=== PATIENT | female | born 1935 | race American Indian/Alaskan Native ===

== ENCOUNTER 2017-03-25 16:12 | Emergency (ER) | payer MEDICARE, MEDICAID ==
[2017-03-25 16:54] VITALS: PULSE 68; RESP 18
--- NOTE | 2017-03-25 18:31 | C.PDOC ---
History Of Present Illness Pt was sent in from [facility] due to vaginal bleeding. She has had same symptoms recently and was evaluated for it. Pt likely has endometrial CA, but pt does not want any aggressive treatment or surgery. Time Seen by Provider: 03/25/17 16:40 Chief Complaint (Nursing): Female Genitourinary History Per: Patient, Family Onset/Duration Of Symptoms: Hrs (today) Current Symptoms Are (Timing): Still Present Severity: Mild Quality Of Discomfort: denies: "Pain" Alleviating Factors: None Additional History Per: Snf, Prior Records Abnormal Vaginal Bleeding: Yes Past Medical History Reviewed: Historical Data, Nursing Documentation, Vital Signs Vital Signs: Last Vital Signs Temp 98.2 F 03/25/17 16:54 Pulse 68 03/25/17 16:54 Resp 18 03/25/17 16:54 BP 152/77 H 03/25/17 16:54 Pulse Ox 94 L 03/25/17 16:54 - Medical History PMH: Anemia, Arthritis, Atrial Fibrillation, CAD, CHF, HTN, Hyperlipidemia, Malignancy (Metastatic breast), Rheumatoid Arthritis Surgical History: Denies: Coronary Stent (cath ) - [employer] Procedures VACCINATION NEC (08/28/14) Family History: States: Unknown Family Hx - Social History Hx Tobacco Use: No Hx Alcohol Use: No Hx Substance Use: No - Immunization History Hx Tetanus Toxoid Vaccination: No Hx Influenza Vaccination: No (2012) Hx Pneumococcal Vaccination: No (09/19/2011) Review Of Systems Constitutional: Negative for: Fever Cardiovascular: Negative for: Chest Pain, Light Headedness Respiratory: Negative for: Shortness of Breath Gastrointestinal: Negative for: Abdominal Pain Genitourinary: Positive for: Vaginal Bleeding. Negative for: Dysuria, Pelvic Pain Musculoskeletal: Negative for: Back Pain Neurological: Negative for: Dizziness Physical Exam - Physical Exam Appears: No Acute Distress, Chronically Ill Skin: Normal Color, Warm, Dry Head: Atraumatic, Normacephalic Neck: Normal ROM, Supple Cardiovascular: Rhythm Regular Respiratory: Normal Breath Sounds, No Accessory Muscle Use Gastrointestinal/Abdominal: Soft, No Tenderness Pelvic: Vaginal Bleeding (mild) Extremity: Normal ROM Neurological/Psych: Normal Cognition, Normal Motor ED Course And Treatment O2 Sat by Pulse Oximetry: 94 - Physician Consult Information Physician Contacted: Narcisa Avendano (Executive Communications Manager) Outcome Of Conversation: Pt can be started on Provera in an attemt to lessen the bleeding. Disposition Discussed With DrCarlos: Brian Avendano Comment: Pt can be sent back to the senior living. Counseled Patient/Family Regarding: Diagnosis, Need For Followup, Rx Given - Disposition Disposition: TRANSF TO SNF Disposition Time: 18:00 Condition: FAIR Additional Instructions: Follow up with your Oracle Database Developer for further evaluation and treatment. Return to the ER if you develop dizziness, heavy bleeding, worsening of symptoms or if you have any other concerns. Prescriptions: MedroxyPROGESTERone [Provera] 1 tab PO DAILY #10 tab Forms: [employer] (Panamanian), General Discharge Instructions - Clinical Impression Clinical Impression: Postmenopausal bleeding
[2017-03-25 19:15] VITALS: BP 110/72; TEMP 98.6; O2SAT 98
== END 2017-03-25 19:17 ==
LOC: C.ER 16:12
DX: N95.0 Postmenopausal bleeding (principal)

== ENCOUNTER 2017-06-16 12:51 | Inpatient (IN) | payer MEDICARE, MEDICAID ==
--- NOTE | 2017-06-16 13:41 | C.PDOC ---
History Of Present Illness 81 yr old female with PMHx of anemia, arthritis and breast cancer, sent [facility] the ER from [facility] for AMS. As per daughter and grandson, patient has been displaying altered mental status for the past 2 days, with increasing confusion and lethargy. Grandson also reports, yesterday he noticed the patient was unable to hold the spoon or fork to feed herself. As per grandson, patient also has decrease PO and fluid intake. As per halfway staff, this morning they noticed the patient had a low O2 sat but is 100% on NRBM. Denies fever, cough, chest pain, nausea, vomiting, abdominal pain, headache or dizziness. 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 ) History/Exam Limitations: None Onset/Duration Of Symptoms: Days (2) Current Symptoms Are (Timing): Still Present Past Medical History Reviewed: Historical Data, Nursing Documentation, Vital Signs Vital Signs: Last Vital Signs Temp 97.8 F 06/16/17 13:12 Pulse 88 06/16/17 14:50 Resp 22 06/16/17 14:50 BP 123/91 H 06/16/17 14:50 Pulse Ox 100 06/16/17 14:45 - Medical History PMH: Anemia, Arthritis, Atrial Fibrillation, CAD, CHF, HTN, Hyperlipidemia, Malignancy (Metastatic breast), Rheumatoid Arthritis - [facility] Procedures VACCINATION NEC (08/28/14) Family History: States: No Known Family Hx - Social History Hx Tobacco Use: No Hx Alcohol Use: No Hx Substance Use: No - Immunization History Hx Tetanus Toxoid Vaccination: No Hx Influenza Vaccination: No Hx Pneumococcal Vaccination: No Review Of Systems Except As Marked, All Systems Reviewed And Found Negative. Constitutional: Negative for: Fever Cardiovascular: Negative for: Chest Pain Gastrointestinal: Negative for: Nausea, Vomiting, Abdominal Pain Neurological: Positive for: Altered Mental Status, Other ((+) Increase confusion. Lethargy. ). Negative for: Headache, Dizziness Physical Exam - Physical Exam Appears: Non-toxic, Agitated Skin: Warm, Dry, No Rash Head: Atraumatic, Normacephalic Oral Mucosa: Moist Chest: Other (Left mastectomy. Ulceration and scar on left.) Cardiovascular: Rhythm Regular, No Murmur Respiratory: Rales (Coarse rales on the left.), No Wheezing Gastrointestinal/Abdominal: Normal Exam, Soft, No Tenderness, No Guarding, No Rebound, Other ((+) Obese.) Extremity: Pedal Edema (Bilateral pedal edema with stasis pigmentation.), No Swelling Neurological/Psych: Oriented x3, Normal Speech, Normal Motor, Normal Sensation ED Course And Treatment - Laboratory Results Result Diagrams: 06/16/17 13:38 06/16/17 13:38 Lab Interpretation: Abnormal (K+ 7, BUN 77, Cr 1.7, BNP 47321, HCO3 19) ECG: Interpreted By Me, Viewed By Me ECG Rhythm: Atrial Fibrillation Interpretation Of ECG: PVC coming in couplets. Left axis. Old Inferior and anterior infarcts. Rate From EC (BPM) O2 Sat by Pulse Oximetry: 100 (RA) Pulse Ox Interpretation: Normal - Radiology CXR: Viewed By Me, Read By Radiologist CXR Interpretation: Yes: Cardiomegaly, Other (vascular congestion with left pleural effusion) - Other Rad CXR X-Ray: Viewed By Me, Read By Radiologist Interpretation: HISTORY: SOB. COMPARISON: Chest x-ray performed 08/11/16. TECHNIQUE: Chest, one view. FINDINGS: Examination limited by habitus as well as the patient's chin and facemask. LUNGS: Moderate left pleural effusion associated consolidation. Probable small right pleural effusion. Mild pulmonary venous congestion. No definite pneumothorax. CARDIOVASCULAR: Severe cardiomegaly. OSSEOUS STRUCTURES: Degenerative changes. VISUALIZED UPPER ABDOMEN: Unremarkable. OTHER FINDINGS: None. IMPRESSION: Moderate left pleural effusion associated consolidation. Probable small right pleural effusion. Mild pulmonary venous congestion. Severe cardiomegaly. Reevaluation Time: 15:00 Reassessment Condition: Unchanged - Physician Consult Information Time Consulting Physician Contacted: 15:00 Physician Contacted: Brian Avendano Outcome Of Conversation: Patient well known to him. Will be admitted to telemetry for correction of hyperkalemia. Consultation with Dr Ventura and Dr Booker. Medical Decision Making Medical Decision Making: PLAN: * CXR * EKG * Troponin * CBC * CMP * BNP * Urinalysis Disposition - Disposition Disposition: HOSPITALIZED Disposition Time: 15:02 Condition: SERIOUS - POA Present On Arrival: None - Clinical Impression Clinical Impression: CHF (congestive heart failure), A-fib, Hyperkalemia - Scribe Statement The provider has reviewed the documentation as recorded by the Scribe Ludmila Osborn Provider Attestation: All medical record entries made by the Scribe were at my direction and personally dictated by me. I have reviewed the chart and agree that the record accurately reflects my personal performance of the history, physical exam, medical decision making, and the department course for this patient. I have also personally directed, reviewed, and agree with the discharge instructions and disposition.
[2017-06-16 13:50] LABS: BASO # 0.2 K/uL (0.0-0.2); BASO % 2.1 % (0.0-2.0); EOS % 0.3 % (0.0-4.0); LYMPH # 0.5 K/uL (1.0-4.3); LYMPH % 4.6 % (20.0-40.0); MEAN CORPUSCULAR HEMOGLOBIN 26.5 pg (27.0-31.0); MEAN CORPUSCULAR HGB CONC 29.9 g/dL (33.0-37.0); MEAN PLATELET VOLUME 10.2 fL (7.2-11.7); MONO # 1.2 K/uL (0.0-0.8); MONO % 10.9 % (0.0-10.0); NRBC % 1.8 % (0.0-2.0); PLATELET COUNT 186 K/uL (130-400)
[2017-06-16 13:53] LABS: WHITE BLOOD COUNT 10.9 K/uL (4.8-10.8)
[2017-06-16 13:54] LABS: ALB/GLOB RATIO 1.1 (1.0-2.1); BILIRUBIN,TOTAL 1.1 mg/dL (0.2-1.3); MEAN CELL VOLUME 88.8 fL (81.0-99.0); TOTAL PROTEIN 8.1 g/dL (6.3-8.3)
[2017-06-16 13:55] LABS: CALCIUM 9.1 mg/dl (8.6-10.4)
[2017-06-16 14:02] LABS: VENOUS BLOOD GAS BASE EXCESS -12.7 mmol/L (0.0-2.0); VENOUS BLOOD GAS PCO2 75 mmHg (40-60); VENOUS BLOOD PH 7.02 (7.32-7.43)
[2017-06-16 14:06] LABS: TROPONIN I 0.098 ng/mL (0.00-0.120)
[2017-06-16 14:09] LABS: POTASSIUM 6.9 mmol/L (3.6-5.2)
--- NOTE | 2017-06-16 14:10 | RAD ---
HISTORY: SOB COMPARISON: Chest x-ray performed 08/11/16 TECHNIQUE: Chest, one view. FINDINGS: Examination limited by habitus as well as the patient's chin and facemask. LUNGS: Moderate left pleural effusion associated consolidation. Probable small right pleural effusion. Mild pulmonary venous congestion. No definite pneumothorax. CARDIOVASCULAR: Severe cardiomegaly. OSSEOUS STRUCTURES: Degenerative changes. VISUALIZED UPPER ABDOMEN: Unremarkable. OTHER FINDINGS: None. IMPRESSION: Moderate left pleural effusion associated consolidation. Probable small right pleural effusion. Mild pulmonary venous congestion. Severe cardiomegaly.
[2017-06-16] MEDS ORDERED: (Novolin R) Insulin Human Regular 100 units/ml vial IV STA (14:15)
[2017-06-16] MEDS ORDERED: Dextrose 50% SYRINGE Inj (50 ml) IV STA (14:15)
[2017-06-16] MEDS ORDERED: Calcium Chloride 1000 mg/10 ml Syringe IV ONE (14:16)
[2017-06-16 14:17] LABS: EOSINOPHIL 1 % (0-4); NEUTROPHIL 78 % (50-75); TOTAL CELLS COUNTED 100
[2017-06-16] MEDS ORDERED: Calcium Gluconate 4.65 mEq/10 ml Inj ONE ×2 (14:17→14:29)
[2017-06-16] MEDS ORDERED: (Novolog) Insulin Aspart, Recombinant 100 u/ml 10 ml vial ONE (14:17)
[2017-06-16] MEDS ORDERED: Dextrose 50% SYRINGE Inj (50 ml) ONE (14:17)
[2017-06-16] MEDS ORDERED: (Novolin R) Insulin Human Regular 100 units/ml vial ONE (14:23)
[2017-06-16] MEDS ORDERED: Calcium Gluconate 4.65 mEq/10 ml Inj IVP ONE (14:26)
[2017-06-16] MEDS ORDERED: Sod Polystyrene Sulf 15 gm/60 ml Susp PO ONE ×2 (14:28→18:44)
[2017-06-16] MEDS ORDERED: Sod Polystyrene Sulf 15 gm/60 ml Susp ONE ×2 (14:29→15:05)
[2017-06-16] MEDS ORDERED: cefTRIAXone IV 1 gm in Dextros 50 ML IVPB ONE ×2 (14:50→14:55)
[2017-06-16] MEDS ORDERED: Azithromycin 500 MG in Sodium Chloride 0.9% 250 ML IVPB ONE (15:00)
[2017-06-16 15:01] LABS: RBC URINE 2 /hpf (0-3); URINE BACTERIA MANY (<OCC); URINE BILIRUBIN NEGATIVE (NEGATIVE); URINE BLOOD NEGATIVE (NEGATIVE); URINE COLOR Amber (YELLOW); URINE GLUCOSE (UA) 1+ mg/dL (Normal); URINE HYALINE CAST 0-2 /lpf (0-2); URINE KETONE NEGATIVE (NEGATIVE); URINE LEUKOCYTE ESTERASE NEG Leu/uL (Negative); URINE PROTEIN 2+ mg/dL (NEGATIVE); WBC URINE 3 /hpf (0-5)
[2017-06-16] MEDS ORDERED: Magnesium Hydroxide Susp 30 ml UD PO PRN (15:54)
--- NOTE | 2017-06-16 15:54 | CP.PCM.HP ---
History of Present Illness - History of Present Illness History of Present Illness: An 81-year-old female with an PMHanemia, arthritis, atrial fibrillation, CAD, CHF, HTN, hyperlipidemia, malignancy [metastatic ductal breast carcinoma], rheumatoid arthritis, cardiomyopathy presents to the ER from senior living for C/ Oaltered mental status. History given by patient's daughter and grandson. C/Oaltered mental status for the last 2 days, slowly progressive in nature, with increasing confusion and lethargy. C/Odifficulty in holding spoon or inability to feed herself. C/Oreduced oral intake for 2 days. No C/Ofever, cough, headache, vomiting, convulsion, burning micturition, dizziness or nausea. Present on Admission - Present on Admission Any Indicators Present on Admission: No Past Patient History - Past Medical History & Family History Past Medical History?: Yes - Past Social History Smoking Status: Never Smoked - CARDIAC Hx Atrial Fibrillation: Yes Hx Congestive Heart Failure: Yes Hx Hypertension: Yes - HEENT Other/Comment: [email or web address] - RENAL Hx Renal Failure: Yes - HEMATOLOGICAL/ONCOLOGICAL Hx Anemia: Yes - MUSCULOSKELETAL/RHEUMATOLOGICAL Hx Arthritis: Yes Hx Rheumatoid Arthritis: Yes - GASTROINTESTINAL Hx Gastroesophageal Reflux: Yes - PSYCHIATRIC Hx Substance Use: No - SURGICAL HISTORY Hx Coronary Stent: No (cath ) - ANESTHESIA Hx Anesthesia: No Hx Anesthesia Reactions: No Meds Allergies/Adverse Reactions: Allergies Allergy/AdvReac Type Severity Reaction Status Date / Time No Known Allergies Allergy Verified 03/25/17 16:15 Results - Vital Signs Recent Vital Signs: Last Vital Signs Temp 97.8 F 06/16/17 13:12 Pulse 88 06/16/17 14:50 Resp 22 06/16/17 14:50 BP 123/91 H 06/16/17 14:50 Pulse Ox 100 06/16/17 15:03 - Labs Result Diagrams: 06/28/17 07:04 06/28/17 07:04 Labs: Laboratory Results - last 24 hr 06/16/17 06/16/17 06/16/17 12:56 13:38 13:38 WBC 10.9 H D RBC 4.96 Hgb 13.2 Hct 44.0 MCV 88.8 D MCH 26.5 L MCHC 29.9 L RDW 15.0 H Plt Count 186 MPV 10.2 Neut % (Auto) 82.1 H Lymph % (Auto) 4.6 L [place] % (Auto) 10.9 H Eos % (Auto) 0.3 Baso % (Auto) 2.1 H Neut # 9.0 H Lymph # 0.5 L [place] # 1.2 H Eos # 0.0 Baso # 0.2 Neutrophils % (Manual) 78 H Band Neutrophils % 2 Lymphocytes % (Manual) 9 L Monocytes % (Manual) 10 Eosinophils % (Manual) 1 Platelet Estimate Normal RBC Morphology Normal pO2 VBG pH VBG pCO2 VBG HCO3 VBG Total CO2 VBG O2 Sat (Calc) VBG Base Excess VBG Potassium Glucose Lactate Crit Value Called To Crit Value Called By Crit Value Read Back Blood Gas Notified Time Sodium 133 Potassium 6.9 H* D Chloride 104 Carbon Dioxide 19 L Anion Gap 17 BUN 77 H Creatinine 1.7 H Est GFR ( Amer) 35 Est GFR (Non-Af Amer) 29 POC Glucose (mg/dL) 170 H Random Glucose 133 H Calcium 9.1 Total Bilirubin 1.1 AST 99 H ALT 126 H D Alkaline Phosphatase 83 Troponin I 0.0980 NT-Pro-B Natriuret Pep 85461 H Total Protein 8.1 Albumin 4.2 Globulin 3.9 Albumin/Globulin Ratio 1.1 Venous Blood Potassium Urine Color Urine Clarity Urine pH Ur Specific [place] Urine Protein Urine Glucose (UA) Urine Ketones Urine Blood Urine Nitrate Urine Bilirubin Urine Urobilinogen Ur Leukocyte Esterase Urine WBC (Auto) Urine RBC (Auto) Ur Squamous Epith Cells Urine Bacteria Hyaline Casts 06/16/17 06/16/17 13:55 14:49 WBC RBC Hgb Hct MCV MCH MCHC RDW Plt Count MPV Neut % (Auto) Lymph % (Auto) [place] % (Auto) Eos % (Auto) Baso % (Auto) Neut # Lymph # [place] # Eos # Baso # Neutrophils % (Manual) Band Neutrophils % Lymphocytes % (Manual) Monocytes % (Manual) Eosinophils % (Manual) Platelet Estimate RBC Morphology pO2 35 VBG pH 7.02 L* VBG pCO2 75 H* VBG HCO3 13.4 VBG Total CO2 21.7 L VBG O2 Sat (Calc) 65.3 H VBG Base Excess -12.7 L VBG Potassium 7.1 H* Glucose 153 H Lactate 1.3 Crit Value Called To Dr nora donis Crit Value Called By Joey fernandes Crit Value Read Back Y Blood Gas Notified Time 1400 Sodium 133.0 Potassium Chloride 106.0 Carbon Dioxide Anion Gap BUN Creatinine Est GFR ( Amer) Est GFR (Non-Af Amer) POC Glucose (mg/dL) Random Glucose Calcium Total Bilirubin AST ALT Alkaline Phosphatase Troponin I NT-Pro-B Natriuret Pep Total Protein Albumin Globulin Albumin/Globulin Ratio Venous Blood Potassium 7.1 H* Urine Color Flory Urine Clarity Hazy Urine pH 5.0 Ur Specific [place] 1.016 Urine Protein 2+ H Urine Glucose (UA) 1+ Urine Ketones Negative Urine Blood Negative Urine Nitrate Negative Urine Bilirubin Negative Urine Urobilinogen 2.0 H Ur Leukocyte Esterase Neg Urine WBC (Auto) 3 Urine RBC (Auto) 2 Ur Squamous Epith Cells 2 Urine Bacteria Many H Hyaline Casts 0-2
[2017-06-16 16:11] LABS: BILIRUBIN,TOTAL 1.3 mg/dL (0.2-1.3)
[2017-06-16 16:12] LABS: ALB/GLOB RATIO 1.5 (1.0-2.1); CALCIUM 9.2 mg/dl (8.6-10.4)
[2017-06-16 16:15] LABS: POTASSIUM 6.3 mmol/L (3.6-5.2)
[2017-06-16] MEDS: Brimonidine 0.2% Opth Sol (5ml) OU SCH ×2 (19:05→22:30)
[2017-06-16] MEDS: Sodium Chloride 0.45% 1,000 ML IV SCH (19:21)
--- NOTE | 2017-06-16 19:54 | CP.PCM.CON ---
History of Present Illness - History of Present Illness History of Present Illness: reason for consultation: pleural effusion 81-year-old female with history off metastatic breast cancer, atrial fibrillation, anemia [facility] and change in mental status. Chest x-ray done showed moderate left pleural effusion. Patient hypoxic and on 100% nonrebreather mask. Patient also being treated for hyperkalemia. according to family patient with poor oral intake Review of Systems - Review of Systems All systems: reviewed and no additional remarkable complaints except (shortness of breathand change in mental status) Past Patient History - Past Medical History & Family History Past Medical History?: Yes - Past Social History Smoking Status: Never Smoked - CARDIAC Hx Atrial Fibrillation: Yes Hx Congestive Heart Failure: Yes Hx Hypertension: Yes - HEENT Other/Comment: [email or web address] - RENAL Hx Renal Failure: Yes - HEMATOLOGICAL/ONCOLOGICAL Hx Anemia: Yes - MUSCULOSKELETAL/RHEUMATOLOGICAL Hx Arthritis: Yes Hx Rheumatoid Arthritis: Yes - GASTROINTESTINAL Hx Gastroesophageal Reflux: Yes - PSYCHIATRIC Hx Substance Use: No - SURGICAL HISTORY Hx Coronary Stent: No (cath ) - ANESTHESIA Hx Anesthesia: No Hx Anesthesia Reactions: No Meds Allergies/Adverse Reactions: Allergies Allergy/AdvReac Type Severity Reaction Status Date / Time No Known Allergies Allergy Verified 03/25/17 16:15 - Medications Medications: Current Medications Albuterol/Ipratropium (Duoneb 3 Mg/0.5 Mg (3 Ml) Ud) 3 ml INH RQ6 [facility] Ascorbic Acid (Vitamin C 500 Mg Tab) 500 mg PO DAILY [facility] Brimonidine Tartrate (Alphagan 0.2% Opht) 0.2 ml OU QID [facility] Last Admin: 06/16/17 19:05 Dose: 1 drop Docusate Sodium (Colace) 100 mg PO DAILY [facility] Enoxaparin Sodium (Lovenox) 30 mg SC DAILY [facility] Famotidine (Pepcid) 20 mg PO BID [facility] Home Med ([place] Tribromoph/Petrolatum [Xeroflo Gauze Dressing]) 1 each TP DAILY [facility] Sodium Chloride (Sodium Chloride 0.45%) 1,000 mls @ 40 mls/hr IV .Q24H [facility] Last Admin: 06/16/17 19:21 Dose: 40 mls/hr Magnesium Hydroxide (Milk Of Magnesia) 30 ml PO Q6H PRN PRN Reason: Constipation Rosuvastatin Calcium (Crestor) 5 mg PO HS [facility] Tetracaine HCl (Tetracaine 0.5% Ophth Soln) 1 drop OD DAILY [facility] Timolol Maleate (Timoptic 0.5% Ophth Soln) 1 drop OU QID [facility] Last Admin: 06/16/17 19:04 Dose: 1 drop Physical Exam - Head Exam Head Exam: ATRAUMATIC, NORMOCEPHALIC - ENT Exam ENT Exam: Mucous Membranes Moist - Neck Exam Neck exam: Positive for: Normal Inspection - Respiratory Exam Respiratory Exam: Decreased Breath Sounds - Cardiovascular Exam Cardiovascular Exam: Irregular Rhythm - GI/Abdominal Exam GI & Abdominal Exam: Normal Bowel Sounds, Soft - Extremities Exam Extremities exam: Positive for: pedal edema - Neurological Exam Neurological exam: Altered Results - Vital Signs Recent Vital Signs: Last Vital Signs Temp 97.7 F 06/16/17 16:40 Pulse 72 06/16/17 16:40 Resp 20 06/16/17 16:40 BP 129/84 06/16/17 16:40 Pulse Ox 99 06/16/17 16:40 - Labs Result Diagrams: 06/16/17 13:38 06/16/17 15:57 Labs: Laboratory Results - last 24 hr 06/16/17 06/16/17 06/16/17 12:56 13:38 13:38 WBC 10.9 H D RBC 4.96 Hgb 13.2 Hct 44.0 MCV 88.8 D MCH 26.5 L MCHC 29.9 L RDW 15.0 H Plt Count 186 MPV 10.2 Neut % (Auto) 82.1 H Lymph % (Auto) 4.6 L [place] % (Auto) 10.9 H Eos % (Auto) 0.3 Baso % (Auto) 2.1 H Neut # 9.0 H Lymph # 0.5 L [place] # 1.2 H Eos # 0.0 Baso # 0.2 Neutrophils % (Manual) 78 H Band Neutrophils % 2 Lymphocytes % (Manual) 9 L Monocytes % (Manual) 10 Eosinophils % (Manual) 1 Platelet Estimate Normal RBC Morphology Normal pO2 VBG pH VBG pCO2 VBG HCO3 VBG Total CO2 VBG O2 Sat (Calc) VBG Base Excess VBG Potassium Glucose Lactate Crit Value Called To Crit Value Called By Crit Value Read Back Blood Gas Notified Time Sodium 133 Potassium 6.9 H* D Chloride 104 Carbon Dioxide 19 L Anion Gap 17 BUN 77 H Creatinine 1.7 H Est GFR ( Amer) 35 Est GFR (Non-Af Amer) 29 POC Glucose (mg/dL) 170 H Random Glucose 133 H Calcium 9.1 Total Bilirubin 1.1 AST 99 H ALT 126 H D Alkaline Phosphatase 83 Troponin I 0.0980 NT-Pro-B Natriuret Pep 61362 H Total Protein 8.1 Albumin 4.2 Globulin 3.9 Albumin/Globulin Ratio 1.1 Venous Blood Potassium Urine Color Urine Clarity Urine pH Ur Specific [place] Urine Protein Urine Glucose (UA) Urine Ketones Urine Blood Urine Nitrate Urine Bilirubin Urine Urobilinogen Ur Leukocyte Esterase Urine WBC (Auto) Urine RBC (Auto) Ur Squamous Epith Cells Urine Bacteria Hyaline Casts 06/16/17 06/16/17 06/16/17 13:55 14:49 15:57 WBC RBC Hgb Hct MCV MCH MCHC RDW Plt Count MPV Neut % (Auto) Lymph % (Auto) [place] % (Auto) Eos % (Auto) Baso % (Auto) Neut # Lymph # [place] # Eos # Baso # Neutrophils % (Manual) Band Neutrophils % Lymphocytes % (Manual) Monocytes % (Manual) Eosinophils % (Manual) Platelet Estimate RBC Morphology pO2 35 VBG pH 7.02 L* VBG pCO2 75 H* VBG HCO3 13.4 VBG Total CO2 21.7 L VBG O2 Sat (Calc) 65.3 H VBG Base Excess -12.7 L VBG Potassium 7.1 H* Glucose 153 H Lactate 1.3 Crit Value Called To Dr nora donis Crit Value Called By Joey fernandes Crit Value Read Back Y Blood Gas Notified Time 1400 Sodium 133.0 136 Potassium 6.3 H* Chloride 106.0 105 Carbon Dioxide 18 L Anion Gap 19 BUN 78 H Creatinine 1.8 H Est GFR ( Amer) 33 Est GFR (Non-Af Amer) 27 POC Glucose (mg/dL) Random Glucose 137 H Calcium 9.2 Total Bilirubin 1.3 AST 100 H ALT 114 H Alkaline Phosphatase 69 Troponin I NT-Pro-B Natriuret Pep Total Protein 7.0 Albumin 4.2 Globulin 2.8 Albumin/Globulin Ratio 1.5 Venous Blood Potassium 7.1 H* Urine Color [place] Urine Clarity Hazy Urine pH 5.0 Ur Specific [place] 1.016 Urine Protein 2+ H Urine Glucose (UA) 1+ Urine Ketones Negative Urine Blood Negative Urine Nitrate Negative Urine Bilirubin Negative Urine Urobilinogen 2.0 H Ur Leukocyte Esterase Neg Urine WBC (Auto) 3 Urine RBC (Auto) 2 Ur Squamous Epith Cells 2 Urine Bacteria Many H Hyaline Casts 0-2 Assessment & Plan (1) Pleural effusion Status: Acute Comment: rule out secondary to malignancy. CAT scan of the chest without contrast. Possible thoracentesis if family agrees. Continue present treatment (2) Neoplasm of breast, distant metastasis staging category cM0(i+) per [place] [employer] on Cancer Staging [employer], 7th edition Status: Chronic Priority: Medium
[2017-06-16] MEDS: Albuterol-Ipratrop 3 mg / 0.5 (3 ml) UD INH SCH (20:19)
--- NOTE | 2017-06-16 22:24 | CP.PCM.CON ---
History of Present Illness - History of Present Illness History of Present Illness: Ms. Dolan is an 81 year old female with a history of cardiomyopathy, ulcerating left breast mass which was biopsy proven as ductal breast carcinoma diagnosed 05/2013, admitted with altered mental status. The patient is known to me from a prior admission in 2012. At the time, she and her family agreed to only hormonal therapy. They did not wish chemotherapy. She was taking Tamoxifen at the time with improvement in her breast ulceration. I am unaware of her ER/MI/HER2 status or staging work up. Past medical, surgical, family, social history cannot be obtained due to her AMS. Allergies: Per documentation [facility] Review of systems cannot be obtained. Past Patient History - Past Medical History & Family History Past Medical History?: Yes - Past Social History Smoking Status: Never Smoked - CARDIAC Hx Atrial Fibrillation: Yes Hx Congestive Heart Failure: Yes Hx Hypertension: Yes - PULMONARY Hx Respiratory Disorders: No - NEUROLOGICAL Hx Neurological Disorder: No - HEENT Other/Comment: [email or web address] - RENAL Hx Renal Failure: Yes - ENDOCRINE/METABOLIC Hx Endocrine Disorders: No - HEMATOLOGICAL/ONCOLOGICAL Hx Anemia: Yes - INTEGUMENTARY Hx Dermatological Problems: Yes Other/Comment: left breast wounds X2 - MUSCULOSKELETAL/RHEUMATOLOGICAL Hx Arthritis: Yes Hx Rheumatoid Arthritis: Yes - GASTROINTESTINAL Hx Gastroesophageal Reflux: Yes - GENITOURINARY/GYNECOLOGICAL Hx Genitourinary Disorders: No - PSYCHIATRIC Hx Substance Use: No - SURGICAL HISTORY Hx Coronary Stent: No (cath ) - ANESTHESIA Hx Anesthesia: No Hx Anesthesia Reactions: No Meds Allergies/Adverse Reactions: Allergies Allergy/AdvReac Type Severity Reaction Status Date / Time No Known Allergies Allergy Verified 03/25/17 16:15 - Medications Medications: Current Medications Albuterol/Ipratropium (Duoneb 3 Mg/0.5 Mg (3 Ml) Ud) 3 ml INH RQ6 [facility] Last Admin: 06/16/17 20:19 Dose: 3 ml Ascorbic Acid (Vitamin C 500 Mg Tab) 500 mg PO DAILY [facility] Brimonidine Tartrate (Alphagan 0.2% Opht) 0.2 ml OU QID [facility] Last Admin: 06/16/17 19:05 Dose: 1 drop Docusate Sodium (Colace) 100 mg PO DAILY [facility] Enoxaparin Sodium (Lovenox) 30 mg SC DAILY [facility] Famotidine (Pepcid) 20 mg PO BID [facility] Home Med (Bismuth Tribromoph/Petrolatum [Xeroflo Gauze Dressing]) 1 each TP DAILY [facility] Sodium Chloride (Sodium Chloride 0.45%) 1,000 mls @ 40 mls/hr IV .Q24H [facility] Last Admin: 06/16/17 19:21 Dose: 40 mls/hr Magnesium Hydroxide (Milk Of Magnesia) 30 ml PO Q6H PRN PRN Reason: Constipation Rosuvastatin Calcium (Crestor) 5 mg PO HS [facility] Tetracaine HCl (Tetracaine 0.5% Ophth Soln) 1 drop OD DAILY [facility] Timolol Maleate (Timoptic 0.5% Ophth Soln) 1 drop OU QID [facility] Last Admin: 06/16/17 19:04 Dose: 1 drop Physical Exam - Head Exam Head Exam: ATRAUMATIC - Eye Exam Eye Exam: Normal appearance - ENT Exam ENT Exam: Mucous Membranes Dry - Respiratory Exam Respiratory Exam: Decreased Breath Sounds - Cardiovascular Exam Cardiovascular Exam: +S1, +S2 - GI/Abdominal Exam GI & Abdominal Exam: Normal Bowel Sounds - Neurological Exam Neurological exam: Altered - Psychiatric Exam Psychiatric exam: Flat Affect - Skin Skin Exam: Warm Results - Vital Signs Recent Vital Signs: Last Vital Signs Temp 97.7 F 06/16/17 16:40 Pulse 68 06/16/17 20:21 Resp 20 06/16/17 16:40 BP 129/84 06/16/17 16:40 Pulse Ox 99 06/16/17 17:42 - Labs Result Diagrams: 06/16/17 13:38 06/16/17 15:57 Labs: Laboratory Results - last 24 hr 06/16/17 06/16/17 06/16/17 12:56 13:38 13:38 WBC 10.9 H D RBC 4.96 Hgb 13.2 Hct 44.0 MCV 88.8 D MCH 26.5 L MCHC 29.9 L RDW 15.0 H Plt Count 186 MPV 10.2 Neut % (Auto) 82.1 H Lymph % (Auto) 4.6 L [place] % (Auto) 10.9 H Eos % (Auto) 0.3 Baso % (Auto) 2.1 H Neut # 9.0 H Lymph # 0.5 L [place] # 1.2 H Eos # 0.0 Baso # 0.2 Neutrophils % (Manual) 78 H Band Neutrophils % 2 Lymphocytes % (Manual) 9 L Monocytes % (Manual) 10 Eosinophils % (Manual) 1 Platelet Estimate Normal RBC Morphology Normal pO2 VBG pH VBG pCO2 VBG HCO3 VBG Total CO2 VBG O2 Sat (Calc) VBG Base Excess VBG Potassium Glucose Lactate Crit Value Called To Crit Value Called By Crit Value Read Back Blood Gas Notified Time Sodium 133 Potassium 6.9 H* D Chloride 104 Carbon Dioxide 19 L Anion Gap 17 BUN 77 H Creatinine 1.7 H Est GFR ( Amer) 35 Est GFR (Non-Af Amer) 29 POC Glucose (mg/dL) 170 H Random Glucose 133 H Calcium 9.1 Total Bilirubin 1.1 AST 99 H ALT 126 H D Alkaline Phosphatase 83 Troponin I 0.0980 NT-Pro-B Natriuret Pep 40841 H Total Protein 8.1 Albumin 4.2 Globulin 3.9 Albumin/Globulin Ratio 1.1 Venous Blood Potassium Urine Color Urine Clarity Urine pH Ur Specific [place] Urine Protein Urine Glucose (UA) Urine Ketones Urine Blood Urine Nitrate Urine Bilirubin Urine Urobilinogen Ur Leukocyte Esterase Urine WBC (Auto) Urine RBC (Auto) Ur Squamous Epith Cells Urine Bacteria Hyaline Casts 06/16/17 06/16/17 06/16/17 13:55 14:49 15:57 WBC RBC Hgb Hct MCV MCH MCHC RDW Plt Count MPV Neut % (Auto) Lymph % (Auto) [place] % (Auto) Eos % (Auto) Baso % (Auto) Neut # Lymph # [place] # Eos # Baso # Neutrophils % (Manual) Band Neutrophils % Lymphocytes % (Manual) Monocytes % (Manual) Eosinophils % (Manual) Platelet Estimate RBC Morphology pO2 35 VBG pH 7.02 L* VBG pCO2 75 H* VBG HCO3 13.4 VBG Total CO2 21.7 L VBG O2 Sat (Calc) 65.3 H VBG Base Excess -12.7 L VBG Potassium 7.1 H* Glucose 153 H Lactate 1.3 Crit Value Called To Dr nora donis Crit Value Called By Joey fernandes Crit Value Read Back Y Blood Gas Notified Time 1400 Sodium 133.0 136 Potassium 6.3 H* Chloride 106.0 105 Carbon Dioxide 18 L Anion Gap 19 BUN 78 H Creatinine 1.8 H Est GFR ( Amer) 33 Est GFR (Non-Af Amer) 27 POC Glucose (mg/dL) Random Glucose 137 H Calcium 9.2 Total Bilirubin 1.3 AST 100 H ALT 114 H Alkaline Phosphatase 69 Troponin I NT-Pro-B Natriuret Pep Total Protein 7.0 Albumin 4.2 Globulin 2.8 Albumin/Globulin Ratio 1.5 Venous Blood Potassium 7.1 H* Urine Color Flory Urine Clarity Hazy Urine pH 5.0 Ur Specific [place] 1.016 Urine Protein 2+ H Urine Glucose (UA) 1+ Urine Ketones Negative Urine Blood Negative Urine Nitrate Negative Urine Bilirubin Negative Urine Urobilinogen 2.0 H Ur Leukocyte Esterase Neg Urine WBC (Auto) 3 Urine RBC (Auto) 2 Ur Squamous Epith Cells 2 Urine Bacteria Many H Hyaline Casts 0-2 Assessment & Plan (1) Altered mental status Assessment and Plan: given history of breast cancer, will need to rule out brain metastasis will send for non contrast scan for now given renal failure Status: Acute (2) Pleural effusion Assessment and Plan: rule out malignant ascites pulmonary following Status: Acute (3) Breast cancer Assessment and Plan: supportive care for now was on hormonal treatment in the past Thank you for this interesting consult. Status: Acute
--- NOTE | 2017-06-16 23:22 | CP.PCM.CON ---
History of Present Illness - History of Present Illness History of Present Illness: 81 F with hx of CHF, Dementia admitted for Hyperkalemia and acute renal failure Received Kayexalate Physical Examination - Constitutional Appears: Non-toxic, Chronically Ill - Head Exam Head Exam: NORMOCEPHALIC - Eye Exam Eye Exam: PERRL - ENT Exam ENT Exam: Mucous Membranes Dry, Normal External Ear Exam - Neck Exam Neck Exam: absent: Lymphadenopathy - Respiratory Exam Respiratory Exam: Decreased Breath Sounds - Cardiovascular Exam Cardiovascular Exam: REGULAR RHYTHM - GI/Abdominal Exam GI & Abdominal Exam: Distended, Soft - Rectal Exam Rectal Exam: Deferred - Exam Exam: NORMAL INSPECTION - Extremities Exam Extremities Exam: absent: Pedal Edema - Back Exam Back Exam: absent: CVA tenderness (L), CVA tenderness (R) - Neurological Exam Neurological Exam: Alert, Altered, Awake - Psychiatric Exam Psychiatric exam: Depressed - Skin Skin Exam: Dry Past Patient History - Past Medical History & Family History Past Medical History?: Yes - Past Social History Smoking Status: Never Smoked - CARDIAC Hx Atrial Fibrillation: Yes Hx Congestive Heart Failure: Yes Hx Hypertension: Yes - PULMONARY Hx Respiratory Disorders: No - NEUROLOGICAL Hx Neurological Disorder: No - HEENT Other/Comment: [email or web address] - RENAL Hx Renal Failure: Yes - ENDOCRINE/METABOLIC Hx Endocrine Disorders: No - HEMATOLOGICAL/ONCOLOGICAL Hx Anemia: Yes - INTEGUMENTARY Hx Dermatological Problems: Yes Other/Comment: left breast wounds X2 - MUSCULOSKELETAL/RHEUMATOLOGICAL Hx Arthritis: Yes Hx Rheumatoid Arthritis: Yes - GASTROINTESTINAL Hx Gastroesophageal Reflux: Yes - GENITOURINARY/GYNECOLOGICAL Hx Genitourinary Disorders: No - PSYCHIATRIC Hx Substance Use: No - SURGICAL HISTORY Hx Coronary Stent: No (cath ) - ANESTHESIA Hx Anesthesia: No Hx Anesthesia Reactions: No Meds Allergies/Adverse Reactions: Allergies Allergy/AdvReac Type Severity Reaction Status Date / Time No Known Allergies Allergy Verified 03/25/17 16:15 - Medications Medications: Current Medications Albuterol/Ipratropium (Duoneb 3 Mg/0.5 Mg (3 Ml) Ud) 3 ml INH RQ6 [facility] Last Admin: 06/16/17 20:19 Dose: 3 ml Ascorbic Acid (Vitamin C 500 Mg Tab) 500 mg PO DAILY [facility] Brimonidine Tartrate (Alphagan 0.2% Opht) 0.2 ml OU QID [facility] Last Admin: 06/16/17 22:30 Dose: 1 drop Docusate Sodium (Colace) 100 mg PO DAILY [facility] Enoxaparin Sodium (Lovenox) 30 mg SC DAILY [facility] Famotidine (Pepcid) 20 mg PO BID [facility] Home Med (Bismuth Tribromoph/Petrolatum [Xeroflo Gauze Dressing]) 1 each TP DAILY [facility] Sodium Chloride (Sodium Chloride 0.45%) 1,000 mls @ 40 mls/hr IV .Q24H [facility] Last Admin: 06/16/17 19:21 Dose: 40 mls/hr Magnesium Hydroxide (Milk Of Magnesia) 30 ml PO Q6H PRN PRN Reason: Constipation Rosuvastatin Calcium (Crestor) 5 mg PO HS [facility] Last Admin: 06/16/17 22:29 Dose: 5 mg Tetracaine HCl (Tetracaine 0.5% Ophth Soln) 1 drop OD DAILY [facility] Timolol Maleate (Timoptic 0.5% Ophth Soln) 1 drop OU QID [facility] Last Admin: 06/16/17 22:29 Dose: 1 drop Results - Vital Signs Recent Vital Signs: Last Vital Signs Temp 97.7 F 06/16/17 16:40 Pulse 68 06/16/17 20:21 Resp 20 06/16/17 16:40 BP 129/84 06/16/17 16:40 Pulse Ox 99 06/16/17 17:42 - Labs Result Diagrams: 06/24/17 06:35 06/24/17 06:35 Labs: Laboratory Results - last 24 hr 06/16/17 06/16/17 06/16/17 12:56 13:38 13:38 WBC 10.9 H D RBC 4.96 Hgb 13.2 Hct 44.0 MCV 88.8 D MCH 26.5 L MCHC 29.9 L RDW 15.0 H Plt Count 186 MPV 10.2 Neut % (Auto) 82.1 H Lymph % (Auto) 4.6 L [place] % (Auto) 10.9 H Eos % (Auto) 0.3 Baso % (Auto) 2.1 H Neut # 9.0 H Lymph # 0.5 L [place] # 1.2 H Eos # 0.0 Baso # 0.2 Neutrophils % (Manual) 78 H Band Neutrophils % 2 Lymphocytes % (Manual) 9 L Monocytes % (Manual) 10 Eosinophils % (Manual) 1 Platelet Estimate Normal RBC Morphology Normal pO2 VBG pH VBG pCO2 VBG HCO3 VBG Total CO2 VBG O2 Sat (Calc) VBG Base Excess VBG Potassium Glucose Lactate Crit Value Called To Crit Value Called By Crit Value Read Back Blood Gas Notified Time Sodium 133 Potassium 6.9 H* D Chloride 104 Carbon Dioxide 19 L Anion Gap 17 BUN 77 H Creatinine 1.7 H Est GFR ( Amer) 35 Est GFR (Non-Af Amer) 29 POC Glucose (mg/dL) 170 H Random Glucose 133 H Calcium 9.1 Total Bilirubin 1.1 AST 99 H ALT 126 H D Alkaline Phosphatase 83 Troponin I 0.0980 NT-Pro-B Natriuret Pep 19294 H Total Protein 8.1 Albumin 4.2 Globulin 3.9 Albumin/Globulin Ratio 1.1 Venous Blood Potassium Urine Color Urine Clarity Urine pH Ur Specific [place] Urine Protein Urine Glucose (UA) Urine Ketones Urine Blood Urine Nitrate Urine Bilirubin Urine Urobilinogen Ur Leukocyte Esterase Urine WBC (Auto) Urine RBC (Auto) Ur Squamous Epith Cells Urine Bacteria Hyaline Casts 06/16/17 06/16/17 06/16/17 13:55 14:49 15:57 WBC RBC Hgb Hct MCV MCH MCHC RDW Plt Count MPV Neut % (Auto) Lymph % (Auto) [place] % (Auto) Eos % (Auto) Baso % (Auto) Neut # Lymph # [place] # Eos # Baso # Neutrophils % (Manual) Band Neutrophils % Lymphocytes % (Manual) Monocytes % (Manual) Eosinophils % (Manual) Platelet Estimate RBC Morphology pO2 35 VBG pH 7.02 L* VBG pCO2 75 H* VBG HCO3 13.4 VBG Total CO2 21.7 L VBG O2 Sat (Calc) 65.3 H VBG Base Excess -12.7 L VBG Potassium 7.1 H* Glucose 153 H Lactate 1.3 Crit Value Called To Dr nora donis Crit Value Called By Joey fernandes Crit Value Read Back Y Blood Gas Notified Time 1400 Sodium 133.0 136 Potassium 6.3 H* Chloride 106.0 105 Carbon Dioxide 18 L Anion Gap 19 BUN 78 H Creatinine 1.8 H Est GFR ( Amer) 33 Est GFR (Non-Af Amer) 27 POC Glucose (mg/dL) Random Glucose 137 H Calcium 9.2 Total Bilirubin 1.3 AST 100 H ALT 114 H Alkaline Phosphatase 69 Troponin I NT-Pro-B Natriuret Pep Total Protein 7.0 Albumin 4.2 Globulin 2.8 Albumin/Globulin Ratio 1.5 Venous Blood Potassium 7.1 H* Urine Color Flory Urine Clarity Hazy Urine pH 5.0 Ur Specific [place] 1.016 Urine Protein 2+ H Urine Glucose (UA) 1+ Urine Ketones Negative Urine Blood Negative Urine Nitrate Negative Urine Bilirubin Negative Urine Urobilinogen 2.0 H Ur Leukocyte Esterase Neg Urine WBC (Auto) 3 Urine RBC (Auto) 2 Ur Squamous Epith Cells 2 Urine Bacteria Many H Hyaline Casts 0-2 Assessment & Plan - Assessment and Plan (Free Text) Assessment: (1) CAD and Diastolic CHF Chronic Assessment and Plan: Conserative mgt with ASA and Lasix (2) Altered mental status Assessment and Plan: given history of breast cancer, will need to rule out brain metastasis will send for non contrast scan for now given renal failure Status: Acute (3) Pleural effusion Assessment and Plan: rule out malignant ascites pulmonary following Status: Acute (4) Breast cancer Assessment and Plan: supportive care for now was on hormonal treatment in the past
[2017-06-17] MEDS: Albuterol-Ipratrop 3 mg / 0.5 (3 ml) UD INH SCH ×4 (01:03→20:40)
[2017-06-17] MEDS ORDERED: ASCORBIC ACID PO SCH (10:00)
[2017-06-17] MEDS ORDERED: [UNRECOGNIZED DRUG - OTHER] PO SCH (10:00)
[2017-06-17] MEDS: Enoxaparin 30 mg Syringe SC SCH (10:50)
[2017-06-17] MEDS: Tetracaine 0.5% Ophth 2 ML BOTTLE OD SCH (10:51)
[2017-06-17] MEDS: Brimonidine 0.2% Opth Sol (5ml) OU SCH ×4 (10:51→21:38)
--- NOTE | 2017-06-17 12:35 | CT ---
PROCEDURE: CT HEAD WITHOUT CONTRAST. HISTORY: breast cancer, AMS; rule out metastasis COMPARISON: None available. TECHNIQUE: Axial computed tomography images were obtained through the head/brain without intravenous contrast. Radiation dose: Total exam DLP = 937.48 mGy-cm. This CT exam was performed using one or more of the following dose reduction techniques: Automated exposure control, adjustment of the mA and/or kV according to patient size, and/or use of iterative reconstruction technique. FINDINGS: Examination is severely degraded by motion artifact. HEMORRHAGE: No intracranial hemorrhage. BRAIN: Diffuse atrophy with prominence of the ventricles and sulci noted. No mass effect or edema. Scattered white matter hypodensities, which are nonspecific, but often seen with chronic microvascular ischemic disease. Suspect left frontal lobe encephalomalacia. VENTRICLES: No hydrocephalus. CALVARIUM: Unremarkable. PARANASAL SINUSES: Grossly unremarkable. MASTOID AIR CELLS: Grossly unremarkable. OTHER FINDINGS: None. IMPRESSION: Examination is severely degraded by motion artifact. Recommend repeat study when clinically feasible. Suspect encephalomalacia within the left frontal lobe. Nonspecific white matter changes. Generalized atrophy. Please note the metastases cannot be excluded on the basis of a noncontrast head CT. MRI without and with IV contrast when or if clinically feasible suggested for further evaluation.
--- NOTE | 2017-06-17 12:50 | CP.PCM.CON ---
History of Present Illness - History of Present Illness History of Present Illness: 81 yr old female with PMHx of anemia, arthritis and breast cancer, sent [facility] the ER from [facility] for [facility]MS. As per daughter patient has been displaying altered mental status for the past 2 days, with increasing confusion and lethargy and yesterday was noticed that the patient was unable to hold the spoon or fork to feed herself and therefore has decrease PO and fluid intake. On admission patient was noted malgorzata be SOB with hypoxemia requiring NRBM. A CXR shwed Large left effusion/ infiltrates ID consulted for this Pt cant provide adequate details of her illness - Medical History PMH: Anemia, Arthritis, Atrial Fibrillation, CAD, Cardiomyopathy CHF, HTN, Hyperlipidemia, Malignancy (Metastatic breast), Rheumatoid Arthritis - [facility] Procedures VACCINATION NEC (08/28/14) Review of Systems - Review of Systems Systems not reviewed;Unavailable: Altered Mental Status All systems: reviewed and no additional remarkable complaints except - Constitutional Constitutional: As Per HPI - EENT Eyes: absent: As Per HPI, Blind Spots, Blurred Vision, Change in Vision, Decreased Night Vision, Diplopia, Discharge, Dry Eye, Exophthalmos, Floaters, Irritation, Itchy Eyes, Loss of Peripheral Vision, Pain, Photophobia, Requires Corrective Lenses, Sees Flashes, Spots in Vision, Tunnel Vision, Other Visual Disturbances, Loss of Vision, Other Ears: absent: As Per HPI, Decreased Hearing, Ear Discharge, Ear Pain, Tinnitus, Abnormal Hearing, Disequilibrium, Dizziness, Other Nose/Mouth/Throat: absent: As Per HPI, Epistaxis, Nasal Congestion, Nasal Discharge, Nasal Obstruction, Nasal Trauma, Nose Pain, Post Nasal Drip, Sinus Pain, Sinus Pressure, Bleeding Gums, Change in Voice, Dental Pain, Dry Mouth, Dysphagia, Halitosis, Hoarsness, Lip Swelling, Mouth Lesions, Mouth Pain, Odynophagia, Sore Throat, Throat Swelling, Tongue Swelling, Facial Pain, Neck Pain, Neck Mass, Other - Breasts Breasts: As Per HPI - Cardiovascular Cardiovascular: As Per HPI - Respiratory Respiratory: As Per HPI, Cough, Dyspnea. absent: Hemoptysis - Gastrointestinal Gastrointestinal: absent: As Per HPI, Abdominal Pain, Belching, Bloating, Change in Bowel Habits, Change in Stool Character, Coffee Ground Emesis, Constipation, Cramping, Diarrhea, Dyspepsia, Dysphagia, Early Satiety, Excessive Flatus, Fecal Incontinence, Heartburn, Hematemesis, Hematochezia, Loose Stools, Melena, Nausea, Odynophagia, Temesmus, Vomiting, Other - Genitourinary Genitourinary: absent: As Per HPI, Change in Urinary Stream, Difficulty Urinating, Dysuria, Flank Pain, Hematuria, Pyuria, Nocturia, Urinary Incontinence, Urinary Frequency, Urinary Hesitance, Urinary Urgency, Voiding Freq/Small Amts, Freq UTI, Hx Renal/Bladder Calculi, Hx /Renal Surgery, Bladder Distension, Other - Reproductive: Female Reproductive:Female: absent: As Per HPI, Amenorrhea, Amenorrhea/ Control, Currently Menstual, Cycle <21 Days, Cycle >35 Days, Cycle Variable, Menses 1-7 Days, Menses >/= 8 Days, Menses Variable, Cycle > 4 Weeks Between, No Menses for 6 Months, Heavy Menses, Light Menses, Normal Menses, Spotting Between Cycles , S/P Hysterectomy, Menopausal, Post Menopausal, Premenarche, Abnormal Vaginal Bleeding, Dysmenorrhea, Dyspareunia, Genital Lesions, Genital Pruritis, Pelvic Pain, Prolapse Symptoms, Sexual Dysfunction, Vaginal Discharge, Vaginal Dryness , Vaginal Odor, Vaginal Pruritis, Other - Menstruation Menstruation: absent: As Per HPI, Amenorrhea, Amenorrhea/ Control, Currently Menstual, Cycle <21 Days, Cycle >35 Days, Cycle Variable, Menses 1-7 Days, Menses >/= 8 Days, Menses Variable, Cycle > 4 Weeks Between, No Menses for 6 Months, Heavy Menses, Light Menses, Normal Menses, Spotting Between Cycles , S/P Hysterectomy, Menopausal, Post Menopausal, Premenarche, Abnormal Vaginal Bleeding, Dysmenorrhea, Other - Musculoskeletal Musculoskeletal: As Per HPI - Integumentary Integumentary: As Per HPI - Neurological Neurological: As Per HPI - Psychiatric Psychiatric: absent: As Per HPI, Abnormal Sleep Pattern, Anhedonia, Anxiety, Auditory Hallucinations, Behavioral Changes, Change in Appetite, Change in Libido, Confusion, Depression, Difficulty Concentrating, Hallucinations, Homicidal Ideation, Hopelessness, Irritability, Memory Loss, Mood Swings, Panic Attacks, Paranoia, Suicidal Ideation, Visual Hallucinations, Tactile Hallucinations, Other - Endocrine Endocrine: absent: As Per HPI, Change in Body Appearance, Change in Libido, Cold Intolorance, Deepening of Voice, Excessive Sweating, Fatigue, Flushing, Heat Intolorance, Increase in Ring/Shoe/Hat Size, Palpitations, Polydipsia, Polyphagia, Polyuria, Other - Hematologic/Lymphatic Hematologic: absent: As Per HPI, Easy Bleeding, Easy Bruising, Lymphadenopathy, Other Past Patient History - Past Medical History & Family History Past Medical History?: Yes - Past Social History Smoking Status: Never Smoked - CARDIAC Hx Atrial Fibrillation: Yes Hx Congestive Heart Failure: Yes Hx Hypertension: Yes - PULMONARY Hx Respiratory Disorders: No - NEUROLOGICAL Hx Neurological Disorder: No - HEENT Other/Comment: [email or web address] - RENAL Hx Renal Failure: Yes - ENDOCRINE/METABOLIC Hx Endocrine Disorders: No - HEMATOLOGICAL/ONCOLOGICAL Hx Anemia: Yes - INTEGUMENTARY Hx Dermatological Problems: Yes Other/Comment: left breast wounds X2 - MUSCULOSKELETAL/RHEUMATOLOGICAL Hx Arthritis: Yes Hx Rheumatoid Arthritis: Yes - GASTROINTESTINAL Hx Gastroesophageal Reflux: Yes - GENITOURINARY/GYNECOLOGICAL Hx Genitourinary Disorders: No - PSYCHIATRIC Hx Substance Use: No - SURGICAL HISTORY Hx Coronary Stent: No (cath ) - ANESTHESIA Hx Anesthesia: No Hx Anesthesia Reactions: No Meds Allergies/Adverse Reactions: Allergies Allergy/AdvReac Type Severity Reaction Status Date / Time No Known Allergies Allergy Verified 03/25/17 16:15 - Medications Medications: Current Medications Albuterol/Ipratropium (Duoneb 3 Mg/0.5 Mg (3 Ml) Ud) 3 ml INH RQ6 [facility] Last Admin: 06/17/17 07:55 Dose: 3 ml Ascorbic Acid (Vitamin C 500 Mg Tab) 500 mg PO DAILY [facility] Last Admin: 06/17/17 10:50 Dose: 500 mg Brimonidine Tartrate (Alphagan 0.2% Opht) 0.2 ml OU QID [facility] Last Admin: 06/17/17 10:51 Dose: 1 drop Docusate Sodium (Colace) 100 mg PO DAILY [facility] Last Admin: 06/17/17 10:50 Dose: 100 mg Enoxaparin Sodium (Lovenox) 30 mg SC DAILY [facility] Last Admin: 06/17/17 10:50 Dose: 30 mg Famotidine (Pepcid) 20 mg PO BID [facility] Home Med (Bismuth Tribromoph/Petrolatum [Xeroflo Gauze Dressing]) 1 each TP DAILY [facility] Sodium Chloride (Sodium Chloride 0.45%) 1,000 mls @ 40 mls/hr IV .Q24H [facility] Last Admin: 06/16/17 19:21 Dose: 40 mls/hr Magnesium Hydroxide (Milk Of Magnesia) 30 ml PO Q6H PRN PRN Reason: Constipation Rosuvastatin Calcium (Crestor) 5 mg PO HS [facility] Last Admin: 06/16/17 22:29 Dose: 5 mg Tetracaine HCl (Tetracaine 0.5% Ophth Soln) 1 drop OD DAILY [facility] Last Admin: 06/17/17 10:51 Dose: 1 applic Timolol Maleate (Timoptic 0.5% Ophth Soln) 1 drop OU QID [facility] Last Admin: 06/17/17 10:51 Dose: 1 drop Physical Exam - Constitutional Appears: Non-toxic, Chronically Ill - Head Exam Head Exam: NORMOCEPHALIC - Eye Exam Eye Exam: PERRL. absent: Scleral icterus - ENT Exam ENT Exam: Mucous Membranes Dry, Normal External Ear Exam, Normal Oropharynx - Neck Exam Neck exam: Negative for: Lymphadenopathy - Respiratory Exam Respiratory Exam: Decreased Breath Sounds, Prolonged Expiratory Phase, Rhonchi - Cardiovascular Exam Cardiovascular Exam: REGULAR RHYTHM, +S1, +S2 - GI/Abdominal Exam GI & Abdominal Exam: Diminished Bowel Sounds, Distended, Soft. absent: Tenderness - Rectal Exam Rectal Exam: Deferred - Exam Exam: NORMAL INSPECTION - Extremities Exam Extremities exam: Positive for: pedal pulses present. Negative for: calf tenderness, pedal edema, tenderness - Back Exam Back exam: absent: CVA tenderness (L), CVA tenderness (R), paraspinal tenderness - Neurological Exam Neurological exam: Alert, Altered, CN II-XII Intact - Psychiatric Exam Psychiatric exam: Depressed - Skin Skin Exam: Dry Additional comments: left breast as documented in nurses notes Results - Vital Signs Recent Vital Signs: Last Vital Signs Temp 97.5 F L 06/16/17 23:05 Pulse 76 06/17/17 00:57 Resp 20 06/16/17 23:05 BP 95/63 L 06/16/17 23:05 Pulse Ox 97 06/16/17 23:05 - Labs Result Diagrams: 06/16/17 13:38 06/16/17 15:57 Labs: Laboratory Results - last 24 hr 06/16/17 06/16/17 06/16/17 13:38 13:38 13:55 WBC 10.9 H D RBC 4.96 Hgb 13.2 Hct 44.0 MCV 88.8 D MCH 26.5 L MCHC 29.9 L RDW 15.0 H Plt Count 186 MPV 10.2 Neut % (Auto) 82.1 H Lymph % (Auto) 4.6 L Bond % (Auto) 10.9 H Eos % (Auto) 0.3 Baso % (Auto) 2.1 H Neut # 9.0 H Lymph # 0.5 L Bond # 1.2 H Eos # 0.0 Baso # 0.2 Neutrophils % (Manual) 78 H Band Neutrophils % 2 Lymphocytes % (Manual) 9 L Monocytes % (Manual) 10 Eosinophils % (Manual) 1 Platelet Estimate Normal RBC Morphology Normal pO2 35 VBG pH 7.02 L* VBG pCO2 75 H* VBG HCO3 13.4 VBG Total CO2 21.7 L VBG O2 Sat (Calc) 65.3 H VBG Base Excess -12.7 L VBG Potassium 7.1 H* Glucose 153 H Lactate 1.3 Crit Value Called To Dr nora donis Crit Value Called By Joey fernandes Crit Value Read Back Y Blood Gas Notified Time 1400 Sodium 133 133.0 Potassium 6.9 H* D Chloride 104 106.0 Carbon Dioxide 19 L Anion Gap 17 BUN 77 H Creatinine 1.7 H Est GFR ( Amer) 35 Est GFR (Non-Af Amer) 29 Random Glucose 133 H Calcium 9.1 Total Bilirubin 1.1 AST 99 H ALT 126 H D Alkaline Phosphatase 83 Troponin I 0.0980 NT-Pro-B Natriuret Pep 00846 H Total Protein 8.1 Albumin 4.2 Globulin 3.9 Albumin/Globulin Ratio 1.1 CA 15-3 Antigen Venous Blood Potassium 7.1 H* Urine Color Urine Clarity Urine pH Ur Specific [place] Urine Protein Urine Glucose (UA) Urine Ketones Urine Blood Urine Nitrate Urine Bilirubin Urine Urobilinogen Ur Leukocyte Esterase Urine WBC (Auto) Urine RBC (Auto) Ur Squamous Epith Cells Urine Bacteria Hyaline Casts 06/16/17 06/16/17 06/17/17 14:49 15:57 10:32 WBC RBC Hgb Hct MCV MCH MCHC RDW Plt Count MPV Neut % (Auto) Lymph % (Auto) Bond % (Auto) Eos % (Auto) Baso % (Auto) Neut # Lymph # Bond # Eos # Baso # Neutrophils % (Manual) Band Neutrophils % Lymphocytes % (Manual) Monocytes % (Manual) Eosinophils % (Manual) Platelet Estimate RBC Morphology pO2 VBG pH VBG pCO2 VBG HCO3 VBG Total CO2 VBG O2 Sat (Calc) VBG Base Excess VBG Potassium Glucose Lactate Crit Value Called To Crit Value Called By Crit Value Read Back Blood Gas Notified Time Sodium 136 Potassium 6.3 H* Chloride 105 Carbon Dioxide 18 L Anion Gap 19 BUN 78 H Creatinine 1.8 H Est GFR ( Amer) 33 Est GFR (Non-Af Amer) 27 Random Glucose 137 H Calcium 9.2 Total Bilirubin 1.3 AST 100 H ALT 114 H Alkaline Phosphatase 69 Troponin I NT-Pro-B Natriuret Pep Total Protein 7.0 Albumin 4.2 Globulin 2.8 Albumin/Globulin Ratio 1.5 CA 15-3 Antigen 78.9 H D Venous Blood Potassium Urine Color Flory Urine Clarity Hazy Urine pH 5.0 Ur Specific [place] 1.016 Urine Protein 2+ H Urine Glucose (UA) 1+ Urine Ketones Negative Urine Blood Negative Urine Nitrate Negative Urine Bilirubin Negative Urine Urobilinogen 2.0 H Ur Leukocyte Esterase Neg Urine WBC (Auto) 3 Urine RBC (Auto) 2 Ur Squamous Epith Cells 2 Urine Bacteria Many H Hyaline Casts 0-2 Assessment & Plan (1) A-fib Status: Acute (2) Altered mental status Status: Acute (3) Hyperkalemia Status: Acute (4) Pleural effusion Status: Acute (5) CHF (congestive heart failure) Status: Chronic Priority: Medium (6) Acute renal failure Status: Acute (7) Anemia Status: Acute (8) Breast cancer Status: Acute (9) CHF (congestive heart failure), NYHA class II Status: Acute (10) Dehydration Status: Acute Priority: Medium (11) Sepsis Status: Acute Priority: High (12) History of breast cancer Status: Chronic (13) Neoplasm of breast, distant metastasis staging category cM0(i+) per [place] Joint Committee on Cancer Staging [place], 7th edition Status: Chronic Priority: Medium - Assessment and Plan (Free Text) Assessment: 81 yo female with hx of cardiomyopathy and breast Ca in past Treated with palliative hormone therapy in the past presents with AMS and resp failure with hypercarbia Found to have increased Ca 15-3 and large left effusion Started on empiric IV antibiotics pending thoracentesis May be a candidate for hospice Empiric IV antibiotics are ordered pending cultures
--- NOTE | 2017-06-17 14:11 | CT ---
CT chest without IV contrast Indication: Pleural effusion, breast cancer, altered mental status. Technique: Contiguous axial images were obtained through the chest without intravenous contrast enhancement. Sagittal and coronal reconstructions were generated and reviewed. This CT exam was performed using 1 or more of the falling dose reduction techniques: Automated exposure control, adjustment of the MAA and/or kV according to patient size, and/or use of iterative reconstruction technique. Radiation dose (DLP): 740.10 MGy-cm. Comparison: Chest x-ray performed 06/16/17 Findings: Examination markedly limited due to patient condition and motion artifact. Severe cardiomegaly. Dense coronary artery calcifications. Small pericardial effusion. Mosaic profusion may be seen in the setting of small airways/ small vessels disease. Moderate bilateral pleural effusions and compressive consolidations. No pneumothorax. 4 mm right upper lobe pulmonary nodule (series 307, image 15). Limited visualization of the noncontrast upper abdomen appears grossly unremarkable. 3.8 x 6.1 cm left breast mass. Probable left axillary lymph nodes with evidence of calcifications measuring up to 12 mm. Marked kyphosis. Multilevel degenerative changes. Osseous demineralization. If clinical concern for osseous metastases, suggest nuclear medicine bone scan for further evaluation. Impression: Severe cardiomegaly. Dense coronary artery calcifications. Small pericardial effusion. Mosaic profusion may be seen in the setting of small airways/ small vessels disease. Moderate bilateral pleural effusions and compressive consolidations. 4 mm right upper lobe pulmonary nodule. Follow-up CT at 12 months is recommended to document stability. 3.8 x 6.1 cm left breast mass. Correlate with prior breast imaging. Probable left axillary lymph nodes with evidence of calcifications measuring up to 12 mm.
--- NOTE | 2017-06-17 17:35 | CP.PCM.PN ---
Subjective - Date & Time of Evaluation Date of Evaluation: 06/17/17 Time of Evaluation: 11:40 - Subjective Subjective: clinically same Objective - Vital Signs/Intake and Output Vital Signs (last 24 hours): Temp Pulse Resp BP Pulse Ox 97.5 F L 75 20 95/63 L 97 06/16/17 23:05 06/17/17 09:00 06/16/17 23:05 06/16/17 23:05 06/16/17 23:05 Intake and Output: 06/17/17 06/17/17 06:59 18:59 Intake Total Output Total Balance - Medications Medications: Current Medications Albuterol/Ipratropium (Duoneb 3 Mg/0.5 Mg (3 Ml) Ud) 3 ml INH RQ6 [facility] Last Admin: 06/17/17 14:06 Dose: 3 ml Ascorbic Acid (Vitamin C 500 Mg Tab) 500 mg PO DAILY [facility] Last Admin: 06/17/17 10:50 Dose: 500 mg Brimonidine Tartrate (Alphagan 0.2% Opht) 0.2 ml OU QID [facility] Last Admin: 06/17/17 14:39 Dose: 1 drop Docusate Sodium (Colace) 100 mg PO DAILY [facility] Last Admin: 06/17/17 10:50 Dose: 100 mg Enoxaparin Sodium (Lovenox) 30 mg SC DAILY [facility] Last Admin: 06/17/17 10:50 Dose: 30 mg Famotidine (Pepcid) 20 mg PO BID [facility] Home Med (Bismuth Tribromoph/Petrolatum [Xeroflo Gauze Dressing]) 1 each TP DAILY [facility] Sodium Chloride (Sodium Chloride 0.45%) 1,000 mls @ 40 mls/hr IV .Q24H [facility] Last Admin: 06/16/17 19:21 Dose: 40 mls/hr Ceftriaxone Sodium 1 gm/ (Dextrose) 100 mls @ 100 mls/hr IVPB Q24H [facility] Last Admin: 06/17/17 14:38 Dose: 100 mls/hr Magnesium Hydroxide (Milk Of Magnesia) 30 ml PO Q6H PRN PRN Reason: Constipation Rosuvastatin Calcium (Crestor) 5 mg PO HS [facility] Last Admin: 06/16/17 22:29 Dose: 5 mg Tetracaine HCl (Tetracaine 0.5% Ophth Soln) 1 drop OD DAILY [facility] Last Admin: 06/17/17 10:51 Dose: 1 applic Timolol Maleate (Timoptic 0.5% Ophth Soln) 1 drop OU QID [facility] Last Admin: 06/17/17 14:39 Dose: 1 drop - Labs Labs: 06/16/17 13:38 06/16/17 15:57 - Constitutional Appears: Well - Head Exam Head Exam: ATRAUMATIC, NORMAL INSPECTION, NORMOCEPHALIC - Eye Exam Eye Exam: EOMI, Normal appearance, PERRL Pupil Exam: NORMAL ACCOMODATION, PERRL - ENT Exam ENT Exam: Mucous Membranes Moist, Normal Exam - Neck Exam Neck Exam: Full ROM, Normal Inspection. absent: Lymphadenopathy - Respiratory Exam Respiratory Exam: Decreased Breath Sounds - Cardiovascular Exam Cardiovascular Exam: REGULAR RHYTHM, +S1, +S2 - GI/Abdominal Exam GI & Abdominal Exam: Soft, Diminished Bowel Sounds - Rectal Exam Rectal Exam: Deferred Assessment and Plan (1) A-fib Status: Acute (2) Altered mental status Status: Acute (3) Hyperkalemia Status: Acute (4) Pleural effusion Status: Acute (5) Thrombocytopenia Status: Acute (6) CHF (congestive heart failure) Status: Chronic (7) Acute renal failure Status: Acute (8) Anemia Status: Acute (9) Breast cancer Status: Acute (10) CHF (congestive heart failure), NYHA class II Status: Acute (11) Dehydration Status: Acute (12) Elevated brain natriuretic peptide (BNP) level Status: Acute (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 (14) Glaucoma (increased eye pressure) Status: Acute (15) Hyponatremia with decreased serum osmolality Status: Acute (16) PVC (premature ventricular contraction) Status: Acute (17) Postmenopausal bleeding Status: Acute (18) Prophylactic measure Status: Acute (19) Sepsis Status: Acute (20) UTI (urinary tract infection) Status: Acute (21) HTN (hypertension) Status: Chronic (22) History of breast cancer Status: Chronic (23) Neoplasm of breast, distant metastasis staging category cM0(i+) per [place] Joint Committee on Cancer Staging [employer], 7th edition Status: Chronic (24) Open leg wound Status: Chronic - Assessment and Plan (Free Text) Plan: Patient examined. Chest x-ray suggestive of moderate left pleural effusion associated consolidation. Probable small right pleural effusion. Mild pulmonary venous congestion. Severe cardiomegaly. EKG suggestive of AF with premature ventricular or aberrantly conducted complexes. Left axis deviation. Low voltage QRS complexes. CT chest with contrast history of severe cardiomegaly. Dense coronary artery calcification. Moderate bilateral pleural effusion and compressive consolidations. Ordering right pulmonary nodule. CT had suggestive of generalized atrophy. Nonspecific white matter changes. Encephalomalacia within left frontal lobe. Laboratory investigation shows potassium raised at 6.3. Keralyt received. Transaminases elevated and the pro B natruretic peptide significantly raised possibility of congestive hepatopathy and CHF present. Continue ceftriaxone. Bronchodilators. Supportive medications.
[2017-06-17] MEDS: Sodium Chloride 0.45% 1,000 ML IV SCH (18:26)
[2017-06-17 18:29] LABS: POTASSIUM 4.1 mmol/L (3.6-5.2)
[2017-06-17 18:32] LABS: CALCIUM 8.7 mg/dl (8.6-10.4)
--- NOTE | 2017-06-17 19:24 | CP.PCM.PN ---
Subjective - Date & Time of Evaluation Date of Evaluation: 06/17/17 Time of Evaluation: 18:00 - Subjective Subjective: Patient seen and evaluated Appears slightly better D/W family at bedside CHF (Diastolic CHF) HTN Dehydration Malignancy Dementia Continue current medications Physical Examination - Constitutional Appears: Non-toxic, Chronically Ill - Head Exam Head Exam: NORMOCEPHALIC - Eye Exam Eye Exam: PERRL - ENT Exam ENT Exam: Mucous Membranes Dry, Normal External Ear Exam - Neck Exam Neck Exam: absent: Lymphadenopathy - Respiratory Exam Respiratory Exam: Decreased Breath Sounds - Cardiovascular Exam Cardiovascular Exam: REGULAR RHYTHM - GI/Abdominal Exam GI & Abdominal Exam: Distended, Soft - Rectal Exam Rectal Exam: Deferred - Exam Exam: NORMAL INSPECTION - Extremities Exam Extremities Exam: absent: Pedal Edema - Back Exam Back Exam: absent: CVA tenderness (L), CVA tenderness (R) - Neurological Exam Neurological Exam: Alert, Altered, Awake - Psychiatric Exam Psychiatric exam: Depressed - Skin Skin Exam: Dry Objective - Vital Signs/Intake and Output Vital Signs (last 24 hours): Temp Pulse Resp BP Pulse Ox 97.4 F L 70 20 125/80 94 L 06/17/17 15:00 06/17/17 15:00 06/17/17 15:00 06/17/17 15:00 06/17/17 15:00 - Medications Medications: Current Medications Albuterol/Ipratropium (Duoneb 3 Mg/0.5 Mg (3 Ml) Ud) 3 ml INH RQ6 [facility] Last Admin: 06/17/17 14:06 Dose: 3 ml Ascorbic Acid (Vitamin C 500 Mg Tab) 500 mg PO DAILY [facility] Last Admin: 06/17/17 10:50 Dose: 500 mg Brimonidine Tartrate (Alphagan 0.2% Opht) 0.2 ml OU QID [facility] Last Admin: 06/17/17 18:18 Dose: 1 drop Docusate Sodium (Colace) 100 mg PO DAILY [facility] Last Admin: 06/17/17 10:50 Dose: 100 mg Enoxaparin Sodium (Lovenox) 30 mg SC DAILY [facility] Last Admin: 06/17/17 10:50 Dose: 30 mg Famotidine (Pepcid) 20 mg PO BID [facility] Home Med (Bismuth Tribromoph/Petrolatum [Xeroflo Gauze Dressing]) 1 each TP DAILY [facility] Sodium Chloride (Sodium Chloride 0.45%) 1,000 mls @ 40 mls/hr IV .Q24H [facility] Last Admin: 06/17/17 18:26 Dose: 40 mls/hr Ceftriaxone Sodium 1 gm/ (Dextrose) 100 mls @ 100 mls/hr IVPB Q24H [facility] Last Admin: 06/17/17 14:38 Dose: 100 mls/hr Magnesium Hydroxide (Milk Of Magnesia) 30 ml PO Q6H PRN PRN Reason: Constipation Rosuvastatin Calcium (Crestor) 5 mg PO HS [facility] Last Admin: 06/16/17 22:29 Dose: 5 mg Tetracaine HCl (Tetracaine 0.5% Ophth Soln) 1 drop OD DAILY [facility] Last Admin: 06/17/17 10:51 Dose: 1 applic Timolol Maleate (Timoptic 0.5% Ophth Soln) 1 drop OU QID [facility] Last Admin: 06/17/17 18:19 Dose: 1 drop - Labs Labs: 06/16/17 13:38 06/17/17 18:16 Assessment and Plan - Assessment and Plan (Free Text) Assessment: (1) CAD and Diastolic CHF Chronic Assessment and Plan: Conserative mgt with ASA and Lasix (2) Altered mental status Assessment and Plan: given history of breast cancer, will need to rule out brain metastasis will send for non contrast scan for now given renal failure Status: Acute (3) Pleural effusion Assessment and Plan: rule out malignant ascites pulmonary following Status: Acute (4) Breast cancer Assessment and Plan: supportive care for now was on hormonal treatment in the past
[2017-06-18] MEDS: Albuterol-Ipratrop 3 mg / 0.5 (3 ml) UD INH SCH ×4 (01:28→19:45)
[2017-06-18 08:21] LABS: WHITE BLOOD COUNT 8.2 K/uL (4.8-10.8)
[2017-06-18 08:22] LABS: HEMATOCRIT 40.2 % (34.0-47.0); MEAN CELL VOLUME 86.2 fL (81.0-99.0); MEAN CORPUSCULAR HEMOGLOBIN 26.8 pg (27.0-31.0); MEAN PLATELET VOLUME 9.6 fL (7.2-11.7); RED CELL DISTRIBUTION WIDTH 14.8 % (11.5-14.5)
[2017-06-18 08:26] LABS: POTASSIUM 4.5 mmol/L (3.6-5.2)
--- NOTE | 2017-06-18 08:30 | CP.PCM.PN ---
Subjective - Date & Time of Evaluation Date of Evaluation: 06/18/17 Time of Evaluation: 11:20 - Subjective Subjective: clinically same Objective - Vital Signs/Intake and Output Vital Signs (last 24 hours): Temp Pulse Resp BP Pulse Ox 97.7 F 72 20 120/84 97 06/17/17 23:55 06/17/17 23:55 06/17/17 23:55 06/17/17 23:55 06/17/17 23:55 Intake and Output: 06/18/17 06/18/17 06:59 18:59 Intake Total 810 Output Total 650 Balance 160 - Medications Medications: Current Medications Albuterol/Ipratropium (Duoneb 3 Mg/0.5 Mg (3 Ml) Ud) 3 ml INH RQ6 [facility] Last Admin: 06/18/17 07:00 Dose: 3 ml Ascorbic Acid (Vitamin C 500 Mg Tab) 500 mg PO DAILY [facility] Last Admin: 06/17/17 10:50 Dose: 500 mg Brimonidine Tartrate (Alphagan 0.2% Opht) 0.2 ml OU QID [facility] Last Admin: 06/17/17 21:38 Dose: 1 drop Docusate Sodium (Colace) 100 mg PO DAILY [facility] Last Admin: 06/17/17 10:50 Dose: 100 mg Enoxaparin Sodium (Lovenox) 30 mg SC DAILY [facility] Last Admin: 06/17/17 10:50 Dose: 30 mg Famotidine (Pepcid) 20 mg PO BID [facility] Home Med (Bismuth Tribromoph/Petrolatum [Xeroflo Gauze Dressing]) 1 each TP DAILY [facility] Sodium Chloride (Sodium Chloride 0.45%) 1,000 mls @ 40 mls/hr IV .Q24H [facility] Last Admin: 06/17/17 18:26 Dose: 40 mls/hr Ceftriaxone Sodium 1 gm/ (Dextrose) 100 mls @ 100 mls/hr IVPB Q24H [facility] Last Admin: 06/17/17 14:38 Dose: 100 mls/hr Magnesium Hydroxide (Milk Of Magnesia) 30 ml PO Q6H PRN PRN Reason: Constipation Rosuvastatin Calcium (Crestor) 5 mg PO HS [facility] Last Admin: 06/17/17 21:38 Dose: 5 mg Tetracaine HCl (Tetracaine 0.5% Ophth Soln) 1 drop OD DAILY [facility] Last Admin: 06/17/17 10:51 Dose: 1 applic Timolol Maleate (Timoptic 0.5% Ophth Soln) 1 drop OU QID [facility] Last Admin: 06/17/17 21:39 Dose: 1 drop - Labs Labs: 06/18/17 07:36 06/18/17 07:36 - Constitutional Appears: Well - Head Exam Head Exam: ATRAUMATIC, NORMAL INSPECTION, NORMOCEPHALIC - Eye Exam Eye Exam: EOMI, Normal appearance, PERRL Pupil Exam: NORMAL ACCOMODATION, PERRL - ENT Exam ENT Exam: Mucous Membranes Moist, Normal Exam - Neck Exam Neck Exam: Full ROM, Normal Inspection. absent: Lymphadenopathy - Respiratory Exam Respiratory Exam: Decreased Breath Sounds - Cardiovascular Exam Cardiovascular Exam: REGULAR RHYTHM, +S1, +S2. absent: Murmur - GI/Abdominal Exam GI & Abdominal Exam: Soft, Normal Bowel Sounds. 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 (14) Glaucoma (increased eye pressure) Status: Acute (15) Hyponatremia with decreased serum osmolality Status: Acute (16) PVC (premature ventricular contraction) Status: Acute (17) Postmenopausal bleeding Status: Acute (18) Prophylactic measure Status: Acute (19) Sepsis Status: Acute (20) UTI (urinary tract infection) Status: Acute (21) HTN (hypertension) Status: Chronic (22) History of breast cancer Status: Chronic (23) Neoplasm of breast, distant metastasis staging category cM0(i+) per [place] Joint Committee on Cancer Staging [employer], 7th edition Status: Chronic (24) Open leg wound Status: Chronic - Assessment and Plan (Free Text) Plan: Patient examined. Patient appears slightly clinically better. Continue bronchodilators. Ceftriaxone. Supportive medications.
[2017-06-18] MEDS ORDERED: Pneumococcal 23-Valent Vaccine IM ONE (10:00)
[2017-06-18] MEDS: Enoxaparin 30 mg Syringe SC SCH (10:11)
[2017-06-18] MEDS: Brimonidine 0.2% Opth Sol (5ml) OU SCH ×4 (10:11→21:39)
[2017-06-18] MEDS: Tetracaine 0.5% Ophth 2 ML BOTTLE OD SCH (10:11)
[2017-06-18] MEDS: Influenza Vaccine 60 mcg/0.5 mL SYR (4YR UP) IM ONE ×2 (10:12→10:21)
--- NOTE | 2017-06-18 10:56 | CP.PCM.PN ---
Subjective - Date & Time of Evaluation Date of Evaluation: 06/18/17 Time of Evaluation: 06:00 - Subjective Subjective: lethargic but less SOB no fever Objective - Vital Signs/Intake and Output Vital Signs (last 24 hours): Temp Pulse Resp BP Pulse Ox 97.7 F 75 20 116/76 98 06/18/17 08:39 06/18/17 08:39 06/18/17 08:39 06/18/17 08:39 06/18/17 09:50 Intake and Output: 06/18/17 06/18/17 06:59 18:59 Intake Total 810 Output Total 650 Balance 160 - Medications Medications: Current Medications Albuterol/Ipratropium (Duoneb 3 Mg/0.5 Mg (3 Ml) Ud) 3 ml INH RQ6 [facility] Last Admin: 06/18/17 07:00 Dose: 3 ml Ascorbic Acid (Vitamin C 500 Mg Tab) 500 mg PO DAILY [facility] Last Admin: 06/18/17 10:11 Dose: 500 mg Brimonidine Tartrate (Alphagan 0.2% Opht) 0.2 ml OU QID [facility] Last Admin: 06/18/17 10:11 Dose: 1 drop Docusate Sodium (Colace) 100 mg PO DAILY [facility] Last Admin: 06/18/17 10:11 Dose: 100 mg Enoxaparin Sodium (Lovenox) 30 mg SC DAILY [facility] Last Admin: 06/18/17 10:11 Dose: 30 mg Famotidine (Pepcid) 20 mg PO BID [facility] Home Med (Bismuth Tribromoph/Petrolatum [Xeroflo Gauze Dressing]) 1 each TP DAILY [facility] Sodium Chloride (Sodium Chloride 0.45%) 1,000 mls @ 40 mls/hr IV .Q24H [facility] Last Admin: 06/17/17 18:26 Dose: 40 mls/hr Ceftriaxone Sodium 1 gm/ (Dextrose) 100 mls @ 100 mls/hr IVPB Q24H [facility] Last Admin: 06/17/17 14:38 Dose: 100 mls/hr Magnesium Hydroxide (Milk Of Magnesia) 30 ml PO Q6H PRN PRN Reason: Constipation Rosuvastatin Calcium (Crestor) 5 mg PO HS [facility] Last Admin: 06/17/17 21:38 Dose: 5 mg Tetracaine HCl (Tetracaine 0.5% Ophth Soln) 1 drop OD DAILY [facility] Last Admin: 06/18/17 10:11 Dose: 1 drop Timolol Maleate (Timoptic 0.5% Ophth Soln) 1 drop OU QID [facility] Last Admin: 06/18/17 10:11 Dose: 1 drop - Labs Labs: 06/18/17 07:36 06/18/17 07:36 - Constitutional Appears: Non-toxic, Chronically Ill - Head Exam Head Exam: NORMOCEPHALIC - Eye Exam Eye Exam: PERRL - ENT Exam ENT Exam: Mucous Membranes Dry - Neck Exam Neck Exam: absent: Lymphadenopathy - Respiratory Exam Respiratory Exam: Decreased Breath Sounds - Cardiovascular Exam Cardiovascular Exam: REGULAR RHYTHM - GI/Abdominal Exam GI & Abdominal Exam: Distended, Soft - Rectal Exam Rectal Exam: Deferred - Exam Exam: NORMAL INSPECTION - Extremities Exam Extremities Exam: absent: Pedal Edema - Back Exam Back Exam: absent: CVA tenderness (L), CVA tenderness (R) Assessment and Plan (1) A-fib Status: Acute (2) Altered mental status Status: Acute (3) Hyperkalemia Status: Acute (4) Pleural effusion Status: Acute (5) CHF (congestive heart failure) Status: Chronic (6) Acute renal failure Status: Acute (7) Anemia Status: Acute (8) Breast cancer Status: Acute (9) CHF (congestive heart failure), NYHA class II Status: Acute (10) Dehydration Status: Acute (11) Sepsis Status: Acute (12) History of breast cancer Status: Chronic (13) Neoplasm of breast, distant metastasis staging category cM0(i+) per [place] Joint Committee on Cancer Staging [employer], 7th edition Status: Chronic - Assessment and Plan (Free Text) Assessment: 81 yo female with hx of cardiomyopathy and breast Ca in past Treated with palliative hormone therapy in the past presents with AMS and resp failure with hypercarbia Found to have increased Ca 15-3 and large left effusion Started on empiric IV antibiotics pending thoracentesis urine shows e coli sens to rocephin
[2017-06-18] MEDS: Sodium Chloride 0.45% 1,000 ML IV SCH (21:40)
[2017-06-19] MEDS: Albuterol-Ipratrop 3 mg / 0.5 (3 ml) UD INH SCH ×5 (02:32→20:17)
[2017-06-19] MEDS: Tetracaine 0.5% Ophth 2 ML BOTTLE OD SCH (10:54)
[2017-06-19] MEDS: Brimonidine 0.2% Opth Sol (5ml) OU SCH ×4 (10:54→21:21)
[2017-06-19] MEDS: Enoxaparin 30 mg Syringe SC SCH (10:55)
[2017-06-19] MEDS: Petrolatum Oint Foilpak (5 gm) TOP SCH (10:55)
--- NOTE | 2017-06-19 19:02 | CP.PCM.PN ---
Subjective - Date & Time of Evaluation Date of Evaluation: 06/18/17 Time of Evaluation: 17:25 - Subjective Subjective: Lethargic, arousable Objective - Vital Signs/Intake and Output Vital Signs (last 24 hours): Temp Pulse Resp BP Pulse Ox 97.6 F 69 20 116/86 99 06/19/17 15:41 06/19/17 15:41 06/19/17 15:41 06/19/17 15:41 06/19/17 15:41 Intake and Output: 06/19/17 06/20/17 18:59 06:59 Intake Total 620 Output Total 200 Balance 420 - Medications Medications: Current Medications Albuterol/Ipratropium (Duoneb 3 Mg/0.5 Mg (3 Ml) Ud) 3 ml INH RQ6 [facility] Last Admin: 06/19/17 13:51 Dose: 3 ml Ascorbic Acid (Vitamin C 500 Mg Tab) 500 mg PO DAILY [facility] Last Admin: 06/19/17 10:53 Dose: 500 mg Brimonidine Tartrate (Alphagan 0.2% Opht) 0.2 ml OU QID [facility] Last Admin: 06/19/17 17:55 Dose: 1 drop Docusate Sodium (Colace) 100 mg PO DAILY [facility] Last Admin: 06/19/17 10:53 Dose: 100 mg Emollient Ointment (Vaseline Oint) 10 gm TOP DAILY [facility] Last Admin: 06/19/17 10:55 Dose: 10 gm Enoxaparin Sodium (Lovenox) 30 mg SC DAILY [facility] Last Admin: 06/19/17 10:55 Dose: 30 mg Famotidine (Pepcid) 20 mg PO DAILY [facility] Last Admin: 06/19/17 10:53 Dose: 20 mg Sodium Chloride (Sodium Chloride 0.45%) 1,000 mls @ 40 mls/hr IV .Q24H [facility] Last Admin: 06/18/17 21:40 Dose: 40 mls/hr Ceftriaxone Sodium 1 gm/ (Dextrose) 100 mls @ 100 mls/hr IVPB Q24H [facility] Last Admin: 06/19/17 14:01 Dose: 100 mls/hr Magnesium Hydroxide (Milk Of Magnesia) 30 ml PO Q6H PRN PRN Reason: Constipation Rosuvastatin Calcium (Crestor) 5 mg PO HS [facility] Last Admin: 06/18/17 21:39 Dose: 5 mg Tetracaine HCl (Tetracaine 0.5% Ophth Soln) 1 drop OD DAILY [facility] Last Admin: 06/19/17 10:54 Dose: 1 drop Timolol Maleate (Timoptic 0.5% Ophth Soln) 1 drop OU QID [facility] Last Admin: 06/19/17 17:55 Dose: 1 drop - Labs Labs: 06/18/17 07:36 06/18/17 07:36 - Head Exam Head Exam: ATRAUMATIC - Eye Exam Eye Exam: Normal appearance - ENT Exam ENT Exam: Mucous Membranes Dry - Respiratory Exam Respiratory Exam: Decreased Breath Sounds - Cardiovascular Exam Cardiovascular Exam: +S1, +S2 - GI/Abdominal Exam GI & Abdominal Exam: Normal Bowel Sounds Assessment and Plan (1) Altered mental status Assessment & Plan: improved per daughter CT scan results limited by movement Status: Acute (2) Pleural effusion Assessment & Plan: ?malignant effusion Status: Acute (3) Breast cancer Assessment & Plan: f/u tumor marker on hormonal therapy Status: Acute
--- NOTE | 2017-06-19 19:03 | CP.PCM.PN ---
Subjective - Date & Time of Evaluation Date of Evaluation: 06/19/17 Time of Evaluation: 18:35 - Subjective Subjective: Mental status improved, conversational with daughter Objective - Vital Signs/Intake and Output Vital Signs (last 24 hours): Temp Pulse Resp BP Pulse Ox 97.6 F 69 20 116/86 99 06/19/17 15:41 06/19/17 15:41 06/19/17 15:41 06/19/17 15:41 06/19/17 15:41 Intake and Output: 06/19/17 06/20/17 18:59 06:59 Intake Total 620 Output Total 200 Balance 420 - Medications Medications: Current Medications Albuterol/Ipratropium (Duoneb 3 Mg/0.5 Mg (3 Ml) Ud) 3 ml INH RQ6 [facility] Last Admin: 06/19/17 13:51 Dose: 3 ml Ascorbic Acid (Vitamin C 500 Mg Tab) 500 mg PO DAILY [facility] Last Admin: 06/19/17 10:53 Dose: 500 mg Brimonidine Tartrate (Alphagan 0.2% Opht) 0.2 ml OU QID [facility] Last Admin: 06/19/17 17:55 Dose: 1 drop Docusate Sodium (Colace) 100 mg PO DAILY [facility] Last Admin: 06/19/17 10:53 Dose: 100 mg Emollient Ointment (Vaseline Oint) 10 gm TOP DAILY [facility] Last Admin: 06/19/17 10:55 Dose: 10 gm Enoxaparin Sodium (Lovenox) 30 mg SC DAILY [facility] Last Admin: 06/19/17 10:55 Dose: 30 mg Famotidine (Pepcid) 20 mg PO DAILY [facility] Last Admin: 06/19/17 10:53 Dose: 20 mg Sodium Chloride (Sodium Chloride 0.45%) 1,000 mls @ 40 mls/hr IV .Q24H [facility] Last Admin: 06/18/17 21:40 Dose: 40 mls/hr Ceftriaxone Sodium 1 gm/ (Dextrose) 100 mls @ 100 mls/hr IVPB Q24H [facility] Last Admin: 06/19/17 14:01 Dose: 100 mls/hr Magnesium Hydroxide (Milk Of Magnesia) 30 ml PO Q6H PRN PRN Reason: Constipation Rosuvastatin Calcium (Crestor) 5 mg PO HS [facility] Last Admin: 06/18/17 21:39 Dose: 5 mg Tetracaine HCl (Tetracaine 0.5% Ophth Soln) 1 drop OD DAILY [facility] Last Admin: 06/19/17 10:54 Dose: 1 drop Timolol Maleate (Timoptic 0.5% Ophth Soln) 1 drop OU QID [facility] Last Admin: 06/19/17 17:55 Dose: 1 drop - Labs Labs: 06/18/17 07:36 06/18/17 07:36 - Head Exam Head Exam: ATRAUMATIC - Eye Exam Eye Exam: Normal appearance - ENT Exam ENT Exam: Mucous Membranes Dry - Respiratory Exam Respiratory Exam: Decreased Breath Sounds - Cardiovascular Exam Cardiovascular Exam: +S1, +S2 - GI/Abdominal Exam GI & Abdominal Exam: Normal Bowel Sounds Assessment and Plan (1) Altered mental status Assessment & Plan: greatly improved per daughter Status: Acute (2) Pleural effusion Assessment & Plan: ? malignant effusion Status: Acute (3) Breast cancer Assessment & Plan: tumor marker mildly elevated from prior cont. hormonal therapy Status: Acute
--- NOTE | 2017-06-19 19:55 | CP.PCM.PN ---
Subjective - Date & Time of Evaluation Date of Evaluation: 06/19/17 Time of Evaluation: 10:20 - Subjective Subjective: clinically same Objective - Vital Signs/Intake and Output Vital Signs (last 24 hours): Temp Pulse Resp BP Pulse Ox 97.6 F 69 20 116/86 99 06/19/17 15:41 06/19/17 15:41 06/19/17 15:41 06/19/17 15:41 06/19/17 15:41 Intake and Output: 06/19/17 06/20/17 18:59 06:59 Intake Total 620 Output Total 200 Balance 420 - Medications Medications: Current Medications Albuterol/Ipratropium (Duoneb 3 Mg/0.5 Mg (3 Ml) Ud) 3 ml INH RQ6 [facility] Last Admin: 06/19/17 13:51 Dose: 3 ml Ascorbic Acid (Vitamin C 500 Mg Tab) 500 mg PO DAILY [facility] Last Admin: 06/19/17 10:53 Dose: 500 mg Brimonidine Tartrate (Alphagan 0.2% Opht) 0.2 ml OU QID [facility] Last Admin: 06/19/17 17:55 Dose: 1 drop Docusate Sodium (Colace) 100 mg PO DAILY [facility] Last Admin: 06/19/17 10:53 Dose: 100 mg Emollient Ointment (Vaseline Oint) 10 gm TOP DAILY [facility] Last Admin: 06/19/17 10:55 Dose: 10 gm Enoxaparin Sodium (Lovenox) 30 mg SC DAILY [facility] Last Admin: 06/19/17 10:55 Dose: 30 mg Famotidine (Pepcid) 20 mg PO DAILY [facility] Last Admin: 06/19/17 10:53 Dose: 20 mg Sodium Chloride (Sodium Chloride 0.45%) 1,000 mls @ 40 mls/hr IV .Q24H [facility] Last Admin: 06/18/17 21:40 Dose: 40 mls/hr Ceftriaxone Sodium 1 gm/ (Dextrose) 100 mls @ 100 mls/hr IVPB Q24H [facility] Last Admin: 06/19/17 14:01 Dose: 100 mls/hr Magnesium Hydroxide (Milk Of Magnesia) 30 ml PO Q6H PRN PRN Reason: Constipation Rosuvastatin Calcium (Crestor) 5 mg PO HS [facility] Last Admin: 06/18/17 21:39 Dose: 5 mg Tetracaine HCl (Tetracaine 0.5% Ophth Soln) 1 drop OD DAILY [facility] Last Admin: 06/19/17 10:54 Dose: 1 drop Timolol Maleate (Timoptic 0.5% Ophth Soln) 1 drop OU QID [facility] Last Admin: 06/19/17 17:55 Dose: 1 drop - Labs Labs: 06/18/17 07:36 06/18/17 07:36 - Constitutional Appears: Well - Head Exam Head Exam: ATRAUMATIC, NORMAL INSPECTION, NORMOCEPHALIC - Eye Exam Eye Exam: EOMI, Normal appearance, PERRL Pupil Exam: NORMAL ACCOMODATION, PERRL - ENT Exam ENT Exam: Mucous Membranes Moist, Normal Exam - Neck Exam Neck Exam: Full ROM, Normal Inspection. absent: Lymphadenopathy - Respiratory Exam Respiratory Exam: Decreased Breath Sounds - Cardiovascular Exam Cardiovascular Exam: REGULAR RHYTHM, +S1, +S2 - GI/Abdominal Exam GI & Abdominal Exam: Soft, Diminished Bowel Sounds - Rectal Exam Rectal Exam: Deferred Assessment and Plan (1) A-fib Status: Acute (2) Altered mental status Status: Acute (3) Hyperkalemia Status: Acute (4) Pleural effusion Status: Acute (5) Thrombocytopenia Status: Acute (6) CHF (congestive heart failure) Status: Chronic (7) Acute renal failure Status: Acute (8) Anemia Status: Acute (9) Breast cancer Status: Acute (10) CHF (congestive heart failure), NYHA class II Status: Acute (11) Dehydration Status: Acute (12) Elevated brain natriuretic peptide (BNP) level Status: Acute (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 (14) Glaucoma (increased eye pressure) Status: Acute (15) Hyponatremia with decreased serum osmolality Status: Acute (16) PVC (premature ventricular contraction) Status: Acute (17) Postmenopausal bleeding Status: Acute (18) Prophylactic measure Status: Acute (19) Sepsis Status: Acute (20) UTI (urinary tract infection) Status: Acute (21) HTN (hypertension) Status: Chronic (22) History of breast cancer Status: Chronic (23) Neoplasm of breast, distant metastasis staging category cM0(i+) per [place] Joint Committee on Cancer Staging [employer], 7th edition Status: Chronic (24) Open leg wound Status: Chronic - Assessment and Plan (Free Text) Plan: Patient examined. Patient is lethargic but less shortness of breath present. Continue bronchodilator. Ceftriaxone. Supportive medications.
[2017-06-19] MEDS: Sodium Chloride 0.45% 1,000 ML IV SCH (21:20)
--- NOTE | 2017-06-19 23:16 | CP.PCM.PN ---
Subjective - Date & Time of Evaluation Date of Evaluation: 06/19/17 Time of Evaluation: 19:35 - Subjective Subjective: No new events noted Physical Examination - Constitutional Appears: Non-toxic, Chronically Ill - Head Exam Head Exam: NORMOCEPHALIC - Eye Exam Eye Exam: PERRL - ENT Exam ENT Exam: Mucous Membranes Dry, Normal External Ear Exam - Neck Exam Neck Exam: absent: Lymphadenopathy - Respiratory Exam Respiratory Exam: Decreased Breath Sounds - Cardiovascular Exam Cardiovascular Exam: REGULAR RHYTHM - GI/Abdominal Exam GI & Abdominal Exam: Distended, Soft - Rectal Exam Rectal Exam: Deferred - Exam Exam: NORMAL INSPECTION - Extremities Exam Extremities Exam: absent: Pedal Edema - Back Exam Back Exam: absent: CVA tenderness (L), CVA tenderness (R) - Neurological Exam Neurological Exam: Alert, Altered, Awake - Psychiatric Exam Psychiatric exam: Depressed - Skin Skin Exam: Dry Objective - Vital Signs/Intake and Output Vital Signs (last 24 hours): Temp Pulse Resp BP Pulse Ox 97.6 F 69 20 116/86 99 06/19/17 15:41 06/19/17 15:41 06/19/17 15:41 06/19/17 15:41 06/19/17 15:41 Intake and Output: 06/19/17 06/20/17 18:59 06:59 Intake Total 620 400 Output Total 200 150 Balance 420 250 - Medications Medications: Current Medications Albuterol/Ipratropium (Duoneb 3 Mg/0.5 Mg (3 Ml) Ud) 3 ml INH RQ6 [facility] Last Admin: 06/19/17 20:17 Dose: 3 ml Ascorbic Acid (Vitamin C 500 Mg Tab) 500 mg PO DAILY [facility] Last Admin: 06/19/17 10:53 Dose: 500 mg Brimonidine Tartrate (Alphagan 0.2% Opht) 0.2 ml OU QID [facility] Last Admin: 06/19/17 21:21 Dose: 1 drop Docusate Sodium (Colace) 100 mg PO DAILY [facility] Last Admin: 06/19/17 10:53 Dose: 100 mg Emollient Ointment (Vaseline Oint) 10 gm TOP DAILY [facility] Last Admin: 06/19/17 10:55 Dose: 10 gm Enoxaparin Sodium (Lovenox) 30 mg SC DAILY [facility] Last Admin: 06/19/17 10:55 Dose: 30 mg Famotidine (Pepcid) 20 mg PO DAILY [facility] Last Admin: 06/19/17 10:53 Dose: 20 mg Ceftriaxone Sodium 1 gm/ (Dextrose) 100 mls @ 100 mls/hr IVPB Q24H [facility] Last Admin: 06/19/17 14:01 Dose: 100 mls/hr Magnesium Hydroxide (Milk Of Magnesia) 30 ml PO Q6H PRN PRN Reason: Constipation Rosuvastatin Calcium (Crestor) 5 mg PO HS [facility] Last Admin: 06/19/17 21:20 Dose: 5 mg Tetracaine HCl (Tetracaine 0.5% Ophth Soln) 1 drop OD DAILY [facility] Last Admin: 06/19/17 10:54 Dose: 1 drop Timolol Maleate (Timoptic 0.5% Ophth Soln) 1 drop OU QID [facility] Last Admin: 06/19/17 21:21 Dose: 1 drop - Labs Labs: 06/18/17 07:36 06/18/17 07:36 Assessment and Plan - Assessment and Plan (Free Text) Assessment: (1) CAD and Diastolic CHF Chronic Assessment and Plan: Conserative mgt with ASA and Lasix (2) Altered mental status Assessment and Plan: given history of breast cancer, will need to rule out brain metastasis will send for non contrast scan for now given renal failure Status: Acute (3) Pleural effusion Assessment and Plan: rule out malignant ascites pulmonary following Status: Acute (4) Breast cancer Assessment and Plan: supportive care for now was on hormonal treatment in the past
[2017-06-20] MEDS: Albuterol-Ipratrop 3 mg / 0.5 (3 ml) UD INH SCH ×4 (01:38→20:27)
--- NOTE | 2017-06-20 08:29 | CP.PCM.PN ---
<BeFabiola Tracey - Last Filed: 06/20/17 08:23> Subjective - Date & Time of Evaluation Date of Evaluation: 06/20/17 Time of Evaluation: 07:30 - Subjective Subjective: PGY3 Medicine Note - Dr. Amira Avendano's Service: Patient seen and examined at bedside this AM. Patient reports having no pain. She does not feel she is breathing well and hears wheezing. Patient says she does not want anything done to her. Daughter, Ella, is at bedside. Daughter has been here all night. She says the patient was delirious last night, did not know where she was, was screaming for her room mate at the [facility] and to get her nails cut. Daughter feels that during the day the patient is more coherent than when first admitted. Daughter wants everything done for her mother including CPR and intubation. Daughter is concerned that patient will not be able to get through a thoracentesis without her being the room. Objective - Vital Signs/Intake and Output Vital Signs (last 24 hours): Temp Pulse Resp BP Pulse Ox 98.0 F 60 20 121/80 98 06/19/17 23:40 06/20/17 00:13 06/19/17 23:40 06/19/17 23:40 06/19/17 23:40 Intake and Output: 06/20/17 06/20/17 06:59 18:59 Intake Total 400 Output Total 200 Balance 200 - Medications Medications: Current Medications Albuterol/Ipratropium (Duoneb 3 Mg/0.5 Mg (3 Ml) Ud) 3 ml INH RQ6 [facility] Last Admin: 06/20/17 07:35 Dose: 3 ml Ascorbic Acid (Vitamin C 500 Mg Tab) 500 mg PO DAILY [facility] Last Admin: 06/19/17 10:53 Dose: 500 mg Brimonidine Tartrate (Alphagan 0.2% Opht) 0.2 ml OU QID [facility] Last Admin: 06/19/17 21:21 Dose: 1 drop Docusate Sodium (Colace) 100 mg PO DAILY [facility] Last Admin: 06/19/17 10:53 Dose: 100 mg Emollient Ointment (Vaseline Oint) 10 gm TOP DAILY [facility] Last Admin: 06/19/17 10:55 Dose: 10 gm Enoxaparin Sodium (Lovenox) 30 mg SC DAILY [facility] Last Admin: 06/19/17 10:55 Dose: 30 mg Famotidine (Pepcid) 20 mg PO DAILY [facility] Last Admin: 06/19/17 10:53 Dose: 20 mg Ceftriaxone Sodium 1 gm/ (Dextrose) 100 mls @ 100 mls/hr IVPB Q24H [facility] Last Admin: 06/19/17 14:01 Dose: 100 mls/hr Magnesium Hydroxide (Milk Of Magnesia) 30 ml PO Q6H PRN PRN Reason: Constipation Rosuvastatin Calcium (Crestor) 5 mg PO HS [facility] Last Admin: 06/19/17 21:20 Dose: 5 mg Tetracaine HCl (Tetracaine 0.5% Ophth Soln) 1 drop OD DAILY [facility] Last Admin: 06/19/17 10:54 Dose: 1 drop Timolol Maleate (Timoptic 0.5% Ophth Soln) 1 drop OU QID [facility] Last Admin: 06/19/17 21:21 Dose: 1 drop - Labs Labs: 06/18/17 07:36 06/18/17 07:36 - Constitutional Appears: Non-toxic, No Acute Distress - Head Exam Head Exam: NORMAL INSPECTION - Eye Exam Eye Exam: EOMI - ENT Exam ENT Exam: Mucous Membranes Moist - Respiratory Exam Respiratory Exam: Rales, Wheezes, NORMAL BREATHING PATTERN - Cardiovascular Exam Cardiovascular Exam: REGULAR RHYTHM, +S1, +S2. absent: Gallop, Rubs, Murmur - GI/Abdominal Exam GI & Abdominal Exam: Distended, Soft, Normal Bowel Sounds. absent: Tenderness - Extremities Exam Extremities Exam: absent: Pedal Edema - Neurological Exam Neurological Exam: Alert, Awake, Oriented x3 - Psychiatric Exam Psychiatric exam: Normal Affect, Normal Mood - Skin Skin Exam: Normal Color, Warm Assessment and Plan - Assessment and Plan (Free Text) Assessment: Pneumonia Please see chest CT results below Duoneb 3ml INH RQ6 Ceftriaxone 1gm IVPB Q24H blood culture negative x 3 days F/U sputum culture F/U legionella, mycoplasma, s. pneumo antibodies F/U repeat CXR ID consult - Dr. Booker - help appreciated Pleural Effusion Chest CT without contrast 06/17/17 - severe cardiomegaly; dense coronary artery calcifications; small pericardial effusion; moderate bilateral pleural effusion and compressive consolidations; 4mm right upper lobe nodule (F/U in 12 months); 3.8 by 6.1cm left breast mass (please see full report) Secondary to breast CA v. pneumonia v. CHF Pulmonary consult - Dr. Green - phyllis appreciated Patient will likely not tolerate thoracentesis F/U repeat CXR today F/U ECHO AMS Head CT - severely degraded by motion artifact; suspect encephalomalacia within left frontal lobe; nonspecific white matter changes; generalized atrohpy ( please see full report) F/U Brain MRI with and without contrast to check for mets Neuro consult - Dr. Nicholas - f/u recs UTI urine culture +E.Coli Blood culture negative x 3 days Hyperkalemia Resolved JULIETA Resolved with fluids Breast CA history Elevated Ca 15-[address] 06/17/17- 3.8 x 6.1 cm left breast mass Continue hormone therapy per Dr. George Oncology consult - Dr. George - help appreciated CHF ECHO 2013: LV is severely dilated; mild concentric LVH; trace tricuspid regurgitation; right ventricular systolic pressure is estimated at 43 mmHg; mild pulmonary HTN; LVEF 50% F/U repeat ECHO No BB or SAFIA-I as BP and HR are low Cardio consult - Dr. Ventura - help appreciated Monitor Prophylaxis Lovenox 30mg SC daily Pepcid 20mg PO daily Colace 100mg PO daily All medical management per Dr. Amira Avendano <Brian Avendano - Last Filed: 06/25/17 17:49> Objective - Vital Signs/Intake and Output Vital Signs (last 24 hours): Temp Pulse Resp BP Pulse Ox 98.1 F 67 19 135/79 91 L 06/25/17 16:00 06/25/17 17:35 06/25/17 17:35 06/25/17 17:35 06/25/17 17:35 Intake and Output: 06/25/17 06/25/17 06:59 18:59 Intake Total 240 150 Output Total 190 280 Balance 50 -130 - Medications Medications: Current Medications Albuterol/Ipratropium (Duoneb 3 Mg/0.5 Mg (3 Ml) Ud) 3 ml INH RQ4 [facility] Last Admin: 06/25/17 17:32 Dose: 3 ml Ascorbic Acid (Vitamin C 500 Mg Tab) 500 mg PO DAILY [facility] Last Admin: 06/25/17 16:31 Dose: 500 mg Aspirin (Ecotrin) 81 mg PO DAILY [facility] Last Admin: 06/25/17 16:30 Dose: 81 mg Benzocaine/Menthol (Cepacol Sore Throat) 1 luana MT Q6 [facility] Last Admin: 06/25/17 13:07 Dose: Not Given Brimonidine Tartrate (Alphagan 0.2% Opht) 0.2 ml OU QID [facility] Last Admin: 06/25/17 17:26 Dose: 1 drop Emollient Ointment (Vaseline Oint) 10 gm TOP DAILY [facility] Last Admin: 06/25/17 10:10 Dose: 10 gm Enoxaparin Sodium (Lovenox) 40 mg SC DAILY [facility] Last Admin: 06/25/17 10:09 Dose: 40 mg Famotidine (Pepcid) 20 mg PO DAILY [facility] Last Admin: 06/25/17 16:30 Dose: 20 mg Ceftriaxone Sodium (Rocephin Iv 1 Gm Duplex) 50 mls @ 100 mls/hr IVPB Q24H [facility] Last Admin: 06/25/17 13:08 Dose: 100 mls/hr Magnesium Hydroxide (Milk Of Magnesia) 30 ml PO Q6H PRN PRN Reason: Constipation Phenol/Menthol (Phenaseptic 1.4% Throat [place]) 0 ml MT DAILY [facility] Last Admin: 06/25/17 14:06 Dose: Not Given Rosuvastatin Calcium (Crestor) 5 mg PO HS [facility] Last Admin: 06/24/17 21:18 Dose: 5 mg Tetracaine HCl (Tetracaine 0.5% Ophth Soln) 1 drop OD DAILY [facility] Last Admin: 06/25/17 10:10 Dose: 1 drop Timolol Maleate (Timoptic 0.5% Ophth Soln) 1 drop OU QID [facility] Last Admin: 06/25/17 17:26 Dose: 1 drop - Labs Labs: 06/25/17 06:19 06/25/17 06:19 Assessment and Plan (1) A-fib Status: Acute (2) Altered mental status Status: Acute (3) Hyperkalemia Status: Acute (4) Pleural effusion Status: Acute (5) Thrombocytopenia Status: Acute (6) CHF (congestive heart failure) Status: Chronic (7) Acute renal failure Status: Acute (8) Anemia Status: Acute (9) Breast cancer Status: Acute (10) CHF (congestive heart failure), NYHA class II Status: Acute (11) Dehydration Status: Acute (12) Elevated brain natriuretic peptide (BNP) level Status: Acute (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 (14) Glaucoma (increased eye pressure) Status: Acute (15) Hyponatremia with decreased serum osmolality Status: Acute (16) PVC (premature ventricular contraction) Status: Acute (17) Postmenopausal bleeding Status: Acute (18) Prophylactic measure Status: Acute (19) Sepsis Status: Acute (20) UTI (urinary tract infection) Status: Acute (21) HTN (hypertension) Status: Chronic (22) History of breast cancer Status: Chronic (23) Neoplasm of breast, distant metastasis staging category cM0(i+) per [place] Joint Committee on Cancer Staging Guidellines, 7th edition Status: Chronic (24) Open leg wound Status: Chronic Attending/Attestation - Attestation I have personally seen and examined this patient.: Yes I have fully participated in the care of the patient.: Yes I have reviewed all pertinent clinical information, including history, physical exam and plan: Yes Notes (Text): Patient examined. Patient was delirious last night. Blood cultures negative. Continue ceftriaxone. Bronchodilators. Supportive medications.
[2017-06-20 09:11] LABS: EOS # 0.1 K/uL (0.0-0.7); EOS % 1.8 % (0.0-4.0)
[2017-06-20 09:19] LABS: RBC URINE 87 /hpf (0-3); URINE BACTERIA RARE (<OCC); URINE BILIRUBIN NEGATIVE (NEGATIVE); URINE BLOOD 2+ (NEGATIVE); URINE COLOR Yellow (YELLOW); URINE GLUCOSE (UA) NORMAL (Normal); URINE KETONE NEGATIVE (NEGATIVE); URINE LEUKOCYTE ESTERASE 3+ Leu/uL (Negative); URINE PROTEIN 2+ mg/dL (NEGATIVE); URINE UROBILINOGEN NORMAL mg/dL (0.2-1.0); WBC URINE 164 /hpf (0-5)
[2017-06-20 09:29] LABS: BASO % 0.5 % (0.0-2.0); HEMATOCRIT 42.9 % (34.0-47.0); LYMPH # 1.1 K/uL (1.0-4.3); LYMPH % 14.7 % (20.0-40.0); MEAN CELL VOLUME 86.2 fL (81.0-99.0); MEAN CORPUSCULAR HEMOGLOBIN 25.9 pg (27.0-31.0); MEAN PLATELET VOLUME 8.9 fL (7.2-11.7); MONO # 1.1 K/uL (0.0-0.8); MONO % 15.8 % (0.0-10.0); NRBC % 1.3 % (0.0-2.0); RED CELL DISTRIBUTION WIDTH 14.9 % (11.5-14.5); WHITE BLOOD COUNT 7.2 K/uL (4.8-10.8)
[2017-06-20 09:35] LABS: BILIRUBIN,TOTAL 0.6 mg/dL (0.2-1.3); CALCIUM 8.7 mg/dl (8.6-10.4); POTASSIUM 4.7 mmol/L (3.6-5.2); TOTAL PROTEIN 6.8 g/dL (6.3-8.3)
--- NOTE | 2017-06-20 09:42 | RAD ---
HISTORY: follow up pneumonia COMPARISON: Portable chest 06/16/2017. FINDINGS: LUNGS: Bilateral infiltrates are not excluded particularly at the left side, with the right perihilar and medial basilar region potentially involved as well. CARDIOVASCULAR: Prominent cardiomegaly is again appreciated with interval increase in pulmonary vascular pattern suspicious for CHF. Left pleural effusion is not excluded. Borderline right pleural effusion. No pneumothorax bilaterally. OSSEOUS STRUCTURES: No significant abnormalities. VISUALIZED UPPER ABDOMEN: Normal. OTHER FINDINGS: None. IMPRESSION: Findings suspicious for active CHF at this time. Prominent left basilar infiltrate is not excluded nor is a mid to inferior basilar infiltrate or atelectasis excluded at the right side. Left pleural effusion suspected.
[2017-06-20] MEDS: Tetracaine 0.5% Ophth 2 ML BOTTLE OD SCH (11:39)
[2017-06-20] MEDS: Brimonidine 0.2% Opth Sol (5ml) OU SCH ×4 (11:40→22:24)
[2017-06-20] MEDS: Enoxaparin 30 mg Syringe SC SCH (11:41)
[2017-06-20] MEDS: Petrolatum Oint Foilpak (5 gm) TOP SCH (11:41)
--- NOTE | 2017-06-20 11:57 | CARD ---
APPROVED REPORT EKG Measurement Heart [id number] <Conclusion> Atrial fibrillation Right superior axis deviation Low voltage QRS Cannot rule out Anterior infarct, age undetermined Abnormal ECG
--- NOTE | 2017-06-20 11:57 | CARD ---
APPROVED REPORT EKG Measurement Heart [id number] <Conclusion> Poor data quality, interpretation may be adversely affected Atrial fibrillation with premature ventricular or aberrantly conducted complexes Left axis deviation Low voltage QRS Cannot rule out Inferior infarct, age undetermined Cannot rule out Anterior infarct, age undetermined Abnormal ECG
--- NOTE | 2017-06-20 16:20 | CP.PCM.PN ---
Subjective - Date & Time of Evaluation Date of Evaluation: 06/20/17 Time of Evaluation: 09:00 - Subjective Subjective: more awake alert NAD Objective - Vital Signs/Intake and Output Vital Signs (last 24 hours): Temp Pulse Resp BP Pulse Ox 97.3 F L 123 H 20 122/75 95 06/20/17 15:11 06/20/17 15:11 06/20/17 15:11 06/20/17 15:11 06/20/17 15:11 Intake and Output: 06/20/17 06/20/17 06:59 18:59 Intake Total 400 Output Total 200 Balance 200 - Medications Medications: Current Medications Albuterol/Ipratropium (Duoneb 3 Mg/0.5 Mg (3 Ml) Ud) 3 ml INH RQ6 [facility] Last Admin: 06/20/17 13:10 Dose: 3 ml Ascorbic Acid (Vitamin C 500 Mg Tab) 500 mg PO DAILY [facility] Last Admin: 06/20/17 11:41 Dose: 500 mg Brimonidine Tartrate (Alphagan 0.2% Opht) 0.2 ml OU QID [facility] Last Admin: 06/20/17 13:51 Dose: 1 drop Docusate Sodium (Colace) 100 mg PO DAILY [facility] Last Admin: 06/20/17 11:42 Dose: 100 mg Emollient Ointment (Vaseline Oint) 10 gm TOP DAILY [facility] Last Admin: 06/20/17 11:41 Dose: 10 gm Enoxaparin Sodium (Lovenox) 30 mg SC DAILY [facility] Last Admin: 06/20/17 11:41 Dose: 30 mg Famotidine (Pepcid) 20 mg PO DAILY [facility] Last Admin: 06/20/17 11:42 Dose: 20 mg Ceftriaxone Sodium 1 gm/ (Dextrose) 100 mls @ 100 mls/hr IVPB Q24H [facility] Last Admin: 06/20/17 13:45 Dose: 100 mls/hr Magnesium Hydroxide (Milk Of Magnesia) 30 ml PO Q6H PRN PRN Reason: Constipation Rosuvastatin Calcium (Crestor) 5 mg PO HS [facility] Last Admin: 06/19/17 21:20 Dose: 5 mg Tetracaine HCl (Tetracaine 0.5% Ophth Soln) 1 drop OD DAILY [facility] Last Admin: 06/20/17 11:39 Dose: 1 drop Timolol Maleate (Timoptic 0.5% Ophth Soln) 1 drop OU QID [facility] Last Admin: 06/20/17 13:52 Dose: 1 drop - Labs Labs: 06/20/17 09:07 06/20/17 09:07 - Constitutional Appears: Non-toxic, Chronically Ill - Head Exam Head Exam: NORMOCEPHALIC - Eye Exam Eye Exam: PERRL - ENT Exam ENT Exam: Mucous Membranes Dry - Neck Exam Neck Exam: absent: Lymphadenopathy - Respiratory Exam Respiratory Exam: Decreased Breath Sounds - Cardiovascular Exam Cardiovascular Exam: REGULAR RHYTHM - GI/Abdominal Exam GI & Abdominal Exam: Distended - Rectal Exam Rectal Exam: Deferred - Exam Exam: NORMAL INSPECTION Assessment and Plan (1) A-fib Status: Acute (2) Altered mental status Status: Acute (3) Hyperkalemia Status: Acute (4) Pleural effusion Status: Acute (5) CHF (congestive heart failure) Status: Chronic (6) Acute renal failure Status: Acute (7) Anemia Status: Acute (8) Breast cancer Status: Acute (9) CHF (congestive heart failure), NYHA class II Status: Acute (10) Dehydration Status: Acute (11) Sepsis Status: Acute (12) History of breast cancer Status: Chronic (13) Neoplasm of breast, distant metastasis staging category cM0(i+) per [place] Joint Committee on Cancer Staging Guidellines, 7th edition Status: Chronic - Assessment and Plan (Free Text) Assessment: 81 yo female with hx of cardiomyopathy and breast Ca in past Treated with palliative hormone therapy in the past presents with AMS and resp failure with hypercarbia Found to have increased Ca 15-3 and large left effusion Started on empiric IV antibiotics pending thoracentesis
--- NOTE | 2017-06-20 20:10 | CP.PCM.PN ---
Subjective - Date & Time of Evaluation Date of Evaluation: 06/20/17 Time of Evaluation: 10:20 - Subjective Subjective: clinically same Objective - Vital Signs/Intake and Output Vital Signs (last 24 hours): Temp Pulse Resp BP Pulse Ox 97.3 F L 74 20 122/75 95 06/20/17 15:11 06/20/17 17:50 06/20/17 15:11 06/20/17 15:11 06/20/17 15:11 - Medications Medications: Current Medications Albuterol/Ipratropium (Duoneb 3 Mg/0.5 Mg (3 Ml) Ud) 3 ml INH RQ6 [facility] Last Admin: 06/20/17 13:10 Dose: 3 ml Ascorbic Acid (Vitamin C 500 Mg Tab) 500 mg PO DAILY [facility] Last Admin: 06/20/17 11:41 Dose: 500 mg Brimonidine Tartrate (Alphagan 0.2% Opht) 0.2 ml OU QID [facility] Last Admin: 06/20/17 19:00 Dose: 1 drop Docusate Sodium (Colace) 100 mg PO DAILY [facility] Last Admin: 06/20/17 11:42 Dose: 100 mg Emollient Ointment (Vaseline Oint) 10 gm TOP DAILY [facility] Last Admin: 06/20/17 11:41 Dose: 10 gm Enoxaparin Sodium (Lovenox) 30 mg SC DAILY [facility] Last Admin: 06/20/17 11:41 Dose: 30 mg Famotidine (Pepcid) 20 mg PO DAILY [facility] Last Admin: 06/20/17 11:42 Dose: 20 mg Ceftriaxone Sodium 1 gm/ (Dextrose) 100 mls @ 100 mls/hr IVPB Q24H [facility] Last Admin: 06/20/17 13:45 Dose: 100 mls/hr Magnesium Hydroxide (Milk Of Magnesia) 30 ml PO Q6H PRN PRN Reason: Constipation Rosuvastatin Calcium (Crestor) 5 mg PO HS [facility] Last Admin: 06/19/17 21:20 Dose: 5 mg Tetracaine HCl (Tetracaine 0.5% Ophth Soln) 1 drop OD DAILY [facility] Last Admin: 06/20/17 11:39 Dose: 1 drop Timolol Maleate (Timoptic 0.5% Ophth Soln) 1 drop OU QID [facility] Last Admin: 06/20/17 19:00 Dose: 1 drop - Labs Labs: 06/20/17 09:07 06/20/17 09:07 - Constitutional Appears: Well - Head Exam Head Exam: ATRAUMATIC, NORMAL INSPECTION, NORMOCEPHALIC - Eye Exam Eye Exam: EOMI, Normal appearance, PERRL Pupil Exam: NORMAL ACCOMODATION, PERRL - ENT Exam ENT Exam: Mucous Membranes Moist, Normal Exam - Neck Exam Neck Exam: Full ROM, Normal Inspection. absent: Lymphadenopathy - Respiratory Exam Respiratory Exam: Decreased Breath Sounds - Cardiovascular Exam Cardiovascular Exam: REGULAR RHYTHM, +S1, +S2 - GI/Abdominal Exam GI & Abdominal Exam: Soft, Diminished Bowel Sounds - Rectal Exam Rectal Exam: Deferred Assessment and Plan (1) A-fib Status: Acute (2) Altered mental status Status: Acute (3) Hyperkalemia Status: Acute (4) Pleural effusion Status: Acute (5) Thrombocytopenia Status: Acute (6) CHF (congestive heart failure) Status: Chronic (7) Acute renal failure Status: Acute (8) Anemia Status: Acute (9) Breast cancer Status: Acute (10) CHF (congestive heart failure), NYHA class II Status: Acute (11) Dehydration Status: Acute (12) Elevated brain natriuretic peptide (BNP) level Status: Acute (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 (14) Glaucoma (increased eye pressure) Status: Acute (15) Hyponatremia with decreased serum osmolality Status: Acute (16) PVC (premature ventricular contraction) Status: Acute (17) Postmenopausal bleeding Status: Acute (18) Prophylactic measure Status: Acute (19) Sepsis Status: Acute (20) UTI (urinary tract infection) Status: Acute (21) HTN (hypertension) Status: Chronic (22) History of breast cancer Status: Chronic (23) Neoplasm of breast, distant metastasis staging category cM0(i+) per [place] Joint Committee on Cancer Staging Guidellines, 7th edition Status: Chronic (24) Open leg wound Status: Chronic - Assessment and Plan (Free Text) Plan: Patient examined. More alert and awake. Clinically better. Continue ceftriaxone. Bronchodilators. Supportive medication.
--- NOTE | 2017-06-20 21:54 | CP.PCM.PN ---
Subjective - Date & Time of Evaluation Date of Evaluation: 06/20/17 Time of Evaluation: 12:30 - Subjective Subjective: Feeling better, conversational Objective - Vital Signs/Intake and Output Vital Signs (last 24 hours): Temp Pulse Resp BP Pulse Ox 97.3 F L 74 20 122/75 95 06/20/17 15:11 06/20/17 17:50 06/20/17 15:11 06/20/17 15:11 06/20/17 15:11 - Medications Medications: Current Medications Albuterol/Ipratropium (Duoneb 3 Mg/0.5 Mg (3 Ml) Ud) 3 ml INH RQ6 [facility] Last Admin: 06/20/17 20:27 Dose: 3 ml Ascorbic Acid (Vitamin C 500 Mg Tab) 500 mg PO DAILY [facility] Last Admin: 06/20/17 11:41 Dose: 500 mg Brimonidine Tartrate (Alphagan 0.2% Opht) 0.2 ml OU QID [facility] Last Admin: 06/20/17 19:00 Dose: 1 drop Docusate Sodium (Colace) 100 mg PO DAILY [facility] Last Admin: 06/20/17 11:42 Dose: 100 mg Emollient Ointment (Vaseline Oint) 10 gm TOP DAILY [facility] Last Admin: 06/20/17 11:41 Dose: 10 gm Enoxaparin Sodium (Lovenox) 30 mg SC DAILY [facility] Last Admin: 06/20/17 11:41 Dose: 30 mg Famotidine (Pepcid) 20 mg PO DAILY [facility] Last Admin: 06/20/17 11:42 Dose: 20 mg Ceftriaxone Sodium 1 gm/ (Dextrose) 100 mls @ 100 mls/hr IVPB Q24H [facility] Last Admin: 06/20/17 13:45 Dose: 100 mls/hr Magnesium Hydroxide (Milk Of Magnesia) 30 ml PO Q6H PRN PRN Reason: Constipation Rosuvastatin Calcium (Crestor) 5 mg PO HS [facility] Last Admin: 06/19/17 21:20 Dose: 5 mg Tetracaine HCl (Tetracaine 0.5% Ophth Soln) 1 drop OD DAILY [facility] Last Admin: 06/20/17 11:39 Dose: 1 drop Timolol Maleate (Timoptic 0.5% Ophth Soln) 1 drop OU QID [facility] Last Admin: 11/08/17 19:00 Dose: 1 drop - Labs Labs: 06/20/17 09:07 06/20/17 09:07 - Head Exam Head Exam: ATRAUMATIC - Eye Exam Eye Exam: Normal appearance - ENT Exam ENT Exam: Mucous Membranes Dry - Respiratory Exam Respiratory Exam: Decreased Breath Sounds - Cardiovascular Exam Cardiovascular Exam: +S1, +S2 - GI/Abdominal Exam GI & Abdominal Exam: Normal Bowel Sounds Assessment and Plan (1) Pleural effusion Assessment & Plan: ?malignant Status: Acute (2) Breast cancer Assessment & Plan: elevated CA 15-3 but not significantly increased from prior cont. hormonal therapy Status: Acute
--- NOTE | 2017-06-20 23:26 | CP.PCM.PN ---
Subjective - Date & Time of Evaluation Date of Evaluation: 06/20/17 Time of Evaluation: 16:45 - Subjective Subjective: Patient seen and evaluated Now with improved breathing Continue current meds Physical Examination - Constitutional Appears: Non-toxic, Chronically Ill - Head Exam Head Exam: NORMOCEPHALIC - Eye Exam Eye Exam: PERRL - ENT Exam ENT Exam: Mucous Membranes Dry, Normal External Ear Exam - Neck Exam Neck Exam: absent: Lymphadenopathy - Respiratory Exam Respiratory Exam: Decreased Breath Sounds - Cardiovascular Exam Cardiovascular Exam: REGULAR RHYTHM - GI/Abdominal Exam GI & Abdominal Exam: Distended, Soft - Rectal Exam Rectal Exam: Deferred - Exam Exam: NORMAL INSPECTION - Extremities Exam Extremities Exam: absent: Pedal Edema - Back Exam Back Exam: absent: CVA tenderness (L), CVA tenderness (R) - Neurological Exam Neurological Exam: Alert, Altered, Awake - Psychiatric Exam Psychiatric exam: Depressed - Skin Skin Exam: Dry Objective - Vital Signs/Intake and Output Vital Signs (last 24 hours): Temp Pulse Resp BP Pulse Ox 97.3 F L 74 20 122/75 95 06/20/17 15:11 06/20/17 17:50 06/20/17 15:11 06/20/17 15:11 06/20/17 15:11 Intake and Output: 06/20/17 06/21/17 18:59 06:59 Output Total 250 Balance -250 - Medications Medications: Current Medications Albuterol/Ipratropium (Duoneb 3 Mg/0.5 Mg (3 Ml) Ud) 3 ml INH RQ6 [facility] Last Admin: 06/20/17 20:27 Dose: 3 ml Ascorbic Acid (Vitamin C 500 Mg Tab) 500 mg PO DAILY [facility] Last Admin: 06/20/17 11:41 Dose: 500 mg Brimonidine Tartrate (Alphagan 0.2% Opht) 0.2 ml OU QID [facility] Last Admin: 06/20/17 22:24 Dose: 1 drop Docusate Sodium (Colace) 100 mg PO DAILY [facility] Last Admin: 06/20/17 11:42 Dose: 100 mg Emollient Ointment (Vaseline Oint) 10 gm TOP DAILY [facility] Last Admin: 06/20/17 11:41 Dose: 10 gm Enoxaparin Sodium (Lovenox) 30 mg SC DAILY [facility] Last Admin: 06/20/17 11:41 Dose: 30 mg Famotidine (Pepcid) 20 mg PO DAILY [facility] Last Admin: 06/20/17 11:42 Dose: 20 mg Ceftriaxone Sodium 1 gm/ (Dextrose) 100 mls @ 100 mls/hr IVPB Q24H [facility] Last Admin: 06/20/17 13:45 Dose: 100 mls/hr Magnesium Hydroxide (Milk Of Magnesia) 30 ml PO Q6H PRN PRN Reason: Constipation Rosuvastatin Calcium (Crestor) 5 mg PO HS [facility] Last Admin: 06/20/17 22:29 Dose: 5 mg Tetracaine HCl (Tetracaine 0.5% Ophth Soln) 1 drop OD DAILY [facility] Last Admin: 06/20/17 11:39 Dose: 1 drop Timolol Maleate (Timoptic 0.5% Ophth Soln) 1 drop OU QID [facility] Last Admin: 06/20/17 22:24 Dose: 1 drop - Labs Labs: 06/20/17 09:07 06/20/17 09:07 Assessment and Plan - Assessment and Plan (Free Text) Assessment: (1) CAD and Diastolic CHF Chronic Assessment and Plan: Conserative mgt with ASA and Lasix (2) Altered mental status Assessment and Plan: given history of breast cancer, will need to rule out brain metastasis will send for non contrast scan for now given renal failure Status: Acute (3) Pleural effusion Assessment and Plan: rule out malignant ascites pulmonary following Status: Acute (4) Breast cancer Assessment and Plan: supportive care for now was on hormonal treatment in the past
[2017-06-21] MEDS: Albuterol-Ipratrop 3 mg / 0.5 (3 ml) UD INH SCH ×4 (01:40→19:57)
--- NOTE | 2017-06-21 06:21 | CP.PCM.CON ---
History of Present Illness - History of Present Illness History of Present Illness: CONSULT DICTATED LEFT HEMIPARESIS LEGALLY BLIND IMPENDING RESPIRATORY FAILURE METATASTATIC BREAST CANCER NEEDS WORK UP FAMILY ON HOLDING RECOMMENDED WORK UP CONTINUE PRESENT MANAGEMENT WITH MY RECOMMENDATION Past Patient History - Past Medical History & Family History Past Medical History?: Yes - Past Social History Smoking Status: Never Smoked - CARDIAC Hx Congestive Heart Failure: Yes Hx Hypertension: Yes - PULMONARY Hx Respiratory Disorders: No - NEUROLOGICAL Hx Neurological Disorder: No - HEENT Other/Comment: [email or web address] - RENAL Hx Renal Failure: Yes - ENDOCRINE/METABOLIC Hx Endocrine Disorders: No - HEMATOLOGICAL/ONCOLOGICAL Hx Anemia: Yes - INTEGUMENTARY Hx Dermatological Problems: Yes Other/Comment: left breast wounds X2 - MUSCULOSKELETAL/RHEUMATOLOGICAL Hx Rheumatoid Arthritis: Yes - GASTROINTESTINAL Hx Gastroesophageal Reflux: Yes - GENITOURINARY/GYNECOLOGICAL Hx Genitourinary Disorders: No - PSYCHIATRIC Hx Substance Use: No - SURGICAL HISTORY Hx Coronary Stent: No (cath ) - ANESTHESIA Hx Anesthesia: No Hx Anesthesia Reactions: No Meds Allergies/Adverse Reactions: Allergies Allergy/AdvReac Type Severity Reaction Status Date / Time No Known Allergies Allergy Verified 03/25/17 16:15 - Medications Medications: Current Medications Albuterol/Ipratropium (Duoneb 3 Mg/0.5 Mg (3 Ml) Ud) 3 ml INH RQ6 [facility] Last Admin: 06/21/17 01:40 Dose: Not Given Ascorbic Acid (Vitamin C 500 Mg Tab) 500 mg PO DAILY [facility] Last Admin: 06/20/17 11:41 Dose: 500 mg Brimonidine Tartrate (Alphagan 0.2% Opht) 0.2 ml OU QID [facility] Last Admin: 06/20/17 22:24 Dose: 1 drop Docusate Sodium (Colace) 100 mg PO DAILY [facility] Last Admin: 06/20/17 11:42 Dose: 100 mg Emollient Ointment (Vaseline Oint) 10 gm TOP DAILY [facility] Last Admin: 06/20/17 11:41 Dose: 10 gm Enoxaparin Sodium (Lovenox) 30 mg SC DAILY [facility] Last Admin: 06/20/17 11:41 Dose: 30 mg Famotidine (Pepcid) 20 mg PO DAILY [facility] Last Admin: 06/20/17 11:42 Dose: 20 mg Ceftriaxone Sodium 1 gm/ (Dextrose) 100 mls @ 100 mls/hr IVPB Q24H [facility] Last Admin: 06/20/17 13:45 Dose: 100 mls/hr Magnesium Hydroxide (Milk Of Magnesia) 30 ml PO Q6H PRN PRN Reason: Constipation Rosuvastatin Calcium (Crestor) 5 mg PO HS [facility] Last Admin: 06/20/17 22:29 Dose: 5 mg Tetracaine HCl (Tetracaine 0.5% Ophth Soln) 1 drop OD DAILY [facility] Last Admin: 06/20/17 11:39 Dose: 1 drop Timolol Maleate (Timoptic 0.5% Ophth Soln) 1 drop OU QID [facility] Last Admin: 06/20/17 22:24 Dose: 1 drop Results - Vital Signs Recent Vital Signs: Last Vital Signs Temp 97.4 F L 06/20/17 23:00 Pulse 62 06/20/17 23:00 Resp 20 06/20/17 23:00 BP 95/70 L 06/20/17 23:00 Pulse Ox 97 06/20/17 23:00 - Labs Result Diagrams: 06/20/17 09:07 06/20/17 09:07 Labs: Laboratory Results - last 24 hr 06/20/17 06/20/17 06/20/17 09:07 09:07 09:07 WBC 7.2 RBC 4.98 Hgb 12.9 Hct 42.9 MCV 86.2 MCH 25.9 L MCHC 30.0 L RDW 14.9 H Plt Count 126 L D MPV 8.9 Neut % (Auto) 67.2 Lymph % (Auto) 14.7 L [place] % (Auto) 15.8 H Eos % (Auto) 1.8 Baso % (Auto) 0.5 Neut # 4.8 Lymph # 1.1 [place] # 1.1 H Eos # 0.1 Baso # 0.0 Differential Comment Sodium 133 Potassium 4.7 Chloride 100 Carbon Dioxide 22 Anion Gap 16 BUN 51 H Creatinine 1.1 Est GFR ( Amer) 58 Est GFR (Non-Af Amer) 48 Random Glucose 181 H Calcium 8.7 Total Bilirubin 0.6 AST 37 H D ALT 73 H D Alkaline Phosphatase 61 Total Protein 6.8 Albumin 3.4 L Globulin 3.4 Albumin/Globulin Ratio 1.0 Urine Color Yellow Urine Clarity Hazy Urine pH 6.0 Ur Specific [place] 1.016 Urine Protein 2+ H Urine Glucose (UA) Normal Urine Ketones Negative Urine Blood 2+ H Urine Nitrate Negative Urine Bilirubin Negative Urine Urobilinogen Normal Ur Leukocyte Esterase 3+ H Urine WBC (Auto) 164 H Urine RBC (Auto) 87 H Ur Squamous Epith Cells 1 Urine Bacteria Rare Hyaline Casts 3-5 H Mycoplasma pneumon IgM 06/20/17 11:53 WBC RBC Hgb Hct MCV MCH MCHC RDW Plt Count MPV Neut % (Auto) Lymph % (Auto) [place] % (Auto) Eos % (Auto) Baso % (Auto) Neut # Lymph # [place] # Eos # Baso # Differential Comment Sodium Potassium Chloride Carbon Dioxide Anion Gap BUN Creatinine Est GFR ( Amer) Est GFR (Non-Af Amer) Random Glucose Calcium Total Bilirubin AST ALT Alkaline Phosphatase Total Protein Albumin Globulin Albumin/Globulin Ratio Urine Color Urine Clarity Urine pH Ur Specific [place] Urine Protein Urine Glucose (UA) Urine Ketones Urine Blood Urine Nitrate Urine Bilirubin Urine Urobilinogen Ur Leukocyte Esterase Urine WBC (Auto) Urine RBC (Auto) Ur Squamous Epith Cells Urine Bacteria Hyaline Casts Mycoplasma pneumon IgM Negative
[2017-06-21 07:50] LABS: FREE T4 0.84 ng/dL (0.78-2.19)
[2017-06-21 07:54] LABS: ALB/GLOB RATIO 1.4 (1.0-2.1); TOTAL PROTEIN 6.3 g/dL (6.3-8.3)
[2017-06-21 07:55] LABS: CALCIUM 8.3 mg/dl (8.6-10.4)
[2017-06-21 08:04] LABS: THYROID STIMULATING HORMONE 3.82 mIU/L (0.46-4.68)
[2017-06-21 08:07] LABS: THYROID STIMULATING HORMONE 3.64 mIU/L (0.46-4.68)
[2017-06-21 08:23] LABS: POTASSIUM 5.4 mmol/L (3.6-5.2)
--- NOTE | 2017-06-21 08:26 | CON ---
DATE: 06/21/2017 ATTENDING PHYSICIAN: Walter Avendano MD LOCATION: The patient's room number 662, bed A. REASON FOR CONSULTATION: Change in mental status and abnormal CAT scan. CHIEF COMPLAINT: The patient was brought into with history of change in mental status by her family members. The patient was recently showing increase in her confusion and lethargicness. The patient did have workup for the same and found to have some abnormal CAT scan. From neurological point of view, I was called into evaluate her for further management. HISTORY OF PRESENT ILLNESS: Ms. Sindi Dolan is an 81-year-old right-handed -F[place]ian female, living with her family members, presenting with increasing lethargicness and confusion. No history of fall. No history of trauma. No history of involuntary movement. It has been documented or witnessed as per the chart documentation. This has been getting worse for the last few days. At present, the patient is complaining of respiratory disturbances and generalized weakness. 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 PERSONAL HISTORY: Denies smoking or alcohol use. ALLERGIES: NO KNOWN ALLERGIES. MEDICATIONS: Colace, Crestor, DuoNeb, Lovenox, milk of magnesium, Pepcid, Timoptic eyedrops, and vitamin C. REVIEW OF SYSTEMS: A 12-point systems had been reviewed. From neuro, abnormal CAT scan. PHYSICAL EXAMINATION: VITAL SIGNS: Blood pressure 95/70, mean arterial pressure of 78, respiratory rate 16 to 18 per minute, temperature 97.4, and pulse rate is 62. NECK: Supple. No carotid bruits. HEART: Sounds has ejection systolic murmur with irregularly irregular heartbeat. EXTREMITIES: Both extremities are 2+ pitting edema with the left leg externally rotated. NEUROLOGIC: The patient is arousable on calling her first name. She knows she is in the hospital. Complaining of respiratory discomfort. She follows 1-step command. Slight confusion of right and left confusion. CRANIAL NERVE EXAMINATION: Not responding to visual threat on either side. . Good corneal reflex. No facial sensory deficit. Facial asymmetry manifesting as a flattening of the left nasolabial fold. Hearing seems to be intact. Good gag. Tongue is moist. MOTOR EXAMINATION: She could able to lift both upper extremities against the gravity with a 4/5 weakness on both sides. Her both legs, she could able to lift her legs against the gravity. The left leg is externally rotated. Deep tendon reflexes are absent. Plantars are upgoing on her both sides. SENSORY EXAMINATION: Responds to pain symmetrically on both sides. No cortical sensory loss. COORDINATION: She could reach her nose on finger-nose testing. However, she could not able to find the finger because of her blindness. GAIT: Deferred at this time. DIAGNOSTIC WORKUP: CT of the head, atrophy with left frontal encephalomalacia. EKG: Atrial fibrillation with DVTs. Blood workup: WBC 7.2, hemoglobin 12.9, hematocrit 42.9, and platelets 126. Sodium 133, potassium 4.7,chloride 100, bicarbonate is 22, BUN is 51, creatinine 1.1, glucose 187, calcium 8.7, AST 37, ALT 73, CEA 15.3 and 78.9. Urinalysis, 2+ proteinuria, 2+ blood, esterase 3+, RBC 164. Hyaline casts were seen. CONCLUSION: On reviewing her history as well as neurological examination, Ms. Sindi Dolan has been presenting with possible toxic versus metabolic or hypoxic encephalopathy, superimposed with left hemiparesis, which is probably new versus old. Her abdominal CAT scan showed a left frontal encephalomalacia, not correlating with her clinical findings. The patient may have subclinical seizures manifesting with the left hemiparesis. The patient needs further workup because of her significant risk factors of hypertension, atrial fibrillation, and metastatic breast cancer. The patient was requested to have MRI of the brain, which was on hold by her family request. The patient also requested to have carotid Doppler and EEG if her family agrees. The patient is advised to continue the same medication. I would like her to be on Ecotrin for stroke prophylaxis. The patient needs Cardiology followup as well has Heme/Onc followup for her existing problem. DVT prophylaxis should be continued. The patient will be followed while she is in the hospital. Joey Nicholas MD JORDIN
[2017-06-21 08:42] LABS: FOLATE 12.4 ng/mL
[2017-06-21] MEDS: Enoxaparin 30 mg Syringe SC SCH (09:31)
[2017-06-21] MEDS: Petrolatum Oint Foilpak (5 gm) TOP SCH (09:31)
[2017-06-21] MEDS: Brimonidine 0.2% Opth Sol (5ml) OU SCH ×4 (09:31→22:31)
[2017-06-21] MEDS: Tetracaine 0.5% Ophth 2 ML BOTTLE OD SCH (09:32)
[2017-06-21 11:47] LABS: BASO % 0.4 % (0.0-2.0); EOS # 0.2 K/uL (0.0-0.7); EOS % 2.2 % (0.0-4.0); HEMATOCRIT 41.2 % (34.0-47.0); LYMPH # 0.9 K/uL (1.0-4.3); LYMPH % 12.9 % (20.0-40.0); MEAN CELL VOLUME 86.1 fL (81.0-99.0); MEAN CORPUSCULAR HEMOGLOBIN 26.2 pg (27.0-31.0); MEAN CORPUSCULAR HGB CONC 30.4 g/dL (33.0-37.0); MEAN PLATELET VOLUME 9.3 fL (7.2-11.7); MONO # 1.1 K/uL (0.0-0.8); MONO % 15.4 % (0.0-10.0); RED CELL DISTRIBUTION WIDTH 14.9 % (11.5-14.5); WHITE BLOOD COUNT 7.3 K/uL (4.8-10.8)
--- NOTE | 2017-06-21 13:52 | CP.PCM.CON ---
History of Present Illness - History of Present Illness History of Present Illness: Palliative consult Requested by Josee Avendano MD Reason: Goals of care discussion Patient is a81 yo female admitted from care home with AMS X 2days, increased lethargy and unable to hold fork and feed her self, what she was previously able to do. Patient also had poor PO intake. Patient was diagnosed with UTI, E Balbir in the urine and Rocephin IV started. During the hospital stay patient had periods of agitation and was placed on safety watch. patient is legally blind and is not doing well when environment changed. The daughter Ella is debating on further care and Palliative care was called to assist her during the decision making process. PMH: anemia, arthritis, breast CA , pst hormonal Tx, patient never accepted chemo Tx, CAD, CHF Soc Hx: has three children, Ella most involved in care, is [place] resident for last 2 years Fam Hx: denies Review of Systems - Review of Systems All systems: reviewed and no additional remarkable complaints except Review of Systems: Patient agitated, complains of sore throat. Cepacol and Mucinex ordered Past Patient History - Past Medical History & Family History Past Medical History?: Yes - Past Social History Smoking Status: Never Smoked - CARDIAC Hx Congestive Heart Failure: Yes Hx Hypertension: Yes - PULMONARY Hx Respiratory Disorders: No - NEUROLOGICAL Hx Neurological Disorder: No - HEENT Other/Comment: dx.[email or web address] - RENAL Hx Renal Failure: Yes - ENDOCRINE/METABOLIC Hx Endocrine Disorders: No - HEMATOLOGICAL/ONCOLOGICAL Hx Anemia: Yes - INTEGUMENTARY Hx Dermatological Problems: Yes Other/Comment: left breast wounds X2 - MUSCULOSKELETAL/RHEUMATOLOGICAL Hx Rheumatoid Arthritis: Yes - GASTROINTESTINAL Hx Gastroesophageal Reflux: Yes - GENITOURINARY/GYNECOLOGICAL Hx Genitourinary Disorders: No - PSYCHIATRIC Hx Substance Use: No - SURGICAL HISTORY Hx Coronary Stent: No (cath ) - ANESTHESIA Hx Anesthesia: No Hx Anesthesia Reactions: No Meds Allergies/Adverse Reactions: Allergies Allergy/AdvReac Type Severity Reaction Status Date / Time No Known Allergies Allergy Verified 03/25/17 16:15 - Medications Medications: Current Medications Albuterol/Ipratropium (Duoneb 3 Mg/0.5 Mg (3 Ml) Ud) 3 ml INH RQ6 [facility] Last Admin: 06/21/17 13:38 Dose: 3 ml Ascorbic Acid (Vitamin C 500 Mg Tab) 500 mg PO DAILY [facility] Last Admin: 06/21/17 09:30 Dose: 500 mg Aspirin (Ecotrin) 81 mg PO DAILY [facility] Last Admin: 06/21/17 09:30 Dose: 81 mg Brimonidine Tartrate (Alphagan 0.2% Opht) 0.2 ml OU QID [facility] Last Admin: 06/21/17 09:31 Dose: 1 drop Docusate Sodium (Colace) 100 mg PO DAILY [facility] Last Admin: 06/21/17 09:31 Dose: 100 mg Emollient Ointment (Vaseline Oint) 10 gm TOP DAILY [facility] Last Admin: 06/21/17 09:31 Dose: 10 gm Enoxaparin Sodium (Lovenox) 30 mg SC DAILY [facility] Last Admin: 06/21/17 09:31 Dose: 30 mg Famotidine (Pepcid) 20 mg PO DAILY [facility] Last Admin: 06/21/17 09:31 Dose: 20 mg Ceftriaxone Sodium 1 gm/ (Dextrose) 100 mls @ 100 mls/hr IVPB Q24H [facility] Last Admin: 06/20/17 13:45 Dose: 100 mls/hr Magnesium Hydroxide (Milk Of Magnesia) 30 ml PO Q6H PRN PRN Reason: Constipation Rosuvastatin Calcium (Crestor) 5 mg PO HS [facility] Last Admin: 06/20/17 22:29 Dose: 5 mg Tetracaine HCl (Tetracaine 0.5% Ophth Soln) 1 drop OD DAILY [facility] Last Admin: 06/21/17 09:32 Dose: 1 drop Timolol Maleate (Timoptic 0.5% Ophth Soln) 1 drop OU QID [facility] Last Admin: 06/21/17 09:32 Dose: 1 drop Physical Exam - Constitutional Appears: Chronically Ill - Head Exam Head Exam: ATRAUMATIC, NORMAL INSPECTION, NORMOCEPHALIC - Eye Exam Additional comments: Blind - ENT Exam Additional comments: Sore throat - Neck Exam Neck exam: Positive for: Normal Inspection - Respiratory Exam Respiratory Exam: Decreased Breath Sounds Additional comments: cough - GI/Abdominal Exam GI & Abdominal Exam: Diminished Bowel Sounds, Soft - Rectal Exam Rectal Exam: Deferred - Extremities Exam Extremities exam: Positive for: normal inspection - Back Exam Back exam: NORMAL INSPECTION - Neurological Exam Neurological exam: Alert, Altered - Psychiatric Exam Psychiatric exam: Agitated - Skin Skin Exam: Dry, Intact, Normal Color, Warm Results - Vital Signs Recent Vital Signs: Last Vital Signs Temp 97.7 F 06/21/17 07:20 Pulse 71 06/21/17 07:20 Resp 22 06/21/17 07:20 BP 108/68 06/21/17 07:20 Pulse Ox 95 06/21/17 07:20 - Labs Result Diagrams: 06/21/17 11:35 06/21/17 06:51 Labs: Laboratory Results - last 24 hr 06/20/17 06/21/17 06/21/17 Unknown 06:51 06:51 WBC RBC Hgb Hct MCV MCH MCHC RDW Plt Count MPV Neut % (Auto) Lymph % (Auto) [place] % (Auto) Eos % (Auto) Baso % (Auto) Neut # Lymph # [place] # Eos # Baso # Sodium 132 Potassium 5.4 H Chloride 100 Carbon Dioxide 21 L Anion Gap 16 BUN 60 H Creatinine 1.2 Est GFR ( Amer) 52 Est GFR (Non-Af Amer) 43 Random Glucose 126 H Calcium 8.3 L Total Bilirubin 1.0 AST 40 H ALT 58 H D Alkaline Phosphatase 65 Total Protein 6.3 Albumin 3.7 Globulin 2.6 Albumin/Globulin Ratio 1.4 Vitamin B12 993 H Folate 12.4 Free T4 0.84 TSH 3rd Generation 3.64 3.82 Prolactin 34.5 H Ur L.pneumophila Ag Negative 06/21/17 11:35 WBC 7.3 RBC 4.79 Hgb 12.5 Hct 41.2 MCV 86.1 MCH 26.2 L MCHC 30.4 L RDW 14.9 H Plt Count 130 MPV 9.3 Neut % (Auto) 69.1 Lymph % (Auto) 12.9 L [place] % (Auto) 15.4 H Eos % (Auto) 2.2 Baso % (Auto) 0.4 Neut # 5.0 Lymph # 0.9 L [place] # 1.1 H Eos # 0.2 Baso # 0.0 Sodium Potassium Chloride Carbon Dioxide Anion Gap BUN Creatinine Est GFR ( Amer) Est GFR (Non-Af Amer) Random Glucose Calcium Total Bilirubin AST ALT Alkaline Phosphatase Total Protein Albumin Globulin Albumin/Globulin Ratio Vitamin B12 Folate Free T4 TSH 3rd Generation Prolactin Ur L.pneumophila Ag Assessment & Plan - Assessment and Plan (Free Text) Assessment: palliative consult Code status Unknown, Full Code, PPS 20%, there is no advance directive on chart I reviewed medical records, all diagnostic studies, examined patient in the bed and discussed goals of care with her daughter Ella, away from the bed side. Patient is alert, unable to see, agitated at times, responds well to her daughter's voice. patient complains of sore throat and difficulties swallowing. Daughter who stays at the bed side all night, noticed some dry cough. The rest of physical exam is unremarkable.Hb 12.9, Hb 7.2, afebrile, BP 112/78, [id number] % RA. Goals of care discussed with Ella, the daughter who advocates for the patient. Ella is seeing slow decline in her mother's condition . She is concerned and would like to find the best possible plan of care for her mother. Per Ella, patient never got used to [place] and is constantly asking to go home. In her mind, she is at [facility] for [facility] only. Before going to [place], patient was at [email or web address] while was able to take care of her self. Once she lost site due to glaucoma, she needed more extensive assistance and was placed at [facility]. [place]'s concern is lack of space in her apartment for patient to return home. She would like to explore other possibilities for mother's placement what will look more like home and family could spend more time with her. Ella has two siblings that would take turn in taking care of the patient . 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 Doctor Juan Alberto walked in to the meeting and ordered Cepacol Lozenges and Mucinex for patient's sore throat and cough. he also suggested to the daughter that due to very complex medical condition, her mother will have to have symptoms managed and kept comfortable, with out any agressive interventions. Agressive interventions are not suggested due to patient's poor cardiac condition in the first place. Code status discussed. I reviewed POLST and suggested to Ella that she should be thinking of end of life care and how would she want her mother to one day when her time comes. Ella admitted, she had never had this kind of discussion with her mother and does not know her wishes, but know that her mother has been complaining lately of being tired. She was to think it over and come back with decision Impression * This is chronically ill patient with complex medical Hx * Patient is blind and lost of that sense makes her more agitated when in strange environment * Patient complains of sore throat and difficulties swallowing * The daughter is looking for ways to bring mother home but is worried about lack of support Suggestion * Mucinex and Cepacol as suggested by Doctor Juan Alberto * SS to assist daughter with her options in terms of finding the place other than [facility] I did explain to Ella that her mother may have to return to [place] and from there to start the process of bringing her mother home, as the process may take long time. Thank you very much for consulting Palliative Care
--- NOTE | 2017-06-21 15:24 | CP.PCM.PN ---
Subjective - Date & Time of Evaluation Date of Evaluation: 06/21/17 Time of Evaluation: 09:40 - Subjective Subjective: clinically same Objective - Vital Signs/Intake and Output Vital Signs (last 24 hours): Temp Pulse Resp BP Pulse Ox 97.7 F 71 22 108/68 95 06/21/17 07:20 06/21/17 07:20 06/21/17 07:20 06/21/17 07:20 06/21/17 07:20 Intake and Output: 06/21/17 06/21/17 06:59 18:59 Intake Total 300 Output Total 375 250 Balance -75 -250 - Medications Medications: Current Medications Albuterol/Ipratropium (Duoneb 3 Mg/0.5 Mg (3 Ml) Ud) 3 ml INH RQ6 [facility] Last Admin: 06/21/17 13:38 Dose: 3 ml Ascorbic Acid (Vitamin C 500 Mg Tab) 500 mg PO DAILY [facility] Last Admin: 06/21/17 09:30 Dose: 500 mg Aspirin (Ecotrin) 81 mg PO DAILY [facility] Last Admin: 06/21/17 09:30 Dose: 81 mg Benzocaine/Menthol (Cepacol Sore Throat) 1 luana MT Q6 [facility] Brimonidine Tartrate (Alphagan 0.2% Opht) 0.2 ml OU QID [facility] Last Admin: 06/21/17 14:08 Dose: 1 drop Docusate Sodium (Colace) 100 mg PO DAILY [facility] Last Admin: 06/21/17 09:31 Dose: 100 mg Emollient Ointment (Vaseline Oint) 10 gm TOP DAILY [facility] Last Admin: 06/21/17 09:31 Dose: 10 gm Enoxaparin Sodium (Lovenox) 30 mg SC DAILY [facility] Last Admin: 06/21/17 09:31 Dose: 30 mg Famotidine (Pepcid) 20 mg PO DAILY [facility] Last Admin: 06/21/17 09:31 Dose: 20 mg Guaifenesin (Mucinex La) 600 mg PO BID [facility] Ceftriaxone Sodium 1 gm/ (Dextrose) 100 mls @ 100 mls/hr IVPB Q24H [facility] Last Admin: 06/21/17 14:07 Dose: 100 mls/hr Magnesium Hydroxide (Milk Of Magnesia) 30 ml PO Q6H PRN PRN Reason: Constipation Rosuvastatin Calcium (Crestor) 5 mg PO HS [facility] Last Admin: 06/20/17 22:29 Dose: 5 mg Tetracaine HCl (Tetracaine 0.5% Ophth Soln) 1 drop OD DAILY [facility] Last Admin: 06/21/17 09:32 Dose: 1 drop Timolol Maleate (Timoptic 0.5% Ophth Soln) 1 drop OU QID [facility] Last Admin: 06/21/17 14:07 Dose: 1 drop - Labs Labs: 06/21/17 11:35 06/21/17 06:51 - Constitutional Appears: Well - Head Exam Head Exam: ATRAUMATIC, NORMAL INSPECTION, NORMOCEPHALIC - Eye Exam Eye Exam: EOMI, Normal appearance, PERRL Pupil Exam: NORMAL ACCOMODATION, PERRL - ENT Exam ENT Exam: Mucous Membranes Moist, Normal Exam - Neck Exam Neck Exam: Full ROM, Normal Inspection. absent: Lymphadenopathy - Respiratory Exam Respiratory Exam: Decreased Breath Sounds - Cardiovascular Exam Cardiovascular Exam: REGULAR RHYTHM, +S1, +S2 - GI/Abdominal Exam GI & Abdominal Exam: Soft, Diminished Bowel Sounds - Rectal Exam Rectal Exam: Deferred Assessment and Plan (1) A-fib Status: Acute (2) Altered mental status Status: Acute (3) Hyperkalemia Status: Acute (4) Pleural effusion Status: Acute (5) Thrombocytopenia Status: Acute (6) CHF (congestive heart failure) Status: Chronic (7) Acute renal failure Status: Acute (8) Anemia Status: Acute (9) Breast cancer Status: Acute (10) CHF (congestive heart failure), NYHA class II Status: Acute (11) Dehydration Status: Acute (12) Elevated brain natriuretic peptide (BNP) level Status: Acute (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 (14) Glaucoma (increased eye pressure) Status: Acute (15) Hyponatremia with decreased serum osmolality Status: Acute (16) PVC (premature ventricular contraction) Status: Acute (17) Postmenopausal bleeding Status: Acute (18) Prophylactic measure Status: Acute (19) Sepsis Status: Acute (20) UTI (urinary tract infection) Status: Acute (21) HTN (hypertension) Status: Chronic (22) History of breast cancer Status: Chronic (23) Neoplasm of breast, distant metastasis staging category cM0(i+) per [place] [employer] Committee on Cancer Staging [employer], 7th edition Status: Chronic (24) Open leg wound Status: Chronic - Assessment and Plan (Free Text) Plan: Patient examined. Neuro consult done. Advised continue same medications, further workup. Continues to present. No modalities. Supportive medications. Palliative care consult. Advised Mucinex and Cepacol. Social service to assist with her options in terms of finding the place other than group home. Continue ceftriaxone, bronchodilators still Supportive treatment.
--- NOTE | 2017-06-21 17:09 | CP.PCM.PN ---
<Ray Holly - Last Filed: 06/21/17 17:15> Subjective - Date & Time of Evaluation Date of Evaluation: 06/21/17 Time of Evaluation: 17:00 - Subjective Subjective: Progress note. Attending: Dr. Avendano Pt seen and examined at bedside. No acute distress. No events overnight. No fevers, chills, vomiting, diarrhea. Patient is complaining of sore throat and cannot tolerate cepacol. Will order throat spray. Objective - Vital Signs/Intake and Output Vital Signs (last 24 hours): Temp Pulse Resp BP Pulse Ox 98.1 F 82 20 113/75 98 06/21/17 15:55 06/21/17 15:55 06/21/17 15:55 06/21/17 15:55 06/21/17 15:55 Intake and Output: 06/21/17 06/21/17 06:59 18:59 Intake Total 300 Output Total 375 250 Balance -75 -250 - Medications Medications: Current Medications Albuterol/Ipratropium (Duoneb 3 Mg/0.5 Mg (3 Ml) Ud) 3 ml INH RQ6 [facility] Last Admin: 06/21/17 13:38 Dose: 3 ml Ascorbic Acid (Vitamin C 500 Mg Tab) 500 mg PO DAILY [facility] Last Admin: 06/21/17 09:30 Dose: 500 mg Aspirin (Ecotrin) 81 mg PO DAILY [facility] Last Admin: 06/21/17 09:30 Dose: 81 mg Benzocaine/Menthol (Cepacol Sore Throat) 1 luana MT Q6 [facility] Brimonidine Tartrate (Alphagan 0.2% Opht) 0.2 ml OU QID [facility] Last Admin: 06/21/17 14:08 Dose: 1 drop Docusate Sodium (Colace) 100 mg PO DAILY [facility] Last Admin: 06/21/17 09:31 Dose: 100 mg Emollient Ointment (Vaseline Oint) 10 gm TOP DAILY [facility] Last Admin: 06/21/17 09:31 Dose: 10 gm Enoxaparin Sodium (Lovenox) 30 mg SC DAILY [facility] Last Admin: 06/21/17 09:31 Dose: 30 mg Famotidine (Pepcid) 20 mg PO DAILY [facility] Last Admin: 06/21/17 09:31 Dose: 20 mg Guaifenesin (Mucinex La) 600 mg PO BID [facility] Ceftriaxone Sodium 1 gm/ (Dextrose) 100 mls @ 100 mls/hr IVPB Q24H [facility] Last Admin: 06/21/17 14:07 Dose: 100 mls/hr Magnesium Hydroxide (Milk Of Magnesia) 30 ml PO Q6H PRN PRN Reason: Constipation Rosuvastatin Calcium (Crestor) 5 mg PO HS [facility] Last Admin: 06/20/17 22:29 Dose: 5 mg Tetracaine HCl (Tetracaine 0.5% Ophth Soln) 1 drop OD DAILY [facility] Last Admin: 06/21/17 09:32 Dose: 1 drop Timolol Maleate (Timoptic 0.5% Ophth Soln) 1 drop OU QID [facility] Last Admin: 06/21/17 14:07 Dose: 1 drop - Labs Labs: 06/21/17 11:35 06/21/17 06:51 - Constitutional Appears: Non-toxic, No Acute Distress - Head Exam Head Exam: ATRAUMATIC, NORMAL INSPECTION, NORMOCEPHALIC - Eye Exam Eye Exam: EOMI - ENT Exam ENT Exam: Mucous Membranes Moist - Neck Exam Neck Exam: Full ROM, Normal Inspection - Respiratory Exam Respiratory Exam: Rales. absent: Respiratory Distress - Cardiovascular Exam Cardiovascular Exam: +S1, +S2 - GI/Abdominal Exam GI & Abdominal Exam: Distended. absent: Tenderness - Extremities Exam Extremities Exam: Full ROM, Normal Inspection - Neurological Exam Neurological Exam: Alert, Awake, Oriented x3 - Psychiatric Exam Psychiatric exam: Normal Affect, Normal Mood - Skin Skin Exam: Dry, Intact, Normal Color, Warm Assessment and Plan - Assessment and Plan (Free Text) Assessment: This is an 81 yo female with 1. Pneumonia -chest ct results as stated below -Duoneb 3ml INH RQ6 -Ceftriaxone 1gm IVPB Q24H -blood culture negative thus far -sputum culture negative -urine legionella -mycoplasma negative -repeat CXR shows left basilar infiltrate and active CHF -ID consult - Dr. Booker - help appreciated 2. Pleural Effusion -Chest CT without contrast 06/17/17 - severe cardiomegaly; dense coronary artery calcifications; small pericardial effusion; moderate bilateral pleural effusion and compressive consolidations; 4mm right upper lobe nodule (F/U in 12 months); 3.8 by 6.1cm left breast mass (please see full report) -Secondary to breast cancer vs. CHF vs. pneumonia -Pulmonary consult - Dr. Green - help appreciated -Patient will likely not tolerate thoracentesis -CXR findings as stated above -echo pending 3. Altered mental status -Head CT - severely degraded by motion artifact; suspect encephalomalacia within left frontal lobe; nonspecific white matter changes; generalized atrohpy (please see full report) -F/U Brain MRI with and without contrast to check for mets; MRI pending -Neuro consult - Dr. Nicholas - f/u recs -neurology recommends continue current management 4. UTI -urine culture +E.Coli -Blood culture negative x 3 days 5. Hyperkalemia -will give kayexalate today -recheck tomorrow -continue to monitor 6. JULIETA Resolved with fluids 7. Hx of breast cancer -Elevated Ca 15-3 -Chest CT 06/17/17- 3.8 x 6.1 cm left breast mass -Continue hormone therapy per Dr. George -Oncology consult - Dr. George - recs appreciated. 8. CHF -ECHO 2013: LV is severely dilated; mild concentric LVH; trace tricuspid regurgitation; right ventricular systolic pressure is estimated at 43 mmHg; mild pulmonary HTN; LVEF 50% -echo pending -avoid beta kandice and татьяна at this time -Cardio consult - Dr. Ventura - help appreciated 9. GI/DVT ppx -Lovenox 30mg SC daily -Pepcid 20mg PO daily -Colace 100mg PO daily All medical management per Dr. Amira Avendano <Brian Avendano - Last Filed: 06/26/17 10:33> Objective - Vital Signs/Intake and Output Vital Signs (last 24 hours): Temp Pulse Resp BP Pulse Ox 98.3 F 64 25 H 150/90 100 06/26/17 08:00 06/26/17 09:00 06/26/17 09:00 06/26/17 08:56 06/26/17 09:00 Intake and Output: 06/26/17 06/26/17 06:59 18:59 Intake Total 120 500 Output Total 510 140 Balance -390 360 - Medications Medications: Current Medications Albuterol/Ipratropium (Duoneb 3 Mg/0.5 Mg (3 Ml) Ud) 3 ml INH RQ4 [facility] Last Admin: 06/26/17 03:32 Dose: 3 ml Ascorbic Acid (Vitamin C 500 Mg Tab) 500 mg PO DAILY [facility] Last Admin: 06/25/17 16:31 Dose: 500 mg Aspirin (Ecotrin) 81 mg PO DAILY [facility] Last Admin: 06/25/17 16:30 Dose: 81 mg Benzocaine/Menthol (Cepacol Sore Throat) 1 luana MT Q6 [facility] Last Admin: 06/26/17 06:00 Dose: Not Given Brimonidine Tartrate (Alphagan 0.2% Opht) 0.2 ml OU QID [facility] Last Admin: 06/25/17 21:43 Dose: 1 drop Emollient Ointment (Vaseline Oint) 10 gm TOP DAILY [facility] Last Admin: 06/25/17 10:10 Dose: 10 gm Enoxaparin Sodium (Lovenox) 40 mg SC DAILY [facility] Last Admin: 06/25/17 10:09 Dose: 40 mg Famotidine (Pepcid) 20 mg PO DAILY [facility] Last Admin: 06/25/17 16:30 Dose: 20 mg Ceftriaxone Sodium (Rocephin Iv 1 Gm Duplex) 50 mls @ 100 mls/hr IVPB Q24H [facility] Last Admin: 06/25/17 13:08 Dose: 100 mls/hr Magnesium Hydroxide (Milk Of Magnesia) 30 ml PO Q6H PRN PRN Reason: Constipation Phenol/Menthol (Phenaseptic 1.4% Throat [place]) 0 ml MT DAILY [facility] Last Admin: 06/25/17 14:06 Dose: Not Given Rosuvastatin Calcium (Crestor) 5 mg PO HS [facility] Last Admin: 06/25/17 21:42 Dose: 5 mg Tetracaine HCl (Tetracaine 0.5% Ophth Soln) 1 drop OD DAILY [facility] Last Admin: 06/25/17 10:10 Dose: 1 drop Timolol Maleate (Timoptic 0.5% Ophth Soln) 1 drop OU QID [facility] Last Admin: 06/25/17 21:43 Dose: 1 drop - Labs Labs: 06/26/17 07:12 06/25/17 06:19 Assessment and Plan (1) A-fib Status: Acute (2) Altered mental status Status: Acute (3) Hyperkalemia Status: Acute (4) Pleural effusion Status: Acute (5) Thrombocytopenia Status: Acute (6) CHF (congestive heart failure) Status: Chronic (7) Acute renal failure Status: Acute (8) Anemia Status: Acute (9) Breast cancer Status: Acute (10) CHF (congestive heart failure), NYHA class II Status: Acute (11) Dehydration Status: Acute (12) Elevated brain natriuretic peptide (BNP) level Status: Acute (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 (14) Glaucoma (increased eye pressure) Status: Acute (15) Hyponatremia with decreased serum osmolality Status: Acute (16) PVC (premature ventricular contraction) Status: Acute (17) Postmenopausal bleeding Status: Acute (18) Prophylactic measure Status: Acute (19) Sepsis Status: Acute (20) UTI (urinary tract infection) Status: Acute (21) HTN (hypertension) Status: Chronic (22) History of breast cancer Status: Chronic (23) Neoplasm of breast, distant metastasis staging category cM0(i+) per [place] [employer] on Cancer Staging [employer]ell[employer], 7th edition Status: Chronic (24) Open leg wound Status: Chronic Attending/Attestation - Attestation I have personally seen and examined this patient.: Yes I have fully participated in the care of the patient.: Yes I have reviewed all pertinent clinical information, including history, physical exam and plan: Yes Notes (Text): 06/26/17 10:33 Patient examined. No acute overnight events. Continue ceftriaxone. Bronchodilators. Supportive treatment.
[2017-06-21] MEDS: Benzocaine/Menthol (Cepacol) Lozenge MT SCH (17:12)
[2017-06-21] MEDS ORDERED: Sod Polystyrene Sulf 15 gm/60 ml Susp PO ONE (17:15)
[2017-06-21] MEDS: guaiFENesin 600 mg ER Tab PO SCH (18:44)
--- NOTE | 2017-06-21 19:50 | CP.PCM.PN ---
Subjective - Date & Time of Evaluation Date of Evaluation: 06/21/17 Time of Evaluation: 18:00 - Subjective Subjective: Pt reports to not breathing well, daughter notes her breathing has been more labored today. Objective - Vital Signs/Intake and Output Vital Signs (last 24 hours): Temp Pulse Resp BP Pulse Ox 98.1 F 83 20 120/73 98 06/21/17 15:55 06/21/17 18:51 06/21/17 15:55 06/21/17 18:51 06/21/17 15:55 Intake and Output: 06/21/17 06/22/17 18:59 06:59 Output Total 250 Balance -250 - Medications Medications: Current Medications Albuterol/Ipratropium (Duoneb 3 Mg/0.5 Mg (3 Ml) Ud) 3 ml INH RQ6 [facility] Last Admin: 06/21/17 13:38 Dose: 3 ml Ascorbic Acid (Vitamin C 500 Mg Tab) 500 mg PO DAILY [facility] Last Admin: 06/21/17 09:30 Dose: 500 mg Aspirin (Ecotrin) 81 mg PO DAILY [facility] Last Admin: 06/21/17 09:30 Dose: 81 mg Benzocaine/Menthol (Cepacol Sore Throat) 1 luana MT Q6 [facility] Last Admin: 06/21/17 17:12 Dose: Not Given Brimonidine Tartrate (Alphagan 0.2% Opht) 0.2 ml OU QID [facility] Last Admin: 06/21/17 18:44 Dose: 1 drop Docusate Sodium (Colace) 100 mg PO DAILY [facility] Last Admin: 06/21/17 09:31 Dose: 100 mg Emollient Ointment (Vaseline Oint) 10 gm TOP DAILY [facility] Last Admin: 06/21/17 09:31 Dose: 10 gm Enoxaparin Sodium (Lovenox) 30 mg SC DAILY [facility] Last Admin: 06/21/17 09:31 Dose: 30 mg Famotidine (Pepcid) 20 mg PO DAILY [facility] Last Admin: 06/21/17 09:31 Dose: 20 mg Guaifenesin (Mucinex La) 600 mg PO BID [facility] Last Admin: 06/21/17 18:44 Dose: Not Given Ceftriaxone Sodium 1 gm/ (Dextrose) 100 mls @ 100 mls/hr IVPB Q24H [facility] Last Admin: 06/21/17 14:07 Dose: 100 mls/hr Magnesium Hydroxide (Milk Of Magnesia) 30 ml PO Q6H PRN PRN Reason: Constipation Phenol/Menthol (Phenaseptic 1.4% Throat [place]) 0 ml MT DAILY [facility] Rosuvastatin Calcium (Crestor) 5 mg PO HS [facility] Last Admin: 06/20/17 22:29 Dose: 5 mg Tetracaine HCl (Tetracaine 0.5% Ophth Soln) 1 drop OD DAILY [facility] Last Admin: 06/21/17 09:32 Dose: 1 drop Timolol Maleate (Timoptic 0.5% Ophth Soln) 1 drop OU QID [facility] Last Admin: 06/21/17 18:44 Dose: 1 drop - Labs Labs: 06/21/17 11:35 06/21/17 06:51 - Head Exam Head Exam: ATRAUMATIC - Eye Exam Eye Exam: Normal appearance - ENT Exam ENT Exam: Mucous Membranes Dry - Respiratory Exam Respiratory Exam: Decreased Breath Sounds - Cardiovascular Exam Cardiovascular Exam: +S1, +S2 - GI/Abdominal Exam GI & Abdominal Exam: Normal Bowel Sounds - Extremities Exam Extremities Exam: Pedal Edema Assessment and Plan (1) Pleural effusion Assessment & Plan: given breathing discomfort today, recommend pulmonary evaluation ? thoracentesis ? malignant effusion Status: Acute (2) Breast cancer Assessment & Plan: on hormonal therapy Status: Acute
[2017-06-21] MEDS: Phenol Topical 1.4% Throat Spray (180 ml) MT SCH (20:44)
--- NOTE | 2017-06-22 00:06 | CP.PCM.PN ---
Subjective - Date & Time of Evaluation Date of Evaluation: 06/21/17 Time of Evaluation: 16:10 - Subjective Subjective: Patient seen and evaluated No cardiac events noted Denies chest pain and dyspnea Physical Examination - Constitutional Appears: Non-toxic, Chronically Ill - Head Exam Head Exam: NORMOCEPHALIC - Eye Exam Eye Exam: PERRL - ENT Exam ENT Exam: Mucous Membranes Dry, Normal External Ear Exam - Neck Exam Neck Exam: absent: Lymphadenopathy - Respiratory Exam Respiratory Exam: Decreased Breath Sounds - Cardiovascular Exam Cardiovascular Exam: REGULAR RHYTHM - GI/Abdominal Exam GI & Abdominal Exam: Distended, Soft - Rectal Exam Rectal Exam: Deferred - Exam Exam: NORMAL INSPECTION - Extremities Exam Extremities Exam: absent: Pedal Edema - Back Exam Back Exam: absent: CVA tenderness (L), CVA tenderness (R) - Neurological Exam Neurological Exam: Alert, Altered, Awake - Psychiatric Exam Psychiatric exam: Depressed - Skin Skin Exam: Dry Objective - Vital Signs/Intake and Output Vital Signs (last 24 hours): Temp Pulse Resp BP Pulse Ox 98.1 F 68 20 117/83 97 06/21/17 15:55 06/21/17 20:50 06/21/17 15:55 06/21/17 22:21 06/21/17 22:21 Intake and Output: 06/21/17 06/22/17 18:59 06:59 Intake Total 0 Output Total 250 300 Balance -250 -300 - Medications Medications: Current Medications Ascorbic Acid (Vitamin C 500 Mg Tab) 500 mg PO DAILY [facility] Last Admin: 06/21/17 09:30 Dose: 500 mg Aspirin (Ecotrin) 81 mg PO DAILY [facility] Last Admin: 06/21/17 09:30 Dose: 81 mg Benzocaine/Menthol (Cepacol Sore Throat) 1 luana MT Q6 [facility] Last Admin: 06/21/17 17:12 Dose: Not Given Brimonidine Tartrate (Alphagan 0.2% Opht) 0.2 ml OU QID [facility] Last Admin: 06/21/17 22:31 Dose: 1 drop Docusate Sodium (Colace) 100 mg PO DAILY [facility] Last Admin: 06/21/17 09:31 Dose: 100 mg Emollient Ointment (Vaseline Oint) 10 gm TOP DAILY [facility] Last Admin: 06/21/17 09:31 Dose: 10 gm Enoxaparin Sodium (Lovenox) 30 mg SC DAILY [facility] Last Admin: 06/21/17 09:31 Dose: 30 mg Famotidine (Pepcid) 20 mg PO DAILY [facility] Last Admin: 06/21/17 09:31 Dose: 20 mg Guaifenesin (Mucinex La) 600 mg PO BID [facility] Last Admin: 06/21/17 18:44 Dose: Not Given Ceftriaxone Sodium 1 gm/ (Dextrose) 100 mls @ 100 mls/hr IVPB Q24H [facility] Last Admin: 06/21/17 14:07 Dose: 100 mls/hr Magnesium Hydroxide (Milk Of Magnesia) 30 ml PO Q6H PRN PRN Reason: Constipation Phenol/Menthol (Phenaseptic 1.4% Throat [place]) 0 ml MT DAILY [facility] Last Admin: 06/21/17 20:44 Dose: 1 spr Rosuvastatin Calcium (Crestor) 5 mg PO HS [facility] Last Admin: 06/21/17 22:32 Dose: Not Given Tetracaine HCl (Tetracaine 0.5% Ophth Soln) 1 drop OD DAILY [facility] Last Admin: 06/21/17 09:32 Dose: 1 drop Timolol Maleate (Timoptic 0.5% Ophth Soln) 1 drop OU QID [facility] Last Admin: 06/21/17 22:31 Dose: 1 drop - Labs Labs: 06/21/17 11:35 06/21/17 06:51 Assessment and Plan - Assessment and Plan (Free Text) Assessment: (1) CAD and Diastolic CHF Chronic Assessment and Plan: Conserative mgt with ASA and Lasix (2) Altered mental status Assessment and Plan: given history of breast cancer, will need to rule out brain metastasis will send for non contrast scan for now given renal failure Status: Acute (3) Pleural effusion Assessment and Plan: rule out malignant ascites pulmonary following Status: Acute (4) Breast cancer Assessment and Plan: supportive care for now was on hormonal treatment in the past
[2017-06-22] MEDS: Benzocaine/Menthol (Cepacol) Lozenge MT SCH ×4 (00:10→21:39)
[2017-06-22 01:17] LABS: VENOUS BLOOD GAS BASE EXCESS -3.9 mmol/L (0.0-2.0); VENOUS BLOOD GAS PCO2 65 mmHg (40-60)
[2017-06-22 01:29] LABS: POTASSIUM 5.5 mmol/L (3.6-5.2)
[2017-06-22 01:32] LABS: BILIRUBIN,TOTAL 0.7 mg/dL (0.2-1.3); CALCIUM 8.3 mg/dl (8.6-10.4); PHOSPHOROUS 3.1 mg/dL (2.5-4.5); TOTAL PROTEIN 7.2 g/dL (6.3-8.3)
[2017-06-22 01:33] LABS: MAGNESIUM 2.1 mg/dL (1.6-2.3)
[2017-06-22 01:35] LABS: BASO % 0.6 % (0.0-2.0); EOS # 0.1 K/uL (0.0-0.7); EOS % 1.3 % (0.0-4.0); HEMATOCRIT 42.3 % (34.0-47.0); LYMPH % 12.4 % (20.0-40.0); MEAN CORPUSCULAR HGB CONC 30.2 g/dL (33.0-37.0); MEAN PLATELET VOLUME 9.5 fL (7.2-11.7); MONO # 1.2 K/uL (0.0-0.8); MONO % 15.6 % (0.0-10.0); NRBC % 0.3 % (0.0-2.0); RED CELL DISTRIBUTION WIDTH 14.7 % (11.5-14.5); WHITE BLOOD COUNT 7.8 K/uL (4.8-10.8)
--- NOTE | 2017-06-22 07:25 | RAD ---
HISTORY: CHF, f/u pleural effusion COMPARISON: Portable chest 06/20/2017. FINDINGS: LUNGS: Persistent aerated space disease is suggested posterior to the left heart at the medial right base with underlying CHF again suggested. Left chest is partially obscured by the patient's lower face with the right apex clear. No right pneumothorax. No right pleural effusion. Left pleural effusion not completely excluded. Cardiomegaly appears stable. OSSEOUS STRUCTURES: No significant abnormalities. VISUALIZED UPPER ABDOMEN: Normal. OTHER FINDINGS: None. IMPRESSION: Exam is obscured base lower face particularly at the left lung however CHF remains suspected with bilateral airspace disease remaining greater the left and right bases.
--- NOTE | 2017-06-22 07:47 | PN ---
DATE: 06/22/2017 NEUROLOGICAL PROBLEM: Metastatic breast cancer with left hemiparesis. PHYSICAL EXAMINATION: VITAL SIGNS: Blood pressure 140/88, mean arterial pressure of 105, respiratory rate 20, temperature 98 degree Fahrenheit with pulse rate 83. The patient is comfortable on BiPAP setup of 05/17. The patient is comfortable, arousable. She denies any complaints. She is tolerating okay with current setting of BiPAP. She moves all 4 extremities, again left hemiparesis noted. The rest of the examination is unchanged. Family does not want her to have any further testing at present. If they agreed, the recommended test should be addressed. Continue with present management. Proper antibiotics and hydration is recommended for now. Joey Nicholas MD
[2017-06-22] MEDS: Brimonidine 0.2% Opth Sol (5ml) OU SCH ×4 (11:10→21:39)
[2017-06-22] MEDS: Tetracaine 0.5% Ophth 2 ML BOTTLE OD SCH (11:10)
[2017-06-22] MEDS: Enoxaparin 30 mg Syringe SC SCH (11:11)
[2017-06-22] MEDS: guaiFENesin 600 mg ER Tab PO SCH ×2 (11:11→17:34)
[2017-06-22] MEDS: Phenol Topical 1.4% Throat Spray (180 ml) MT SCH (11:12)
[2017-06-22] MEDS: Petrolatum Oint Foilpak (5 gm) TOP SCH (11:12)
[2017-06-22 11:45] LABS: BASO # 0.1 K/uL (0.0-0.2); BASO % 0.5 % (0.0-2.0); EOS # 0.1 K/uL (0.0-0.7); EOS % 1.3 % (0.0-4.0); HEMATOCRIT 40.7 % (34.0-47.0); LYMPH # 1.1 K/uL (1.0-4.3); LYMPH % 9.9 % (20.0-40.0); MEAN CELL VOLUME 85.4 fL (81.0-99.0); MEAN CORPUSCULAR HGB CONC 30.4 g/dL (33.0-37.0); MEAN PLATELET VOLUME 9.4 fL (7.2-11.7); MONO # 1.4 K/uL (0.0-0.8); MONO % 12.4 % (0.0-10.0); NRBC % 0.2 % (0.0-2.0); PLATELET COUNT 147 K/uL (130-400); RED CELL DISTRIBUTION WIDTH 14.6 % (11.5-14.5); WHITE BLOOD COUNT 11.6 K/uL (4.8-10.8)
[2017-06-22 12:07] LABS: BILIRUBIN,TOTAL 0.7 mg/dL (0.2-1.3); PHOSPHOROUS 2.9 mg/dL (2.5-4.5)
[2017-06-22 12:08] LABS: CALCIUM 8.3 mg/dl (8.6-10.4)
[2017-06-22 12:17] LABS: EOSINOPHIL 2 % (0-4); NEUTROPHIL 74 % (50-75); TOTAL CELLS COUNTED 100
--- NOTE | 2017-06-22 12:17 | CP.PCM.PN ---
Subjective - Date & Time of Evaluation Date of Evaluation: 06/22/17 Time of Evaluation: 12:00 - Subjective Subjective: Breathing better Objective - Vital Signs/Intake and Output Vital Signs (last 24 hours): Temp Pulse Resp BP Pulse Ox 97.9 F 88 20 168/93 H 96 06/22/17 07:25 06/22/17 07:28 06/22/17 07:25 06/22/17 07:25 06/22/17 07:25 Intake and Output: 06/22/17 06/22/17 06:59 18:59 Intake Total 100 Output Total 750 Balance -650 - Medications Medications: Current Medications Ascorbic Acid (Vitamin C 500 Mg Tab) 500 mg PO DAILY [facility] Last Admin: 06/22/17 11:12 Dose: 500 mg Aspirin (Ecotrin) 81 mg PO DAILY [facility] Last Admin: 06/22/17 11:11 Dose: 81 mg Benzocaine/Menthol (Cepacol Sore Throat) 1 luana MT Q6 [facility] Last Admin: 06/22/17 06:51 Dose: 1 luana Brimonidine Tartrate (Alphagan 0.2% Opht) 0.2 ml OU QID [facility] Last Admin: 06/22/17 11:10 Dose: 1 drop Docusate Sodium (Colace) 100 mg PO DAILY [facility] Last Admin: 06/22/17 11:12 Dose: 100 mg Emollient Ointment (Vaseline Oint) 10 gm TOP DAILY [facility] Last Admin: 06/22/17 11:12 Dose: 10 gm Enoxaparin Sodium (Lovenox) 30 mg SC DAILY [facility] Last Admin: 06/22/17 11:11 Dose: 30 mg Famotidine (Pepcid) 20 mg PO DAILY [facility] Last Admin: 06/22/17 11:11 Dose: 20 mg Guaifenesin (Mucinex La) 600 mg PO BID [facility] Last Admin: 06/22/17 11:11 Dose: 600 mg Ceftriaxone Sodium 1 gm/ (Dextrose) 100 mls @ 100 mls/hr IVPB Q24H [facility] Last Admin: 06/21/17 14:07 Dose: 100 mls/hr Magnesium Hydroxide (Milk Of Magnesia) 30 ml PO Q6H PRN PRN Reason: Constipation Phenol/Menthol (Phenaseptic 1.4% Throat [place]) 0 ml MT DAILY [facility] Last Admin: 06/22/17 11:12 Dose: 1 spr Rosuvastatin Calcium (Crestor) 5 mg PO HS [facility] Last Admin: 06/21/17 22:32 Dose: Not Given Tetracaine HCl (Tetracaine 0.5% Ophth Soln) 1 drop OD DAILY [facility] Last Admin: 06/22/17 11:10 Dose: 1 drop Timolol Maleate (Timoptic 0.5% Ophth Soln) 1 drop OU QID [facility] Last Admin: 06/22/17 11:10 Dose: 1 drop - Labs Labs: 06/22/17 11:25 06/22/17 11:25 - Head Exam Head Exam: ATRAUMATIC - Eye Exam Eye Exam: Normal appearance - ENT Exam ENT Exam: Mucous Membranes Dry - Respiratory Exam Respiratory Exam: NORMAL BREATHING PATTERN - Cardiovascular Exam Cardiovascular Exam: +S1, +S2 - GI/Abdominal Exam GI & Abdominal Exam: Normal Bowel Sounds - Extremities Exam Extremities Exam: Normal Inspection Assessment and Plan (1) Pleural effusion Assessment & Plan: breathing better with bipap ? thoracentesis Status: Acute (2) Breast cancer Assessment & Plan: on hormonal therapy Status: Acute
--- NOTE | 2017-06-22 12:51 | CP.PCM.PN ---
Subjective - Date & Time of Evaluation Date of Evaluation: 06/22/17 Time of Evaluation: 10:20 - Subjective Subjective: patient seen and examined Lying comfortably in no distress Patient is off BiPAP now Afebrile CAT scan of the chest showed small bilateral pleural effusion Objective - Vital Signs/Intake and Output Vital Signs (last 24 hours): Temp Pulse Resp BP Pulse Ox 97.9 F 88 20 168/93 H 96 06/22/17 07:25 06/22/17 07:28 06/22/17 07:25 06/22/17 07:25 06/22/17 07:25 Intake and Output: 06/22/17 06/22/17 06:59 18:59 Intake Total 100 Output Total 750 Balance -650 - Medications Medications: Current Medications Ascorbic Acid (Vitamin C 500 Mg Tab) 500 mg PO DAILY [facility] Last Admin: 06/22/17 11:12 Dose: 500 mg Aspirin (Ecotrin) 81 mg PO DAILY [facility] [place] Last Admin: 06/22/17 11:11 Dose: 81 mg Benzocaine/Menthol (Cepacol Sore Throat) 1 luana MT Q6 [facility] Last Admin: 06/22/17 06:51 Dose: 1 luana Brimonidine Tartrate (Alphagan 0.2% Opht) 0.2 ml OU QID [facility] Last Admin: 06/22/17 11:10 Dose: 1 drop Docusate Sodium (Colace) 100 mg PO DAILY [facility] Last Admin: 06/22/17 11:12 Dose: 100 mg Emollient Ointment (Vaseline Oint) 10 gm TOP DAILY [facility] Last Admin: 06/22/17 11:12 Dose: 10 gm Enoxaparin Sodium (Lovenox) 30 mg SC DAILY [facility] Last Admin: 06/22/17 11:11 Dose: 30 mg Famotidine (Pepcid) 20 mg PO DAILY [facility] Last Admin: 06/22/17 11:11 Dose: 20 mg Guaifenesin (Mucinex La) 600 mg PO BID [facility] Last Admin: 06/22/17 11:11 Dose: 600 mg Ceftriaxone Sodium 1 gm/ (Dextrose) 100 mls @ 100 mls/hr IVPB Q24H [facility] Last Admin: 06/21/17 14:07 Dose: 100 mls/hr Magnesium Hydroxide (Milk Of Magnesia) 30 ml PO Q6H PRN PRN Reason: Constipation Phenol/Menthol (Phenaseptic 1.4% Throat [place]) 0 ml MT DAILY [facility] Last Admin: 06/22/17 11:12 Dose: 1 spr Rosuvastatin Calcium (Crestor) 5 mg PO HS [facility] Last Admin: 06/21/17 22:32 Dose: Not Given Tetracaine HCl (Tetracaine 0.5% Ophth Soln) 1 drop OD DAILY [facility] Last Admin: 06/22/17 11:10 Dose: 1 drop Timolol Maleate (Timoptic 0.5% Ophth Soln) 1 drop OU QID [facility] Last Admin: 06/22/17 11:10 Dose: 1 drop - Labs Labs: 06/22/17 11:25 06/22/17 11:25 - Head Exam Head Exam: ATRAUMATIC, NORMOCEPHALIC - ENT Exam ENT Exam: Mucous Membranes Dry - Neck Exam Neck Exam: Normal Inspection - Respiratory Exam Respiratory Exam: Decreased Breath Sounds - Cardiovascular Exam Cardiovascular Exam: REGULAR RHYTHM - GI/Abdominal Exam GI & Abdominal Exam: Soft, Normal Bowel Sounds Assessment and Plan (1) Pleural effusion Assessment & Plan: Small bilateral pleural effusion Secondary to CHF On antibiotics Continue BiPAP as patient has elevated pCo2 Followup ABG Status: Acute (2) Neoplasm of breast, distant metastasis staging category cM0(i+) per [place] [employer] Committee on Cancer Staging [employer]ell[employer], 7th edition Status: Chronic
--- NOTE | 2017-06-22 13:16 | CP.PCM.PN ---
<Ray Holly - Last Filed: 06/22/17 13:18> Subjective - Date & Time of Evaluation Date of Evaluation: 06/22/17 Time of Evaluation: 13:15 - Subjective Subjective: Progress note. Attending: Dr. Avendano. Pt seen and examined at bedside. No acute distress. Pt breathing better, using bipap as needed. No fevers, chills, vomiting, diarrhea, cp. B/L pleural effusion , pulmonary following. Objective - Vital Signs/Intake and Output Vital Signs (last 24 hours): Temp Pulse Resp BP Pulse Ox 97.9 F 88 20 168/93 H 96 06/22/17 07:25 06/22/17 13:07 06/22/17 07:25 06/22/17 07:25 06/22/17 07:25 Intake and Output: 06/22/17 06/22/17 06:59 18:59 Intake Total 100 Output Total 750 Balance -650 - Medications Medications: Current Medications Ascorbic Acid (Vitamin C 500 Mg Tab) 500 mg PO DAILY [facility] Last Admin: 06/22/17 11:12 Dose: 500 mg Aspirin (Ecotrin) 81 mg PO DAILY [facility] Last Admin: 06/22/17 11:11 Dose: 81 mg Benzocaine/Menthol (Cepacol Sore Throat) 1 luana MT Q6 [facility] Last Admin: 06/22/17 06:51 Dose: 1 luana Brimonidine Tartrate (Alphagan 0.2% Opht) 0.2 ml OU QID [facility] Last Admin: 06/22/17 11:10 Dose: 1 drop Docusate Sodium (Colace) 100 mg PO DAILY [facility] Last Admin: 06/22/17 11:12 Dose: 100 mg Emollient Ointment (Vaseline Oint) 10 gm TOP DAILY [facility] Last Admin: 06/22/17 11:12 Dose: 10 gm Enoxaparin Sodium (Lovenox) 30 mg SC DAILY [facility] Last Admin: 06/22/17 11:11 Dose: 30 mg Famotidine (Pepcid) 20 mg PO DAILY [facility] Last Admin: 06/22/17 11:11 Dose: 20 mg Guaifenesin (Mucinex La) 600 mg PO BID [facility] Last Admin: 06/22/17 11:11 Dose: 600 mg Ceftriaxone Sodium 1 gm/ (Dextrose) 100 mls @ 100 mls/hr IVPB Q24H [facility] Last Admin: 06/21/17 14:07 Dose: 100 mls/hr Magnesium Hydroxide (Milk Of Magnesia) 30 ml PO Q6H PRN PRN Reason: Constipation Phenol/Menthol (Phenaseptic 1.4% Throat [place]) 0 ml MT DAILY [facility] Last Admin: 06/22/17 11:12 Dose: 1 spr Rosuvastatin Calcium (Crestor) 5 mg PO HS [facility] Last Admin: 06/21/17 22:32 Dose: Not Given Tetracaine HCl (Tetracaine 0.5% Ophth Soln) 1 drop OD DAILY [facility] Last Admin: 06/22/17 11:10 Dose: 1 drop Timolol Maleate (Timoptic 0.5% Ophth Soln) 1 drop OU QID [facility] Last Admin: 06/22/17 11:10 Dose: 1 drop - Labs Labs: 06/22/17 11:25 06/22/17 11:25 - Constitutional Appears: Non-toxic, No Acute Distress, Chronically Ill - Head Exam Head Exam: ATRAUMATIC, NORMAL INSPECTION, NORMOCEPHALIC - Eye Exam Eye Exam: EOMI - ENT Exam ENT Exam: Mucous Membranes Moist - Neck Exam Neck Exam: Full ROM, Normal Inspection - Respiratory Exam Respiratory Exam: Decreased Breath Sounds, Rhonchi. absent: Respiratory Distress - Cardiovascular Exam Cardiovascular Exam: +S1, +S2 - GI/Abdominal Exam GI & Abdominal Exam: Soft, Normal Bowel Sounds. absent: Tenderness - Extremities Exam Extremities Exam: Full ROM, Normal Inspection - Back Exam Back Exam: NORMAL INSPECTION - Neurological Exam Neurological Exam: Alert, Awake, Oriented x3 - Psychiatric Exam Psychiatric exam: Flat Affect - Skin Skin Exam: Dry, Intact, Normal Color, Warm Assessment and Plan - Assessment and Plan (Free Text) Assessment: This is an 81 yo female with 1. Pneumonia -chest ct results as stated below -Duoneb 3ml INH RQ6 -Ceftriaxone 1gm IVPB Q24H -blood culture negative thus far -sputum culture negative -urine legionella -mycoplasma negative -repeat CXR shows left basilar infiltrate and active CHF -ID consult - Dr. Booker - help appreciated 2. Pleural Effusion -Chest CT without contrast 06/17/17 - severe cardiomegaly; dense coronary artery calcifications; small pericardial effusion; moderate bilateral pleural effusion and compressive consolidations; 4mm right upper lobe nodule (F/U in 12 months); 3.8 by 6.1cm left breast mass (please see full report) -Secondary to breast cancer vs. CHF vs. pneumonia -Pulmonary consult - Dr. Green - help appreciated -Patient will likely not tolerate thoracentesis -CXR findings as stated above -continue bipap -follow up ABG 3. Altered mental status -Head CT - severely degraded by motion artifact; suspect encephalomalacia within left frontal lobe; nonspecific white matter changes; generalized atrohpy (please see full report) -F/U Brain MRI with and without contrast to check for mets; MRI pending -Neuro consult - Dr. Nicholas - f/u recs -neurology recommends continue current management 4. UTI -urine culture +E.Coli -Blood culture negative x 3 days 5. Hyperkalemia -resolved -continue to monitor 6. JULIETA Resolved with fluids 7. Hx of breast cancer -Elevated Ca 15-3 -Chest CT 06/17/17- 3.8 x 6.1 cm left breast mass -Continue hormone therapy per Dr. George -Oncology consult - Dr. George - recs appreciated. 8. CHF -ECHO 2013: LV is severely dilated; mild concentric LVH; trace tricuspid regurgitation; right ventricular systolic pressure is estimated at 43 mmHg; mild pulmonary HTN; LVEF 50% -echo pending -avoid beta kandice and татьяна at this time -Cardio consult - Dr. Ventura - help appreciated 9. GI/DVT ppx -Lovenox 30mg SC daily -Pepcid 20mg PO daily -Colace 100mg PO daily All medical management per Dr. Amira Avendano <Brian Avendano - Last Filed: 06/25/17 17:53> Objective - Vital Signs/Intake and Output Vital Signs (last 24 hours): Temp Pulse Resp BP Pulse Ox 98.1 F 67 19 135/79 91 L 06/25/17 16:00 06/25/17 17:35 06/25/17 17:35 06/25/17 17:35 06/25/17 17:35 Intake and Output: 06/25/17 06/25/17 06:59 18:59 Intake Total 240 150 Output Total 190 280 Balance 50 -130 - Medications Medications: Current Medications Albuterol/Ipratropium (Duoneb 3 Mg/0.5 Mg (3 Ml) Ud) 3 ml INH RQ4 [facility] Last Admin: 06/25/17 17:32 Dose: 3 ml Ascorbic Acid (Vitamin C 500 Mg Tab) 500 mg PO DAILY [facility] Last Admin: 06/25/17 16:31 Dose: 500 mg Aspirin (Ecotrin) 81 mg PO DAILY [facility] Last Admin: 06/25/17 16:30 Dose: 81 mg Benzocaine/Menthol (Cepacol Sore Throat) 1 luana MT Q6 [facility] Last Admin: 06/25/17 13:07 Dose: Not Given Brimonidine Tartrate (Alphagan 0.2% Opht) 0.2 ml OU QID [facility] Last Admin: 06/25/17 17:26 Dose: 1 drop Emollient Ointment (Vaseline Oint) 10 gm TOP DAILY [facility] Last Admin: 06/25/17 10:10 Dose: 10 gm Enoxaparin Sodium (Lovenox) 40 mg SC DAILY [facility] Last Admin: 06/25/17 10:09 Dose: 40 mg Famotidine (Pepcid) 20 mg PO DAILY [facility] Last Admin: 06/25/17 16:30 Dose: 20 mg Ceftriaxone Sodium (Rocephin Iv 1 Gm Duplex) 50 mls @ 100 mls/hr IVPB Q24H [facility] Last Admin: 06/25/17 13:08 Dose: 100 mls/hr Magnesium Hydroxide (Milk Of Magnesia) 30 ml PO Q6H PRN PRN Reason: Constipation Phenol/Menthol (Phenaseptic 1.4% Throat [place]) 0 ml MT DAILY [facility] Last Admin: 06/25/17 14:06 Dose: Not Given Rosuvastatin Calcium (Crestor) 5 mg PO HS [facility] Last Admin: 06/24/17 21:18 Dose: 5 mg Tetracaine HCl (Tetracaine 0.5% Ophth Soln) 1 drop OD DAILY [facility] Last Admin: 06/25/17 10:10 Dose: 1 drop Timolol Maleate (Timoptic 0.5% Ophth Soln) 1 drop OU QID [facility] Last Admin: 06/25/17 17:26 Dose: 1 drop - Labs Labs: 06/25/17 06:19 06/25/17 06:19 Assessment and Plan (1) A-fib Status: Acute (2) Altered mental status Status: Acute (3) Hyperkalemia Status: Acute (4) Pleural effusion Status: Acute (5) Thrombocytopenia Status: Acute (6) CHF (congestive heart failure) Status: Chronic (7) Acute renal failure Status: Acute (8) Anemia Status: Acute (9) Breast cancer Status: Acute (10) CHF (congestive heart failure), NYHA class II Status: Acute (11) Dehydration Status: Acute (12) Elevated brain natriuretic peptide (BNP) level Status: Acute (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 (14) Glaucoma (increased eye pressure) Status: Acute (15) Hyponatremia with decreased serum osmolality Status: Acute (16) PVC (premature ventricular contraction) Status: Acute (17) Postmenopausal bleeding Status: Acute (18) Prophylactic measure Status: Acute (19) Sepsis Status: Acute (20) UTI (urinary tract infection) Status: Acute (21) HTN (hypertension) Status: Chronic (22) History of breast cancer Status: Chronic (23) Neoplasm of breast, distant metastasis staging category cM0(i+) per [place] Joint Committee on Cancer Staging [employer], 7th edition Status: Chronic (24) Open leg wound Status: Chronic Attending/Attestation - Attestation I have personally seen and examined this patient.: Yes I have fully participated in the care of the patient.: Yes I have reviewed all pertinent clinical information, including history, physical exam and plan: Yes Notes (Text): Patient examined. Continues better. BiPAP on a [place] basis. Continue cephalexin. Aspirin. Supportive care.
--- NOTE | 2017-06-22 17:31 | CP.PCM.PN ---
Subjective - Date & Time of Evaluation Date of Evaluation: 06/22/17 Time of Evaluation: 10:00 - Subjective Subjective: 81 yo female with hx of cardiomyopathy and breast Ca in past Treated with palliative hormone therapy in the past presents with AMS and resp failure with hypercarbia Found to have increased Ca 15-3 and large left effusion Started on empiric IV antibiotics Objective - Vital Signs/Intake and Output Vital Signs (last 24 hours): Temp Pulse Resp BP Pulse Ox 98.0 F 66 20 133/73 96 06/22/17 15:11 06/22/17 15:11 06/22/17 15:11 06/22/17 15:11 06/22/17 15:11 Intake and Output: 06/22/17 06/22/17 06:59 18:59 Intake Total 100 Output Total 750 350 Balance -650 -350 - Medications Medications: Current Medications Ascorbic Acid (Vitamin C 500 Mg Tab) 500 mg PO DAILY [facility] Last Admin: 06/22/17 11:12 Dose: 500 mg Aspirin (Ecotrin) 81 mg PO DAILY [facility] Last Admin: 06/22/17 11:11 Dose: 81 mg Benzocaine/Menthol (Cepacol Sore Throat) 1 luana MT Q6 [facility] Last Admin: 06/22/17 14:11 Dose: Not Given Brimonidine Tartrate (Alphagan 0.2% Opht) 0.2 ml OU QID [facility] Last Admin: 06/22/17 14:11 Dose: 1 drop Docusate Sodium (Colace) 100 mg PO DAILY [facility] Last Admin: 06/22/17 11:12 Dose: 100 mg Emollient Ointment (Vaseline Oint) 10 gm TOP DAILY [facility] Last Admin: 06/22/17 11:12 Dose: 10 gm Enoxaparin Sodium (Lovenox) 30 mg SC DAILY [facility] Last Admin: 06/22/17 11:11 Dose: 30 mg Famotidine (Pepcid) 20 mg PO DAILY [facility] Last Admin: 06/22/17 11:11 Dose: 20 mg Guaifenesin (Mucinex La) 600 mg PO BID [facility] Last Admin: 06/22/17 11:11 Dose: 600 mg Ceftriaxone Sodium 1 gm/ (Dextrose) 100 mls @ 100 mls/hr IVPB Q24H [facility] Last Admin: 06/22/17 14:10 Dose: 100 mls/hr Magnesium Hydroxide (Milk Of Magnesia) 30 ml PO Q6H PRN PRN Reason: Constipation Phenol/Menthol (Phenaseptic 1.4% Throat [place]) 0 ml MT DAILY [facility] Last Admin: 06/22/17 11:12 Dose: 1 spr Rosuvastatin Calcium (Crestor) 5 mg PO HS [facility] Last Admin: 06/21/17 22:32 Dose: Not Given Tetracaine HCl (Tetracaine 0.5% Ophth Soln) 1 drop OD DAILY [facility] Last Admin: 06/22/17 11:10 Dose: 1 drop Timolol Maleate (Timoptic 0.5% Ophth Soln) 1 drop OU QID [facility] Last Admin: 06/22/17 14:12 Dose: 1 drop - Labs Labs: 06/22/17 11:25 06/22/17 11:25 - Constitutional Appears: Non-toxic, Chronically Ill - Head Exam Head Exam: NORMOCEPHALIC - Eye Exam Eye Exam: PERRL. absent: Scleral icterus - ENT Exam ENT Exam: Mucous Membranes Dry - Neck Exam Neck Exam: absent: Lymphadenopathy - Respiratory Exam Respiratory Exam: Decreased Breath Sounds, Rhonchi - Cardiovascular Exam Cardiovascular Exam: REGULAR RHYTHM - GI/Abdominal Exam GI & Abdominal Exam: Distended, Soft - Rectal Exam Rectal Exam: Deferred - Exam Exam: NORMAL INSPECTION Assessment and Plan (1) A-fib Status: Acute (2) Altered mental status Status: Acute (3) Hyperkalemia Status: Acute (4) Pleural effusion Status: Acute (5) CHF (congestive heart failure) Status: Chronic (6) Acute renal failure Status: Acute (7) Anemia Status: Acute (8) Breast cancer Status: Acute (9) CHF (congestive heart failure), NYHA class II Status: Acute (10) Dehydration Status: Acute (11) Sepsis Status: Acute (12) History of breast cancer Status: Chronic (13) Neoplasm of breast, distant metastasis staging category cM0(i+) per [place] [employer] Committee on Cancer Staging Guid[employer], 7th edition Status: Chronic - Assessment and Plan (Free Text) Assessment: 81 yo female with hx of cardiomyopathy and breast Ca in past Treated with palliative hormone therapy in the past presents with AMS and resp failure with hypercarbia Found to have increased Ca 15-3 and large left effusion Started on empiric IV antibiotics pending thoracentesis cont rx pneumonia uti
--- NOTE | 2017-06-22 20:43 | CP.PCM.PN ---
Subjective - Date & Time of Evaluation Date of Evaluation: 06/22/17 Time of Evaluation: 11:00 - Subjective Subjective: Patient seen and evaluated Not in distress and no events noted Physical Examination - Constitutional Appears: Non-toxic, Chronically Ill - Head Exam Head Exam: NORMOCEPHALIC - Eye Exam Eye Exam: PERRL - ENT Exam ENT Exam: Mucous Membranes Dry, Normal External Ear Exam - Neck Exam Neck Exam: absent: Lymphadenopathy - Respiratory Exam Respiratory Exam: Decreased Breath Sounds - Cardiovascular Exam Cardiovascular Exam: REGULAR RHYTHM - GI/Abdominal Exam GI & Abdominal Exam: Distended, Soft - Rectal Exam Rectal Exam: Deferred - Exam Exam: NORMAL INSPECTION - Extremities Exam Extremities Exam: absent: Pedal Edema - Back Exam Back Exam: absent: CVA tenderness (L), CVA tenderness (R) - Neurological Exam Neurological Exam: Alert, Altered, Awake - Psychiatric Exam Psychiatric exam: Depressed - Skin Skin Exam: Dry Objective - Vital Signs/Intake and Output Vital Signs (last 24 hours): Temp Pulse Resp BP Pulse Ox 98.0 F 66 20 133/73 96 06/22/17 15:11 06/22/17 15:11 06/22/17 15:11 06/22/17 15:11 06/22/17 15:11 Intake and Output: 06/22/17 06/23/17 18:59 06:59 Output Total 350 Balance -350 - Medications Medications: Current Medications Ascorbic Acid (Vitamin C 500 Mg Tab) 500 mg PO DAILY [facility] Last Admin: 06/22/17 11:12 Dose: 500 mg Aspirin (Ecotrin) 81 mg PO DAILY [facility] Last Admin: 06/22/17 11:11 Dose: 81 mg Benzocaine/Menthol (Cepacol Sore Throat) 1 luana MT Q6 [facility] Last Admin: 06/22/17 14:11 Dose: Not Given Brimonidine Tartrate (Alphagan 0.2% Opht) 0.2 ml OU QID [facility] Last Admin: 06/22/17 17:34 Dose: 1 drop Docusate Sodium (Colace) 100 mg PO DAILY [facility] Last Admin: 06/22/17 11:12 Dose: 100 mg Emollient Ointment (Vaseline Oint) 10 gm TOP DAILY [facility] Last Admin: 06/22/17 11:12 Dose: 10 gm Enoxaparin Sodium (Lovenox) 30 mg SC DAILY [facility] Last Admin: 06/22/17 11:11 Dose: 30 mg Famotidine (Pepcid) 20 mg PO DAILY [facility] Last Admin: 06/22/17 11:11 Dose: 20 mg Guaifenesin (Mucinex La) 600 mg PO BID [facility] Last Admin: 06/22/17 17:34 Dose: 600 mg Ceftriaxone Sodium 1 gm/ (Dextrose) 100 mls @ 100 mls/hr IVPB Q24H [facility] Last Admin: 06/22/17 14:10 Dose: 100 mls/hr Magnesium Hydroxide (Milk Of Magnesia) 30 ml PO Q6H PRN PRN Reason: Constipation Phenol/Menthol (Phenaseptic 1.4% Throat [place]) 0 ml MT DAILY [facility] Last Admin: 06/22/17 11:12 Dose: 1 spr Rosuvastatin Calcium (Crestor) 5 mg PO HS [facility] Last Admin: 06/21/17 22:32 Dose: Not Given Tetracaine HCl (Tetracaine 0.5% Ophth Soln) 1 drop OD DAILY [facility] Last Admin: 06/22/17 11:10 Dose: 1 drop Timolol Maleate (Timoptic 0.5% Ophth Soln) 1 drop OU QID [facility] Last Admin: 06/22/17 17:34 Dose: 1 drop - Labs Labs: 06/22/17 11:25 06/22/17 11:25 Assessment and Plan - Assessment and Plan (Free Text) Assessment: (1) CAD and Diastolic CHF Chronic Assessment and Plan: Conserative mgt with ASA and Lasix (2) Altered mental status Assessment and Plan: given history of breast cancer, will need to rule out brain metastasis will send for non contrast scan for now given renal failure Status: Acute (3) Pleural effusion Assessment and Plan: rule out malignant ascites pulmonary following Status: Acute (4) Breast cancer Assessment and Plan: supportive care for now was on hormonal treatment in the past
--- NOTE | 2017-06-22 21:33 | CP.PCM.PN ---
Subjective - Date & Time of Evaluation Date of Evaluation: 06/22/17 Time of Evaluation: 21:30 - Subjective Subjective: clinially same. Objective - Vital Signs/Intake and Output Vital Signs (last 24 hours): Temp Pulse Resp BP Pulse Ox 98.0 F 66 20 133/73 96 06/22/17 15:11 06/22/17 15:11 06/22/17 15:11 06/22/17 15:11 06/22/17 15:11 Intake and Output: 06/22/17 06/23/17 18:59 06:59 Output Total 350 Balance -350 - Medications Medications: Current Medications Ascorbic Acid (Vitamin C 500 Mg Tab) 500 mg PO DAILY [facility] Last Admin: 06/22/17 11:12 Dose: 500 mg Aspirin (Ecotrin) 81 mg PO DAILY [facility] Last Admin: 06/22/17 11:11 Dose: 81 mg Benzocaine/Menthol (Cepacol Sore Throat) 1 luana MT Q6 [facility] Last Admin: 06/22/17 14:11 Dose: Not Given Brimonidine Tartrate (Alphagan 0.2% Opht) 0.2 ml OU QID [facility] Last Admin: 06/22/17 17:34 Dose: 1 drop Docusate Sodium (Colace) 100 mg PO DAILY [facility] Last Admin: 06/22/17 11:12 Dose: 100 mg Emollient Ointment (Vaseline Oint) 10 gm TOP DAILY [facility] Last Admin: 06/22/17 11:12 Dose: 10 gm Enoxaparin Sodium (Lovenox) 30 mg SC DAILY [facility] Last Admin: 06/22/17 11:11 Dose: 30 mg Famotidine (Pepcid) 20 mg PO DAILY [facility] Last Admin: 06/22/17 11:11 Dose: 20 mg Guaifenesin (Mucinex La) 600 mg PO BID [facility] Last Admin: 06/22/17 17:34 Dose: 600 mg Ceftriaxone Sodium 1 gm/ (Dextrose) 100 mls @ 100 mls/hr IVPB Q24H [facility] Last Admin: 06/22/17 14:10 Dose: 100 mls/hr Magnesium Hydroxide (Milk Of Magnesia) 30 ml PO Q6H PRN PRN Reason: Constipation Phenol/Menthol (Phenaseptic 1.4% Throat [place]) 0 ml MT DAILY [facility] Last Admin: 06/22/17 11:12 Dose: 1 spr Rosuvastatin Calcium (Crestor) 5 mg PO HS [facility] Last Admin: 06/21/17 22:32 Dose: Not Given Tetracaine HCl (Tetracaine 0.5% Ophth Soln) 1 drop OD DAILY [facility] Last Admin: 06/22/17 11:10 Dose: 1 drop Timolol Maleate (Timoptic 0.5% Ophth Soln) 1 drop OU QID [facility] Last Admin: 06/22/17 17:34 Dose: 1 drop - Labs Labs: 06/22/17 11:25 06/22/17 11:25 - Constitutional Appears: Well - Head Exam Head Exam: ATRAUMATIC, NORMAL INSPECTION, NORMOCEPHALIC - Eye Exam Eye Exam: EOMI, Normal appearance, PERRL Pupil Exam: NORMAL ACCOMODATION, PERRL - ENT Exam ENT Exam: Mucous Membranes Moist, Normal Exam - Neck Exam Neck Exam: Full ROM, Normal Inspection. absent: Lymphadenopathy - Respiratory Exam Respiratory Exam: Decreased Breath Sounds - Cardiovascular Exam Cardiovascular Exam: REGULAR RHYTHM, +S1, +S2. absent: Murmur - GI/Abdominal Exam GI & Abdominal Exam: Soft, Normal Bowel Sounds. 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 (14) Glaucoma (increased eye pressure) Status: Acute (15) Hyponatremia with decreased serum osmolality Status: Acute (16) PVC (premature ventricular contraction) Status: Acute (17) Postmenopausal bleeding Status: Acute (18) Prophylactic measure Status: Acute (19) Sepsis Status: Acute (20) UTI (urinary tract infection) Status: Acute (21) HTN (hypertension) Status: Chronic (22) History of breast cancer Status: Chronic (23) Neoplasm of breast, distant metastasis staging category cM0(i+) per [place] [employer] Committee on Cancer Staging [employer], 7th edition Status: Chronic (24) Open leg wound Status: Chronic - Assessment and Plan (Free Text) Plan: Patient examined. ID automobile sales consultant. Patient better. Continue ceftriaxone. Aspirin. Supportive care.
[2017-06-23] MEDS: Benzocaine/Menthol (Cepacol) Lozenge MT SCH ×4 (00:34→17:57)
[2017-06-23 07:16] LABS: BASO % 0.3 % (0.0-2.0); EOS # 0.1 K/uL (0.0-0.7); EOS % 1.5 % (0.0-4.0); HEMATOCRIT 40.5 % (34.0-47.0); MEAN CELL VOLUME 85.4 fL (81.0-99.0); MEAN CORPUSCULAR HEMOGLOBIN 26.7 pg (27.0-31.0); MEAN CORPUSCULAR HGB CONC 31.2 g/dL (33.0-37.0); MEAN PLATELET VOLUME 9.2 fL (7.2-11.7); MONO # 1.2 K/uL (0.0-0.8); MONO % 15.3 % (0.0-10.0); NRBC % 0.2 % (0.0-2.0); RED CELL DISTRIBUTION WIDTH 14.4 % (11.5-14.5); WHITE BLOOD COUNT 7.5 K/uL (4.8-10.8)
[2017-06-23 08:01] LABS: CHLORIDE 102 mmol/L (98-107)
[2017-06-23 08:02] LABS: POTASSIUM 5.1 mmol/L (3.6-5.2); SODIUM 135 mmol/L (132-148)
[2017-06-23 08:04] LABS: ALB/GLOB RATIO 1.3 (1.0-2.1); CARBON DIOXIDE 24 mmol/L (22-30); GFR AFRICAN-AMERICAN > 60
[2017-06-23 08:05] LABS: ALKALINE PHOSPHATASE 64 U/L (38-126); ALT/SGPT 58 U/L (9-52); AST/SGOT 34 U/L (14-36); BLOOD UREA NITROGEN 43 mg/dL (7-17); CALCIUM 8.5 mg/dl (8.6-10.4); GLUCOSE,RANDOM 129 mg/dL (65-105); PHOSPHOROUS 2.6 mg/dL (2.5-4.5)
[2017-06-23 08:06] LABS: MAGNESIUM 1.8 mg/dL (1.6-2.3)
[2017-06-23] MEDS: Enoxaparin 30 mg Syringe SC SCH (11:02)
[2017-06-23] MEDS: Petrolatum Oint Foilpak (5 gm) TOP SCH (11:02)
[2017-06-23] MEDS: guaiFENesin 600 mg ER Tab PO SCH ×3 (11:02→17:33)
[2017-06-23 11:56] LABS: ABG ALLEN TEST POS; CARBOXYHEMOGLOBIN 2.8 % (0.5-1.5); DRAW SITE RR; HHB 2.7 % (0.0-5.0); METHEMOGLOBIN 1.5 % (0.0-3.0)
[2017-06-23] MEDS: Phenol Topical 1.4% Throat Spray (180 ml) MT SCH (12:03)
--- NOTE | 2017-06-23 12:04 | CP.PCM.CON ---
History of Present Illness - History of Present Illness History of Present Illness: 81 y/o female admitted to [facility] with AMS. PAtient has left breast ca. Patient has past medical hostory of anemia, arthritis, atrial fibrillation, CAD , CHF, HTN, hyperlipidemia, malignancy [metastatic ductal breast carcinoma], rheumatoid arthritis, cardiomyopathy. Patient was noted to have worsening AMS. per nursing, patient was awake, alert and communicative yesterday; however today, patient is more drowsy. Limited ROS 2nd underlying AMS. Review of Systems - Review of Systems Systems not reviewed;Unavailable: Altered Mental Status - Constitutional Constitutional: Anorexia - EENT Eyes: Other Nose/Mouth/Throat: Other Additional comments: on BI-pap - Breasts Breasts: Other Additional comments: Left breast wound with breast ca dressing clean - Cardiovascular Cardiovascular: As Per HPI - Respiratory Respiratory: As Per HPI - Neurological Neurological: Lack of Coordination, Loss of Vision, Sensory Deficit Past Patient History - Past Medical History & Family History Past Medical History?: Yes - Past Social History Smoking Status: Never Smoked - CARDIAC Hx Congestive Heart Failure: Yes Hx Hypertension: Yes - PULMONARY Hx Respiratory Disorders: No - NEUROLOGICAL Hx Neurological Disorder: No - HEENT Other/Comment: [email or web address] - RENAL Hx Renal Failure: Yes - ENDOCRINE/METABOLIC Hx Endocrine Disorders: No - HEMATOLOGICAL/ONCOLOGICAL Hx Anemia: Yes - INTEGUMENTARY Hx Dermatological Problems: Yes Other/Comment: left breast wounds X2 - MUSCULOSKELETAL/RHEUMATOLOGICAL Hx Rheumatoid Arthritis: Yes - GASTROINTESTINAL Hx Gastroesophageal Reflux: Yes - GENITOURINARY/GYNECOLOGICAL Hx Genitourinary Disorders: No - PSYCHIATRIC Hx Substance Use: No - SURGICAL HISTORY Hx Coronary Stent: No (cath ) - ANESTHESIA Hx Anesthesia: No Hx Anesthesia Reactions: No Meds Allergies/Adverse Reactions: Allergies Allergy/AdvReac Type Severity Reaction Status Date / Time No Known Allergies Allergy Verified 03/25/17 16:15 - Medications Medications: Current Medications Ascorbic Acid (Vitamin C 500 Mg Tab) 500 mg PO DAILY [facility] Last Admin: 06/23/17 11:02 Dose: 500 mg Aspirin (Ecotrin) 81 mg PO DAILY [facility] Last Admin: 06/23/17 11:02 Dose: 81 mg Benzocaine/Menthol (Cepacol Sore Throat) 1 luana MT Q6 [facility] Last Admin: 06/23/17 05:54 Dose: 1 luana Brimonidine Tartrate (Alphagan 0.2% Opht) 0.2 ml OU QID [facility] Last Admin: 06/22/17 21:39 Dose: 1 drop Docusate Sodium (Colace) 100 mg PO DAILY [facility] Last Admin: 06/23/17 11:02 Dose: 100 mg Emollient Ointment (Vaseline Oint) 10 gm TOP DAILY [facility] Last Admin: 06/23/17 11:02 Dose: 10 gm Enoxaparin Sodium (Lovenox) 30 mg SC DAILY [facility] Last Admin: 06/23/17 11:02 Dose: 30 mg Famotidine (Pepcid) 20 mg PO DAILY [facility] Last Admin: 06/23/17 11:02 Dose: 20 mg Guaifenesin (Mucinex La) 600 mg PO BID [facility] Last Admin: 06/23/17 11:02 Dose: 600 mg Ceftriaxone Sodium (Rocephin Iv 1 Gm Duplex) 50 mls @ 100 mls/hr IVPB Q24H [facility] Dextrose (Dextrose 5% In Water 1000 Ml) 1,000 mls @ 50 mls/hr IV .Q20H [facility] Magnesium Hydroxide (Milk Of Magnesia) 30 ml PO Q6H PRN PRN Reason: Constipation Phenol/Menthol (Phenaseptic 1.4% Throat [place]) 0 ml MT DAILY [facility] Last Admin: 06/22/17 11:12 Dose: 1 spr Rosuvastatin Calcium (Crestor) 5 mg PO HS [facility] Last Admin: 06/22/17 21:40 Dose: Not Given Tetracaine HCl (Tetracaine 0.5% Ophth Soln) 1 drop OD DAILY [facility] Last Admin: 06/22/17 11:10 Dose: 1 drop Timolol Maleate (Timoptic 0.5% Ophth Soln) 1 drop OU QID [facility] Last Admin: 06/22/17 21:39 Dose: 1 drop Physical Exam - Constitutional Appears: In Acute Distress - Head Exam Head Exam: ATRAUMATIC - Eye Exam Additional comments: left and right cornea white - Respiratory Exam Respiratory Exam: Accessory Muscle Use, Rales, Respiratory Distress - Cardiovascular Exam Cardiovascular Exam: Tachycardia, Diastolic murmur, +S1, +S2 - GI/Abdominal Exam GI & Abdominal Exam: Normal Bowel Sounds, Soft - Rectal Exam Rectal Exam: Deferred - Extremities Exam Extremities exam: Positive for: joint swelling, pedal edema - Neurological Exam Additional comments: limited study as patient not following any commands babinski up b/l - Skin Skin Exam: Erythema, Petechiae Results - Vital Signs Recent Vital Signs: Last Vital Signs Temp 97.5 F L 06/23/17 08:09 Pulse 71 06/23/17 08:09 Resp 20 06/23/17 08:09 BP 133/60 06/23/17 08:09 Pulse Ox 97 06/23/17 08:09 - Labs Result Diagrams: 06/23/17 07:02 06/23/17 07:02 Labs: Laboratory Results - last 24 hr 06/22/17 06/22/17 06/23/17 11:25 11:25 07:02 WBC 7.5 RBC 4.74 Hgb 12.6 Hct 40.5 MCV 85.4 MCH 26.7 L MCHC 31.2 L RDW 14.4 Plt Count 139 MPV 9.2 Neut % (Auto) 69.9 Lymph % (Auto) 13.0 L Nye % (Auto) 15.3 H Eos % (Auto) 1.5 Baso % (Auto) 0.3 Neut # 5.3 Lymph # 1.0 Nye # 1.2 H Eos # 0.1 Baso # 0.0 Neutrophils % (Manual) 74 Band Neutrophils % 1 Lymphocytes % (Manual) 10 L Monocytes % (Manual) 13 H Eosinophils % (Manual) 2 Platelet Estimate Normal Polychromasia Slight Hypochromasia (manual) Slight Tear Drop Cells Slight Ovalocytes Slight Puncture Site pCO2 pO2 HCO3 ABG pH ABG Total CO2 ABG O2 Saturation ABG Base Excess ABG Hemoglobin ABG Carboxyhemoglobin POC ABG HHb (Measured) ABG Methemoglobin Regan Test A-a O2 Difference Respiratory Index Hgb O2 Saturation FiO2 Inspiratory BiPAP Expiratory BiPAP Sodium 133 Potassium 5.0 Chloride 101 Carbon Dioxide 23 Anion Gap 14 BUN 51 H Creatinine 1.1 Est GFR ( Amer) 58 Est GFR (Non-Af Amer) 48 Random Glucose 142 H Calcium 8.3 L Phosphorus 2.9 Magnesium 2.0 Total Bilirubin 0.7 AST 36 ALT 61 H Alkaline Phosphatase 62 Total Protein 7.0 Albumin 3.5 Globulin 3.5 Albumin/Globulin Ratio 1.0 06/23/17 06/23/17 07:02 11:50 WBC RBC Hgb Hct MCV MCH MCHC RDW Plt Count MPV Neut % (Auto) Lymph % (Auto) Nye % (Auto) Eos % (Auto) Baso % (Auto) Neut # Lymph # Nye # Eos # Baso # Neutrophils % (Manual) Band Neutrophils % Lymphocytes % (Manual) Monocytes % (Manual) Eosinophils % (Manual) Platelet Estimate Polychromasia Hypochromasia (manual) Tear Drop Cells Ovalocytes Puncture Site Rr pCO2 59 H pO2 69 L HCO3 23.7 ABG pH 7.26 L ABG Total CO2 28.3 H ABG O2 Saturation 97.2 ABG Base Excess -1.5 ABG Hemoglobin 12.1 ABG Carboxyhemoglobin 2.8 H POC ABG HHb (Measured) 2.7 ABG Methemoglobin 1.5 Regan Test Pos A-a O2 Difference 71.0 Respiratory Index 1.0 Hgb O2 Saturation 93.0 L FiO2 30.0 Inspiratory BiPAP 10 Expiratory BiPAP 5 Sodium 135 Potassium 5.1 Chloride 102 Carbon Dioxide 24 Anion Gap 15 BUN 43 H Creatinine 0.9 Est GFR ( Amer) > 60 Est GFR (Non-Af Amer) > 60 Random Glucose 129 H Calcium 8.5 L Phosphorus 2.6 Magnesium 1.8 Total Bilirubin 1.0 AST 34 ALT 58 H Alkaline Phosphatase 64 Total Protein 6.0 L Albumin 3.4 L Globulin 2.6 Albumin/Globulin Ratio 1.3 - Impressions Impression: Hypercapneic respiratory failure Uremic encaphalopahty AMS metastatic breast ca RHeumatoid Arthritis Cardiomyopathy r/o sepsis Assessment & Plan - Assessment and Plan (Free Text) Assessment: -Uremic encephalopahty: check Utox, ct head neurology eval -AMS: monitor GCS and continu bi-pap -Hypoxic hypercapneic respiratory failure: ABG pending, currently on bi-pap -left breast mass with dressing suspect metastatic -CAD/chronic systolic heart failure: continue home medications -r/o sepsis: CXR official pending, flores cultures, serial lactic -Goals of care: obtain palliative eval -dvt: check dopplers LE and start heparin SQ if CT head neg -pud ppx : Protonix -BGM q6hrs, ISS/lispro cc time spent 40 minutes d/w PMD and advised to monitor patient's respiratory failure and AMS in ICu as patient may need to be intubated if GCS <9. Prognosis poor given metastatic breast ca.
--- NOTE | 2017-06-23 13:01 | RAD ---
HISTORY: congestion/lethargy COMPARISON: 06/21/2017. FINDINGS: LUNGS: There is interval improved aeration in the right lung and left upper lobe with persistent airspace disease in the left lower lobe. There is mild pulmonary venous congestion. PLEURA: There is moderate left pleural effusion. No large right pleural effusion identified, no pneumothorax apparent. CARDIOVASCULAR: Again seen is severe cardiomegaly OSSEOUS STRUCTURES: No significant abnormalities. VISUALIZED UPPER ABDOMEN: Normal. OTHER FINDINGS: None. IMPRESSION: Interval improved aeration in both lungs with persistent left lower lobe airspace disease which may represent atelectasis or pneumonia. Also noted is moderate left pleural effusion. Persistent severe cardiomegaly.
[2017-06-23] MEDS: Brimonidine 0.2% Opth Sol (5ml) OU SCH ×4 (13:36→21:26)
[2017-06-23] MEDS: Tetracaine 0.5% Ophth 2 ML BOTTLE OD SCH (13:37)
[2017-06-23] MEDS: cefTRIAXone IV 1 gm in Dextros 50 ML IVPB SCH (13:37)
--- NOTE | 2017-06-23 18:15 | CP.PCM.PN ---
Subjective - Date & Time of Evaluation Date of Evaluation: 06/23/17 Time of Evaluation: 16:45 - Subjective Subjective: the patient seen and examined Transferred to ICU and for change in mental status and shortness of breath On BiPAP Lethargic Afebrile Objective - Vital Signs/Intake and Output Vital Signs (last 24 hours): Temp Pulse Resp BP Pulse Ox 97.4 F L 71 20 133/60 95 06/23/17 13:30 06/23/17 11:00 06/23/17 08:09 06/23/17 08:09 06/23/17 13:30 Intake and Output: 06/23/17 06/23/17 06:59 18:59 Intake Total 200 50 Output Total 800 300 Balance -600 -250 - Medications Medications: Current Medications Ascorbic Acid (Vitamin C 500 Mg Tab) 500 mg PO DAILY [facility] Last Admin: 06/23/17 12:05 Dose: Not Given Aspirin (Ecotrin) 81 mg PO DAILY [facility] Last Admin: 06/23/17 12:04 Dose: Not Given Benzocaine/Menthol (Cepacol Sore Throat) 1 luana MT Q6 [facility] Last Admin: 06/23/17 17:57 Dose: Not Given Brimonidine Tartrate (Alphagan 0.2% Opht) 0.2 ml OU QID [facility] Last Admin: 06/23/17 17:57 Dose: 1 drop Docusate Sodium (Colace) 100 mg PO DAILY [facility] Last Admin: 06/23/17 12:04 Dose: Not Given Emollient Ointment (Vaseline Oint) 10 gm TOP DAILY [facility] Last Admin: 06/23/17 11:02 Dose: 10 gm Enoxaparin Sodium (Lovenox) 30 mg SC DAILY [facility] Last Admin: 06/23/17 11:02 Dose: 30 mg Famotidine (Pepcid) 20 mg PO DAILY [facility] Last Admin: 06/23/17 12:03 Dose: Not Given Guaifenesin (Mucinex La) 600 mg PO BID [facility] Last Admin: 06/23/17 17:33 Dose: Not Given Ceftriaxone Sodium (Rocephin Iv 1 Gm Duplex) 50 mls @ 100 mls/hr IVPB Q24H [facility] Last Admin: 06/23/17 13:37 Dose: 100 mls/hr Magnesium Hydroxide (Milk Of Magnesia) 30 ml PO Q6H PRN PRN Reason: Constipation Phenol/Menthol (Phenaseptic 1.4% Throat [place]) 0 ml MT DAILY [facility] Last Admin: 06/23/17 12:03 Dose: Not Given Rosuvastatin Calcium (Crestor) 5 mg PO HS [facility] Last Admin: 06/22/17 21:40 Dose: Not Given Tetracaine HCl (Tetracaine 0.5% Ophth Soln) 1 drop OD DAILY [facility] Last Admin: 06/23/17 13:37 Dose: 1 drop Timolol Maleate (Timoptic 0.5% Ophth Soln) 1 drop OU QID [facility] Last Admin: 06/23/17 17:36 Dose: 1 drop - Labs Labs: 06/23/17 07:02 06/23/17 07:02 - Head Exam Head Exam: ATRAUMATIC, NORMOCEPHALIC - ENT Exam ENT Exam: Mucous Membranes Moist - Neck Exam Neck Exam: Normal Inspection - Respiratory Exam Respiratory Exam: Decreased Breath Sounds - Cardiovascular Exam Cardiovascular Exam: REGULAR RHYTHM - GI/Abdominal Exam GI & Abdominal Exam: Soft, Normal Bowel Sounds Assessment and Plan (1) Pleural effusion Assessment & Plan: small bilateral pleural effusions Chest x-ray done this morning showed a improving aeration, but persistent left lung infiltrate Continue BiPAP Followup ABG Case discussed with family at length Possible NG tube for feeding Discussed peg feeding Status: Acute (2) Neoplasm of breast, distant metastasis staging category cM0(i+) per [place] [employer] Committee on Cancer Staging [employer], 7th edition Status: Chronic
--- NOTE | 2017-06-23 18:32 | CP.PCM.PN ---
Subjective - Date & Time of Evaluation Date of Evaluation: 06/23/17 Time of Evaluation: 12:40 - Subjective Subjective: clinically same Objective - Vital Signs/Intake and Output Vital Signs (last 24 hours): Temp Pulse Resp BP Pulse Ox 97.4 F L 71 20 133/60 95 06/23/17 13:30 06/23/17 11:00 06/23/17 08:09 06/23/17 08:09 06/23/17 13:30 Intake and Output: 06/23/17 06/23/17 06:59 18:59 Intake Total 200 50 Output Total 800 300 Balance -600 -250 - Medications Medications: Current Medications Ascorbic Acid (Vitamin C 500 Mg Tab) 500 mg PO DAILY [facility] Last Admin: 06/23/17 12:05 Dose: Not Given Aspirin (Ecotrin) 81 mg PO DAILY [facility] Last Admin: 06/23/17 12:04 Dose: Not Given Benzocaine/Menthol (Cepacol Sore Throat) 1 luana MT Q6 [facility] Last Admin: 06/23/17 17:57 Dose: Not Given Brimonidine Tartrate (Alphagan 0.2% Opht) 0.2 ml OU QID [facility] Last Admin: 06/23/17 17:57 Dose: 1 drop Docusate Sodium (Colace) 100 mg PO DAILY [facility] Last Admin: 06/23/17 12:04 Dose: Not Given Emollient Ointment (Vaseline Oint) 10 gm TOP DAILY [facility] Last Admin: 06/23/17 11:02 Dose: 10 gm Enoxaparin Sodium (Lovenox) 30 mg SC DAILY [facility] Last Admin: 06/23/17 11:02 Dose: 30 mg Famotidine (Pepcid) 20 mg PO DAILY [facility] Last Admin: 06/23/17 12:03 Dose: Not Given Guaifenesin (Mucinex La) 600 mg PO BID [facility] Last Admin: 06/23/17 17:33 Dose: Not Given Ceftriaxone Sodium (Rocephin Iv 1 Gm Duplex) 50 mls @ 100 mls/hr IVPB Q24H [facility] Last Admin: 06/23/17 13:37 Dose: 100 mls/hr Magnesium Hydroxide (Milk Of Magnesia) 30 ml PO Q6H PRN PRN Reason: Constipation Phenol/Menthol (Phenaseptic 1.4% Throat [place]) 0 ml MT DAILY [facility] Last Admin: 06/23/17 12:03 Dose: Not Given Rosuvastatin Calcium (Crestor) 5 mg PO HS [facility] Last Admin: 06/22/17 21:40 Dose: Not Given Tetracaine HCl (Tetracaine 0.5% Ophth Soln) 1 drop OD DAILY [facility] Last Admin: 06/23/17 13:37 Dose: 1 drop Timolol Maleate (Timoptic 0.5% Ophth Soln) 1 drop OU QID [facility] Last Admin: 06/23/17 17:36 Dose: 1 drop - Labs Labs: 06/23/17 07:02 06/23/17 07:02 - Constitutional Appears: Well - Head Exam Head Exam: ATRAUMATIC, NORMAL INSPECTION, NORMOCEPHALIC - Eye Exam Eye Exam: EOMI, Normal appearance, PERRL Pupil Exam: NORMAL ACCOMODATION, PERRL - ENT Exam ENT Exam: Mucous Membranes Moist, Normal Exam - Neck Exam Neck Exam: Full ROM, Normal Inspection. absent: Lymphadenopathy - Respiratory Exam Respiratory Exam: Decreased Breath Sounds - Cardiovascular Exam Cardiovascular Exam: REGULAR RHYTHM, +S1, +S2. absent: Murmur - GI/Abdominal Exam GI & Abdominal Exam: Soft, Normal Bowel Sounds. 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 (14) Glaucoma (increased eye pressure) Status: Acute (15) Hyponatremia with decreased serum osmolality Status: Acute (16) PVC (premature ventricular contraction) Status: Acute (17) Postmenopausal bleeding Status: Acute (18) Prophylactic measure Status: Acute (19) Sepsis Status: Acute (20) UTI (urinary tract infection) Status: Acute (21) HTN (hypertension) Status: Chronic (22) History of breast cancer Status: Chronic (23) Neoplasm of breast, distant metastasis staging category cM0(i+) per [place] Joint Committee on Cancer Staging [employer], 7th edition Status: Chronic (24) Open leg wound Status: Chronic - Assessment and Plan (Free Text) Plan: Patient transferred to ICU for altered mental status. Patient examined. No acute overnight events. Continue ceftriaxone. Bronchodilators. Supportive treatment.
--- NOTE | 2017-06-23 21:56 | CP.PCM.PN ---
Subjective - Date & Time of Evaluation Date of Evaluation: 06/23/17 Time of Evaluation: 18:25 - Subjective Subjective: Patient transferred to ICU for altered mental status and lethargy Being managed by ICU team Physical Examination - Constitutional Appears: Non-toxic, Chronically Ill - Head Exam Head Exam: NORMOCEPHALIC - Eye Exam Eye Exam: PERRL - ENT Exam ENT Exam: Mucous Membranes Dry, Normal External Ear Exam - Neck Exam Neck Exam: absent: Lymphadenopathy - Respiratory Exam Respiratory Exam: Decreased Breath Sounds - Cardiovascular Exam Cardiovascular Exam: REGULAR RHYTHM - GI/Abdominal Exam GI & Abdominal Exam: Distended, Soft - Rectal Exam Rectal Exam: Deferred - Exam Exam: NORMAL INSPECTION - Extremities Exam Extremities Exam: absent: Pedal Edema - Back Exam Back Exam: absent: CVA tenderness (L), CVA tenderness (R) - Neurological Exam Neurological Exam: Alert, Altered, Awake - Psychiatric Exam Psychiatric exam: Depressed - Skin Skin Exam: Dry Objective - Vital Signs/Intake and Output Vital Signs (last 24 hours): Temp Pulse Resp BP Pulse Ox 97.4 F L 71 20 133/60 95 06/23/17 20:00 06/23/17 11:00 06/23/17 08:09 06/23/17 08:09 06/23/17 13:30 Intake and Output: 06/23/17 06/24/17 18:59 06:59 Intake Total 110 30 Output Total 440 0 Balance -330 30 - Medications Medications: Current Medications Ascorbic Acid (Vitamin C 500 Mg Tab) 500 mg PO DAILY [facility] Last Admin: 06/23/17 12:05 Dose: Not Given Aspirin (Ecotrin) 81 mg PO DAILY [facility] Last Admin: 06/23/17 12:04 Dose: Not Given Benzocaine/Menthol (Cepacol Sore Throat) 1 luana MT Q6 [facility] Last Admin: 06/23/17 17:57 Dose: Not Given Brimonidine Tartrate (Alphagan 0.2% Opht) 0.2 ml OU QID [facility] Last Admin: 06/23/17 21:26 Dose: 1 drop Docusate Sodium (Colace) 100 mg PO DAILY [facility] Last Admin: 06/23/17 12:04 Dose: Not Given Emollient Ointment (Vaseline Oint) 10 gm TOP DAILY [facility] Last Admin: 06/23/17 11:02 Dose: 10 gm Enoxaparin Sodium (Lovenox) 30 mg SC DAILY [facility] Last Admin: 06/23/17 11:02 Dose: 30 mg Famotidine (Pepcid) 20 mg PO DAILY [facility] Last Admin: 06/23/17 12:03 Dose: Not Given Guaifenesin (Mucinex La) 600 mg PO BID [facility] Last Admin: 06/23/17 17:33 Dose: Not Given Ceftriaxone Sodium (Rocephin Iv 1 Gm Duplex) 50 mls @ 100 mls/hr IVPB Q24H [facility] Last Admin: 06/23/17 13:37 Dose: 100 mls/hr Magnesium Hydroxide (Milk Of Magnesia) 30 ml PO Q6H PRN PRN Reason: Constipation Phenol/Menthol (Phenaseptic 1.4% Throat [place]) 0 ml MT DAILY [facility] Last Admin: 06/23/17 12:03 Dose: Not Given Rosuvastatin Calcium (Crestor) 5 mg PO HS [facility] Last Admin: 06/23/17 21:26 Dose: 5 mg Tetracaine HCl (Tetracaine 0.5% Ophth Soln) 1 drop OD DAILY [facility] Last Admin: 06/23/17 13:37 Dose: 1 drop Timolol Maleate (Timoptic 0.5% Ophth Soln) 1 drop OU QID [facility] Last Admin: 06/23/17 21:27 Dose: 1 drop - Labs Labs: 06/23/17 07:02 06/23/17 07:02 Assessment and Plan - Assessment and Plan (Free Text) Assessment: (1) CAD and Diastolic CHF Chronic Assessment and Plan: Conserative mgt with ASA and Lasix (2) Altered mental status Assessment and Plan: given history of breast cancer, will need to rule out brain metastasis will send for non contrast scan for now given renal failure Status: Acute (3) Pleural effusion Assessment and Plan: rule out malignant ascites pulmonary following Status: Acute (4) Breast cancer Assessment and Plan: supportive care for now was on hormonal treatment in the past
[2017-06-24] MEDS: Benzocaine/Menthol (Cepacol) Lozenge MT SCH ×5 (00:47→23:29)
[2017-06-24 05:47] LABS: ABG ALLEN TEST POS; ARTERIAL BLOOD GAS MODE BiPAP; ARTERIAL BLOOD HGB O2 SAT 94.3 % (95.0-98.0); CARBOXYHEMOGLOBIN 2.7 % (0.5-1.5); DRAW SITE R RAD; HHB 1.8 % (0.0-5.0); METHEMOGLOBIN 1.3 % (0.0-3.0)
[2017-06-24 06:43] LABS: BASO % 0.5 % (0.0-2.0); EOS # 0.1 K/uL (0.0-0.7); EOS % 1.6 % (0.0-4.0); HEMATOCRIT 41.5 % (34.0-47.0); LYMPH # 0.9 K/uL (1.0-4.3); MEAN CELL VOLUME 85.4 fL (81.0-99.0); MEAN CORPUSCULAR HEMOGLOBIN 26.5 pg (27.0-31.0); MEAN PLATELET VOLUME 9.5 fL (7.2-11.7); MONO % 12.7 % (0.0-10.0); NRBC % 0.1 % (0.0-2.0); RED CELL DISTRIBUTION WIDTH 14.8 % (11.5-14.5)
[2017-06-24 07:25] LABS: CHLORIDE 101 mmol/L (98-107); POTASSIUM 4.4 mmol/L (3.6-5.2); SODIUM 135 mmol/L (132-148)
[2017-06-24 07:27] LABS: ALB/GLOB RATIO 1.3 (1.0-2.1); AST/SGOT 35 U/L (14-36); BILIRUBIN,TOTAL 1.4 mg/dL (0.2-1.3); CARBON DIOXIDE 25 mmol/L (22-30); GFR AFRICAN-AMERICAN > 60; TOTAL PROTEIN 6.2 g/dL (6.3-8.3)
[2017-06-24 07:28] LABS: ALKALINE PHOSPHATASE 64 U/L (38-126); ALT/SGPT 50 U/L (9-52); BLOOD UREA NITROGEN 28 mg/dL (7-17); CALCIUM 8.6 mg/dl (8.6-10.4); GLUCOSE,RANDOM 122 mg/dL (65-105); MAGNESIUM 1.6 mg/dL (1.6-2.3); PHOSPHOROUS 1.7 mg/dL (2.5-4.5)
[2017-06-24] MEDS: Enoxaparin 30 mg Syringe SC SCH (09:15)
[2017-06-24] MEDS: Brimonidine 0.2% Opth Sol (5ml) OU SCH ×4 (09:16→21:18)
[2017-06-24] MEDS: Tetracaine 0.5% Ophth 2 ML BOTTLE OD SCH (09:16)
[2017-06-24] MEDS: Phenol Topical 1.4% Throat Spray (180 ml) MT SCH (09:18)
--- NOTE | 2017-06-24 09:19 | RAD ---
PROCEDURE: CHEST RADIOGRAPH, 1 VIEW HISTORY: Moderate Left Pleural Effusion COMPARISON: 06/23/2017. FINDINGS: LUNGS: , worse in the right lower lobe and there is no change in airspace disease in the left lower lobe. PLEURA: Persistent moderate left pleural effusion and also suspected is small right pleural effusion. CARDIOVASCULAR: Difficult to evaluate due tube bilateral lower lobe airspace disease. OSSEOUS STRUCTURES: No significant abnormalities. VISUALIZED UPPER ABDOMEN: Normal. OTHER FINDINGS: None. IMPRESSION: No change in moderate left pleural effusion. Interval development of right lower lobe pneumonia versus pulmonary edema and pleural effusion.
[2017-06-24] MEDS: guaiFENesin 600 mg ER Tab PO SCH ×2 (10:56→17:05)
[2017-06-24] MEDS: cefTRIAXone IV 1 gm in Dextros 50 ML IVPB SCH (13:09)
[2017-06-24] MEDS: Petrolatum Oint Foilpak (5 gm) TOP SCH (13:17)
--- NOTE | 2017-06-24 13:58 | CP.PCM.PN ---
Subjective - Date & Time of Evaluation Date of Evaluation: 06/24/17 Time of Evaluation: 13:00 - Subjective Subjective: clinically samw Objective - Vital Signs/Intake and Output Vital Signs (last 24 hours): Temp Pulse Resp BP Pulse Ox 97.4 F L 65 17 126/91 H 98 06/24/17 12:00 06/24/17 13:20 06/24/17 13:20 06/24/17 12:48 06/24/17 13:20 Intake and Output: 06/24/17 06/24/17 06:59 18:59 Intake Total 750 230 Output Total 462 257 Balance 288 -27 - Medications Medications: Current Medications Ascorbic Acid (Vitamin C 500 Mg Tab) 500 mg PO DAILY [facility] Last Admin: 06/24/17 09:15 Dose: 500 mg Aspirin (Ecotrin) 81 mg PO DAILY [facility] Last Admin: 06/24/17 09:15 Dose: 81 mg Benzocaine/Menthol (Cepacol Sore Throat) 1 luana MT Q6 [facility] Last Admin: 06/24/17 12:41 Dose: Not Given Brimonidine Tartrate (Alphagan 0.2% Opht) 0.2 ml OU QID [facility] Last Admin: 06/24/17 13:10 Dose: 1 drop Docusate Sodium (Colace) 100 mg PO DAILY [facility] Last Admin: 06/24/17 10:57 Dose: Not Given Emollient Ointment (Vaseline Oint) 10 gm TOP DAILY [facility] Last Admin: 06/24/17 13:17 Dose: 10 gm Famotidine (Pepcid) 20 mg PO DAILY [facility] Last Admin: 06/24/17 09:15 Dose: 20 mg Guaifenesin (Mucinex La) 600 mg PO BID [facility] Last Admin: 06/24/17 10:56 Dose: Not Given Ceftriaxone Sodium (Rocephin Iv 1 Gm Duplex) 50 mls @ 100 mls/hr IVPB Q24H [facility] Last Admin: 06/24/17 13:09 Dose: 100 mls/hr Magnesium Hydroxide (Milk Of Magnesia) 30 ml PO Q6H PRN PRN Reason: Constipation Phenol/Menthol (Phenaseptic 1.4% Throat [place]) 0 ml MT DAILY [facility] Last Admin: 06/24/17 09:18 Dose: 1 spr Rosuvastatin Calcium (Crestor) 5 mg PO HS [facility] Last Admin: 06/23/17 21:26 Dose: 5 mg Tetracaine HCl (Tetracaine 0.5% Ophth Soln) 1 drop OD DAILY [facility] Last Admin: 06/24/17 09:16 Dose: 1 drop Timolol Maleate (Timoptic 0.5% Ophth Soln) 1 drop OU QID [facility] Last Admin: 06/24/17 13:10 Dose: 1 drop - Labs Labs: 06/24/17 06:35 06/24/17 06:35 - Constitutional Appears: Well - Head Exam Head Exam: ATRAUMATIC, NORMAL INSPECTION, NORMOCEPHALIC - Eye Exam Eye Exam: EOMI, Normal appearance, PERRL Pupil Exam: NORMAL ACCOMODATION, PERRL - ENT Exam ENT Exam: Mucous Membranes Moist, Normal Exam - Neck Exam Neck Exam: Full ROM, Normal Inspection. absent: Lymphadenopathy - Respiratory Exam Respiratory Exam: Decreased Breath Sounds - Cardiovascular Exam Cardiovascular Exam: REGULAR RHYTHM, +S1, +S2 - GI/Abdominal Exam GI & Abdominal Exam: Soft, Diminished Bowel Sounds - Rectal Exam Rectal Exam: Deferred Assessment and Plan (1) A-fib Status: Acute (2) Altered mental status Status: Acute (3) Hyperkalemia Status: Acute (4) Pleural effusion Status: Acute (5) Thrombocytopenia Status: Acute (6) CHF (congestive heart failure) Status: Chronic (7) Acute renal failure Status: Acute (8) Anemia Status: Acute (9) Breast cancer Status: Acute (10) CHF (congestive heart failure), NYHA class II Status: Acute (11) Dehydration Status: Acute (12) Elevated brain natriuretic peptide (BNP) level Status: Acute (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 (14) Glaucoma (increased eye pressure) Status: Acute (15) Hyponatremia with decreased serum osmolality Status: Acute (16) PVC (premature ventricular contraction) Status: Acute (17) Postmenopausal bleeding Status: Acute (18) Prophylactic measure Status: Acute (19) Sepsis Status: Acute (20) UTI (urinary tract infection) Status: Acute (21) HTN (hypertension) Status: Chronic (22) History of breast cancer Status: Chronic (23) Neoplasm of breast, distant metastasis staging category cM0(i+) per [place] [employer] on Cancer Staging [employer], 7th edition Status: Chronic (24) Open leg wound Status: Chronic - Assessment and Plan (Free Text) Plan: Patient examined. No acute overnight events. Continue ceftriaxone. Bronchodilators. Supportive treatment.
--- NOTE | 2017-06-24 16:31 | CP.PCM.PN ---
Subjective - Date & Time of Evaluation Date of Evaluation: 06/24/17 Time of Evaluation: 07:00 - Subjective Subjective: transferred to ICU for AMS sitting in chair remains confused as before Objective - Vital Signs/Intake and Output Vital Signs (last 24 hours): Temp Pulse Resp BP Pulse Ox 97.2 F L 54 L 24 116/83 99 06/24/17 16:00 06/24/17 16:00 06/24/17 16:00 06/24/17 15:48 06/24/17 16:00 Intake and Output: 06/24/17 06/24/17 06:59 18:59 Intake Total 750 330 Output Total 462 357 Balance 288 -27 - Medications Medications: Current Medications Ascorbic Acid (Vitamin C 500 Mg Tab) 500 mg PO DAILY [facility] Last Admin: 06/24/17 09:15 Dose: 500 mg Aspirin (Ecotrin) 81 mg PO DAILY [facility] Last Admin: 06/24/17 09:15 Dose: 81 mg Benzocaine/Menthol (Cepacol Sore Throat) 1 luana MT Q6 [facility] Last Admin: 06/24/17 12:41 Dose: Not Given Brimonidine Tartrate (Alphagan 0.2% Opht) 0.2 ml OU QID [facility] Last Admin: 06/24/17 13:10 Dose: 1 drop Docusate Sodium (Colace) 100 mg PO DAILY [facility] Last Admin: 06/24/17 10:57 Dose: Not Given Emollient Ointment (Vaseline Oint) 10 gm TOP DAILY [facility] Last Admin: 06/24/17 13:17 Dose: 10 gm Famotidine (Pepcid) 20 mg PO DAILY [facility] Last Admin: 06/24/17 09:15 Dose: 20 mg Guaifenesin (Mucinex La) 600 mg PO BID [facility] Last Admin: 06/24/17 10:56 Dose: Not Given Ceftriaxone Sodium (Rocephin Iv 1 Gm Duplex) 50 mls @ 100 mls/hr IVPB Q24H [facility] Last Admin: 06/24/17 13:09 Dose: 100 mls/hr Magnesium Hydroxide (Milk Of Magnesia) 30 ml PO Q6H PRN PRN Reason: Constipation Phenol/Menthol (Phenaseptic 1.4% Throat [place]) 0 ml MT DAILY [facility] Last Admin: 06/24/17 09:18 Dose: 1 spr Rosuvastatin Calcium (Crestor) 5 mg PO HS [facility] Last Admin: 06/23/17 21:26 Dose: 5 mg Tetracaine HCl (Tetracaine 0.5% Ophth Soln) 1 drop OD DAILY [facility] Last Admin: 06/24/17 09:16 Dose: 1 drop Timolol Maleate (Timoptic 0.5% Ophth Soln) 1 drop OU QID [facility] Last Admin: 06/24/17 13:10 Dose: 1 drop - Labs Labs: 06/24/17 06:35 06/24/17 06:35 - Constitutional Appears: Non-toxic, Chronically Ill - Head Exam Head Exam: NORMOCEPHALIC - Eye Exam Eye Exam: PERRL - ENT Exam ENT Exam: Mucous Membranes Dry, Normal External Ear Exam - Neck Exam Neck Exam: absent: Lymphadenopathy - Respiratory Exam Respiratory Exam: Decreased Breath Sounds - Cardiovascular Exam Cardiovascular Exam: REGULAR RHYTHM - GI/Abdominal Exam GI & Abdominal Exam: Distended, Soft - Rectal Exam Rectal Exam: Deferred - Exam Exam: NORMAL INSPECTION - Extremities Exam Extremities Exam: absent: Pedal Edema - Back Exam Back Exam: absent: CVA tenderness (L), CVA tenderness (R) - Neurological Exam Neurological Exam: Alert, Altered, Awake - Psychiatric Exam Psychiatric exam: Depressed - Skin Skin Exam: Dry Assessment and Plan (1) A-fib Status: Acute (2) Altered mental status Status: Acute (3) Hyperkalemia Status: Acute (4) Pleural effusion Status: Acute (5) CHF (congestive heart failure) Status: Chronic (6) Acute renal failure Status: Acute (7) Anemia Status: Acute (8) Breast cancer Status: Acute (9) CHF (congestive heart failure), NYHA class II Status: Acute (10) Dehydration Status: Acute (11) Sepsis Status: Acute (12) History of breast cancer Status: Chronic (13) Neoplasm of breast, distant metastasis staging category cM0(i+) per [place] [employer] on Cancer Staging [employer], 7th edition Status: Chronic
--- NOTE | 2017-06-24 17:42 | CP.PCM.PN ---
Subjective - Date & Time of Evaluation Date of Evaluation: 06/24/17 Time of Evaluation: 09:05 - Subjective Subjective: patient seen and evaluated On BiPAP and sitting inchair Physical Examination - Constitutional Appears: Non-toxic, Chronically Ill - Head Exam Head Exam: NORMOCEPHALIC - Eye Exam Eye Exam: PERRL - ENT Exam ENT Exam: Mucous Membranes Dry, Normal External Ear Exam - Neck Exam Neck Exam: absent: Lymphadenopathy - Respiratory Exam Respiratory Exam: Decreased Breath Sounds - Cardiovascular Exam Cardiovascular Exam: REGULAR RHYTHM - GI/Abdominal Exam GI & Abdominal Exam: Distended, Soft - Rectal Exam Rectal Exam: Deferred - Exam Exam: NORMAL INSPECTION - Extremities Exam Extremities Exam: absent: Pedal Edema - Back Exam Back Exam: absent: CVA tenderness (L), CVA tenderness (R) - Neurological Exam Neurological Exam: Alert, Altered, Awake - Psychiatric Exam Psychiatric exam: Depressed - Skin Skin Exam: Dry Objective - Vital Signs/Intake and Output Vital Signs (last 24 hours): Temp Pulse Resp BP Pulse Ox 97.2 F L 68 22 127/63 98 06/24/17 16:00 06/24/17 17:00 06/24/17 17:00 06/24/17 16:49 06/24/17 17:00 Intake and Output: 06/24/17 06/24/17 06:59 18:59 Intake Total 750 330 Output Total 462 392 Balance 288 -62 - Medications Medications: Current Medications Ascorbic Acid (Vitamin C 500 Mg Tab) 500 mg PO DAILY [facility] Last Admin: 06/24/17 09:15 Dose: 500 mg Aspirin (Ecotrin) 81 mg PO DAILY [facility] Last Admin: 06/24/17 09:15 Dose: 81 mg Benzocaine/Menthol (Cepacol Sore Throat) 1 luana MT Q6 [facility] Last Admin: 06/24/17 17:04 Dose: Not Given Brimonidine Tartrate (Alphagan 0.2% Opht) 0.2 ml OU QID [facility] Last Admin: 06/24/17 17:02 Dose: 1 drop Docusate Sodium (Colace) 100 mg PO DAILY [facility] Last Admin: 06/24/17 10:57 Dose: Not Given Emollient Ointment (Vaseline Oint) 10 gm TOP DAILY [facility] Last Admin: 06/24/17 13:17 Dose: 10 gm Famotidine (Pepcid) 20 mg PO DAILY [facility] Last Admin: 06/24/17 09:15 Dose: 20 mg Guaifenesin (Mucinex La) 600 mg PO BID [facility] Last Admin: 06/24/17 17:05 Dose: Not Given Ceftriaxone Sodium (Rocephin Iv 1 Gm Duplex) 50 mls @ 100 mls/hr IVPB Q24H [facility] Last Admin: 06/24/17 13:09 Dose: 100 mls/hr Magnesium Hydroxide (Milk Of Magnesia) 30 ml PO Q6H PRN PRN Reason: Constipation Phenol/Menthol (Phenaseptic 1.4% Throat [place]) 0 ml MT DAILY [facility] Last Admin: 06/24/17 09:18 Dose: 1 spr Rosuvastatin Calcium (Crestor) 5 mg PO HS [facility] Last Admin: 06/23/17 21:26 Dose: 5 mg Tetracaine HCl (Tetracaine 0.5% Ophth Soln) 1 drop OD DAILY [facility] Last Admin: 06/24/17 09:16 Dose: 1 drop Timolol Maleate (Timoptic 0.5% Ophth Soln) 1 drop OU QID [facility] Last Admin: 06/24/17 17:02 Dose: 1 drop - Labs Labs: 06/24/17 06:35 06/24/17 06:35 Assessment and Plan - Assessment and Plan (Free Text) Assessment: (1) CAD and Diastolic CHF Chronic Assessment and Plan: Conserative mgt with ASA and Lasix (2) Altered mental status Assessment and Plan: given history of breast cancer, will need to rule out brain metastasis will send for non contrast scan for now given renal failure Status: Acute (3) Pleural effusion Assessment and Plan: rule out malignant ascites pulmonary following Status: Acute (4) Breast cancer Assessment and Plan: supportive care for now was on hormonal treatment in the past
--- NOTE | 2017-06-24 17:59 | CP.PCM.PN ---
Subjective - Date & Time of Evaluation Date of Evaluation: 06/24/17 Time of Evaluation: 09:01 - Subjective Subjective: Patient not in distress, responds to talk, when she was told she is in [facility] she, knew what hospital it was, denied any pain. Objective - Vital Signs/Intake and Output Vital Signs (last 24 hours): Temp Pulse Resp BP Pulse Ox 98.2 F 75 30 H 144/97 H 90 L 06/24/17 08:00 06/24/17 07:58 06/24/17 07:47 06/24/17 07:47 06/24/17 07:30 Intake and Output: 06/24/17 06/24/17 06:59 18:59 Intake Total 750 Output Total 462 42 Balance 288 -42 - Medications Medications: Current Medications Ascorbic Acid (Vitamin C 500 Mg Tab) 500 mg PO DAILY [facility] Last Admin: 06/23/17 12:05 Dose: Not Given Aspirin (Ecotrin) 81 mg PO DAILY [facility] Last Admin: 06/23/17 12:04 Dose: Not Given Benzocaine/Menthol (Cepacol Sore Throat) 1 luana MT Q6 [facility] Last Admin: 06/24/17 05:12 Dose: Not Given Brimonidine Tartrate (Alphagan 0.2% Opht) 0.2 ml OU QID [facility] Last Admin: 06/23/17 21:26 Dose: 1 drop Docusate Sodium (Colace) 100 mg PO DAILY [facility] Last Admin: 06/23/17 12:04 Dose: Not Given Emollient Ointment (Vaseline Oint) 10 gm TOP DAILY [facility] Last Admin: 06/23/17 11:02 Dose: 10 gm Enoxaparin Sodium (Lovenox) 30 mg SC DAILY [facility] Last Admin: 06/23/17 11:02 Dose: 30 mg Famotidine (Pepcid) 20 mg PO DAILY [facility] Last Admin: 06/23/17 12:03 Dose: Not Given Guaifenesin (Mucinex La) 600 mg PO BID [facility] Last Admin: 06/23/17 17:33 Dose: Not Given Ceftriaxone Sodium (Rocephin Iv 1 Gm Duplex) 50 mls @ 100 mls/hr IVPB Q24H [facility] Last Admin: 06/23/17 13:37 Dose: 100 mls/hr Magnesium Hydroxide (Milk Of Magnesia) 30 ml PO Q6H PRN PRN Reason: Constipation Phenol/Menthol (Phenaseptic 1.4% Throat [place]) 0 ml MT DAILY [facility] Last Admin: 06/23/17 12:03 Dose: Not Given Rosuvastatin Calcium (Crestor) 5 mg PO HS [facility] Last Admin: 06/23/17 21:26 Dose: 5 mg Tetracaine HCl (Tetracaine 0.5% Ophth Soln) 1 drop OD DAILY [facility] Last Admin: 06/23/17 13:37 Dose: 1 drop Timolol Maleate (Timoptic 0.5% Ophth Soln) 1 drop OU QID [facility] Last Admin: 06/23/17 21:27 Dose: 1 drop - Labs Labs: 06/24/17 06:35 06/24/17 06:35 - Additional Findings Additional findings: * HEENT DAVID * Neck supple * Chest reduced entry on the left base, breast cancer covered with dressing * PA soft, nt, bs present * ext 1+ edema * [employer] INSPECTOR awake responds to talk, asks questions, moves all ext * Skin slight increased turgor/edema Assessment and Plan - Assessment and Plan (Free Text) Assessment: * AMS improved, to he base line, unclear if was from CO2 retention, sizure, brain mets, pending MRI * Breast cancer with mets, left pleural effusion with CO2 retention needing bipap * Edema * H/o glaucoma Plan: * Supportive care, try minimum O2 on bipap keep spo2 bet 88-92 currently on 25% , pt on empiric abx * Will discuss with pulmonary about plerual drainage * GI/DVT prophylaxis * w/o for ams, MRI, will discuss with neuro about EEG, * See orders for detail
--- NOTE | 2017-06-24 20:06 | CP.PCM.PN ---
Subjective - Date & Time of Evaluation Date of Evaluation: 06/23/17 Time of Evaluation: 18:00 - Subjective Subjective: Transferred to ICU for change in mental status and breathing Objective - Vital Signs/Intake and Output Vital Signs (last 24 hours): Temp Pulse Resp BP Pulse Ox 97.2 F L 55 L 15 94/61 L 96 06/24/17 16:00 06/24/17 19:00 06/24/17 19:00 06/24/17 18:49 06/24/17 19:00 Intake and Output: 06/24/17 06/25/17 18:59 06:59 Intake Total 360 Output Total 422 30 Balance -62 -30 - Medications Medications: Current Medications Ascorbic Acid (Vitamin C 500 Mg Tab) 500 mg PO DAILY [facility] Last Admin: 06/24/17 09:15 Dose: 500 mg Aspirin (Ecotrin) 81 mg PO DAILY [facility] Last Admin: 06/24/17 09:15 Dose: 81 mg Benzocaine/Menthol (Cepacol Sore Throat) 1 luana MT Q6 [facility] Last Admin: 06/24/17 17:04 Dose: Not Given Brimonidine Tartrate (Alphagan 0.2% Opht) 0.2 ml OU QID [facility] Last Admin: 06/24/17 17:02 Dose: 1 drop Docusate Sodium (Colace) 100 mg PO DAILY [facility] Last Admin: 06/24/17 10:57 Dose: Not Given Emollient Ointment (Vaseline Oint) 10 gm TOP DAILY [facility] Last Admin: 06/24/17 13:17 Dose: 10 gm Famotidine (Pepcid) 20 mg PO DAILY [facility] Last Admin: 06/24/17 09:15 Dose: 20 mg Guaifenesin (Mucinex La) 600 mg PO BID [facility] Last Admin: 06/24/17 17:05 Dose: Not Given Ceftriaxone Sodium (Rocephin Iv 1 Gm Duplex) 50 mls @ 100 mls/hr IVPB Q24H [facility] Last Admin: 06/24/17 13:09 Dose: 100 mls/hr Magnesium Hydroxide (Milk Of Magnesia) 30 ml PO Q6H PRN PRN Reason: Constipation Phenol/Menthol (Phenaseptic 1.4% Throat [place]) 0 ml MT DAILY [facility] Last Admin: 06/24/17 09:18 Dose: 1 spr Rosuvastatin Calcium (Crestor) 5 mg PO HS [facility] Last Admin: 06/23/17 21:26 Dose: 5 mg Tetracaine HCl (Tetracaine 0.5% Ophth Soln) 1 drop OD DAILY [facility] Last Admin: 06/24/17 09:16 Dose: 1 drop Timolol Maleate (Timoptic 0.5% Ophth Soln) 1 drop OU QID [facility] Last Admin: 06/24/17 17:02 Dose: 1 drop - Labs Labs: 06/24/17 06:35 06/24/17 06:35 - Head Exam Head Exam: ATRAUMATIC - Eye Exam Eye Exam: Normal appearance - ENT Exam ENT Exam: Mucous Membranes Dry - Respiratory Exam Respiratory Exam: Decreased Breath Sounds - Cardiovascular Exam Cardiovascular Exam: +S1, +S2 - GI/Abdominal Exam GI & Abdominal Exam: Normal Bowel Sounds - Extremities Exam Extremities Exam: Pedal Edema Assessment and Plan (1) Pleural effusion Assessment & Plan: ? malignant effusion Status: Acute (2) Breast cancer Assessment & Plan: on hormonal therapy CA 15-3 fairly stable Status: Acute
--- NOTE | 2017-06-24 20:07 | CP.PCM.PN ---
Subjective - Date & Time of Evaluation Date of Evaluation: 06/24/17 Time of Evaluation: 19:45 - Subjective Subjective: Slightly lethargic Objective - Vital Signs/Intake and Output Vital Signs (last 24 hours): Temp Pulse Resp BP Pulse Ox 97.2 F L 55 L 15 94/61 L 96 06/24/17 16:00 06/24/17 19:00 06/24/17 19:00 06/24/17 18:49 06/24/17 19:00 Intake and Output: 06/24/17 06/25/17 18:59 06:59 Intake Total 360 Output Total 422 30 Balance -62 -30 - Medications Medications: Current Medications Ascorbic Acid (Vitamin C 500 Mg Tab) 500 mg PO DAILY [facility] Last Admin: 06/24/17 09:15 Dose: 500 mg Aspirin (Ecotrin) 81 mg PO DAILY [facility] Last Admin: 06/24/17 09:15 Dose: 81 mg Benzocaine/Menthol (Cepacol Sore Throat) 1 luana MT Q6 [facility] Last Admin: 06/24/17 17:04 Dose: Not Given Brimonidine Tartrate (Alphagan 0.2% Opht) 0.2 ml OU QID [facility] Last Admin: 06/24/17 17:02 Dose: 1 drop Docusate Sodium (Colace) 100 mg PO DAILY [facility] Last Admin: 06/24/17 10:57 Dose: Not Given Emollient Ointment (Vaseline Oint) 10 gm TOP DAILY [facility] Last Admin: 06/24/17 13:17 Dose: 10 gm Famotidine (Pepcid) 20 mg PO DAILY [facility] Last Admin: 06/24/17 09:15 Dose: 20 mg Guaifenesin (Mucinex La) 600 mg PO BID [facility] Last Admin: 06/24/17 17:05 Dose: Not Given Ceftriaxone Sodium (Rocephin Iv 1 Gm Duplex) 50 mls @ 100 mls/hr IVPB Q24H [facility] Last Admin: 06/24/17 13:09 Dose: 100 mls/hr Magnesium Hydroxide (Milk Of Magnesia) 30 ml PO Q6H PRN PRN Reason: Constipation Phenol/Menthol (Phenaseptic 1.4% Throat [place]) 0 ml MT DAILY [facility] Last Admin: 06/24/17 09:18 Dose: 1 spr Rosuvastatin Calcium (Crestor) 5 mg PO HS [facility] Last Admin: 06/23/17 21:26 Dose: 5 mg Tetracaine HCl (Tetracaine 0.5% Ophth Soln) 1 drop OD DAILY [facility] Last Admin: 06/24/17 09:16 Dose: 1 drop Timolol Maleate (Timoptic 0.5% Ophth Soln) 1 drop OU QID [facility] Last Admin: 06/24/17 17:02 Dose: 1 drop - Labs Labs: 06/24/17 06:35 06/24/17 06:35 - Head Exam Head Exam: ATRAUMATIC - Eye Exam Eye Exam: Normal appearance - ENT Exam ENT Exam: Mucous Membranes Dry - Respiratory Exam Respiratory Exam: Decreased Breath Sounds - Cardiovascular Exam Cardiovascular Exam: +S1, +S2 - GI/Abdominal Exam GI & Abdominal Exam: Normal Bowel Sounds - Extremities Exam Extremities Exam: Pedal Edema Assessment and Plan (1) Pleural effusion Assessment & Plan: ? malignant effusion Status: Acute (2) Thrombocytopenia Assessment & Plan: mild, cont. to monitor Status: Acute (3) Breast cancer Assessment & Plan: on hormonal therapy Status: Acute
[2017-06-24 20:21] LABS: STREP PNEMONIAE 1 AB IgG 0.7; STREP PNEMONIAE 14 AB IgG 1.1; STREP PNEMONIAE 19 AB IgG 5.5; STREP PNEMONIAE 23 AB IgG 1.6; STREP PNEMONIAE 26 AB IgG 1.2; STREP PNEMONIAE 3 AB IgG <0.3; STREP PNEMONIAE 4 AB IgG <0.3; STREP PNEMONIAE 5 AB IgG 3.1; STREP PNEMONIAE 51 AB IgG 0.4; STREP PNEMONIAE 56 AB IgG 33.8; STREP PNEMONIAE 68 AB IgG 1.6; STREP PNEMONIAE 8 AB IgG 1.4; STREP PNEMONIAE 9 AB IgG 3.9
[2017-06-25] MEDS: Benzocaine/Menthol (Cepacol) Lozenge MT SCH ×3 (05:47→18:00)
[2017-06-25 05:58] LABS: ABG ALLEN TEST POS; ARTERIAL BLOOD HGB O2 SAT 82.2 % (95.0-98.0); CARBOXYHEMOGLOBIN 2.7 % (0.5-1.5); DRAW SITE RR; HHB 13.9 % (0.0-5.0); METHEMOGLOBIN 1.2 % (0.0-3.0)
[2017-06-25 06:29] LABS: MONO # 0.9 K/uL (0.0-0.8); NRBC % 0.2 % (0.0-2.0)
[2017-06-25 06:44] LABS: ALKALINE PHOSPHATASE 52 U/L (38-126); ALT/SGPT 51 U/L (9-52); AST/SGOT 31 U/L (14-36); BILIRUBIN,TOTAL 0.8 mg/dL (0.2-1.3); BLOOD UREA NITROGEN 28 mg/dL (7-17); CALCIUM 8.4 mg/dl (8.6-10.4); CARBON DIOXIDE 29 mmol/L (22-30); CHLORIDE 101 mmol/L (98-107); GFR AFRICAN-AMERICAN > 60; GLUCOSE,RANDOM 117 mg/dL (65-105); MAGNESIUM 1.7 mg/dL (1.6-2.3); PHOSPHOROUS 2.8 mg/dL (2.5-4.5); POTASSIUM 4.7 mmol/L (3.6-5.2); SODIUM 138 mmol/L (132-148); TOTAL PROTEIN 6.9 g/dL (6.3-8.3)
[2017-06-25 06:49] LABS: BASO % 0.8 % (0.0-2.0); EOS # 0.1 K/uL (0.0-0.7); EOS % 2.5 % (0.0-4.0); HEMATOCRIT 42.6 % (34.0-47.0); LYMPH # 1.1 K/uL (1.0-4.3); LYMPH % 20.5 % (20.0-40.0); MEAN CELL VOLUME 88.2 fL (81.0-99.0); MEAN CORPUSCULAR HEMOGLOBIN 26.1 pg (27.0-31.0); MEAN CORPUSCULAR HGB CONC 29.6 g/dL (33.0-37.0); MEAN PLATELET VOLUME 9.7 fL (7.2-11.7); MONO % 15.2 % (0.0-10.0); WHITE BLOOD COUNT 5.6 K/uL (4.8-10.8)
[2017-06-25] MEDS: Albuterol-Ipratrop 3 mg / 0.5 (3 ml) UD INH SCH ×4 (07:45→19:42)
--- NOTE | 2017-06-25 07:46 | CP.CCUPN ---
<Rhonda Real Chrissy - Last Filed: 06/25/17 13:04> CCU Subjective - Physician Review Subjective (Free Text): Patient seen and examined at bedside. Patient is short of breath on bipap. Patient denies chest pain, abdominal pain, nausea or vomiting. Patient remains confused and full ROS unobtainable. CCU Objective - Vital Signs / Intake & Output Vital Signs (Last 4 hours): Vital Signs Temp Pulse Resp BP Pulse Ox 06/25/17 06:08 59 L 19 132/78 97 06/25/17 06:00 58 L 19 97 06/25/17 05:30 70 16 90 L 06/25/17 05:00 62 16 99 06/25/17 04:48 78 21 128/83 100 06/25/17 04:30 65 29 H 99 06/25/17 04:10 56 L 22 96 06/25/17 04:00 97.5 F L 59 L 25 H 97 06/25/17 03:50 73 26 H 98 06/25/17 03:48 69 28 H 131/93 H 98 06/25/17 03:40 68 14 98 06/25/17 03:30 64 30 H 98 Intake and Output (Last 8hrs): Intake & Output 06/24/17 06/25/17 06/25/17 22:59 06:59 14:59 Intake Total 110 160 Output Total 190 130 Balance -80 30 Weight 193 lb 8 oz Intake: Oral 110 160 Output: Urine 190 130 Urethral (Varela) 190 130 Other: # Bowel Movements 0 - Physical Exam Head: Positive for: Atraumatic, Normocephalic Extroacular Muscles: Positive for: EOMI Respiratory/Chest: Positive for: Decreased Breath Sounds, Rales Cardiovascular: Positive for: Normal S1, S2 Abdomen: Positive for: Normal Bowel Sounds. Negative for: Tenderness Lower Extremity: Positive for: Edema, Erythema Skin: Positive for: Warm, Erythematous. Negative for: Rashes Psychiatric: Positive for: Alert. Negative for: Oriented x 3 - Medications Active Medications: Active Medications Generic Name Dose Route Start Last Admin Trade Name Freq PRN Reason Stop Dose Admin Albuterol/Ipratropium 3 ml 06/25/17 08:00 Duoneb 3 Mg/0.5 Mg (3 Ml) Ud INH RQ4 OBDULIO Ascorbic Acid 500 mg 06/17/17 10:00 06/24/17 09:15 Vitamin C 500 Mg Tab PO 500 mg DAILY OBDULIO Administration Aspirin 81 mg 06/21/17 10:00 06/24/17 09:15 Ecotrin PO 81 mg DAILY OBDULIO Administration Benzocaine/Menthol 1 luana 06/21/17 18:00 06/25/17 05:47 Cepacol Sore Throat MT Not Given Q6 OBDULIO Brimonidine Tartrate 0.2 ml 06/16/17 18:00 06/24/17 21:18 Alphagan 0.2% Opht OU 1 drop QID OBDULIO Administration Docusate Sodium 100 mg 06/17/17 10:00 06/24/17 10:57 Colace PO Not Given DAILY [facility] Emollient Ointment 10 gm 06/17/17 10:00 06/24/17 13:17 Vaseline Oint TOP 10 gm DAILY OBDULIO Administration Enoxaparin Sodium 40 mg 06/25/17 10:00 Lovenox SC DAILY [facility] Famotidine 20 mg 06/16/17 18:00 06/24/17 09:15 Pepcid PO 20 mg DAILY [facility] Administration Guaifenesin 600 mg 06/21/17 18:00 06/24/17 17:05 Mucinex La PO Not Given BID [facility] Ceftriaxone Sodium 50 mls @ 100 mls/hr 06/23/17 14:00 06/24/17 13:09 Rocephin Iv 1 Gm Duplex IVPB 100 mls/hr Q24H OBDULIO Administration Magnesium Hydroxide 30 ml 06/16/17 15:54 Milk Of Magnesia PO Q6H PRN Constipation Phenol/Menthol 0 ml 06/21/17 17:30 06/24/17 09:18 Phenaseptic 1.4% Throat [place] MT 1 spr DAILY OBDULIO Administration Rosuvastatin Calcium 5 mg 06/16/17 22:00 06/24/17 21:18 Crestor PO 5 mg HS OBDULIO Administration Tetracaine HCl 1 drop 06/17/17 10:00 06/24/17 09:16 Tetracaine 0.5% Ophth Soln OD 1 drop DAILY OBDULIO Administration Timolol Maleate 1 drop 06/16/17 18:00 06/24/17 21:18 Timoptic 0.5% Ophth Soln OU 1 drop QID OBDULIO Administration - Patient Studies Lab Studies: Microbiology Studies 06/23/17 17:44 MRSA Culture (Admit) - Final Nose MRSA NOT DETECTED Lab Studies 06/25/17 06/25/17 06/25/17 Range/Units 06:19 06:19 05:20 WBC 5.6 (4.8-10.8) K/uL RBC 4.84 (3.80-5.20) Mil/uL Hgb 12.6 (11.0-16.0) g/dL Hct 42.6 (34.0-47.0) % MCV 88.2 D (81.0-99.0) fL MCH 26.1 L (27.0-31.0) pg MCHC 29.6 L (33.0-37.0) g/dL RDW 15.0 H (11.5-14.5) % Plt Count 132 (130-400) K/uL MPV 9.7 (7.2-11.7) fL Neut % (Auto) 61.0 (50.0-75.0) % Lymph % (Auto) 20.5 (20.0-40.0) % [place] % (Auto) 15.2 H (0.0-10.0) % Eos % (Auto) 2.5 (0.0-4.0) % Baso % (Auto) 0.8 (0.0-2.0) % Neut # 3.4 (1.8-7.0) K/uL Lymph # 1.1 (1.0-4.3) K/uL [place] # 0.9 H (0.0-0.8) K/uL Eos # 0.1 (0.0-0.7) K/uL Baso # 0.0 (0.0-0.2) K/uL Puncture Site Rr pCO2 84 H* (35-45) mm/Hg pO2 46 L (80-100) mm/Hg HCO3 25.2 (21-28) mmol/L ABG pH 7.18 L* (7.35-7.45) ABG Total CO2 34.0 H (22-28) mmol/L ABG O2 Saturation 85.5 L (95-98) % ABG Base Excess 0.8 (-2.0-3.0) mmol/L ABG Hemoglobin 12.6 (11.7-17.4) g/dL ABG Carboxyhemoglobin 2.7 H (0.5-1.5) % POC ABG HHb (Measured) 13.9 H (0.0-5.0) % ABG Methemoglobin 1.2 (0.0-3.0) % Regan Test Pos Hgb O2 Saturation 82.2 L (95.0-98.0) % Liter Flow 4.0 Crit Value Called To Benson rosas rn Crit Value Called By Artur epidemiology internship Crit Value Read Back Y Blood Gas Notified Time 557 Sodium 138 (132-148) mmol/L Potassium 4.7 (3.6-5.2) mmol/L Chloride 101 (98-107) mmol/L Carbon Dioxide 29 (22-30) mmol/L Anion Gap 14 (10-20) BUN 28 H (7-17) mg/dL Creatinine 0.8 (0.7-1.2) mg/dL Est GFR ( Amer) > 60 Est GFR (Non-Af Amer) > 60 Random Glucose 117 H (65-105) mg/dL Calcium 8.4 L (8.6-10.4) mg/dl Phosphorus 2.8 (2.5-4.5) mg/dL Magnesium 1.7 (1.6-2.3) mg/dL Total Bilirubin 0.8 (0.2-1.3) mg/dL AST 31 (14-36) U/L ALT 51 (9-52) U/L Alkaline Phosphatase 52 (38-126) U/L Total Protein 6.9 (6.3-8.3) g/dL Albumin 3.4 L (3.5-5.0) g/dL Globulin 3.4 (2.2-3.9) gm/dL Albumin/Globulin Ratio 1.0 (1.0-2.1) S.pneumoniae Type 1 IgG S.pneumoniae Type 3 IgG S.pneumoniae Type 4 IgG S.pneumoniae Type 5 IgG S.pneumoniae Type 8 IgG S.pneumoniae Type 9 IgG S.pneumoniae Typ 12 IgG S.pneumoniae Typ 14 IgG S.pneumonia Type 19 IgG S.pneumonia Type 23 IgG S.pneumoniae Typ 26 IgG S.pneumoniae Typ 51 IgG S.pneumoniae Typ 56 IgG S.pneumoniae Typ 68 IgG 06/24/17 06/20/17 Range/Units 06:35 17:26 WBC (4.8-10.8) K/uL RBC (3.80-5.20) Mil/uL Hgb (11.0-16.0) g/dL Hct (34.0-47.0) % MCV (81.0-99.0) fL MCH (27.0-31.0) pg MCHC (33.0-37.0) g/dL RDW (11.5-14.5) % Plt Count (130-400) K/uL MPV (7.2-11.7) fL Neut % (Auto) (50.0-75.0) % Lymph % (Auto) (20.0-40.0) % [place] % (Auto) (0.0-10.0) % Eos % (Auto) (0.0-4.0) % Baso % (Auto) (0.0-2.0) % Neut # (1.8-7.0) K/uL Lymph # (1.0-4.3) K/uL [place] # (0.0-0.8) K/uL Eos # (0.0-0.7) K/uL Baso # (0.0-0.2) K/uL Puncture Site pCO2 (35-45) mm/Hg pO2 (80-100) mm/Hg HCO3 (21-28) mmol/L ABG pH (7.35-7.45) ABG Total CO2 (22-28) mmol/L ABG O2 Saturation (95-98) % ABG Base Excess (-2.0-3.0) mmol/L ABG Hemoglobin (11.7-17.4) g/dL ABG Carboxyhemoglobin (0.5-1.5) % POC ABG HHb (Measured) (0.0-5.0) % ABG Methemoglobin (0.0-3.0) % Regan Test Hgb O2 Saturation (95.0-98.0) % Liter Flow Crit Value Called To Crit Value Called By Crit Value Read Back Blood Gas Notified Time Sodium (132-148) mmol/L Potassium (3.6-5.2) mmol/L Chloride (98-107) mmol/L Carbon Dioxide 25 (22-30) mmol/L Anion Gap 13 (10-20) BUN 28 H (7-17) mg/dL Creatinine 0.7 (0.7-1.2) mg/dL Est GFR ( Amer) > 60 Est GFR (Non-Af Amer) > 60 Random Glucose 122 H (65-105) mg/dL Calcium 8.6 (8.6-10.4) mg/dl Phosphorus 1.7 L (2.5-4.5) mg/dL Magnesium 1.6 (1.6-2.3) mg/dL Total Bilirubin 1.4 H (0.2-1.3) mg/dL AST 35 (14-36) U/L ALT 50 (9-52) U/L Alkaline Phosphatase 64 (38-126) U/L Total Protein 6.2 L (6.3-8.3) g/dL Albumin (3.5-5.0) g/dL Globulin 2.7 (2.2-3.9) gm/dL Albumin/Globulin Ratio 1.3 (1.0-2.1) S.pneumoniae Type 1 IgG 0.7 S.pneumoniae Type 3 IgG <0.3 S.pneumoniae Type 4 IgG <0.3 S.pneumoniae Type 5 IgG 3.1 S.pneumoniae Type 8 IgG 1.4 S.pneumoniae Type 9 IgG 3.9 S.pneumoniae Typ 12 IgG 4.0 S.pneumoniae Typ 14 IgG 1.1 S.pneumonia Type 19 IgG 5.5 S.pneumonia Type 23 IgG 1.6 S.pneumoniae Typ 26 IgG 1.2 S.pneumoniae Typ 51 IgG 0.4 S.pneumoniae Typ 56 IgG 33.8 S.pneumoniae Typ 68 IgG 1.6 Laboratory Results - last 24 hr 06/20/17 06/24/17 06/25/17 17:26 06:35 05:20 WBC RBC Hgb Hct MCV MCH MCHC RDW Plt Count MPV Neut % (Auto) Lymph % (Auto) [place] % (Auto) Eos % (Auto) Baso % (Auto) Neut # Lymph # [place] # Eos # Baso # Puncture Site Rr pCO2 84 H* pO2 46 L HCO3 25.2 ABG pH 7.18 L* ABG Total CO2 34.0 H ABG O2 Saturation 85.5 L ABG Base Excess 0.8 ABG Hemoglobin 12.6 ABG Carboxyhemoglobin 2.7 H POC ABG HHb (Measured) 13.9 H ABG Methemoglobin 1.2 Regan Test Pos Hgb O2 Saturation 82.2 L Liter Flow 4.0 Crit Value Called To Benson rosas rn Crit Value Called By [employer] epidemiology internship Crit Value Read Back Y Blood Gas Notified Time 557 Sodium Potassium Chloride Carbon Dioxide 25 Anion Gap 13 BUN 28 H Creatinine 0.7 Est GFR ( Amer) > 60 Est GFR (Non-Af Amer) > 60 Random Glucose 122 H Calcium 8.6 Phosphorus 1.7 L Magnesium 1.6 Total Bilirubin 1.4 H AST 35 ALT 50 Alkaline Phosphatase 64 Total Protein 6.2 L Albumin Globulin 2.7 Albumin/Globulin Ratio 1.3 S.pneumoniae Type 1 IgG 0.7 S.pneumoniae Type 3 IgG <0.3 S.pneumoniae Type 4 IgG <0.3 S.pneumoniae Type 5 IgG 3.1 S.pneumoniae Type 8 IgG 1.4 S.pneumoniae Type 9 IgG 3.9 S.pneumoniae Typ 12 IgG 4.0 S.pneumoniae Typ 14 IgG 1.1 S.pneumonia Type 19 IgG 5.5 S.pneumonia Type 23 IgG 1.6 S.pneumoniae Typ 26 IgG 1.2 S.pneumoniae Typ 51 IgG 0.4 S.pneumoniae Typ 56 IgG 33.8 S.pneumoniae Typ 68 IgG 1.6 06/25/17 06/25/17 06:19 06:19 WBC 5.6 RBC 4.84 Hgb 12.6 Hct 42.6 MCV 88.2 D MCH 26.1 L MCHC 29.6 L RDW 15.0 H Plt Count 132 MPV 9.7 Neut % (Auto) 61.0 Lymph % (Auto) 20.5 [place] % (Auto) 15.2 H Eos % (Auto) 2.5 Baso % (Auto) 0.8 Neut # 3.4 Lymph # 1.1 [place] # 0.9 H Eos # 0.1 Baso # 0.0 Puncture Site pCO2 pO2 HCO3 ABG pH ABG Total CO2 ABG O2 Saturation ABG Base Excess ABG Hemoglobin ABG Carboxyhemoglobin POC ABG HHb (Measured) ABG Methemoglobin Regan Test Hgb O2 Saturation Liter Flow Crit Value Called To Crit Value Called By Crit Value Read Back Blood Gas Notified Time Sodium 138 Potassium 4.7 Chloride 101 Carbon Dioxide 29 Anion Gap 14 BUN 28 H Creatinine 0.8 Est GFR ( Amer) > 60 Est GFR (Non-Af Amer) > 60 Random Glucose 117 H Calcium 8.4 L Phosphorus 2.8 Magnesium 1.7 Total Bilirubin 0.8 AST 31 ALT 51 Alkaline Phosphatase 52 Total Protein 6.9 Albumin 3.4 L Globulin 3.4 Albumin/Globulin Ratio 1.0 S.pneumoniae Type 1 IgG S.pneumoniae Type 3 IgG S.pneumoniae Type 4 IgG S.pneumoniae Type 5 IgG S.pneumoniae Type 8 IgG S.pneumoniae Type 9 IgG S.pneumoniae Typ 12 IgG S.pneumoniae Typ 14 IgG S.pneumonia Type 19 IgG S.pneumonia Type 23 IgG S.pneumoniae Typ 26 IgG S.pneumoniae Typ 51 IgG S.pneumoniae Typ 56 IgG S.pneumoniae Typ 68 IgG Fingerstick Blood Sugar Results: 170 Review of Systems - Review of Systems Systems not reviewed;Unavailable: Altered Mental Status - Cardiovascular Cardiovascular: Dyspnea. absent: Chest Pain - Respiratory Respiratory: Dyspnea - Gastrointestinal Gastrointestinal: absent: Abdominal Pain, Constipation, Diarrhea, Nausea, Vomiting - Genitourinary Genitourinary: absent: Difficulty Urinating - Integumentary Integumentary: absent: Rash Critical Care Progress Note - Nutrition Nutrition: Nutrition Category Date Time Status Dysphagia/Modified Consistency Diet [DIET] Diets 06/17/17 Dinner Active Assessment/Plan - Assessment and Plan (Free Text) Assessment: 81-year-old female with a pmhx of anemia, arthritis, atrial fibrillation, CAD, CHF, HTN, hyperlipidemia, malignancy [metastatic ductal breast carcinoma], rheumatoid arthritis, cardiomyopathy brought from alf for change in mental status. Neuro: AMS Head CT (06/16): suspect encephalomalacia within the left frontal lobe. nonspecific white matter changes. generalized atrophy. MRI without contrast, postponed due to BiPAP Cardio: -ECHO 2013: LV is severely dilated; mild concentric LVH; trace tricuspid regurgitation; right ventricular systolic pressure is estimated at 43 mmHg; mild pulmonary HTN; LVEF 50% -echo pending -avoid beta kandice and татьяна at this time -Cardio consult, Dr. Ventura, help appreciated -Aspirin 81 mg po daily -Crestor 5mg po HS Pulm: -Chest CT without contrast 06/17/17 - severe cardiomegaly; dense coronary artery calcifications; small pericardial effusion; moderate bilateral pleural effusion and compressive consolidations; 4mm right upper lobe nodule (F/U in 12 months); 3.8 by 6.1cm left breast mass (please see full report) -legionella, mycoplasma and s. pneumoniae negative -duoneb q4h GI: no acute issues at this time : -urine culture (06/16) : e. coli Heme/onc: hx of breast cancer -Elevated Ca 15-3 -C[address] 06/17/17- 3.8 x 6.1 cm left breast mass -Continue hormone therapy per Dr. George -Oncology consult - Dr. George - recs appreciated. ID: -Dr. Booker consulted, help appreciated -Urine culture: e. coli -Sputum culture: negative -Blood culture: negative -Ceftriazone 1 gm q24 h Prophylaxis: DVT: Lovenox 40mg SC daily GI: Pepcid 20mg PO daily <Chapincito Stone - Last Filed: 06/25/17 13:54> CCU Objective - Vital Signs / Intake & Output Vital Signs (Last 4 hours): Vital Signs Pulse Resp BP Pulse Ox 06/25/17 12:00 69 17 95 06/25/17 11:35 66 13 115/82 94 L 06/25/17 11:30 66 15 95 06/25/17 11:00 63 15 95 06/25/17 10:36 64 18 105/72 100 06/25/17 10:30 77 14 06/25/17 10:00 72 20 98 Intake and Output (Last 8hrs): Intake & Output 06/24/17 06/25/17 06/25/17 22:59 06:59 14:59 Intake Total 110 160 0 Output Total 190 130 130 Balance -80 30 -130 Weight 193 lb 8 oz Intake: Oral 110 160 0 Output: Urine 190 130 130 Urethral (Varela) 190 130 130 Other: # Bowel Movements 0 - Medications Active Medications: Active Medications Generic Name Dose Route Start Last Admin Trade Name Freq PRN Reason Stop Dose Admin Albuterol/Ipratropium 3 ml 06/25/17 08:00 06/25/17 12:00 Duoneb 3 Mg/0.5 Mg (3 Ml) Ud INH 3 ml RQ4 OBDULIO Administration Ascorbic Acid 500 mg 06/17/17 10:00 06/24/17 09:15 Vitamin C 500 Mg Tab PO 500 mg DAILY OBDULIO Administration Aspirin 81 mg 06/21/17 10:00 06/24/17 09:15 Ecotrin PO 81 mg DAILY OBDULIO Administration Benzocaine/Menthol 1 luana 06/21/17 18:00 06/25/17 13:07 Cepacol Sore Throat MT Not Given Q6 OBDULIO Brimonidine Tartrate 0.2 ml 06/16/17 18:00 06/25/17 10:09 Alphagan 0.2% Opht OU 1 drop QID OBDULIO Administration Docusate Sodium 100 mg 06/17/17 10:00 06/25/17 11:00 Colace PO Not Given DAILY [facility] Emollient Ointment 10 gm 06/17/17 10:00 06/25/17 10:10 Vaseline Oint TOP 10 gm DAILY OBDULIO Administration Enoxaparin Sodium 40 mg 06/25/17 10:00 06/25/17 10:09 Lovenox SC 40 mg DAILY OBDULIO Administration Famotidine 20 mg 06/16/17 18:00 06/24/17 09:15 Pepcid PO 20 mg DAILY OBDULIO Administration Guaifenesin 600 mg 06/21/17 18:00 06/25/17 13:08 Mucinex La PO Not Given BID [facility] Ceftriaxone Sodium 50 mls @ 100 mls/hr 06/23/17 14:00 06/25/17 13:08 Rocephin Iv 1 Gm Duplex IVPB 100 mls/hr Q24H OBDULIO Administration Magnesium Hydroxide 30 ml 06/16/17 15:54 Milk Of Magnesia PO Q6H PRN Constipation Phenol/Menthol 0 ml 06/21/17 17:30 06/24/17 09:18 Phenaseptic 1.4% Throat [place] MT 1 spr DAILY OBDULIO Administration Rosuvastatin Calcium 5 mg 06/16/17 22:00 06/24/17 21:18 Crestor PO 5 mg HS OBDULIO Administration Tetracaine HCl 1 drop 06/17/17 10:00 06/25/17 10:10 Tetracaine 0.5% Ophth Soln OD 1 drop DAILY OBDULIO Administration Timolol Maleate 1 drop 06/16/17 18:00 06/25/17 10:09 Timoptic 0.5% Ophth Soln OU 1 drop QID OBDULIO Administration - Patient Studies Lab Studies: Microbiology Studies 06/23/17 17:44 MRSA Culture (Admit) - Final Nose MRSA NOT DETECTED Lab Studies 06/25/17 06/25/17 06/25/17 Range/Units 11:00 06:19 06:19 WBC 5.6 (4.8-10.8) K/uL RBC 4.84 (3.80-5.20) Mil/uL Hgb 12.6 (11.0-16.0) g/dL Hct 42.6 (34.0-47.0) % MCV 88.2 D (81.0-99.0) fL MCH 26.1 L (27.0-31.0) pg MCHC 29.6 L (33.0-37.0) g/dL RDW 15.0 H (11.5-14.5) % Plt Count 132 (130-400) K/uL MPV 9.7 (7.2-11.7) fL Neut % (Auto) 61.0 (50.0-75.0) % Lymph % (Auto) 20.5 (20.0-40.0) % [place] % (Auto) 15.2 H (0.0-10.0) % Eos % (Auto) 2.5 (0.0-4.0) % Baso % (Auto) 0.8 (0.0-2.0) % Neut # 3.4 (1.8-7.0) K/uL Lymph # 1.1 (1.0-4.3) K/uL [place] # 0.9 H (0.0-0.8) K/uL Eos # 0.1 (0.0-0.7) K/uL Baso # 0.0 (0.0-0.2) K/uL Puncture Site Lb pCO2 60 H (35-45) mm/Hg pO2 64 L (80-100) mm/Hg HCO3 26.9 (21-28) mmol/L ABG pH 7.31 L (7.35-7.45) ABG Total CO2 32.0 H (22-28) mmol/L ABG O2 Saturation 96.1 (95-98) % ABG Base Excess 2.7 (-2.0-3.0) mmol/L ABG Hemoglobin 11.7 (11.7-17.4) g/dL ABG Carboxyhemoglobin 2.4 H (0.5-1.5) % POC ABG HHb (Measured) 3.8 (0.0-5.0) % ABG Methemoglobin 1.2 (0.0-3.0) % Regan Test Na A-a O2 Difference 39.0 mm/Hg Respiratory Index 0.6 Hgb O2 Saturation 92.6 L (95.0-98.0) % Liter Flow Mechanical Rate 12 FiO2 25.0 % Inspiratory BiPAP 16 Expiratory BiPAP 6 Crit Value Called To Dr campo Crit Value Called By Kwaku meade crt Crit Value Read Back Y Blood Gas Notified Time 1100 Sodium 138 (132-148) mmol/L Potassium 4.7 (3.6-5.2) mmol/L Chloride 101 (98-107) mmol/L Carbon Dioxide 29 (22-30) mmol/L Anion Gap 14 (10-20) BUN 28 H (7-17) mg/dL Creatinine 0.8 (0.7-1.2) mg/dL Est GFR ( Amer) > 60 Est GFR (Non-Af Amer) > 60 Random Glucose 117 H (65-105) mg/dL Calcium 8.4 L (8.6-10.4) mg/dl Phosphorus 2.8 (2.5-4.5) mg/dL Magnesium 1.7 (1.6-2.3) mg/dL Total Bilirubin 0.8 (0.2-1.3) mg/dL AST 31 (14-36) U/L ALT 51 (9-52) U/L Alkaline Phosphatase 52 (38-126) U/L Total Protein 6.9 (6.3-8.3) g/dL Albumin 3.4 L (3.5-5.0) g/dL Globulin 3.4 (2.2-3.9) gm/dL Albumin/Globulin Ratio 1.0 (1.0-2.1) S.pneumoniae Type 1 IgG S.pneumoniae Type 3 IgG S.pneumoniae Type 4 IgG S.pneumoniae Type 5 IgG S.pneumoniae Type 8 IgG S.pneumoniae Type 9 IgG S.pneumoniae Typ 12 IgG S.pneumoniae Typ 14 IgG S.pneumonia Type 19 IgG S.pneumonia Type 23 IgG S.pneumoniae Typ 26 IgG S.pneumoniae Typ 51 IgG S.pneumoniae Typ 56 IgG S.pneumoniae Typ 68 IgG 06/25/17 06/20/17 Range/Units 05:20 17:26 WBC (4.8-10.8) K/uL RBC (3.80-5.20) Mil/uL Hgb (11.0-16.0) g/dL Hct (34.0-47.0) % MCV (81.0-99.0) fL MCH (27.0-31.0) pg MCHC (33.0-37.0) g/dL RDW (11.5-14.5) % Plt Count (130-400) K/uL MPV (7.2-11.7) fL Neut % (Auto) (50.0-75.0) % Lymph % (Auto) (20.0-40.0) % [place] % (Auto) (0.0-10.0) % Eos % (Auto) (0.0-4.0) % Baso % (Auto) (0.0-2.0) % Neut # (1.8-7.0) K/uL Lymph # (1.0-4.3) K/uL [place] # (0.0-0.8) K/uL Eos # (0.0-0.7) K/uL Baso # (0.0-0.2) K/uL Puncture Site Rr pCO2 84 H* (35-45) mm/Hg pO2 46 L (80-100) mm/Hg HCO3 25.2 (21-28) mmol/L ABG pH 7.18 L* (7.35-7.45) ABG Total CO2 34.0 H (22-28) mmol/L ABG O2 Saturation 85.5 L (95-98) % ABG Base Excess 0.8 (-2.0-3.0) mmol/L ABG Hemoglobin 12.6 (11.7-17.4) g/dL ABG Carboxyhemoglobin 2.7 H (0.5-1.5) % POC ABG HHb (Measured) 13.9 H (0.0-5.0) % ABG Methemoglobin 1.2 (0.0-3.0) % Regan Test Pos A-a O2 Difference mm/Hg Respiratory Index Hgb O2 Saturation 82.2 L (95.0-98.0) % Liter Flow 4.0 Mechanical Rate FiO2 % Inspiratory BiPAP Expiratory BiPAP Crit Value Called To Benson rosas rn Crit Value Called By [employer] epidemiology internship Crit Value Read Back Y Blood Gas Notified Time 557 Sodium (132-148) mmol/L Potassium (3.6-5.2) mmol/L Chloride (98-107) mmol/L Carbon Dioxide (22-30) mmol/L Anion Gap (10-20) BUN (7-17) mg/dL Creatinine (0.7-1.2) mg/dL Est GFR ( Amer) Est GFR (Non-Af Amer) Random Glucose (65-105) mg/dL Calcium (8.6-10.4) mg/dl Phosphorus (2.5-4.5) mg/dL Magnesium (1.6-2.3) mg/dL Total Bilirubin (0.2-1.3) mg/dL AST (14-36) U/L ALT (9-52) U/L Alkaline Phosphatase (38-126) U/L Total Protein (6.3-8.3) g/dL Albumin (3.5-5.0) g/dL Globulin (2.2-3.9) gm/dL Albumin/Globulin Ratio (1.0-2.1) S.pneumoniae Type 1 IgG 0.7 S.pneumoniae Type 3 IgG <0.3 S.pneumoniae Type 4 IgG <0.3 S.pneumoniae Type 5 IgG 3.1 S.pneumoniae Type 8 IgG 1.4 S.pneumoniae Type 9 IgG 3.9 S.pneumoniae Typ 12 IgG 4.0 S.pneumoniae Typ 14 IgG 1.1 S.pneumonia Type 19 IgG 5.5 S.pneumonia Type 23 IgG 1.6 S.pneumoniae Typ 26 IgG 1.2 S.pneumoniae Typ 51 IgG 0.4 S.pneumoniae Typ 56 IgG 33.8 S.pneumoniae Typ 68 IgG 1.6 Laboratory Results - last 24 hr 06/20/17 06/25/17 06/25/17 17:26 05:20 06:19 WBC 5.6 RBC 4.84 Hgb 12.6 Hct 42.6 MCV 88.2 D MCH 26.1 L MCHC 29.6 L RDW 15.0 H Plt Count 132 MPV 9.7 Neut % (Auto) 61.0 Lymph % (Auto) 20.5 [place] % (Auto) 15.2 H Eos % (Auto) 2.5 Baso % (Auto) 0.8 Neut # 3.4 Lymph # 1.1 [place] # 0.9 H Eos # 0.1 Baso # 0.0 Puncture Site Rr pCO2 84 H* pO2 46 L HCO3 25.2 ABG pH 7.18 L* ABG Total CO2 34.0 H ABG O2 Saturation 85.5 L ABG Base Excess 0.8 ABG Hemoglobin 12.6 ABG Carboxyhemoglobin 2.7 H POC ABG HHb (Measured) 13.9 H ABG Methemoglobin 1.2 Regan Test Pos A-a O2 Difference Respiratory Index Hgb O2 Saturation 82.2 L Liter Flow 4.0 Mechanical Rate FiO2 Inspiratory BiPAP Expiratory BiPAP Crit Value Called To Benson rosas rn Crit Value Called By [employer] epidemiology internship Crit Value Read Back Y Blood Gas Notified Time 557 Sodium Potassium Chloride Carbon Dioxide Anion Gap BUN Creatinine Est GFR ( Amer) Est GFR (Non-Af Amer) Random Glucose Calcium Phosphorus Magnesium Total Bilirubin AST ALT Alkaline Phosphatase Total Protein Albumin Globulin Albumin/Globulin Ratio S.pneumoniae Type 1 IgG 0.7 S.pneumoniae Type 3 IgG <0.3 S.pneumoniae Type 4 IgG <0.3 S.pneumoniae Type 5 IgG 3.1 S.pneumoniae Type 8 IgG 1.4 S.pneumoniae Type 9 IgG 3.9 S.pneumoniae Typ 12 IgG 4.0 S.pneumoniae Typ 14 IgG 1.1 S.pneumonia Type 19 IgG 5.5 S.pneumonia Type 23 IgG 1.6 S.pneumoniae Typ 26 IgG 1.2 S.pneumoniae Typ 51 IgG 0.4 S.pneumoniae Typ 56 IgG 33.8 S.pneumoniae Typ 68 IgG 1.6 06/25/17 06/25/17 06:19 11:00 WBC RBC Hgb Hct MCV MCH MCHC RDW Plt Count MPV Neut % (Auto) Lymph % (Auto) [place] % (Auto) Eos % (Auto) Baso % (Auto) Neut # Lymph # [place] # Eos # Baso # Puncture Site Lb pCO2 60 H pO2 64 L HCO3 26.9 ABG pH 7.31 L ABG Total CO2 32.0 H ABG O2 Saturation 96.1 ABG Base Excess 2.7 ABG Hemoglobin 11.7 ABG Carboxyhemoglobin 2.4 H POC ABG HHb (Measured) 3.8 ABG Methemoglobin 1.2 Regan Test Na A-a O2 Difference 39.0 Respiratory Index 0.6 Hgb O2 Saturation 92.6 L Liter Flow Mechanical Rate 12 FiO2 25.0 Inspiratory BiPAP 16 Expiratory BiPAP 6 Crit Value Called To Dr campo Crit Value Called By Kw[employer] management adviser Crit Value Read Back Y Blood Gas Notified Time 1100 Sodium 138 Potassium 4.7 Chloride 101 Carbon Dioxide 29 Anion Gap 14 BUN 28 H Creatinine 0.8 Est GFR ( Amer) > 60 Est GFR (Non-Af Amer) > 60 Random Glucose 117 H Calcium 8.4 L Phosphorus 2.8 Magnesium 1.7 Total Bilirubin 0.8 AST 31 ALT 51 Alkaline Phosphatase 52 Total Protein 6.9 Albumin 3.4 L Globulin 3.4 Albumin/Globulin Ratio 1.0 S.pneumoniae Type 1 IgG S.pneumoniae Type 3 IgG S.pneumoniae Type 4 IgG S.pneumoniae Type 5 IgG S.pneumoniae Type 8 IgG S.pneumoniae Type 9 IgG S.pneumoniae Typ 12 IgG S.pneumoniae Typ 14 IgG S.pneumonia Type 19 IgG S.pneumonia Type 23 IgG S.pneumoniae Typ 26 IgG S.pneumoniae Typ 51 IgG S.pneumoniae Typ 56 IgG S.pneumoniae Typ 68 IgG Critical Care Progress Note - Nutrition Nutrition: Nutrition Category Date Time Status Dysphagia/Modified Consistency Diet [DIET] Diets 06/17/17 Dinner Active Attending/Attestation - Attestation I have personally seen and examined this patient.: Yes I have fully participated in the care of the patient.: Yes I have reviewed all pertinent clinical information: Yes Notes (Text): 06/25/17 13:52 The patient is alert and spotting. During the rounds the patient developed mild drowsiness. Placed on BiPAP. The repeat blood gas analysis improving. Patient is noncompliance. She is also very sick at this time. Her neck is extremely flexed. Contractures noted. Patient has a history of breast cancer with metastases. We will condition is very poor Discussed during rounds. Examination done. Radiologically discussed. Agree with the resident note. We will monitor the patient was monitored in the intensive care unit
[2017-06-25] MEDS: Brimonidine 0.2% Opth Sol (5ml) OU SCH ×4 (10:09→21:43)
[2017-06-25] MEDS: Enoxaparin 40 mg Syringe SC SCH (10:09)
[2017-06-25] MEDS: Petrolatum Oint Foilpak (5 gm) TOP SCH (10:10)
[2017-06-25] MEDS: Tetracaine 0.5% Ophth 2 ML BOTTLE OD SCH (10:10)
[2017-06-25 11:12] LABS: ABG MECHANICAL RATE 12; ARTERIAL BLOOD HGB O2 SAT 92.6 % (95.0-98.0); CARBOXYHEMOGLOBIN 2.4 % (0.5-1.5); DRAW SITE LB; HHB 3.8 % (0.0-5.0); METHEMOGLOBIN 1.2 % (0.0-3.0)
--- NOTE | 2017-06-25 12:32 | CP.PCM.PN ---
Subjective - Date & Time of Evaluation Date of Evaluation: 06/25/17 Time of Evaluation: 08:00 - Subjective Subjective: worsening infiltrates/ effusion possibly malignant no fever on IV antibiotics Objective - Vital Signs/Intake and Output Vital Signs (last 24 hours): Temp Pulse Resp BP Pulse Ox 98.4 F 69 17 115/82 95 06/25/17 08:00 06/25/17 12:00 06/25/17 12:00 06/25/17 11:35 06/25/17 12:00 Intake and Output: 06/25/17 06/25/17 06:59 18:59 Intake Total 240 0 Output Total 190 80 Balance 50 -80 - Medications Medications: Current Medications Albuterol/Ipratropium (Duoneb 3 Mg/0.5 Mg (3 Ml) Ud) 3 ml INH RQ4 [facility] Last Admin: 06/25/17 12:00 Dose: 3 ml Ascorbic Acid (Vitamin C 500 Mg Tab) 500 mg PO DAILY [facility] Last Admin: 06/24/17 09:15 Dose: 500 mg Aspirin (Ecotrin) 81 mg PO DAILY [facility] Last Admin: 06/24/17 09:15 Dose: 81 mg Benzocaine/Menthol (Cepacol Sore Throat) 1 luana MT Q6 [facility] Last Admin: 06/25/17 05:47 Dose: Not Given Brimonidine Tartrate (Alphagan 0.2% Opht) 0.2 ml OU QID [facility] Last Admin: 06/25/17 10:09 Dose: 1 drop Docusate Sodium (Colace) 100 mg PO DAILY [facility] Last Admin: 06/24/17 10:57 Dose: Not Given Emollient Ointment (Vaseline Oint) 10 gm TOP DAILY [facility] Last Admin: 06/25/17 10:10 Dose: 10 gm Enoxaparin Sodium (Lovenox) 40 mg SC DAILY [facility] Last Admin: 06/25/17 10:09 Dose: 40 mg Famotidine (Pepcid) 20 mg PO DAILY [facility] Last Admin: 06/24/17 09:15 Dose: 20 mg Guaifenesin (Mucinex [place]) 600 mg PO BID [facility] Last Admin: 06/24/17 17:05 Dose: Not Given Ceftriaxone Sodium (Rocephin Iv 1 Gm Duplex) 50 mls @ 100 mls/hr IVPB Q24H [facility] Last Admin: 06/24/17 13:09 Dose: 100 mls/hr Magnesium Hydroxide (Milk Of Magnesia) 30 ml PO Q6H PRN PRN Reason: Constipation Phenol/Menthol (Phenaseptic 1.4% Throat [place]) 0 ml MT DAILY [facility] Last Admin: 06/24/17 09:18 Dose: 1 spr Rosuvastatin Calcium (Crestor) 5 mg PO HS [facility] Last Admin: 06/24/17 21:18 Dose: 5 mg Tetracaine HCl (Tetracaine 0.5% Ophth Soln) 1 drop OD DAILY [facility] Last Admin: 06/25/17 10:10 Dose: 1 drop Timolol Maleate (Timoptic 0.5% Ophth Soln) 1 drop OU QID [facility] Last Admin: 06/25/17 10:09 Dose: 1 drop - Labs Labs: 06/25/17 06:19 06/25/17 06:19 - Constitutional Appears: Confused, Chronically Ill - Head Exam Head Exam: NORMOCEPHALIC - Eye Exam Eye Exam: PERRL - ENT Exam ENT Exam: Mucous Membranes Dry - Neck Exam Neck Exam: absent: Lymphadenopathy - Respiratory Exam Respiratory Exam: Decreased Breath Sounds, Rhonchi - Cardiovascular Exam Cardiovascular Exam: REGULAR RHYTHM - GI/Abdominal Exam GI & Abdominal Exam: Distended Assessment and Plan (1) A-fib Status: Acute (2) Altered mental status Status: Acute (3) Hyperkalemia Status: Acute (4) Pleural effusion Status: Acute (5) CHF (congestive heart failure) Status: Chronic (6) Acute renal failure Status: Acute (7) Anemia Status: Acute (8) Breast cancer Status: Acute (9) CHF (congestive heart failure), NYHA class II Status: Acute (10) Dehydration Status: Acute (11) Sepsis Status: Acute (12) History of breast cancer Status: Chronic (13) Neoplasm of breast, distant metastasis staging category cM0(i+) per [place] [employer] on Cancer Staging [employer], 7th edition Status: Chronic
[2017-06-25] MEDS: guaiFENesin 600 mg ER Tab PO SCH (13:08)
[2017-06-25] MEDS: cefTRIAXone IV 1 gm in Dextros 50 ML IVPB SCH (13:08)
[2017-06-25] MEDS: Phenol Topical 1.4% Throat Spray (180 ml) MT SCH (14:06)
--- NOTE | 2017-06-25 14:28 | RAD ---
PROCEDURE: CHEST RADIOGRAPH, 1 VIEW HISTORY: follow up COMPARISON: 06/24/2017 FINDINGS: LUNGS: Large loculated left pleural effusion with prominent consolidative opacifications in the left mid to lower lung zone. Moderate to severe venous congestion. Trace right pleural effusion. Lung apices obscured by the study. PLEURA: As above. CARDIOVASCULAR: Marked cardiomegaly. Calcification at the aortic knob. OSSEOUS STRUCTURES: No significant abnormalities. VISUALIZED UPPER ABDOMEN: Normal. OTHER FINDINGS: None. IMPRESSION: Large loculated left pleural effusion with prominent consolidative opacifications in the left mid to lower lung zone. Moderate to severe venous congestion. Trace right pleural effusion. Lung apices obscured by the study. Marked cardiomegaly. Calcification at the aortic knob.
--- NOTE | 2017-06-25 17:34 | CP.PCM.PN ---
Subjective - Date & Time of Evaluation Date of Evaluation: 06/25/17 Time of Evaluation: 10:00 - Subjective Subjective: patient seen and examined in the intensive care unit More lethargic with the elevated pCO2 On BiPAP Afebrile Objective - Vital Signs/Intake and Output Vital Signs (last 24 hours): Temp Pulse Resp BP Pulse Ox 98.4 F 65 17 115/82 95 06/25/17 08:00 06/25/17 16:01 06/25/17 12:00 06/25/17 11:35 06/25/17 12:00 Intake and Output: 06/25/17 06/25/17 06:59 18:59 Intake Total 240 0 Output Total 190 130 Balance 50 -130 - Medications Medications: Current Medications Albuterol/Ipratropium (Duoneb 3 Mg/0.5 Mg (3 Ml) Ud) 3 ml INH RQ4 [facility] Last Admin: 06/25/17 12:00 Dose: 3 ml Ascorbic Acid (Vitamin C 500 Mg Tab) 500 mg PO DAILY [facility] Last Admin: 06/25/17 16:31 Dose: 500 mg Aspirin (Ecotrin) 81 mg PO DAILY [facility] Last Admin: 06/25/17 16:30 Dose: 81 mg Benzocaine/Menthol (Cepacol Sore Throat) 1 luana MT Q6 [facility] Last Admin: 06/25/17 13:07 Dose: Not Given Brimonidine Tartrate (Alphagan 0.2% Opht) 0.2 ml OU QID [facility] Last Admin: 06/25/17 17:26 Dose: 1 drop Emollient Ointment (Vaseline Oint) 10 gm TOP DAILY [facility] Last Admin: 06/25/17 10:10 Dose: 10 gm Enoxaparin Sodium (Lovenox) 40 mg SC DAILY [facility] Last Admin: 06/25/17 10:09 Dose: 40 mg Famotidine (Pepcid) 20 mg PO DAILY [facility] Last Admin: 06/25/17 16:30 Dose: 20 mg Ceftriaxone Sodium (Rocephin Iv 1 Gm Duplex) 50 mls @ 100 mls/hr IVPB Q24H [facility] Last Admin: 06/25/17 13:08 Dose: 100 mls/hr Magnesium Hydroxide (Milk Of Magnesia) 30 ml PO Q6H PRN PRN Reason: Constipation Phenol/Menthol (Phenaseptic 1.4% Throat [place]) 0 ml MT DAILY [facility] Last Admin: 06/25/17 14:06 Dose: Not Given Rosuvastatin Calcium (Crestor) 5 mg PO HS [facility] Last Admin: 06/24/17 21:18 Dose: 5 mg Tetracaine HCl (Tetracaine 0.5% Ophth Soln) 1 drop OD DAILY [facility] Last Admin: 06/25/17 10:10 Dose: 1 drop Timolol Maleate (Timoptic 0.5% Ophth Soln) 1 drop OU QID [facility] Last Admin: 06/25/17 17:26 Dose: 1 drop - Labs Labs: 06/25/17 06:19 06/25/17 06:19 - Head Exam Head Exam: ATRAUMATIC, NORMOCEPHALIC - ENT Exam ENT Exam: Mucous Membranes Moist, Normal Oropharynx - Neck Exam Neck Exam: Normal Inspection - Respiratory Exam Respiratory Exam: Decreased Breath Sounds - Cardiovascular Exam Cardiovascular Exam: REGULAR RHYTHM - GI/Abdominal Exam GI & Abdominal Exam: Soft, Normal Bowel Sounds - Extremities Exam Extremities Exam: Pedal Edema - Neurological Exam Neurological Exam: Altered Assessment and Plan (1) Pleural effusion Assessment & Plan: Elevated pCO2 consistent with COPD/CHF exacerbation Continue BiPAP Followup ABG Continue antibiotics Status: Acute (2) Neoplasm of breast, distant metastasis staging category cM0(i+) per [place] [employer] on Cancer Staging [employer], 7th edition Status: Chronic
--- NOTE | 2017-06-25 19:18 | CP.PCM.PN ---
Subjective - Date & Time of Evaluation Date of Evaluation: 06/25/17 Time of Evaluation: 12:00 - Subjective Subjective: clinically same Objective - Vital Signs/Intake and Output Vital Signs (last 24 hours): Temp Pulse Resp BP Pulse Ox 98.1 F 67 19 135/79 91 L 06/25/17 16:00 06/25/17 17:35 06/25/17 17:35 06/25/17 17:35 06/25/17 17:35 Intake and Output: 06/25/17 06/26/17 18:59 06:59 Intake Total 150 Output Total 280 Balance -130 - Medications Medications: Current Medications Albuterol/Ipratropium (Duoneb 3 Mg/0.5 Mg (3 Ml) Ud) 3 ml INH RQ4 [facility] Last Admin: 06/25/17 17:32 Dose: 3 ml Ascorbic Acid (Vitamin C 500 Mg Tab) 500 mg PO DAILY [facility] Last Admin: 06/25/17 16:31 Dose: 500 mg Aspirin (Ecotrin) 81 mg PO DAILY [facility] Last Admin: 06/25/17 16:30 Dose: 81 mg Benzocaine/Menthol (Cepacol Sore Throat) 1 luana MT Q6 [facility] Last Admin: 06/25/17 13:07 Dose: Not Given Brimonidine Tartrate (Alphagan 0.2% Opht) 0.2 ml OU QID [facility] Last Admin: 06/25/17 17:26 Dose: 1 drop Emollient Ointment (Vaseline Oint) 10 gm TOP DAILY [facility] Last Admin: 06/25/17 10:10 Dose: 10 gm Enoxaparin Sodium (Lovenox) 40 mg SC DAILY [facility] Last Admin: 06/25/17 10:09 Dose: 40 mg Famotidine (Pepcid) 20 mg PO DAILY [facility] Last Admin: 06/25/17 16:30 Dose: 20 mg Ceftriaxone Sodium (Rocephin Iv 1 Gm Duplex) 50 mls @ 100 mls/hr IVPB Q24H [facility] Last Admin: 06/25/17 13:08 Dose: 100 mls/hr Magnesium Hydroxide (Milk Of Magnesia) 30 ml PO Q6H PRN PRN Reason: Constipation Phenol/Menthol (Phenaseptic 1.4% Throat [place]) 0 ml MT DAILY [facility] Last Admin: 06/25/17 14:06 Dose: Not Given Rosuvastatin Calcium (Crestor) 5 mg PO HS [facility] Last Admin: 06/24/17 21:18 Dose: 5 mg Tetracaine HCl (Tetracaine 0.5% Ophth Soln) 1 drop OD DAILY [facility] Last Admin: 06/25/17 10:10 Dose: 1 drop Timolol Maleate (Timoptic 0.5% Ophth Soln) 1 drop OU QID [facility] Last Admin: 06/25/17 17:26 Dose: 1 drop - Labs Labs: 06/25/17 06:19 06/25/17 06:19 - Constitutional Appears: Well - Head Exam Head Exam: ATRAUMATIC, NORMAL INSPECTION, NORMOCEPHALIC - Eye Exam Eye Exam: EOMI, Normal appearance, PERRL Pupil Exam: NORMAL ACCOMODATION, PERRL - ENT Exam ENT Exam: Mucous Membranes Moist, Normal Exam - Neck Exam Neck Exam: Full ROM, Normal Inspection. absent: Lymphadenopathy - Respiratory Exam Respiratory Exam: Decreased Breath Sounds - Cardiovascular Exam Cardiovascular Exam: REGULAR RHYTHM, +S1, +S2 - GI/Abdominal Exam GI & Abdominal Exam: Soft, Diminished Bowel Sounds - Rectal Exam Rectal Exam: Deferred Assessment and Plan (1) A-fib Status: Acute (2) Altered mental status Status: Acute (3) Hyperkalemia Status: Acute (4) Pleural effusion Status: Acute (5) Thrombocytopenia Status: Acute (6) CHF (congestive heart failure) Status: Chronic (7) Acute renal failure Status: Acute (8) Anemia Status: Acute (9) Breast cancer Status: Acute (10) CHF (congestive heart failure), NYHA class II Status: Acute (11) Dehydration Status: Acute (12) Elevated brain natriuretic peptide (BNP) level Status: Acute (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 (14) Glaucoma (increased eye pressure) Status: Acute (15) Hyponatremia with decreased serum osmolality Status: Acute (16) PVC (premature ventricular contraction) Status: Acute (17) Postmenopausal bleeding Status: Acute (18) Prophylactic measure Status: Acute (19) Sepsis Status: Acute (20) UTI (urinary tract infection) Status: Acute (21) HTN (hypertension) Status: Chronic (22) History of breast cancer Status: Chronic (23) Neoplasm of breast, distant metastasis staging category cM0(i+) per [place] [employer] Committee on Cancer Staging [employer], 7th edition Status: Chronic (24) Open leg wound Status: Chronic - Assessment and Plan (Free Text) Plan: Patient examined. No acute overnight events. Continue ceftriaxone. Bronchodilators. Supportive treatment.
--- NOTE | 2017-06-25 22:04 | CP.PCM.PN ---
Subjective - Date & Time of Evaluation Date of Evaluation: 06/25/17 Time of Evaluation: 11:05 - Subjective Subjective: Patient seen and evaluated No cardiac events noted Physical Examination - Constitutional Appears: Non-toxic, Chronically Ill - Head Exam Head Exam: NORMOCEPHALIC - Eye Exam Eye Exam: PERRL - ENT Exam ENT Exam: Mucous Membranes Dry, Normal External Ear Exam - Neck Exam Neck Exam: absent: Lymphadenopathy - Respiratory Exam Respiratory Exam: Decreased Breath Sounds - Cardiovascular Exam Cardiovascular Exam: REGULAR RHYTHM - GI/Abdominal Exam GI & Abdominal Exam: Distended, Soft - Rectal Exam Rectal Exam: Deferred - Exam Exam: NORMAL INSPECTION - Extremities Exam Extremities Exam: absent: Pedal Edema - Back Exam Back Exam: absent: CVA tenderness (L), CVA tenderness (R) - Neurological Exam Neurological Exam: Alert, Altered, Awake - Psychiatric Exam Psychiatric exam: Depressed - Skin Skin Exam: Dry Objective - Vital Signs/Intake and Output Vital Signs (last 24 hours): Temp Pulse Resp BP Pulse Ox 98.1 F 66 27 H 139/91 H 100 06/25/17 16:00 06/25/17 19:00 06/25/17 19:00 06/25/17 18:54 06/25/17 19:00 Intake and Output: 06/25/17 06/26/17 18:59 06:59 Intake Total 150 0 Output Total 300 20 Balance -150 -20 - Medications Medications: Current Medications Albuterol/Ipratropium (Duoneb 3 Mg/0.5 Mg (3 Ml) Ud) 3 ml INH RQ4 [facility] Last Admin: 06/25/17 19:42 Dose: 3 ml Ascorbic Acid (Vitamin C 500 Mg Tab) 500 mg PO DAILY [facility] Last Admin: 06/25/17 16:31 Dose: 500 mg Aspirin (Ecotrin) 81 mg PO DAILY [facility] Last Admin: 06/25/17 16:30 Dose: 81 mg Benzocaine/Menthol (Cepacol Sore Throat) 1 luana MT Q6 [facility] Last Admin: 06/25/17 18:00 Dose: Not Given Brimonidine Tartrate (Alphagan 0.2% Opht) 0.2 ml OU QID [facility] Last Admin: 06/25/17 21:43 Dose: 1 drop Emollient Ointment (Vaseline Oint) 10 gm TOP DAILY [facility] Last Admin: 06/25/17 10:10 Dose: 10 gm Enoxaparin Sodium (Lovenox) 40 mg SC DAILY [facility] Last Admin: 06/25/17 10:09 Dose: 40 mg Famotidine (Pepcid) 20 mg PO DAILY [facility] Last Admin: 06/25/17 16:30 Dose: 20 mg Ceftriaxone Sodium (Rocephin Iv 1 Gm Duplex) 50 mls @ 100 mls/hr IVPB Q24H [facility] Last Admin: 06/25/17 13:08 Dose: 100 mls/hr Magnesium Hydroxide (Milk Of Magnesia) 30 ml PO Q6H PRN PRN Reason: Constipation Phenol/Menthol (Phenaseptic 1.4% Throat [place]) 0 ml MT DAILY [facility] Last Admin: 06/25/17 14:06 Dose: Not Given Rosuvastatin Calcium (Crestor) 5 mg PO HS [facility] Last Admin: 06/25/17 21:42 Dose: 5 mg Tetracaine HCl (Tetracaine 0.5% Ophth Soln) 1 drop OD DAILY [facility] Last Admin: 06/25/17 10:10 Dose: 1 drop Timolol Maleate (Timoptic 0.5% Ophth Soln) 1 drop OU QID [facility] Last Admin: 06/25/17 21:43 Dose: 1 drop - Labs Labs: 06/25/17 06:19 06/25/17 06:19 Assessment and Plan - Assessment and Plan (Free Text) Assessment: (1) CAD and Diastolic CHF Chronic Assessment and Plan: Conserative mgt with ASA and Lasix (2) Altered mental status Assessment and Plan: given history of breast cancer, will need to rule out brain metastasis will send for non contrast scan for now given renal failure Status: Acute (3) Pleural effusion Assessment and Plan: rule out malignant ascites pulmonary following Status: Acute (4) Breast cancer Assessment and Plan: supportive care for now was on hormonal treatment in the past
[2017-06-26] MEDS: Albuterol-Ipratrop 3 mg / 0.5 (3 ml) UD INH SCH ×6 (00:09→19:32)
[2017-06-26 05:45] LABS: ARTERIAL BLOOD GAS MODE BiPAP; ARTERIAL BLOOD HGB O2 SAT 94.3 % (95.0-98.0); CARBOXYHEMOGLOBIN 2.5 % (0.5-1.5); DRAW SITE RB; HHB 2.2 % (0.0-5.0)
[2017-06-26] MEDS: Benzocaine/Menthol (Cepacol) Lozenge MT SCH ×5 (06:00→23:19)
[2017-06-26 07:26] LABS: BASO % 0.6 % (0.0-2.0); EOS # 0.2 K/uL (0.0-0.7); EOS % 2.5 % (0.0-4.0); HEMATOCRIT 42.3 % (34.0-47.0); LYMPH # 1.4 K/uL (1.0-4.3); LYMPH % 17.7 % (20.0-40.0); MEAN CORPUSCULAR HEMOGLOBIN 26.5 pg (27.0-31.0); MEAN CORPUSCULAR HGB CONC 31.1 g/dL (33.0-37.0); MEAN PLATELET VOLUME 9.1 fL (7.2-11.7); MONO # 0.9 K/uL (0.0-0.8); MONO % 11.8 % (0.0-10.0); NRBC % 0.1 % (0.0-2.0); RED CELL DISTRIBUTION WIDTH 14.3 % (11.5-14.5); WHITE BLOOD COUNT 7.7 K/uL (4.8-10.8)
[2017-06-26 07:31] LABS: MEAN CELL VOLUME 85.2 fL (81.0-99.0)
[2017-06-26] MEDS: Brimonidine 0.2% Opth Sol (5ml) OU SCH ×4 (09:56→23:19)
[2017-06-26] MEDS: Tetracaine 0.5% Ophth 2 ML BOTTLE OD SCH (09:56)
[2017-06-26] MEDS: Phenol Topical 1.4% Throat Spray (180 ml) MT SCH (09:58)
[2017-06-26] MEDS: Petrolatum Oint Foilpak (5 gm) TOP SCH (09:59)
[2017-06-26] MEDS: Enoxaparin 40 mg Syringe SC SCH (10:30)
--- NOTE | 2017-06-26 10:48 | CP.PCM.PCO ---
Physician Communication Note - Physician Communication Note Physician Communication Note: Family meeting at 3 pm for Code status discussion
--- NOTE | 2017-06-26 11:06 | CP.CCUPN ---
<AddieRhonda Chrissy - Last Filed: 06/26/17 11:03> CCU Subjective - Physician Review Subjective (Free Text): Patient seen and examined at bedside. Patient is tolerating nasal cannula. Patient much more awake and responsive today. Patient denies chest pain, abdominal pain, nausea, vomiting. Patient says she feels better and that she was able to eat breakfast this morning. Patient continues to be confused and did not know that she is in the hospital. 06/26/17 11:04 06/26/17 11:09 CCU Objective - Vital Signs / Intake & Output Vital Signs (Last 4 hours): Vital Signs Temp Pulse Resp BP Pulse Ox 06/26/17 09:00 64 25 H 100 06/26/17 08:56 70 14 150/90 100 06/26/17 08:30 67 17 06/26/17 08:00 98.3 F 67 24 100 06/26/17 07:54 69 17 146/95 H 100 06/26/17 07:30 67 13 88 L Intake and Output (Last 8hrs): Intake & Output 06/25/17 06/26/17 06/26/17 22:59 06:59 14:59 Intake Total 130 90 500 Output Total 260 360 140 Balance -130 -270 360 Weight 194 lb 3.2 oz Intake: Oral 130 90 500 Output: Urine 260 360 140 Urethral (Varela) 260 360 140 Stool 0 Emesis 0 - Physical Exam Head: Positive for: Atraumatic, Normocephalic Extroacular Muscles: Positive for: EOMI Respiratory/Chest: Positive for: Decreased Breath Sounds, Rales Cardiovascular: Positive for: Normal S1, S2 Abdomen: Positive for: Normal Bowel Sounds. Negative for: Tenderness Lower Extremity: Positive for: Edema, Erythema Skin: Positive for: Warm, Erythematous. Negative for: Rashes Psychiatric: Positive for: Alert. Negative for: Oriented x 3 - Medications Active Medications: Active Medications Generic Name Dose Route Start Last Admin Trade Name Freq PRN Reason Stop Dose Admin Albuterol/Ipratropium 3 ml 06/25/17 08:00 06/26/17 03:32 Duoneb 3 Mg/0.5 Mg (3 Ml) Ud INH 3 ml RQ4 OBDULIO Administration Ascorbic Acid 500 mg 06/17/17 10:00 06/26/17 09:56 Vitamin C 500 Mg Tab PO 500 mg DAILY OBDULIO Administration Aspirin 81 mg 06/21/17 10:00 06/26/17 09:56 Ecotrin PO 81 mg DAILY OBDULIO Administration Benzocaine/Menthol 1 luana 06/21/17 18:00 06/26/17 06:00 Cepacol Sore Throat MT Not Given Q6 OBDULIO Brimonidine Tartrate 0.2 ml 06/16/17 18:00 06/26/17 09:56 Alphagan 0.2% Opht OU 1 drop QID OBDULIO Administration Emollient Ointment 10 gm 06/17/17 10:00 06/26/17 09:59 Vaseline Oint TOP 10 gm DAILY OBDULIO Administration Enoxaparin Sodium 40 mg 06/25/17 10:00 06/25/17 10:09 Lovenox SC 40 mg DAILY OBDULIO Administration Famotidine 20 mg 06/16/17 18:00 06/26/17 09:57 Pepcid PO 20 mg DAILY OBDULIO Administration Ceftriaxone Sodium 50 mls @ 100 mls/hr 06/23/17 14:00 06/25/17 13:08 Rocephin Iv 1 Gm Duplex IVPB 100 mls/hr Q24H OBDULIO Administration Magnesium Hydroxide 30 ml 06/16/17 15:54 Milk Of Magnesia PO Q6H PRN Constipation Phenol/Menthol 0 ml 06/21/17 17:30 06/26/17 09:58 Phenaseptic 1.4% Throat [place] MT Not Given DAILY [facility] Rosuvastatin Calcium 5 mg 06/16/17 22:00 06/25/17 21:42 Crestor PO 5 mg HS OBDULIO Administration Tetracaine HCl 1 drop 06/17/17 10:00 06/26/17 09:56 Tetracaine 0.5% Ophth Soln OD 1 drop DAILY OBDULIO Administration Timolol Maleate 1 drop 06/16/17 18:00 06/26/17 09:56 Timoptic 0.5% Ophth Soln OU 1 drop QID OBDULIO Administration - Patient Studies Lab Studies: Lab Studies 06/26/17 06/26/17 06/25/17 Range/Units 07:12 05:30 11:00 WBC 7.7 (4.8-10.8) K/uL RBC 4.96 (3.80-5.20) Mil/uL Hgb 13.2 (11.0-16.0) g/dL Hct 42.3 (34.0-47.0) % MCV 85.2 D (81.0-99.0) fL MCH 26.5 L (27.0-31.0) pg MCHC 31.1 L (33.0-37.0) g/dL RDW 14.3 (11.5-14.5) % Plt Count 105 L D (130-400) K/uL MPV 9.1 (7.2-11.7) fL Neut % (Auto) 67.4 (50.0-75.0) % Lymph % (Auto) 17.7 L (20.0-40.0) % Edgar % (Auto) 11.8 H (0.0-10.0) % Eos % (Auto) 2.5 (0.0-4.0) % Baso % (Auto) 0.6 (0.0-2.0) % Neut # 5.2 (1.8-7.0) K/uL Lymph # 1.4 (1.0-4.3) K/uL Edgar # 0.9 H (0.0-0.8) K/uL Eos # 0.2 (0.0-0.7) K/uL Baso # 0.0 (0.0-0.2) K/uL Differential Comment Puncture Site Rb Lb pCO2 47 H 60 H (35-45) mm/Hg pO2 75 L 64 L (80-100) mm/Hg HCO3 28.8 H 26.9 (21-28) mmol/L ABG pH 7.42 7.31 L (7.35-7.45) ABG Total CO2 31.9 H 32.0 H (22-28) mmol/L ABG O2 Saturation 97.7 96.1 (95-98) % ABG Base Excess 5.1 H 2.7 (-2.0-3.0) mmol/L ABG Hemoglobin 12.8 11.7 (11.7-17.4) g/dL ABG Carboxyhemoglobin 2.5 H 2.4 H (0.5-1.5) % POC ABG HHb (Measured) 2.2 3.8 (0.0-5.0) % ABG Methemoglobin 1.0 1.2 (0.0-3.0) % Regan Test Na Na A-a O2 Difference 45.0 39.0 mm/Hg Respiratory Index 0.6 0.6 Hgb O2 Saturation 94.3 L 92.6 L (95.0-98.0) % Vent Mode Bipap Mechanical Rate 12 FiO2 25.0 25.0 % Inspiratory BiPAP 16 16 Expiratory BiPAP 6 6 Crit Value Called To Dr campo Crit Value Called By Kwaku meade associate chief nurse Crit Value Read Back Y Blood Gas Notified Time 1100 Laboratory Results - last 24 hr 06/25/17 06/26/17 06/26/17 11:00 05:30 07:12 WBC 7.7 RBC 4.96 Hgb 13.2 Hct 42.3 MCV 85.2 D MCH 26.5 L MCHC 31.1 L RDW 14.3 Plt Count 105 L D MPV 9.1 Neut % (Auto) 67.4 Lymph % (Auto) 17.7 L Edgar % (Auto) 11.8 H Eos % (Auto) 2.5 Baso % (Auto) 0.6 Neut # 5.2 Lymph # 1.4 Edgar # 0.9 H Eos # 0.2 Baso # 0.0 Differential Comment Puncture Site Lb Rb pCO2 60 H 47 H pO2 64 L 75 L HCO3 26.9 28.8 H ABG pH 7.31 L 7.42 ABG Total CO2 32.0 H 31.9 H ABG O2 Saturation 96.1 97.7 ABG Base Excess 2.7 5.1 H ABG Hemoglobin 11.7 12.8 ABG Carboxyhemoglobin 2.4 H 2.5 H POC ABG HHb (Measured) 3.8 2.2 ABG Methemoglobin 1.2 1.0 Regan Test Na Na A-a O2 Difference 39.0 45.0 Respiratory Index 0.6 0.6 Hgb O2 Saturation 92.6 L 94.3 L Vent Mode Bipap Mechanical Rate 12 FiO2 25.0 25.0 Inspiratory BiPAP 16 16 Expiratory BiPAP 6 6 Crit Value Called To Dr campo Crit Value Called By Kwaku meade associate chief nurse Crit Value Read Back Y Blood Gas Notified Time 1100 Fingerstick Blood Sugar Results: 170 Review of Systems - Review of Systems Systems not reviewed;Unavailable: Altered Mental Status - Constitutional Constitutional: absent: Fever, Sweats - Cardiovascular Cardiovascular: absent: Chest Pain, Dyspnea - Gastrointestinal Gastrointestinal: Constipation. absent: Cramping, Diarrhea, Nausea, Vomiting - Genitourinary Genitourinary: absent: Difficulty Urinating Critical Care Progress Note - Nutrition Nutrition: Nutrition Category Date Time Status Dysphagia/Modified Consistency Diet [DIET] Diets 06/17/17 Dinner Active Assessment/Plan - Assessment and Plan (Free Text) Assessment: 81-year-old female with a pmhx of anemia, arthritis, atrial fibrillation, CAD, CHF, HTN, hyperlipidemia, malignancy [metastatic ductal breast carcinoma], rheumatoid arthritis, cardiomyopathy brought from senior care for change in mental status. Plan: Neuro: AMS Head CT (06/16): suspect encephalomalacia within the left frontal lobe. nonspecific white matter changes. generalized atrophy. MRI without contrast, postponed due to BiPAP Cardio: -ECHO 2013: LV is severely dilated; mild concentric LVH; trace tricuspid regurgitation; right ventricular systolic pressure is estimated at 43 mmHg; mild pulmonary HTN; LVEF 50% -echo cannot be done due to breast wound, awaiting further recs from Dr. Ventura -avoid beta kandice and татьяна at this time -Cardio consult, Dr. Ventura, help appreciated -Aspirin 81 mg po daily -Crestor 5mg po HS Pulm: -Chest CT without contrast 06/17/17 - severe cardiomegaly; dense coronary artery calcifications; small pericardial effusion; moderate bilateral pleural effusion and compressive consolidations; 4mm right upper lobe nodule (F/U in 12 months); 3.8 by 6.1cm left breast mass (please see full report) -legionella, mycoplasma and s. pneumoniae negative -duoneb q4h GI: constipation Milk of Magnesia : -urine culture (06/16) : e. coli Heme/onc: hx of breast cancer -Elevated Ca 15-3 -C[address] 06/17/17- 3.8 x 6.1 cm left breast mass -Continue hormone therapy per Dr. George -Oncology consult - Dr. George - recs appreciated. ID: -Dr. Booker consulted, help appreciated -Urine culture: e. coli -Sputum culture: negative -Blood culture: negative -Ceftriazone 1 gm q24 h Prophylaxis: DVT: Lovenox 40mg SC daily GI: Pepcid 20mg PO daily Vitamin C 500 mg daily <Parminder Green - Last Filed: 06/26/17 17:12> CCU Objective - Vital Signs / Intake & Output Vital Signs (Last 4 hours): Vital Signs Pulse Resp BP Pulse Ox 06/26/17 14:00 49 L 21 141/79 100 Intake and Output (Last 8hrs): Intake & Output 06/26/17 06/26/17 06/26/17 06:59 14:59 22:59 Intake Total 90 720 Output Total 360 290 60 Balance -270 430 -60 Weight 194 lb 3.2 oz Intake: Oral 90 720 Output: Urine 360 290 60 Urethral (Varela) 360 290 60 Stool 0 0 Emesis 0 0 - Medications Active Medications: Active Medications Generic Name Dose Route Start Last Admin Trade Name Freq PRN Reason Stop Dose Admin Albuterol/Ipratropium 3 ml 06/25/17 08:00 06/26/17 11:20 Duoneb 3 Mg/0.5 Mg (3 Ml) Ud INH 3 ml RQ4 OBDULIO Administration Ascorbic Acid 500 mg 06/17/17 10:00 06/26/17 09:56 Vitamin C 500 Mg Tab PO 500 mg DAILY OBDULIO Administration Aspirin 81 mg 06/21/17 10:00 06/26/17 09:56 Ecotrin PO 81 mg DAILY OBDULIO Administration Benzocaine/Menthol 1 luana 06/21/17 18:00 06/26/17 12:16 Cepacol Sore Throat MT Not Given Q6 OBDULIO Brimonidine Tartrate 0.2 ml 06/16/17 18:00 06/26/17 13:30 Alphagan 0.2% Opht OU 1 drop QID OBDULIO Administration Emollient Ointment 10 gm 06/17/17 10:00 06/26/17 09:59 Vaseline Oint TOP 10 gm DAILY OBDULIO Administration Enoxaparin Sodium 40 mg 06/25/17 10:00 06/26/17 10:30 Lovenox SC 40 mg DAILY OBDULIO Administration Famotidine 20 mg 06/16/17 18:00 06/26/17 09:57 Pepcid PO 20 mg DAILY OBDULIO Administration Ceftriaxone Sodium 50 mls @ 100 mls/hr 06/23/17 14:00 06/26/17 13:29 Rocephin Iv 1 Gm Duplex IVPB 100 mls/hr Q24H OBDULIO Administration Magnesium Hydroxide 30 ml 06/16/17 15:54 Milk Of Magnesia PO Q6H PRN Constipation Phenol/Menthol 0 ml 06/21/17 17:30 06/26/17 09:58 Phenaseptic 1.4% Throat [place] MT Not Given DAILY OBDULIO Rosuvastatin Calcium 5 mg 06/16/17 22:00 06/25/17 21:42 Crestor PO 5 mg HS OBDULIO Administration Tetracaine HCl 1 drop 06/17/17 10:00 06/26/17 09:56 Tetracaine 0.5% Ophth Soln OD 1 drop DAILY OBDULIO Administration Timolol Maleate 1 drop 06/16/17 18:00 06/26/17 13:30 Timoptic 0.5% Ophth Soln OU 1 drop QID OBDULIO Administration - Patient Studies Lab Studies: Lab Studies 06/26/17 06/26/17 Range/Units 07:12 05:30 WBC 7.7 (4.8-10.8) K/uL RBC 4.96 (3.80-5.20) Mil/uL Hgb 13.2 (11.0-16.0) g/dL Hct 42.3 (34.0-47.0) % MCV 85.2 D (81.0-99.0) fL MCH 26.5 L (27.0-31.0) pg MCHC 31.1 L (33.0-37.0) g/dL RDW 14.3 (11.5-14.5) % Plt Count 105 L D (130-400) K/uL MPV 9.1 (7.2-11.7) fL Neut % (Auto) 67.4 (50.0-75.0) % Lymph % (Auto) 17.7 L (20.0-40.0) % Edgar % (Auto) 11.8 H (0.0-10.0) % Eos % (Auto) 2.5 (0.0-4.0) % Baso % (Auto) 0.6 (0.0-2.0) % Neut # 5.2 (1.8-7.0) K/uL Lymph # 1.4 (1.0-4.3) K/uL Edgar # 0.9 H (0.0-0.8) K/uL Eos # 0.2 (0.0-0.7) K/uL Baso # 0.0 (0.0-0.2) K/uL Differential Comment Puncture Site Rb pCO2 47 H (35-45) mm/Hg pO2 75 L (80-100) mm/Hg HCO3 28.8 H (21-28) mmol/L ABG pH 7.42 (7.35-7.45) ABG Total CO2 31.9 H (22-28) mmol/L ABG O2 Saturation 97.7 (95-98) % ABG Base Excess 5.1 H (-2.0-3.0) mmol/L ABG Hemoglobin 12.8 (11.7-17.4) g/dL ABG Carboxyhemoglobin 2.5 H (0.5-1.5) % POC ABG HHb (Measured) 2.2 (0.0-5.0) % ABG Methemoglobin 1.0 (0.0-3.0) % Regan Test Na A-a O2 Difference 45.0 mm/Hg Respiratory Index 0.6 Hgb O2 Saturation 94.3 L (95.0-98.0) % Vent Mode Bipap FiO2 25.0 % Inspiratory BiPAP 16 Expiratory BiPAP 6 Laboratory Results - last 24 hr 06/26/17 06/26/17 05:30 07:12 WBC 7.7 RBC 4.96 Hgb 13.2 Hct 42.3 MCV 85.2 D MCH 26.5 L MCHC 31.1 L RDW 14.3 Plt Count 105 L D MPV 9.1 Neut % (Auto) 67.4 Lymph % (Auto) 17.7 L Edgar % (Auto) 11.8 H Eos % (Auto) 2.5 Baso % (Auto) 0.6 Neut # 5.2 Lymph # 1.4 Edgar # 0.9 H Eos # 0.2 Baso # 0.0 Differential Comment Puncture Site Rb pCO2 47 H pO2 75 L HCO3 28.8 H ABG pH 7.42 ABG Total CO2 31.9 H ABG O2 Saturation 97.7 ABG Base Excess 5.1 H ABG Hemoglobin 12.8 ABG Carboxyhemoglobin 2.5 H POC ABG HHb (Measured) 2.2 ABG Methemoglobin 1.0 Regan Test Na A-a O2 Difference 45.0 Respiratory Index 0.6 Hgb O2 Saturation 94.3 L Vent Mode Bipap FiO2 25.0 Inspiratory BiPAP 16 Expiratory BiPAP 6 Critical Care Progress Note - Nutrition Nutrition: Nutrition Category Date Time Status Dysphagia/Modified Consistency Diet [DIET] Diets 06/17/17 Dinner Active Assessment/Plan (1) Pleural effusion Current Visit: Yes Status: Acute (2) Neoplasm of breast, distant metastasis staging category cM0(i+) per [place] [employer] Committee on Cancer Staging [place], 7th edition Current Visit: No Status: Chronic Priority: Medium Attending/Attestation - Attestation I have personally seen and examined this patient.: Yes I have fully participated in the care of the patient.: Yes I have reviewed all pertinent clinical information: Yes Notes (Text): 06/26/17 17:00 Patient seen and examined in the intensive care unit. Case discussed with staff in the morning rounds. Patient is more awake and responsive Off BiPAP with improving ABG Continue present treatment BiPAP at night
--- NOTE | 2017-06-26 11:58 | CP.PCM.PN ---
Subjective - Date & Time of Evaluation Date of Evaluation: 06/26/17 Time of Evaluation: 07:00 - Subjective Subjective: cont to improve denies chest pain Objective - Vital Signs/Intake and Output Vital Signs (last 24 hours): Temp Pulse Resp BP Pulse Ox 98.3 F 64 25 H 150/90 100 06/26/17 08:00 06/26/17 11:13 06/26/17 09:00 06/26/17 08:56 06/26/17 09:00 Intake and Output: 06/26/17 06/26/17 06:59 18:59 Intake Total 120 500 Output Total 510 140 Balance -390 360 - Medications Medications: Current Medications Albuterol/Ipratropium (Duoneb 3 Mg/0.5 Mg (3 Ml) Ud) 3 ml INH RQ4 [facility] Last Admin: 06/26/17 11:20 Dose: 3 ml Ascorbic Acid (Vitamin C 500 Mg Tab) 500 mg PO DAILY [facility] Last Admin: 06/26/17 09:56 Dose: 500 mg Aspirin (Ecotrin) 81 mg PO DAILY [facility] Last Admin: 06/26/17 09:56 Dose: 81 mg Benzocaine/Menthol (Cepacol Sore Throat) 1 luana MT Q6 [facility] Last Admin: 06/26/17 06:00 Dose: Not Given Brimonidine Tartrate (Alphagan 0.2% Opht) 0.2 ml OU QID [facility] Last Admin: 06/26/17 09:56 Dose: 1 drop Emollient Ointment (Vaseline Oint) 10 gm TOP DAILY [facility] Last Admin: 06/26/17 09:59 Dose: 10 gm Enoxaparin Sodium (Lovenox) 40 mg SC DAILY [facility] Last Admin: 06/25/17 10:09 Dose: 40 mg Famotidine (Pepcid) 20 mg PO DAILY [facility] Last Admin: 06/26/17 09:57 Dose: 20 mg Ceftriaxone Sodium (Rocephin Iv 1 Gm Duplex) 50 mls @ 100 mls/hr IVPB Q24H [facility] Last Admin: 06/25/17 13:08 Dose: 100 mls/hr Magnesium Hydroxide (Milk Of Magnesia) 30 ml PO Q6H PRN PRN Reason: Constipation Phenol/Menthol (Phenaseptic 1.4% Throat [place]) 0 ml MT DAILY [facility] Last Admin: 06/26/17 09:58 Dose: Not Given Rosuvastatin Calcium (Crestor) 5 mg PO HS [facility] Last Admin: 06/25/17 21:42 Dose: 5 mg Tetracaine HCl (Tetracaine 0.5% Ophth Soln) 1 drop OD DAILY [facility] Last Admin: 06/26/17 09:56 Dose: 1 drop Timolol Maleate (Timoptic 0.5% Ophth Soln) 1 drop OU QID [facility] Last Admin: 06/26/17 09:56 Dose: 1 drop - Labs Labs: 06/26/17 07:12 06/25/17 06:19 - Constitutional Appears: Non-toxic - Head Exam Head Exam: NORMOCEPHALIC - Eye Exam Eye Exam: absent: Scleral icterus - ENT Exam ENT Exam: Mucous Membranes Dry - Neck Exam Neck Exam: absent: Lymphadenopathy - Respiratory Exam Respiratory Exam: Decreased Breath Sounds - Cardiovascular Exam Cardiovascular Exam: REGULAR RHYTHM - GI/Abdominal Exam GI & Abdominal Exam: Distended, Soft - Rectal Exam Rectal Exam: Deferred Assessment and Plan (1) A-fib Status: Acute (2) Altered mental status Status: Acute (3) Hyperkalemia Status: Acute (4) Pleural effusion Status: Acute (5) CHF (congestive heart failure) Status: Chronic (6) Acute renal failure Status: Acute (7) Anemia Status: Acute (8) Breast cancer Status: Acute (9) CHF (congestive heart failure), NYHA class II Status: Acute (10) Dehydration Status: Acute (11) Sepsis Status: Acute (12) History of breast cancer Status: Chronic (13) Neoplasm of breast, distant metastasis staging category cM0(i+) per [place] [employer] Committee on Cancer Staging [employer], 7th edition Status: Chronic
[2017-06-26] MEDS: cefTRIAXone IV 1 gm in Dextros 50 ML IVPB SCH (13:29)
--- NOTE | 2017-06-26 14:05 | RAD ---
HISTORY: Pneumonia, shortness of breath. COMPARISON: June 25, 2017 FINDINGS: LUNGS: Stable consolidative changes primarily left lower lobe. PLEURA: Stable left pleural effusion. CARDIOVASCULAR: Stable cardiomegaly and pulmonary vascular prominence. OSSEOUS STRUCTURES: No significant abnormalities. VISUALIZED UPPER ABDOMEN: Normal. OTHER FINDINGS: None. IMPRESSION: No significant interval change compared to the prior examination(s).
--- NOTE | 2017-06-26 15:36 | CP.PCM.PCO ---
Physician Communication Note - Physician Communication Note Physician Communication Note: daughter did not come for meeting. Voice mail left with updates
--- NOTE | 2017-06-26 16:28 | CP.PCM.PN ---
<Fabiola Skinner DO - Last Filed: 06/26/17 16:23> Subjective - Date & Time of Evaluation Date of Evaluation: 06/26/17 Time of Evaluation: 10:30 - Subjective Subjective: Cardiology progress note for Dr. Ventura Patient seen and examined. Patient states she feels fine and states she has no issues with her heart. Patient states she knows she is in [facility] and that it is June. Objective - Vital Signs/Intake and Output Vital Signs (last 24 hours): Temp Pulse Resp BP Pulse Ox 98.6 F 49 L 21 141/79 100 06/26/17 12:00 06/26/17 14:00 06/26/17 14:00 06/26/17 14:00 06/26/17 14:00 Intake and Output: 06/26/17 06/26/17 06:59 18:59 Intake Total 120 720 Output Total 510 350 Balance -390 370 - Medications Medications: Current Medications Albuterol/Ipratropium (Duoneb 3 Mg/0.5 Mg (3 Ml) Ud) 3 ml INH RQ4 [facility] Last Admin: 06/26/17 11:20 Dose: 3 ml Ascorbic Acid (Vitamin C 500 Mg Tab) 500 mg PO DAILY [facility] Last Admin: 06/26/17 09:56 Dose: 500 mg Aspirin (Ecotrin) 81 mg PO DAILY [facility] Last Admin: 06/26/17 09:56 Dose: 81 mg Benzocaine/Menthol (Cepacol Sore Throat) 1 luana MT Q6 [facility] Last Admin: 06/26/17 12:16 Dose: Not Given Brimonidine Tartrate (Alphagan 0.2% Opht) 0.2 ml OU QID [facility] Last Admin: 06/26/17 13:30 Dose: 1 drop Emollient Ointment (Vaseline Oint) 10 gm TOP DAILY [facility] Last Admin: 06/26/17 09:59 Dose: 10 gm Enoxaparin Sodium (Lovenox) 40 mg SC DAILY [facility] Last Admin: 06/26/17 10:30 Dose: 40 mg Famotidine (Pepcid) 20 mg PO DAILY [facility] Last Admin: 06/26/17 09:57 Dose: 20 mg Ceftriaxone Sodium (Rocephin Iv 1 Gm Duplex) 50 mls @ 100 mls/hr IVPB Q24H [facility] Last Admin: 06/26/17 13:29 Dose: 100 mls/hr Magnesium Hydroxide (Milk Of Magnesia) 30 ml PO Q6H PRN PRN Reason: Constipation Phenol/Menthol (Phenaseptic 1.4% Throat [place]) 0 ml MT DAILY [facility] Last Admin: 06/26/17 09:58 Dose: Not Given Rosuvastatin Calcium (Crestor) 5 mg PO HS [facility] Last Admin: 06/25/17 21:42 Dose: 5 mg Tetracaine HCl (Tetracaine 0.5% Ophth Soln) 1 drop OD DAILY [facility] Last Admin: 06/26/17 09:56 Dose: 1 drop Timolol Maleate (Timoptic 0.5% Ophth Soln) 1 drop OU QID [facility] Last Admin: 06/26/17 13:30 Dose: 1 drop - Labs Labs: 06/26/17 07:12 06/25/17 06:19 - Constitutional Appears: No Acute Distress, Chronically Ill - Head Exam Head Exam: ATRAUMATIC - Eye Exam Eye Exam: EOMI - Respiratory Exam Respiratory Exam: Decreased Breath Sounds Additional comments: left chest bandaged - Cardiovascular Exam Cardiovascular Exam: +S1, +S2 - GI/Abdominal Exam GI & Abdominal Exam: Soft. absent: Tenderness - Extremities Exam Extremities Exam: Pedal Edema Additional comments: erythematous - Neurological Exam Neurological Exam: Alert, Awake. absent: Oriented x3 (patient states she is in [facility], that it is June, but states incorrect year as 2015) - Skin Skin Exam: Warm Assessment and Plan - Assessment and Plan (Free Text) Assessment: 81 year old female with PMHx anemia, arthritis, atrial fibrillation, CAD, CHF, HTN, hyperlipidemia, metastatic ductal breast carcinoma, rheumatoid arthritis, cardiomyopathy brought from long term for change in mental status CHF ECHO 2014: LV is severely dilated; mild concentric LVH; trace tricuspid regurgitation; right ventricular systolic pressure is estimated at 43 mmHg; mild pulmonary HTN; LVEF 50% Echo cannot be completed due to left breast wounds from cancer patient not currently candidate for ELI Will continue medical management and DVT prophylaxis Atrial fibrillation rate controlled, occasional PVC noted on telemetry Plan as per Dr. Ventura <Marvin Ventura - Last Filed: 06/26/17 18:29> Objective - Vital Signs/Intake and Output Vital Signs (last 24 hours): Temp Pulse Resp BP Pulse Ox 98.2 F 52 L 18 154/81 H 98 06/26/17 16:00 06/26/17 18:00 06/26/17 18:00 06/26/17 18:00 06/26/17 18:00 Intake and Output: 06/26/17 06/26/17 06:59 18:59 Intake Total 120 1020 Output Total 510 650 Balance -390 370 - Medications Medications: Current Medications Albuterol/Ipratropium (Duoneb 3 Mg/0.5 Mg (3 Ml) Ud) 3 ml INH RQ4 [facility] Last Admin: 06/26/17 11:20 Dose: 3 ml Ascorbic Acid (Vitamin C 500 Mg Tab) 500 mg PO DAILY [facility] Last Admin: 06/26/17 09:56 Dose: 500 mg Aspirin (Ecotrin) 81 mg PO DAILY [facility] Last Admin: 06/26/17 09:56 Dose: 81 mg Benzocaine/Menthol (Cepacol Sore Throat) 1 luana MT Q6 [facility] Last Admin: 06/26/17 17:49 Dose: 1 luana Brimonidine Tartrate (Alphagan 0.2% Opht) 0.2 ml OU QID [facility] Last Admin: 06/26/17 17:48 Dose: 1 drop Emollient Ointment (Vaseline Oint) 10 gm TOP DAILY [facility] Last Admin: 06/26/17 09:59 Dose: 10 gm Enoxaparin Sodium (Lovenox) 40 mg SC DAILY [facility] Last Admin: 06/26/17 10:30 Dose: 40 mg Famotidine (Pepcid) 20 mg PO DAILY [facility] Last Admin: 06/26/17 09:57 Dose: 20 mg Ceftriaxone Sodium (Rocephin Iv 1 Gm Duplex) 50 mls @ 100 mls/hr IVPB Q24H [facility] Last Admin: 06/26/17 13:29 Dose: 100 mls/hr Magnesium Hydroxide (Milk Of Magnesia) 30 ml PO Q6H PRN PRN Reason: Constipation Phenol/Menthol (Phenaseptic 1.4% Throat [place]) 0 ml MT DAILY [facility] Last Admin: 06/26/17 09:58 Dose: Not Given Rosuvastatin Calcium (Crestor) 5 mg PO HS [facility] Last Admin: 06/25/17 21:42 Dose: 5 mg Tetracaine HCl (Tetracaine 0.5% Ophth Soln) 1 drop OD DAILY [facility] Last Admin: 06/26/17 09:56 Dose: 1 drop Timolol Maleate (Timoptic 0.5% Ophth Soln) 1 drop OU QID [facility] Last Admin: 06/26/17 17:49 Dose: 1 drop - Labs Labs: 06/26/17 07:12 06/25/17 06:19 Assessment and Plan - Assessment and Plan (Free Text) Assessment: Patient personally sen and evaluated by me and discussed during teaching rounds Plan of care as documented
--- NOTE | 2017-06-26 20:41 | CP.PCM.PN ---
Subjective - Date & Time of Evaluation Date of Evaluation: 06/26/17 Time of Evaluation: 11:20 - Subjective Subjective: clinically same Objective - Vital Signs/Intake and Output Vital Signs (last 24 hours): Temp Pulse Resp BP Pulse Ox 98.2 F 52 L 18 154/81 H 98 06/26/17 16:00 06/26/17 18:00 06/26/17 18:00 06/26/17 18:00 06/26/17 18:00 Intake and Output: 06/26/17 06/27/17 18:59 06:59 Intake Total 1020 Output Total 650 Balance 370 - Medications Medications: Current Medications Albuterol/Ipratropium (Duoneb 3 Mg/0.5 Mg (3 Ml) Ud) 3 ml INH RQ4 [facility] Last Admin: 06/26/17 19:32 Dose: 3 ml Ascorbic Acid (Vitamin C 500 Mg Tab) 500 mg PO DAILY [facility] Last Admin: 06/26/17 09:56 Dose: 500 mg Aspirin (Ecotrin) 81 mg PO DAILY [facility] Last Admin: 06/26/17 09:56 Dose: 81 mg Benzocaine/Menthol (Cepacol Sore Throat) 1 luana MT Q6 [facility] Last Admin: 06/26/17 17:49 Dose: 1 luana Brimonidine Tartrate (Alphagan 0.2% Opht) 0.2 ml OU QID [facility] Last Admin: 06/26/17 17:48 Dose: 1 drop Emollient Ointment (Vaseline Oint) 10 gm TOP DAILY [facility] Last Admin: 06/26/17 09:59 Dose: 10 gm Enoxaparin Sodium (Lovenox) 40 mg SC DAILY [facility] Last Admin: 06/26/17 10:30 Dose: 40 mg Famotidine (Pepcid) 20 mg PO DAILY [facility] Last Admin: 06/26/17 09:57 Dose: 20 mg Ceftriaxone Sodium (Rocephin Iv 1 Gm Duplex) 50 mls @ 100 mls/hr IVPB Q24H [facility] Last Admin: 06/26/17 13:29 Dose: 100 mls/hr Magnesium Hydroxide (Milk Of Magnesia) 30 ml PO Q6H PRN PRN Reason: Constipation Phenol/Menthol (Phenaseptic 1.4% Throat [place]) 0 ml MT DAILY [facility] Last Admin: 06/26/17 09:58 Dose: Not Given Rosuvastatin Calcium (Crestor) 5 mg PO HS [facility] Last Admin: 06/25/17 21:42 Dose: 5 mg Tetracaine HCl (Tetracaine 0.5% Ophth Soln) 1 drop OD DAILY [facility] Last Admin: 06/26/17 09:56 Dose: 1 drop Timolol Maleate (Timoptic 0.5% Ophth Soln) 1 drop OU QID [facility] Last Admin: 06/26/17 17:49 Dose: 1 drop - Labs Labs: 06/26/17 07:12 06/25/17 06:19 - Constitutional Appears: Well - Head Exam Head Exam: ATRAUMATIC, NORMAL INSPECTION, NORMOCEPHALIC - Eye Exam Eye Exam: EOMI, Normal appearance, PERRL Pupil Exam: NORMAL ACCOMODATION, PERRL - ENT Exam ENT Exam: Mucous Membranes Moist, Normal Exam - Neck Exam Neck Exam: Full ROM, Normal Inspection. absent: Lymphadenopathy - Respiratory Exam Respiratory Exam: Decreased Breath Sounds - Cardiovascular Exam Cardiovascular Exam: REGULAR RHYTHM, +S1, +S2 - GI/Abdominal Exam GI & Abdominal Exam: Soft, Diminished Bowel Sounds - Rectal Exam Rectal Exam: Deferred Assessment and Plan (1) A-fib Status: Acute (2) Altered mental status Status: Acute (3) Hyperkalemia Status: Acute (4) Pleural effusion Status: Acute (5) Thrombocytopenia Status: Acute (6) CHF (congestive heart failure) Status: Chronic (7) Acute renal failure Status: Acute (8) Anemia Status: Acute (9) Breast cancer Status: Acute (10) CHF (congestive heart failure), NYHA class II Status: Acute (11) Dehydration Status: Acute (12) Elevated brain natriuretic peptide (BNP) level Status: Acute (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 (14) Glaucoma (increased eye pressure) Status: Acute (15) Hyponatremia with decreased serum osmolality Status: Acute (16) PVC (premature ventricular contraction) Status: Acute (17) Postmenopausal bleeding Status: Acute (18) Prophylactic measure Status: Acute (19) Sepsis Status: Acute (20) UTI (urinary tract infection) Status: Acute (21) HTN (hypertension) Status: Chronic (22) History of breast cancer Status: Chronic (23) Neoplasm of breast, distant metastasis staging category cM0(i+) per [place] [employer] on Cancer Staging [place], 7th edition Status: Chronic (24) Open leg wound Status: Chronic
--- NOTE | 2017-06-26 22:00 | CP.PCM.PN ---
Subjective - Date & Time of Evaluation Date of Evaluation: 06/25/17 Time of Evaluation: 19:00 - Subjective Subjective: Appears comfortable Objective - Vital Signs/Intake and Output Vital Signs (last 24 hours): Temp Pulse Resp BP Pulse Ox 98.2 F 52 L 18 154/81 H 98 06/26/17 16:00 06/26/17 18:00 06/26/17 18:00 06/26/17 18:00 06/26/17 18:00 Intake and Output: 06/26/17 06/27/17 18:59 06:59 Intake Total 1020 Output Total 650 160 Balance 370 -160 - Medications Medications: Current Medications Albuterol/Ipratropium (Duoneb 3 Mg/0.5 Mg (3 Ml) Ud) 3 ml INH RQ4 [facility] Last Admin: 06/26/17 19:32 Dose: 3 ml Ascorbic Acid (Vitamin C 500 Mg Tab) 500 mg PO DAILY [facility] Last Admin: 06/26/17 09:56 Dose: 500 mg Aspirin (Ecotrin) 81 mg PO DAILY [facility] Last Admin: 06/26/17 09:56 Dose: 81 mg Benzocaine/Menthol (Cepacol Sore Throat) 1 luana MT Q6 [facility] Last Admin: 06/26/17 17:49 Dose: 1 luana Brimonidine Tartrate (Alphagan 0.2% Opht) 0.2 ml OU QID [facility] Last Admin: 06/26/17 17:48 Dose: 1 drop Emollient Ointment (Vaseline Oint) 10 gm TOP DAILY [facility] Last Admin: 06/26/17 09:59 Dose: 10 gm Enoxaparin Sodium (Lovenox) 40 mg SC DAILY [facility] Last Admin: 06/26/17 10:30 Dose: 40 mg Famotidine (Pepcid) 20 mg PO DAILY [facility] Last Admin: 06/26/17 09:57 Dose: 20 mg Ceftriaxone Sodium (Rocephin Iv 1 Gm Duplex) 50 mls @ 100 mls/hr IVPB Q24H [facility] Last Admin: 06/26/17 13:29 Dose: 100 mls/hr Magnesium Hydroxide (Milk Of Magnesia) 30 ml PO Q6H PRN PRN Reason: Constipation Phenol/Menthol (Phenaseptic 1.4% Throat [place]) 0 ml MT DAILY [facility] Last Admin: 06/26/17 09:58 Dose: Not Given Rosuvastatin Calcium (Crestor) 5 mg PO HS [facility] Last Admin: 06/25/17 21:42 Dose: 5 mg Tetracaine HCl (Tetracaine 0.5% Ophth Soln) 1 drop OD DAILY [facility] Last Admin: 06/26/17 09:56 Dose: 1 drop Timolol Maleate (Timoptic 0.5% Ophth Soln) 1 drop OU QID [facility] Last Admin: 06/26/17 17:49 Dose: 1 drop - Labs Labs: 06/26/17 07:12 06/25/17 06:19 - Head Exam Head Exam: ATRAUMATIC - Eye Exam Eye Exam: Normal appearance - ENT Exam ENT Exam: Mucous Membranes Dry - Respiratory Exam Respiratory Exam: Decreased Breath Sounds - Cardiovascular Exam Cardiovascular Exam: +S1, +S2 - GI/Abdominal Exam GI & Abdominal Exam: Normal Bowel Sounds Assessment and Plan (1) Pleural effusion Assessment & Plan: ?malignant effusion appears stable by imaging Status: Acute (2) Thrombocytopenia Assessment & Plan: mild, cont. to monitor Status: Acute (3) Breast cancer Assessment & Plan: on hormonal therapy Status: Acute
--- NOTE | 2017-06-26 22:01 | CP.PCM.PN ---
Subjective - Date & Time of Evaluation Date of Evaluation: 06/26/17 Time of Evaluation: 20:00 - Subjective Subjective: Appears comfortable Objective - Vital Signs/Intake and Output Vital Signs (last 24 hours): Temp Pulse Resp BP Pulse Ox 98.2 F 52 L 18 154/81 H 98 06/26/17 16:00 06/26/17 18:00 06/26/17 18:00 06/26/17 18:00 06/26/17 18:00 Intake and Output: 06/26/17 06/27/17 18:59 06:59 Intake Total 1020 Output Total 650 160 Balance 370 -160 - Medications Medications: Current Medications Albuterol/Ipratropium (Duoneb 3 Mg/0.5 Mg (3 Ml) Ud) 3 ml INH RQ4 [facility] Last Admin: 06/26/17 19:32 Dose: 3 ml Ascorbic Acid (Vitamin C 500 Mg Tab) 500 mg PO DAILY [facility] Last Admin: 06/26/17 09:56 Dose: 500 mg Aspirin (Ecotrin) 81 mg PO DAILY [facility] Last Admin: 06/26/17 09:56 Dose: 81 mg Benzocaine/Menthol (Cepacol Sore Throat) 1 luana MT Q6 [facility] Last Admin: 06/26/17 17:49 Dose: 1 luana Brimonidine Tartrate (Alphagan 0.2% Opht) 0.2 ml OU QID [facility] Last Admin: 06/26/17 17:48 Dose: 1 drop Emollient Ointment (Vaseline Oint) 10 gm TOP DAILY [facility] Last Admin: 06/26/17 09:59 Dose: 10 gm Enoxaparin Sodium (Lovenox) 40 mg SC DAILY [facility] Last Admin: 06/26/17 10:30 Dose: 40 mg Famotidine (Pepcid) 20 mg PO DAILY [facility] Last Admin: 06/26/17 09:57 Dose: 20 mg Ceftriaxone Sodium (Rocephin Iv 1 Gm Duplex) 50 mls @ 100 mls/hr IVPB Q24H [facility] Last Admin: 06/26/17 13:29 Dose: 100 mls/hr Magnesium Hydroxide (Milk Of Magnesia) 30 ml PO Q6H PRN PRN Reason: Constipation Phenol/Menthol (Phenaseptic 1.4% Throat [place]) 0 ml MT DAILY [facility] Last Admin: 06/26/17 09:58 Dose: Not Given Rosuvastatin Calcium (Crestor) 5 mg PO HS [facility] Last Admin: 06/25/17 21:42 Dose: 5 mg Tetracaine HCl (Tetracaine 0.5% Ophth Soln) 1 drop OD DAILY [facility] Last Admin: 06/26/17 09:56 Dose: 1 drop Timolol Maleate (Timoptic 0.5% Ophth Soln) 1 drop OU QID [facility] Last Admin: 06/26/17 17:49 Dose: 1 drop - Labs Labs: 06/26/17 07:12 06/25/17 06:19 - Head Exam Head Exam: ATRAUMATIC - Eye Exam Eye Exam: Normal appearance - ENT Exam ENT Exam: Mucous Membranes Dry - Respiratory Exam Respiratory Exam: Decreased Breath Sounds - Cardiovascular Exam Cardiovascular Exam: +S1, +S2 - GI/Abdominal Exam GI & Abdominal Exam: Normal Bowel Sounds Assessment and Plan (1) Pleural effusion Assessment & Plan: ? malignant effusion stable by xray Status: Acute (2) Thrombocytopenia Assessment & Plan: mild, cont. to monitor Status: Acute (3) Breast cancer Assessment & Plan: on hormonal therapy Status: Acute
[2017-06-27] MEDS: Albuterol-Ipratrop 3 mg / 0.5 (3 ml) UD INH SCH ×6 (00:07→20:04)
[2017-06-27] MEDS: Benzocaine/Menthol (Cepacol) Lozenge MT SCH ×3 (05:09→18:04)
[2017-06-27 05:41] LABS: ARTERIAL BLOOD HGB O2 SAT 92.9 % (95.0-98.0); CARBOXYHEMOGLOBIN 2.6 % (0.5-1.5); DRAW SITE RB; HHB 3.1 % (0.0-5.0); METHEMOGLOBIN 1.3 % (0.0-3.0)
[2017-06-27 06:29] LABS: BASO % 0.5 % (0.0-2.0); EOS # 0.2 K/uL (0.0-0.7); EOS % 3.3 % (0.0-4.0); HEMATOCRIT 42.4 % (34.0-47.0); LYMPH # 1.2 K/uL (1.0-4.3); LYMPH % 18.8 % (20.0-40.0); MEAN CELL VOLUME 84.9 fL (81.0-99.0); MEAN CORPUSCULAR HEMOGLOBIN 26.5 pg (27.0-31.0); MEAN CORPUSCULAR HGB CONC 31.2 g/dL (33.0-37.0); MEAN PLATELET VOLUME 9.9 fL (7.2-11.7); MONO # 0.8 K/uL (0.0-0.8); MONO % 12.7 % (0.0-10.0); NRBC % 0.1 % (0.0-2.0); RED CELL DISTRIBUTION WIDTH 14.7 % (11.5-14.5); WHITE BLOOD COUNT 6.1 K/uL (4.8-10.8)
[2017-06-27 06:35] LABS: ALKALINE PHOSPHATASE 55 U/L (38-126); ALT/SGPT 39 U/L (9-52); AST/SGOT 40 U/L (14-36); BILIRUBIN,TOTAL 1.2 mg/dL (0.2-1.3); BLOOD UREA NITROGEN 18 mg/dL (7-17); CALCIUM 8.3 mg/dl (8.6-10.4); CARBON DIOXIDE 29 mmol/L (22-30); CHLORIDE 100 mmol/L (98-107); GFR AFRICAN-AMERICAN > 60; GLUCOSE,RANDOM 120 mg/dL (65-105); MAGNESIUM 1.6 mg/dL (1.6-2.3); PHOSPHOROUS 1.7 mg/dL (2.5-4.5); POTASSIUM 4.4 mmol/L (3.6-5.2); SODIUM 134 mmol/L (132-148); TOTAL PROTEIN 6.9 g/dL (6.3-8.3)
[2017-06-27 06:41] LABS: ALB/GLOB RATIO 0.9 (1.0-2.1)
--- NOTE | 2017-06-27 07:46 | CP.CCUPN ---
<AddieRhonda L. - Last Filed: 06/27/17 10:55> CCU Subjective - Physician Review Subjective (Free Text): Patient seen and examined at bedside. Patient is tolerating nasal cannula. Patient is confused this morning and complains she is having trouble breathing despite good oxygen saturation on nasal cannula. CCU Objective - Vital Signs / Intake & Output Vital Signs (Last 4 hours): Vital Signs Temp Pulse Resp BP Pulse Ox 06/27/17 06:00 55 L 18 149/80 98 06/27/17 05:00 60 18 160/100 H 98 06/27/17 04:00 97.8 F 65 18 149/93 H 96 Intake and Output (Last 8hrs): Intake & Output 06/26/17 06/27/17 06/27/17 22:59 06:59 14:59 Intake Total 500 Output Total 650 400 Balance -150 -400 Weight 194 lb Intake: Oral 500 Output: Urine 650 400 Urethral (Varela) 650 400 Stool 0 Emesis 0 - Physical Exam Head: Positive for: Atraumatic, Normocephalic Extroacular Muscles: Positive for: EOMI Respiratory/Chest: Positive for: Decreased Breath Sounds, Rales Cardiovascular: Positive for: Normal S1, S2 Abdomen: Positive for: Normal Bowel Sounds. Negative for: Tenderness Lower Extremity: Positive for: Edema, Erythema Skin: Positive for: Warm, Erythematous. Negative for: Rashes Psychiatric: Positive for: Alert. Negative for: Oriented x 3 - Medications Active Medications: Active Medications Generic Name Dose Route Start Last Admin Trade Name Freq PRN Reason Stop Dose Admin Albuterol/Ipratropium 3 ml 06/25/17 08:00 06/27/17 03:31 Duoneb 3 Mg/0.5 Mg (3 Ml) Ud INH Not Given RQ4 OBDULIO Ascorbic Acid 500 mg 06/17/17 10:00 06/26/17 09:56 Vitamin C 500 Mg Tab PO 500 mg DAILY OBDULIO Administration Aspirin 81 mg 06/21/17 10:00 06/26/17 09:56 Ecotrin PO 81 mg DAILY OBDULIO Administration Benzocaine/Menthol 1 luana 06/21/17 18:00 06/27/17 05:09 Cepacol Sore Throat [place] Not Given Q6 OBDULIO Brimonidine Tartrate 0.2 ml 06/16/17 18:00 06/26/17 23:19 Alphagan 0.2% Opht OU 1 drop QID OBDULIO Administration Emollient Ointment 10 gm 06/17/17 10:00 06/26/17 09:59 Vaseline Oint TOP 10 gm DAILY OBDULIO Administration Enoxaparin Sodium 40 mg 06/25/17 10:00 06/26/17 10:30 Lovenox SC 40 mg DAILY OBDULIO Administration Famotidine 20 mg 06/16/17 18:00 06/26/17 09:57 Pepcid PO 20 mg DAILY OBDULIO Administration Ceftriaxone Sodium 50 mls @ 100 mls/hr 06/23/17 14:00 06/26/17 13:29 Rocephin Iv 1 Gm Duplex IVPB 100 mls/hr Q24H OBDULIO Administration Magnesium Hydroxide 30 ml 06/16/17 15:54 Milk Of Magnesia PO Q6H PRN Constipation Phenol/Menthol 0 ml 06/21/17 17:30 06/26/17 09:58 Phenaseptic 1.4% Throat [place] Not Given DAILY OBDULIO Rosuvastatin Calcium 5 mg 06/16/17 22:00 06/26/17 23:18 Crestor PO 5 mg HS OBDULIO Administration Tetracaine HCl 1 drop 06/17/17 10:00 06/26/17 09:56 Tetracaine 0.5% Ophth Soln OD 1 drop DAILY OBDULIO Administration Timolol Maleate 1 drop 06/16/17 18:00 06/26/17 23:19 Timoptic 0.5% Ophth Soln OU 1 drop QID OBDULIO Administration - Patient Studies Lab Studies: Lab Studies 06/27/17 06/27/17 06/27/17 Range/Units 06:08 06:08 05:02 WBC 6.1 (4.8-10.8) K/uL RBC 4.99 (3.80-5.20) Mil/uL Hgb 13.2 (11.0-16.0) g/dL Hct 42.4 (34.0-47.0) % MCV 84.9 (81.0-99.0) fL MCH 26.5 L (27.0-31.0) pg MCHC 31.2 L (33.0-37.0) g/dL RDW 14.7 H (11.5-14.5) % Plt Count 106 L (130-400) K/uL MPV 9.9 (7.2-11.7) fL Neut % (Auto) 64.7 (50.0-75.0) % Lymph % (Auto) 18.8 L (20.0-40.0) % Estill % (Auto) 12.7 H (0.0-10.0) % Eos % (Auto) 3.3 (0.0-4.0) % Baso % (Auto) 0.5 (0.0-2.0) % Neut # 4.0 (1.8-7.0) K/uL Lymph # 1.2 (1.0-4.3) K/uL Est[place] # 0.8 (0.0-0.8) K/uL Eos # 0.2 (0.0-0.7) K/uL Baso # 0.0 (0.0-0.2) K/uL Differential Comment Puncture Site Rb pCO2 54 H (35-45) mm/Hg pO2 69 L (80-100) mm/Hg HCO3 29.6 H (21-28) mmol/L ABG pH 7.39 (7.35-7.45) ABG Total CO2 34.4 H (22-28) mmol/L ABG O2 Saturation 96.8 (95-98) % ABG Base Excess 6.2 H (-2.0-3.0) mmol/L ABG Hemoglobin 13.5 (11.7-17.4) g/dL ABG Carboxyhemoglobin 2.6 H (0.5-1.5) % POC ABG HHb (Measured) 3.1 (0.0-5.0) % ABG Methemoglobin 1.3 (0.0-3.0) % Regan Test Na A-a O2 Difference 63.0 mm/Hg Respiratory Index 0.9 Hgb O2 Saturation 92.9 L (95.0-98.0) % Liter Flow 2.0 FiO2 28.0 % Sodium 134 (132-148) mmol/L Potassium 4.4 (3.6-5.2) mmol/L Chloride 100 (98-107) mmol/L Carbon Dioxide 29 (22-30) mmol/L Anion Gap 10 (10-20) BUN 18 H (7-17) mg/dL Creatinine 0.6 L (0.7-1.2) mg/dL Est GFR ( Amer) > 60 Est GFR (Non-Af Amer) > 60 Random Glucose 120 H (65-105) mg/dL Calcium 8.3 L (8.6-10.4) mg/dl Phosphorus 1.7 L (2.5-4.5) mg/dL Magnesium 1.6 (1.6-2.3) mg/dL Total Bilirubin 1.2 (0.2-1.3) mg/dL AST 40 H D (14-36) U/L ALT 39 (9-52) U/L Alkaline Phosphatase 55 (38-126) U/L Total Protein 6.9 (6.3-8.3) g/dL Albumin 3.3 L (3.5-5.0) g/dL Globulin 3.6 (2.2-3.9) gm/dL Albumin/Globulin Ratio 0.9 L (1.0-2.1) 06/26/17 Range/Units 07:12 WBC (4.8-10.8) K/uL RBC (3.80-5.20) Mil/uL Hgb (11.0-16.0) g/dL Hct (34.0-47.0) % MCV (81.0-99.0) fL MCH (27.0-31.0) pg MCHC (33.0-37.0) g/dL RDW (11.5-14.5) % Plt Count (130-400) K/uL MPV (7.2-11.7) fL Neut % (Auto) (50.0-75.0) % Lymph % (Auto) (20.0-40.0) % [place]ill % (Auto) (0.0-10.0) % Eos % (Auto) (0.0-4.0) % Baso % (Auto) (0.0-2.0) % Neut # (1.8-7.0) K/uL Lymph # (1.0-4.3) K/uL [place] # (0.0-0.8) K/uL Eos # (0.0-0.7) K/uL Baso # (0.0-0.2) K/uL Differential Comment Puncture Site pCO2 (35-45) mm/Hg pO2 (80-100) mm/Hg HCO3 (21-28) mmol/L ABG pH (7.35-7.45) ABG Total CO2 (22-28) mmol/L ABG O2 Saturation (95-98) % ABG Base Excess (-2.0-3.0) mmol/L ABG Hemoglobin (11.7-17.4) g/dL ABG Carboxyhemoglobin (0.5-1.5) % POC ABG HHb (Measured) (0.0-5.0) % ABG Methemoglobin (0.0-3.0) % Regan Test A-a O2 Difference mm/Hg Respiratory Index Hgb O2 Saturation (95.0-98.0) % Liter Flow FiO2 % Sodium (132-148) mmol/L Potassium (3.6-5.2) mmol/L Chloride (98-107) mmol/L Carbon Dioxide (22-30) mmol/L Anion Gap (10-20) BUN (7-17) mg/dL Creatinine (0.7-1.2) mg/dL Est GFR ( Amer) Est GFR (Non-Af Amer) Random Glucose (65-105) mg/dL Calcium (8.6-10.4) mg/dl Phosphorus (2.5-4.5) mg/dL Magnesium (1.6-2.3) mg/dL Total Bilirubin (0.2-1.3) mg/dL AST (14-36) U/L ALT (9-52) U/L Alkaline Phosphatase (38-126) U/L Total Protein (6.3-8.3) g/dL Albumin (3.5-5.0) g/dL Globulin (2.2-3.9) gm/dL Albumin/Globulin Ratio (1.0-2.1) Laboratory Results - last 24 hr 06/26/17 06/27/17 06/27/17 07:12 05:02 06:08 WBC 6.1 RBC 4.99 Hgb 13.2 Hct 42.4 MCV 84.9 MCH 26.5 L MCHC 31.2 L RDW 14.7 H Plt Count 106 L MPV 9.9 Neut % (Auto) 64.7 Lymph % (Auto) 18.8 L [place] % (Auto) 12.7 H Eos % (Auto) 3.3 Baso % (Auto) 0.5 Neut # 4.0 Lymph # 1.2 Estill # 0.8 Eos # 0.2 Baso # 0.0 Differential Comment Puncture Site Rb pCO2 54 H pO2 69 L HCO3 29.6 H ABG pH 7.39 ABG Total CO2 34.4 H ABG O2 Saturation 96.8 ABG Base Excess 6.2 H ABG Hemoglobin 13.5 ABG Carboxyhemoglobin 2.6 H POC ABG HHb (Measured) 3.1 ABG Methemoglobin 1.3 Regan Test Na A-a O2 Difference 63.0 Respiratory Index 0.9 Hgb O2 Saturation 92.9 L Liter Flow 2.0 FiO2 28.0 Sodium Potassium Chloride Carbon Dioxide Anion Gap BUN Creatinine Est GFR ( Amer) Est GFR (Non-Af Amer) Random Glucose Calcium Phosphorus Magnesium Total Bilirubin AST ALT Alkaline Phosphatase Total Protein Albumin Globulin Albumin/Globulin Ratio 06/27/17 06:08 WBC RBC Hgb Hct MCV MCH MCHC RDW Plt Count MPV Neut % (Auto) Lymph % (Auto) [place] % (Auto) Eos % (Auto) Baso % (Auto) Neut # Lymph # Estill # Eos # Baso # Differential Comment Puncture Site pCO2 pO2 HCO3 ABG pH ABG Total CO2 ABG O2 Saturation ABG Base Excess ABG Hemoglobin ABG Carboxyhemoglobin POC ABG HHb (Measured) ABG Methemoglobin Regan Test A-a O2 Difference Respiratory Index Hgb O2 Saturation Liter Flow FiO2 Sodium 134 Potassium 4.4 Chloride 100 Carbon Dioxide 29 Anion Gap 10 BUN 18 H Creatinine 0.6 L Est GFR ( Amer) > 60 Est GFR (Non-Af Amer) > 60 Random Glucose 120 H Calcium 8.3 L Phosphorus 1.7 L Magnesium 1.6 Total Bilirubin 1.2 AST 40 H D ALT 39 Alkaline Phosphatase 55 Total Protein 6.9 Albumin 3.3 L Globulin 3.6 Albumin/Globulin Ratio 0.9 L Fingerstick Blood Sugar Results: 170 Review of Systems - Review of Systems Systems not reviewed;Unavailable: Altered Mental Status Critical Care Progress Note - Nutrition Nutrition: Nutrition Category Date Time Status Dysphagia/Modified Consistency Diet [DIET] Diets 06/17/17 Dinner Active Assessment/Plan - Assessment and Plan (Free Text) Assessment: 81-year-old female with a pmhx of anemia, arthritis, atrial fibrillation, CAD, CHF, HTN, hyperlipidemia, malignancy [metastatic ductal breast carcinoma], rheumatoid arthritis, cardiomyopathy brought from [facility] for change in mental status. Today's plan: Patient stable for transfer to med/surg Plan: Neuro: AMS Head CT (06/16): suspect encephalomalacia within the left frontal lobe. nonspecific white matter changes. generalized atrophy. MRI without contrast, postponed due to BiPAP Cardio: -ECHO 2013: LV is severely dilated; mild concentric LVH; trace tricuspid regurgitation; right ventricular systolic pressure is estimated at 43 mmHg; mild pulmonary HTN; LVEF 50% -Cardio consult, Dr. Ventura, help appreciated -echo cannot be done due to breast wound, and pt not currently candidate for ELI -avoid beta kandice and татьяна at this time -Aspirin 81 mg po daily -Crestor 5mg po HS Pulm: -Chest CT without contrast 06/17/17 - severe cardiomegaly; dense coronary artery calcifications; small pericardial effusion; moderate bilateral pleural effusion and compressive consolidations; 4mm right upper lobe nodule (F/U in 12 months); 3.8 by 6.1cm left breast mass (please see full report) -legionella, mycoplasma and s. pneumoniae negative -duoneb q4h GI: constipation Milk of Magnesia : -urine culture (06/16) : e. coli Heme/onc: hx of breast cancer -Elevated Ca 15-3 -C[address] 06/17/17- 3.8 x 6.1 cm left breast mass -Continue hormone therapy per Dr. George -Oncology consult - Dr. George - recs appreciated. ID: -Dr. Booker consulted, help appreciated -MRSA negative -Sputum culture: negative -Blood culture: negative -Urine culture: e. coli, UA (06/20) 2+ protein, 2+blood, 3+leuk esterase, 164 WBC , 87 RBC, 3-5 hyaline casts -Ceftriaxone 1 gm q24 h Prophylaxis: DVT: Lovenox 40mg SC daily GI: Pepcid 20mg PO daily Vitamin C 500 mg daily <Parminder Green - Last Filed: 06/27/17 17:26> CCU Objective - Vital Signs / Intake & Output Vital Signs (Last 4 hours): Vital Signs Temp Pulse Resp Pulse Ox 06/27/17 15:00 97.2 F L 63 20 98 Intake and Output (Last 8hrs): Intake & Output 06/27/17 06/27/17 06/27/17 06:59 14:59 22:59 Intake Total 340 Output Total 400 350 Balance -400 -10 Weight 194 lb Intake: Intake, IV Amount 100 Right Wrist 100 Oral 240 Output: Urine 400 350 Urethral (Varela) 400 350 - Medications Active Medications: Active Medications Generic Name Dose Route Start Last Admin Trade Name Freq PRN Reason Stop Dose Admin Albuterol/Ipratropium 3 ml 06/25/17 08:00 06/27/17 15:35 Duoneb 3 Mg/0.5 Mg (3 Ml) Ud INH 3 ml RQ4 OBDULIO Administration Ascorbic Acid 500 mg 06/17/17 10:00 06/27/17 09:34 Vitamin C 500 Mg Tab PO 500 mg DAILY OBDULIO Administration Aspirin 81 mg 06/21/17 10:00 06/27/17 09:34 Ecotrin PO 81 mg DAILY OBDULIO Administration Benzocaine/Menthol 1 luana 06/21/17 18:00 06/27/17 13:04 Cepacol Sore Throat MT Not Given Q6 OBDULIO Brimonidine Tartrate 0.2 ml 06/16/17 18:00 06/27/17 13:20 Alphagan 0.2% Opht OU 1 drop QID OBDULIO Administration Emollient Ointment 10 gm 06/17/17 10:00 06/27/17 09:38 Vaseline Oint TOP 10 gm DAILY OBDULIO Administration Enoxaparin Sodium 40 mg 06/25/17 10:00 06/27/17 09:43 Lovenox SC 40 mg DAILY OBDULIO Administration Famotidine 20 mg 06/16/17 18:00 06/27/17 09:34 Pepcid PO 20 mg DAILY OBDULIO Administration Ceftriaxone Sodium 50 mls @ 100 mls/hr 06/23/17 14:00 06/27/17 13:19 Rocephin Iv 1 Gm Duplex IVPB 100 mls/hr Q24H OBDULIO Administration Magnesium Hydroxide 30 ml 06/16/17 15:54 Milk Of Magnesia PO Q6H PRN Constipation Phenol/Menthol 0 ml 06/21/17 17:30 06/27/17 12:00 Phenaseptic 1.4% Throat [place] Not Given DAILY OBDULIO Potassium Phos/Sodium Phos 1 pkt 06/27/17 10:00 06/27/17 12:00 Neutra-Phos PO 1 pkt BID OBDULIO Administration Rosuvastatin Calcium 5 mg 06/16/17 22:00 06/26/17 23:18 Crestor PO 5 mg HS OBDULIO Administration Tetracaine HCl 1 drop 06/17/17 10:00 06/27/17 09:37 Tetracaine 0.5% Ophth Soln OD 1 drop DAILY OBDULIO Administration Timolol Maleate 1 drop 06/16/17 18:00 06/27/17 13:24 Timoptic 0.5% Ophth Soln OU 1 drop QID OBDULIO Administration - Patient Studies Lab Studies: Lab Studies 06/27/17 06/27/17 06/27/17 Range/Units 06:08 06:08 05:02 WBC 6.1 (4.8-10.8) K/uL RBC 4.99 (3.80-5.20) Mil/uL Hgb 13.2 (11.0-16.0) g/dL Hct 42.4 (34.0-47.0) % MCV 84.9 (81.0-99.0) fL MCH 26.5 L (27.0-31.0) pg MCHC 31.2 L (33.0-37.0) g/dL RDW 14.7 H (11.5-14.5) % Plt Count 106 L (130-400) K/uL MPV 9.9 (7.2-11.7) fL Neut % (Auto) 64.7 (50.0-75.0) % Lymph % (Auto) 18.8 L (20.0-40.0) % [place] % (Auto) 12.7 H (0.0-10.0) % Eos % (Auto) 3.3 (0.0-4.0) % Baso % (Auto) 0.5 (0.0-2.0) % Neut # 4.0 (1.8-7.0) K/uL Lymph # 1.2 (1.0-4.3) K/uL [place] # 0.8 (0.0-0.8) K/uL Eos # 0.2 (0.0-0.7) K/uL Baso # 0.0 (0.0-0.2) K/uL Puncture Site Rb pCO2 54 H (35-45) mm/Hg pO2 69 L (80-100) mm/Hg HCO3 29.6 H (21-28) mmol/L ABG pH 7.39 (7.35-7.45) ABG Total CO2 34.4 H (22-28) mmol/L ABG O2 Saturation 96.8 (95-98) % ABG Base Excess 6.2 H (-2.0-3.0) mmol/L ABG Hemoglobin 13.5 (11.7-17.4) g/dL ABG Carboxyhemoglobin 2.6 H (0.5-1.5) % POC ABG HHb (Measured) 3.1 (0.0-5.0) % ABG Methemoglobin 1.3 (0.0-3.0) % Regan Test Na A-a O2 Difference 63.0 mm/Hg Respiratory Index 0.9 Hgb O2 Saturation 92.9 L (95.0-98.0) % Liter Flow 2.0 FiO2 28.0 % Sodium 134 (132-148) mmol/L Potassium 4.4 (3.6-5.2) mmol/L Chloride 100 (98-107) mmol/L Carbon Dioxide 29 (22-30) mmol/L Anion Gap 10 (10-20) BUN 18 H (7-17) mg/dL Creatinine 0.6 L (0.7-1.2) mg/dL Est GFR ( Amer) > 60 Est GFR (Non-Af Amer) > 60 Random Glucose 120 H (65-105) mg/dL Calcium 8.3 L (8.6-10.4) mg/dl Phosphorus 1.7 L (2.5-4.5) mg/dL Magnesium 1.6 (1.6-2.3) mg/dL Total Bilirubin 1.2 (0.2-1.3) mg/dL AST 40 H D (14-36) U/L ALT 39 (9-52) U/L Alkaline Phosphatase 55 (38-126) U/L Total Protein 6.9 (6.3-8.3) g/dL Albumin 3.3 L (3.5-5.0) g/dL Globulin 3.6 (2.2-3.9) gm/dL Albumin/Globulin Ratio 0.9 L (1.0-2.1) Laboratory Results - last 24 hr 06/27/17 06/27/17 06/27/17 05:02 06:08 06:08 WBC 6.1 RBC 4.99 Hgb 13.2 Hct 42.4 MCV 84.9 MCH 26.5 L MCHC 31.2 L RDW 14.7 H Plt Count 106 L MPV 9.9 Neut % (Auto) 64.7 Lymph % (Auto) 18.8 L [place] % (Auto) 12.7 H Eos % (Auto) 3.3 Baso % (Auto) 0.5 Neut # 4.0 Lymph # 1.2 [place]ill # 0.8 Eos # 0.2 Baso # 0.0 Puncture Site Rb pCO2 54 H pO2 69 L HCO3 29.6 H ABG pH 7.39 ABG Total CO2 34.4 H ABG O2 Saturation 96.8 ABG Base Excess 6.2 H ABG Hemoglobin 13.5 ABG Carboxyhemoglobin 2.6 H POC ABG HHb (Measured) 3.1 ABG Methemoglobin 1.3 Regan Test Na A-a O2 Difference 63.0 Respiratory Index 0.9 Hgb O2 Saturation 92.9 L Liter Flow 2.0 FiO2 28.0 Sodium 134 Potassium 4.4 Chloride 100 Carbon Dioxide 29 Anion Gap 10 BUN 18 H Creatinine 0.6 L Est GFR ( Amer) > 60 Est GFR (Non-Af Amer) > 60 Random Glucose 120 H Calcium 8.3 L Phosphorus 1.7 L Magnesium 1.6 Total Bilirubin 1.2 AST 40 H D ALT 39 Alkaline Phosphatase 55 Total Protein 6.9 Albumin 3.3 L Globulin 3.6 Albumin/Globulin Ratio 0.9 L Critical Care Progress Note - Nutrition Nutrition: Nutrition Category Date Time Status Dysphagia/Modified Consistency Diet [DIET] Diets 06/17/17 Dinner Active Assessment/Plan (1) Pleural effusion Current Visit: Yes Status: Acute (2) Neoplasm of breast, distant metastasis staging category cM0(i+) per [place] [employer] Committee on Cancer Staging [place], 7th edition Current Visit: No Status: Chronic Priority: Medium Attending/Attestation - Attestation I have personally seen and examined this patient.: Yes I have fully participated in the care of the patient.: Yes I have reviewed all pertinent clinical information: Yes Notes (Text): 06/27/17 17:25 Patient seen and examined in the intensive care unit. Case discussed with staff in the morning. off BiPAP in no respiratory distress Stable for transfer to floor
--- NOTE | 2017-06-27 08:30 | RAD ---
HISTORY: bipap COMPARISON: Portable chest 06/26/2017. FINDINGS: LUNGS: Underlying left basilar atelectasis or infiltrate is not excluded and may be increased in fact. Borderline medial basilar airspace disease is appreciated. PLEURA: Mildly large left pleural effusion appears increased. None is seen at the right. No pneumothorax bilaterally. CARDIOVASCULAR: Prominent cardiomegaly is again noted with stable, persistent hypervascular hilar markings. OSSEOUS STRUCTURES: No significant abnormalities. VISUALIZED UPPER ABDOMEN: Normal. OTHER FINDINGS: None. IMPRESSION: Cardiomegaly and limited pulmonary venous congestion pattern persists with increasing left pleural effusion and potential underlying left basilar airspace disease. Borderline medial right basilar airspace disease noted.
[2017-06-27] MEDS ORDERED: Magnesium Sulfate 1 gm in D5W 1 GM/100 ML BAG IVPB ONE (09:01)
[2017-06-27] MEDS: Brimonidine 0.2% Opth Sol (5ml) OU SCH ×4 (09:36→22:00)
[2017-06-27] MEDS: Tetracaine 0.5% Ophth 2 ML BOTTLE OD SCH (09:37)
[2017-06-27] MEDS: Petrolatum Oint Foilpak (5 gm) TOP SCH (09:38)
[2017-06-27] MEDS: Enoxaparin 40 mg Syringe SC SCH (09:43)
[2017-06-27] MEDS: Potassium & Sodium Phosphate PO SCH ×2 (12:00→18:00)
[2017-06-27] MEDS: Phenol Topical 1.4% Throat Spray (180 ml) MT SCH (12:00)
[2017-06-27] MEDS: cefTRIAXone IV 1 gm in Dextros 50 ML IVPB SCH (13:19)
--- NOTE | 2017-06-27 18:03 | CP.PCM.PN ---
Subjective - Date & Time of Evaluation Date of Evaluation: 06/27/17 Time of Evaluation: 09:00 - Subjective Subjective: seen on rounds iv rx reordered Objective - Vital Signs/Intake and Output Vital Signs (last 24 hours): Temp Pulse Resp BP Pulse Ox 97.2 F L 63 20 149/80 98 06/27/17 15:00 06/27/17 15:00 06/27/17 15:00 06/27/17 06:00 06/27/17 15:00 Intake and Output: 06/27/17 06/27/17 06:59 18:59 Intake Total 200 340 Output Total 690 350 Balance -490 -10 - Medications Medications: Current Medications Albuterol/Ipratropium (Duoneb 3 Mg/0.5 Mg (3 Ml) Ud) 3 ml INH RQ4 [facility] Last Admin: 06/27/17 15:35 Dose: 3 ml Ascorbic Acid (Vitamin C 500 Mg Tab) 500 mg PO DAILY [facility] Last Admin: 06/27/17 09:34 Dose: 500 mg Aspirin (Ecotrin) 81 mg PO DAILY [facility] Last Admin: 06/27/17 09:34 Dose: 81 mg Benzocaine/Menthol (Cepacol Sore Throat) 1 luana MT Q6 [facility] Last Admin: 06/27/17 13:04 Dose: Not Given Brimonidine Tartrate (Alphagan 0.2% Opht) 0.2 ml OU QID [facility] Last Admin: 06/27/17 13:20 Dose: 1 drop Emollient Ointment (Vaseline Oint) 10 gm TOP DAILY [facility] Last Admin: 06/27/17 09:38 Dose: 10 gm Enoxaparin Sodium (Lovenox) 40 mg SC DAILY [facility] Last Admin: 06/27/17 09:43 Dose: 40 mg Famotidine (Pepcid) 20 mg PO DAILY [facility] Last Admin: 06/27/17 09:34 Dose: 20 mg Ceftriaxone Sodium (Rocephin Iv 1 Gm Duplex) 50 mls @ 100 mls/hr IVPB Q24H [facility] Last Admin: 06/27/17 13:19 Dose: 100 mls/hr Magnesium Hydroxide (Milk Of Magnesia) 30 ml PO Q6H PRN PRN Reason: Constipation Phenol/Menthol (Phenaseptic 1.4% Throat [place]) 0 ml MT DAILY [facility] Last Admin: 06/27/17 12:00 Dose: Not Given Potassium Phos/Sodium Phos (Neutra-Phos) 1 pkt PO BID [facility] Last Admin: 06/27/17 12:00 Dose: 1 pkt Rosuvastatin Calcium (Crestor) 5 mg PO HS [facility] Last Admin: 06/26/17 23:18 Dose: 5 mg Tetracaine HCl (Tetracaine 0.5% Ophth Soln) 1 drop OD DAILY [facility] Last Admin: 06/27/17 09:37 Dose: 1 drop Timolol Maleate (Timoptic 0.5% Ophth Soln) 1 drop OU QID [facility] Last Admin: 06/27/17 13:24 Dose: 1 drop - Labs Labs: 06/27/17 06:08 06/27/17 06:08 - Constitutional Appears: Non-toxic, Chronically Ill - Head Exam Head Exam: NORMOCEPHALIC - Eye Exam Eye Exam: PERRL - ENT Exam ENT Exam: Mucous Membranes Dry - Neck Exam Neck Exam: absent: Lymphadenopathy - Respiratory Exam Respiratory Exam: Decreased Breath Sounds - Cardiovascular Exam Cardiovascular Exam: REGULAR RHYTHM - GI/Abdominal Exam GI & Abdominal Exam: Distended, Soft Assessment and Plan (1) A-fib Status: Acute (2) Altered mental status Status: Acute (3) Hyperkalemia Status: Acute (4) Pleural effusion Status: Acute (5) CHF (congestive heart failure) Status: Chronic (6) Acute renal failure Status: Acute (7) Anemia Status: Acute (8) Breast cancer Status: Acute (9) CHF (congestive heart failure), NYHA class II Status: Acute (10) Dehydration Status: Acute (11) Sepsis Status: Acute (12) History of breast cancer Status: Chronic (13) Neoplasm of breast, distant metastasis staging category cM0(i+) per [place] [employer] Committee on Cancer Staging [employer], 7th edition Status: Chronic
--- NOTE | 2017-06-27 20:00 | CP.PCM.PN ---
Subjective - Date & Time of Evaluation Date of Evaluation: 06/27/17 Time of Evaluation: 07:00 - Subjective Subjective: clinically same Objective - Vital Signs/Intake and Output Vital Signs (last 24 hours): Temp Pulse Resp BP Pulse Ox 97.2 F L 63 20 149/80 98 06/27/17 15:00 06/27/17 15:00 06/27/17 15:00 06/27/17 06:00 06/27/17 15:00 Intake and Output: 06/27/17 06/28/17 18:59 06:59 Intake Total 340 Output Total 350 Balance -10 - Medications Medications: Current Medications Albuterol/Ipratropium (Duoneb 3 Mg/0.5 Mg (3 Ml) Ud) 3 ml INH RQ4 [facility] Last Admin: 06/27/17 15:35 Dose: 3 ml Ascorbic Acid (Vitamin C 500 Mg Tab) 500 mg PO DAILY [facility] Last Admin: 06/27/17 09:34 Dose: 500 mg Aspirin (Ecotrin) 81 mg PO DAILY [facility] Last Admin: 06/27/17 09:34 Dose: 81 mg Benzocaine/Menthol (Cepacol Sore Throat) 1 luana MT Q6 [facility] Last Admin: 06/27/17 18:04 Dose: Not Given Brimonidine Tartrate (Alphagan 0.2% Opht) 0.2 ml OU QID [facility] Last Admin: 06/27/17 17:57 Dose: 1 applic Emollient Ointment (Vaseline Oint) 10 gm TOP DAILY [facility] Last Admin: 06/27/17 09:38 Dose: 10 gm Enoxaparin Sodium (Lovenox) 40 mg SC DAILY [facility] Last Admin: 06/27/17 09:43 Dose: 40 mg Famotidine (Pepcid) 20 mg PO DAILY [facility] Last Admin: 06/27/17 09:34 Dose: 20 mg Ceftriaxone Sodium (Rocephin Iv 1 Gm Duplex) 50 mls @ 100 mls/hr IVPB Q24H [facility] Last Admin: 06/27/17 13:19 Dose: 100 mls/hr Magnesium Hydroxide (Milk Of Magnesia) 30 ml PO Q6H PRN PRN Reason: Constipation Phenol/Menthol (Phenaseptic 1.4% Throat [place]) 0 ml MT DAILY [facility] Last Admin: 06/27/17 12:00 Dose: Not Given Potassium Phos/Sodium Phos (Neutra-Phos) 1 pkt PO BID [facility] Last Admin: 06/27/17 12:00 Dose: 1 pkt Rosuvastatin Calcium (Crestor) 5 mg PO HS [facility] Last Admin: 06/26/17 23:18 Dose: 5 mg Tetracaine HCl (Tetracaine 0.5% Ophth Soln) 1 drop OD DAILY [facility] Last Admin: 06/27/17 09:37 Dose: 1 drop Timolol Maleate (Timoptic 0.5% Ophth Soln) 1 drop OU QID [facility] Last Admin: 06/27/17 17:56 Dose: 1 drop - Labs Labs: 06/27/17 06:08 06/27/17 06:08 - Constitutional Appears: Well - Head Exam Head Exam: ATRAUMATIC, NORMAL INSPECTION, NORMOCEPHALIC - Eye Exam Eye Exam: EOMI, Normal appearance, PERRL Pupil Exam: NORMAL ACCOMODATION, PERRL - ENT Exam ENT Exam: Mucous Membranes Moist, Normal Exam - Neck Exam Neck Exam: Full ROM, Normal Inspection. absent: Lymphadenopathy - Respiratory Exam Respiratory Exam: Decreased Breath Sounds - Cardiovascular Exam Cardiovascular Exam: REGULAR RHYTHM, +S1, +S2 - GI/Abdominal Exam GI & Abdominal Exam: Soft, Diminished Bowel Sounds - Rectal Exam Rectal Exam: Deferred Assessment and Plan (1) A-fib Status: Acute (2) Altered mental status Status: Acute (3) Hyperkalemia Status: Acute (4) Pleural effusion Status: Acute (5) Thrombocytopenia Status: Acute (6) CHF (congestive heart failure) Status: Chronic (7) Acute renal failure Status: Acute (8) Anemia Status: Acute (9) Breast cancer Status: Acute (10) CHF (congestive heart failure), NYHA class II Status: Acute (11) Dehydration Status: Acute (12) Elevated brain natriuretic peptide (BNP) level Status: Acute (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 (14) Glaucoma (increased eye pressure) Status: Acute (15) Hyponatremia with decreased serum osmolality Status: Acute (16) PVC (premature ventricular contraction) Status: Acute (17) Postmenopausal bleeding Status: Acute (18) Prophylactic measure Status: Acute (19) Sepsis Status: Acute (20) UTI (urinary tract infection) Status: Acute (21) HTN (hypertension) Status: Chronic (22) History of breast cancer Status: Chronic (23) Neoplasm of breast, distant metastasis staging category cM0(i+) per [place] Joint Committee on Cancer Staging [employer], 7th edition Status: Chronic (24) Open leg wound Status: Chronic - Assessment and Plan (Free Text) Plan: Patient examined. Patient better. Continue ceftriaxone. Continue aspirin, bronchodilators. Continue supportive care.
--- NOTE | 2017-06-27 23:51 | CP.PCM.PN ---
Subjective - Date & Time of Evaluation Date of Evaluation: 06/27/17 Time of Evaluation: 20:10 - Subjective Subjective: Patient seen and evaluated Not in distress No cardiac events Physical Examination - Constitutional Appears: Non-toxic, Chronically Ill - Head Exam Head Exam: NORMOCEPHALIC - Eye Exam Eye Exam: PERRL - ENT Exam ENT Exam: Mucous Membranes Dry, Normal External Ear Exam - Neck Exam Neck Exam: absent: Lymphadenopathy - Respiratory Exam Respiratory Exam: Decreased Breath Sounds - Cardiovascular Exam Cardiovascular Exam: REGULAR RHYTHM - GI/Abdominal Exam GI & Abdominal Exam: Distended, Soft - Rectal Exam Rectal Exam: Deferred - Exam Exam: NORMAL INSPECTION - Extremities Exam Extremities Exam: absent: Pedal Edema - Back Exam Back Exam: absent: CVA tenderness (L), CVA tenderness (R) - Neurological Exam Neurological Exam: Alert, Altered, Awake - Psychiatric Exam Psychiatric exam: Depressed - Skin Skin Exam: Dry Objective - Vital Signs/Intake and Output Vital Signs (last 24 hours): Temp Pulse Resp BP Pulse Ox 97.2 F L 63 20 149/80 98 06/27/17 15:00 06/27/17 15:00 06/27/17 15:00 06/27/17 06:00 06/27/17 15:00 Intake and Output: 06/27/17 06/28/17 18:59 06:59 Intake Total 340 Output Total 350 Balance -10 - Medications Medications: Current Medications Albuterol/Ipratropium (Duoneb 3 Mg/0.5 Mg (3 Ml) Ud) 3 ml INH RQ4 [facility] Last Admin: 06/27/17 20:04 Dose: 3 ml Ascorbic Acid (Vitamin C 500 Mg Tab) 500 mg PO DAILY [facility] Last Admin: 06/27/17 09:34 Dose: 500 mg Aspirin (Ecotrin) 81 mg PO DAILY [facility] Last Admin: 06/27/17 09:34 Dose: 81 mg Benzocaine/Menthol (Cepacol Sore Throat) 1 luana MT Q6 [facility] Last Admin: 06/27/17 18:04 Dose: Not Given Brimonidine Tartrate (Alphagan 0.2% Opht) 0.2 ml OU QID [facility] Last Admin: 06/27/17 17:57 Dose: 1 applic Emollient Ointment (Vaseline Oint) 10 gm TOP DAILY [facility] Last Admin: 06/27/17 09:38 Dose: 10 gm Enoxaparin Sodium (Lovenox) 40 mg SC DAILY [facility] Last Admin: 06/27/17 09:43 Dose: 40 mg Famotidine (Pepcid) 20 mg PO DAILY [facility] Last Admin: 06/27/17 09:34 Dose: 20 mg Ceftriaxone Sodium (Rocephin Iv 1 Gm Duplex) 50 mls @ 100 mls/hr IVPB Q24H [facility] Last Admin: 06/27/17 13:19 Dose: 100 mls/hr Magnesium Hydroxide (Milk Of Magnesia) 30 ml PO Q6H PRN PRN Reason: Constipation Phenol/Menthol (Phenaseptic 1.4% Throat [place]) 0 ml MT DAILY [facility] Last Admin: 06/27/17 12:00 Dose: Not Given Potassium Phos/Sodium Phos (Neutra-Phos) 1 pkt PO BID [facility] Last Admin: 06/27/17 12:00 Dose: 1 pkt Rosuvastatin Calcium (Crestor) 5 mg PO HS [facility] Last Admin: 06/27/17 21:08 Dose: 5 mg Tetracaine HCl (Tetracaine 0.5% Ophth Soln) 1 drop OD DAILY [facility] Last Admin: 06/27/17 09:37 Dose: 1 drop Timolol Maleate (Timoptic 0.5% Ophth Soln) 1 drop OU QID [facility] Last Admin: 06/27/17 21:09 Dose: 1 drop - Labs Labs: 06/27/17 06:08 06/27/17 06:08 Assessment and Plan - Assessment and Plan (Free Text) Assessment: (1) CAD and Diastolic CHF Chronic Assessment and Plan: Conserative mgt with ASA and Lasix (2) Altered mental status Assessment and Plan: given history of breast cancer, will need to rule out brain metastasis will send for non contrast scan for now given renal failure Status: Acute (3) Pleural effusion Assessment and Plan: rule out malignant ascites pulmonary following Status: Acute (4) Breast cancer Assessment and Plan: supportive care for now was on hormonal treatment in the past
[2017-06-28] MEDS: Benzocaine/Menthol (Cepacol) Lozenge MT SCH ×4 (00:25→18:00)
[2017-06-28] MEDS: Albuterol-Ipratrop 3 mg / 0.5 (3 ml) UD INH SCH ×8 (01:46→23:41)
[2017-06-28 07:14] LABS: BASO % 0.6 % (0.0-2.0); EOS # 0.2 K/uL (0.0-0.7); HEMATOCRIT 41.7 % (34.0-47.0); LYMPH % 17.7 % (20.0-40.0); MEAN CORPUSCULAR HEMOGLOBIN 26.1 pg (27.0-31.0); MEAN CORPUSCULAR HGB CONC 29.9 g/dL (33.0-37.0); MEAN PLATELET VOLUME 9.1 fL (7.2-11.7); MONO # 0.8 K/uL (0.0-0.8); MONO % 13.2 % (0.0-10.0); NRBC % 0.2 % (0.0-2.0); RED CELL DISTRIBUTION WIDTH 14.8 % (11.5-14.5); WHITE BLOOD COUNT 5.9 K/uL (4.8-10.8)
[2017-06-28 07:27] LABS: MEAN CELL VOLUME 87.1 fL (81.0-99.0)
[2017-06-28 07:37] LABS: ALB/GLOB RATIO 1.3 (1.0-2.1); ALKALINE PHOSPHATASE 50 U/L (38-126); ALT/SGPT 43 U/L (9-52); AST/SGOT 32 U/L (14-36); BILIRUBIN,TOTAL 1.4 mg/dL (0.2-1.3); BLOOD UREA NITROGEN 17 mg/dL (7-17); CALCIUM 8.1 mg/dl (8.6-10.4); CARBON DIOXIDE 32 mmol/L (22-30); CHLORIDE 96 mmol/L (98-107); GFR AFRICAN-AMERICAN > 60; GLUCOSE,RANDOM 108 mg/dL (65-105); MAGNESIUM 1.6 mg/dL (1.6-2.3); PHOSPHOROUS 2.7 mg/dL (2.5-4.5); POTASSIUM 4.6 mmol/L (3.6-5.2); SODIUM 135 mmol/L (132-148); TOTAL PROTEIN 5.9 g/dL (6.3-8.3)
--- NOTE | 2017-06-28 08:50 | CP.PCM.PN ---
Subjective - Date & Time of Evaluation Date of Evaluation: 06/28/17 Time of Evaluation: 07:00 - Subjective Subjective: clinically same Objective - Vital Signs/Intake and Output Vital Signs (last 24 hours): Temp Pulse Resp BP Pulse Ox 98.3 F 64 20 145/92 H 100 06/28/17 07:38 06/28/17 07:38 06/28/17 07:38 06/28/17 07:38 06/28/17 07:38 Intake and Output: 06/28/17 06/28/17 06:59 18:59 Intake Total 100 Output Total 200 Balance -100 - Medications Medications: Current Medications Albuterol/Ipratropium (Duoneb 3 Mg/0.5 Mg (3 Ml) Ud) 3 ml INH RQ4 [facility] Last Admin: 06/28/17 07:26 Dose: 3 ml Ascorbic Acid (Vitamin C 500 Mg Tab) 500 mg PO DAILY [facility] Last Admin: 06/27/17 09:34 Dose: 500 mg Aspirin (Ecotrin) 81 mg PO DAILY [facility] Last Admin: 06/27/17 09:34 Dose: 81 mg Benzocaine/Menthol (Cepacol Sore Throat) 1 luana MT Q6 [facility] Last Admin: 06/28/17 06:10 Dose: Not Given Brimonidine Tartrate (Alphagan 0.2% Opht) 0.2 ml OU QID [facility] Last Admin: 06/27/17 17:57 Dose: 1 applic Emollient Ointment (Vaseline Oint) 10 gm TOP DAILY [facility] Last Admin: 06/27/17 09:38 Dose: 10 gm Enoxaparin Sodium (Lovenox) 40 mg SC DAILY [facility] Last Admin: 06/27/17 09:43 Dose: 40 mg Famotidine (Pepcid) 20 mg PO DAILY [facility] Last Admin: 06/27/17 09:34 Dose: 20 mg Ceftriaxone Sodium (Rocephin Iv 1 Gm Duplex) 50 mls @ 100 mls/hr IVPB Q24H [facility] Last Admin: 06/27/17 13:19 Dose: 100 mls/hr Magnesium Hydroxide (Milk Of Magnesia) 30 ml PO Q6H PRN PRN Reason: Constipation Phenol/Menthol (Phenaseptic 1.4% Throat [place]) 0 ml MT DAILY [facility] Last Admin: 06/27/17 12:00 Dose: Not Given Potassium Phos/Sodium Phos (Neutra-Phos) 1 pkt PO BID [facility] Last Admin: 06/27/17 12:00 Dose: 1 pkt Rosuvastatin Calcium (Crestor) 5 mg PO HS [facility] Last Admin: 06/27/17 21:08 Dose: 5 mg Tetracaine HCl (Tetracaine 0.5% Ophth Soln) 1 drop OD DAILY [facility] Last Admin: 06/27/17 09:37 Dose: 1 drop Timolol Maleate (Timoptic 0.5% Ophth Soln) 1 drop OU QID [facility] Last Admin: 06/27/17 21:09 Dose: 1 drop - Labs Labs: 06/28/17 07:04 06/28/17 07:04 - Constitutional Appears: Well - Head Exam Head Exam: ATRAUMATIC, NORMAL INSPECTION, NORMOCEPHALIC - Eye Exam Eye Exam: EOMI, Normal appearance, PERRL Pupil Exam: NORMAL ACCOMODATION, PERRL - ENT Exam ENT Exam: Mucous Membranes Moist, Normal Exam - Neck Exam Neck Exam: Full ROM, Normal Inspection. absent: Lymphadenopathy - Respiratory Exam Respiratory Exam: Decreased Breath Sounds - Cardiovascular Exam Cardiovascular Exam: REGULAR RHYTHM, +S1, +S2 - GI/Abdominal Exam GI & Abdominal Exam: Soft, Diminished Bowel Sounds - Rectal Exam Rectal Exam: Deferred Assessment and Plan (1) A-fib Status: Acute (2) Altered mental status Status: Acute (3) Hyperkalemia Status: Acute (4) Pleural effusion Status: Acute (5) Thrombocytopenia Status: Acute (6) CHF (congestive heart failure) Status: Chronic (7) Acute renal failure Status: Acute (8) Anemia Status: Acute (9) Breast cancer Status: Acute (10) CHF (congestive heart failure), NYHA class II Status: Acute (11) Dehydration Status: Acute (12) Elevated brain natriuretic peptide (BNP) level Status: Acute (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 (14) Glaucoma (increased eye pressure) Status: Acute (15) Hyponatremia with decreased serum osmolality Status: Acute (16) PVC (premature ventricular contraction) Status: Acute (17) Postmenopausal bleeding Status: Acute (18) Prophylactic measure Status: Acute (19) Sepsis Status: Acute (20) UTI (urinary tract infection) Status: Acute (21) HTN (hypertension) Status: Chronic (22) History of breast cancer Status: Chronic (23) Neoplasm of breast, distant metastasis staging category cM0(i+) per [place] Joint Committee on Cancer Staging [employer], 7th edition Status: Chronic (24) Open leg wound Status: Chronic
[2017-06-28] MEDS: Enoxaparin 40 mg Syringe SC SCH (10:33)
[2017-06-28] MEDS: Potassium & Sodium Phosphate PO SCH ×2 (10:34→17:56)
[2017-06-28] MEDS: Petrolatum Oint Foilpak (5 gm) TOP SCH (10:36)
[2017-06-28] MEDS: Brimonidine 0.2% Opth Sol (5ml) OU SCH ×4 (10:37→22:15)
[2017-06-28] MEDS: Tetracaine 0.5% Ophth 2 ML BOTTLE OD SCH (10:38)
[2017-06-28] MEDS: Phenol Topical 1.4% Throat Spray (180 ml) MT SCH (11:05)
--- NOTE | 2017-06-28 12:14 | CP.PCM.PN ---
Subjective - Date & Time of Evaluation Date of Evaluation: 06/28/17 Time of Evaluation: 09:30 - Subjective Subjective: Patient seen and examined. Sitting in no respiratory distress getting nebulizer treatment On BiPAP at night and as needed Afebrile Objective - Vital Signs/Intake and Output Vital Signs (last 24 hours): Temp Pulse Resp BP Pulse Ox 98.3 F 64 20 145/92 H 100 06/28/17 07:38 06/28/17 07:38 06/28/17 07:38 06/28/17 07:38 06/28/17 07:38 Intake and Output: 06/28/17 06/28/17 06:59 18:59 Intake Total 100 Output Total 200 Balance -100 - Medications Medications: Current Medications Albuterol/Ipratropium (Duoneb 3 Mg/0.5 Mg (3 Ml) Ud) 3 ml INH RQ4 [facility] Last Admin: 06/28/17 11:25 Dose: 3 ml Ascorbic Acid (Vitamin C 500 Mg Tab) 500 mg PO DAILY [facility] Last Admin: 06/28/17 10:35 Dose: 500 mg Aspirin (Ecotrin) 81 mg PO DAILY [facility] Last Admin: 06/28/17 10:35 Dose: 81 mg Benzocaine/Menthol (Cepacol Sore Throat) 1 luana MT Q6 [facility] Last Admin: 06/28/17 06:10 Dose: Not Given Brimonidine Tartrate (Alphagan 0.2% Opht) 0.2 ml OU QID [facility] Last Admin: 06/28/17 10:37 Dose: 1 applic Emollient Ointment (Vaseline Oint) 10 gm TOP DAILY [facility] Last Admin: 06/28/17 10:36 Dose: 10 gm Enoxaparin Sodium (Lovenox) 40 mg SC DAILY [facility] Last Admin: 06/28/17 10:33 Dose: 40 mg Famotidine (Pepcid) 20 mg PO DAILY [facility] Last Admin: 06/28/17 10:36 Dose: 20 mg Ceftriaxone Sodium (Rocephin Iv 1 Gm Duplex) 50 mls @ 100 mls/hr IVPB Q24H [facility] Last Admin: 06/27/17 13:19 Dose: 100 mls/hr Magnesium Hydroxide (Milk Of Magnesia) 30 ml PO Q6H PRN PRN Reason: Constipation Phenol/Menthol (Phenaseptic 1.4% Throat [place]) 0 ml MT DAILY [facility] Last Admin: 06/27/17 12:00 Dose: Not Given Potassium Phos/Sodium Phos (Neutra-Phos) 1 pkt PO BID [facility] Last Admin: 06/28/17 10:34 Dose: 1 pkt Rosuvastatin Calcium (Crestor) 5 mg PO HS [facility] Last Admin: 06/27/17 21:08 Dose: 5 mg Tetracaine HCl (Tetracaine 0.5% Ophth Soln) 1 drop OD DAILY [facility] Last Admin: 06/28/17 10:38 Dose: 1 drop Timolol Maleate (Timoptic 0.5% Ophth Soln) 1 drop OU QID [facility] Last Admin: 06/28/17 10:38 Dose: 1 drop - Labs Labs: 06/28/17 07:04 06/28/17 07:04 - Head Exam Head Exam: ATRAUMATIC, NORMOCEPHALIC - Eye Exam Eye Exam: Normal appearance - ENT Exam ENT Exam: Mucous Membranes Moist - Neck Exam Neck Exam: Full ROM, Normal Inspection - Respiratory Exam Respiratory Exam: Decreased Breath Sounds - Cardiovascular Exam Cardiovascular Exam: REGULAR RHYTHM - GI/Abdominal Exam GI & Abdominal Exam: Soft, Normal Bowel Sounds - Extremities Exam Extremities Exam: Pedal Edema Assessment and Plan (1) Hypercapnic respiratory failure Assessment & Plan: continue BiPAP Continue nebulizer treatment Followup ABG Followup chest x-ray Status: Acute (2) Pleural effusion Status: Acute (3) Neoplasm of breast, distant metastasis staging category cM0(i+) per [place] [employer] Committee on Cancer Staging [employer], 7th edition Status: Chronic (4) CHF (congestive heart failure) Status: Chronic
[2017-06-28] MEDS: cefTRIAXone IV 1 gm in Dextros 50 ML IVPB SCH (13:54)
[2017-06-28 14:48] LABS: ACETONE None Detected; ETHANOL None Detected; METHANOL None Detected
--- NOTE | 2017-06-28 19:45 | CP.PCM.PN ---
Subjective - Date & Time of Evaluation Date of Evaluation: 06/27/17 Time of Evaluation: 18:00 - Subjective Subjective: Appears comfortable Objective - Vital Signs/Intake and Output Vital Signs (last 24 hours): Temp Pulse Resp BP Pulse Ox 97.8 F 57 L 24 122/88 99 06/28/17 15:00 06/28/17 15:00 06/28/17 15:00 06/28/17 15:00 06/28/17 15:00 Intake and Output: 06/28/17 06/29/17 18:59 06:59 Intake Total 250 Output Total 800 Balance -550 - Medications Medications: Current Medications Albuterol/Ipratropium (Duoneb 3 Mg/0.5 Mg (3 Ml) Ud) 3 ml INH RQ4 [facility] Last Admin: 06/28/17 19:33 Dose: Not Given Ascorbic Acid (Vitamin C 500 Mg Tab) 500 mg PO DAILY [facility] Last Admin: 06/28/17 10:35 Dose: 500 mg Aspirin (Ecotrin) 81 mg PO DAILY [facility] Last Admin: 06/28/17 10:35 Dose: 81 mg Benzocaine/Menthol (Cepacol Sore Throat) 1 luana MT Q6 [facility] Last Admin: 06/28/17 18:00 Dose: Not Given Brimonidine Tartrate (Alphagan 0.2% Opht) 0.2 ml OU QID [facility] Last Admin: 06/28/17 17:53 Dose: 1 applic Emollient Ointment (Vaseline Oint) 10 gm TOP DAILY [facility] Last Admin: 06/28/17 10:36 Dose: 10 gm Enoxaparin Sodium (Lovenox) 40 mg SC DAILY [facility] Last Admin: 06/28/17 10:33 Dose: 40 mg Famotidine (Pepcid) 20 mg PO DAILY [facility] Last Admin: 06/28/17 10:36 Dose: 20 mg Ceftriaxone Sodium (Rocephin Iv 1 Gm Duplex) 50 mls @ 100 mls/hr IVPB Q24H [facility] Last Admin: 06/28/17 13:54 Dose: 100 mls/hr Magnesium Hydroxide (Milk Of Magnesia) 30 ml PO Q6H PRN PRN Reason: Constipation Phenol/Menthol (Phenaseptic 1.4% Throat [place]) 0 ml MT DAILY [facility] Last Admin: 06/28/17 11:05 Dose: Not Given Potassium Phos/Sodium Phos (Neutra-Phos) 1 pkt PO BID [facility] Last Admin: 06/28/17 17:56 Dose: 1 pkt Rosuvastatin Calcium (Crestor) 5 mg PO HS [facility] Last Admin: 06/27/17 21:08 Dose: 5 mg Tetracaine HCl (Tetracaine 0.5% Ophth Soln) 1 drop OD DAILY [facility] Last Admin: 06/28/17 10:38 Dose: 1 drop Timolol Maleate (Timoptic 0.5% Ophth Soln) 1 drop OU QID [facility] Last Admin: 06/28/17 17:53 Dose: 1 drop - Labs Labs: 06/28/17 07:04 06/28/17 07:04 - Head Exam Head Exam: ATRAUMATIC - Eye Exam Eye Exam: Normal appearance - ENT Exam ENT Exam: Mucous Membranes Dry - Respiratory Exam Respiratory Exam: Decreased Breath Sounds - Cardiovascular Exam Cardiovascular Exam: +S1, +S2 - GI/Abdominal Exam GI & Abdominal Exam: Normal Bowel Sounds Assessment and Plan (1) Pleural effusion Assessment & Plan: ?malignant Status: Acute (2) Thrombocytopenia Assessment & Plan: mild, cont. to monitor Status: Acute (3) Breast cancer Assessment & Plan: on hormonal therapy Status: Acute
--- NOTE | 2017-06-28 19:47 | CP.PCM.PN ---
Subjective - Date & Time of Evaluation Date of Evaluation: 06/28/17 Time of Evaluation: 15:00 - Subjective Subjective: No complaints, appears comfortable Objective - Vital Signs/Intake and Output Vital Signs (last 24 hours): Temp Pulse Resp BP Pulse Ox 97.8 F 57 L 24 122/88 99 06/28/17 15:00 06/28/17 15:00 06/28/17 15:00 06/28/17 15:00 06/28/17 15:00 Intake and Output: 06/28/17 06/29/17 18:59 06:59 Intake Total 250 Output Total 800 Balance -550 - Medications Medications: Current Medications Albuterol/Ipratropium (Duoneb 3 Mg/0.5 Mg (3 Ml) Ud) 3 ml INH RQ4 [facility] Last Admin: 06/28/17 19:33 Dose: Not Given Ascorbic Acid (Vitamin C 500 Mg Tab) 500 mg PO DAILY [facility] Last Admin: 06/28/17 10:35 Dose: 500 mg Aspirin (Ecotrin) 81 mg PO DAILY [facility] Last Admin: 06/28/17 10:35 Dose: 81 mg Benzocaine/Menthol (Cepacol Sore Throat) 1 luaan MT Q6 [facility] Last Admin: 06/28/17 18:00 Dose: Not Given Brimonidine Tartrate (Alphagan 0.2% Opht) 0.2 ml OU QID [facility] Last Admin: 06/28/17 17:53 Dose: 1 applic Emollient Ointment (Vaseline Oint) 10 gm TOP DAILY [facility] Last Admin: 06/28/17 10:36 Dose: 10 gm Enoxaparin Sodium (Lovenox) 40 mg SC DAILY [facility] Last Admin: 06/28/17 10:33 Dose: 40 mg Famotidine (Pepcid) 20 mg PO DAILY [facility] Last Admin: 06/28/17 10:36 Dose: 20 mg Ceftriaxone Sodium (Rocephin Iv 1 Gm Duplex) 50 mls @ 100 mls/hr IVPB Q24H [facility] Last Admin: 06/28/17 13:54 Dose: 100 mls/hr Magnesium Hydroxide (Milk Of Magnesia) 30 ml PO Q6H PRN PRN Reason: Constipation Phenol/Menthol (Phenaseptic 1.4% Throat [place]) 0 ml MT DAILY [facility] Last Admin: 06/28/17 11:05 Dose: Not Given Potassium Phos/Sodium Phos (Neutra-Phos) 1 pkt PO BID [facility] Last Admin: 06/28/17 17:56 Dose: 1 pkt Rosuvastatin Calcium (Crestor) 5 mg PO HS [facility] Last Admin: 06/27/17 21:08 Dose: 5 mg Tetracaine HCl (Tetracaine 0.5% Ophth Soln) 1 drop OD DAILY [facility] Last Admin: 06/28/17 10:38 Dose: 1 drop Timolol Maleate (Timoptic 0.5% Ophth Soln) 1 drop OU QID [facility] Last Admin: 06/28/17 17:53 Dose: 1 drop - Labs Labs: 06/28/17 07:04 06/28/17 07:04 - Head Exam Head Exam: ATRAUMATIC - Eye Exam Eye Exam: Normal appearance - ENT Exam ENT Exam: Mucous Membranes Dry - Respiratory Exam Respiratory Exam: Decreased Breath Sounds - Cardiovascular Exam Cardiovascular Exam: +S1, +S2 - GI/Abdominal Exam GI & Abdominal Exam: Normal Bowel Sounds Assessment and Plan (1) Pleural effusion Assessment & Plan: ?malignant Status: Acute (2) Thrombocytopenia Assessment & Plan: declining ?med related cont. to monitor Status: Acute (3) Breast cancer Assessment & Plan: on hormonal therapy Status: Acute
--- NOTE | 2017-06-28 21:30 | CP.PCM.PN ---
Subjective - Date & Time of Evaluation Date of Evaluation: 06/28/17 Time of Evaluation: 17:25 - Subjective Subjective: Patient seen and evaluated No cardiac events noted Physical Examination - Constitutional Appears: Non-toxic, Chronically Ill - Head Exam Head Exam: NORMOCEPHALIC - Eye Exam Eye Exam: PERRL - ENT Exam ENT Exam: Mucous Membranes Dry, Normal External Ear Exam - Neck Exam Neck Exam: absent: Lymphadenopathy - Respiratory Exam Respiratory Exam: Decreased Breath Sounds - Cardiovascular Exam Cardiovascular Exam: REGULAR RHYTHM - GI/Abdominal Exam GI & Abdominal Exam: Distended, Soft - Rectal Exam Rectal Exam: Deferred - Exam Exam: NORMAL INSPECTION - Extremities Exam Extremities Exam: absent: Pedal Edema - Back Exam Back Exam: absent: CVA tenderness (L), CVA tenderness (R) - Neurological Exam Neurological Exam: Alert, Altered, Awake - Psychiatric Exam Psychiatric exam: Depressed - Skin Skin Exam: Dry Objective - Vital Signs/Intake and Output Vital Signs (last 24 hours): Temp Pulse Resp BP Pulse Ox 97.8 F 57 L 24 122/88 99 06/28/17 15:00 06/28/17 15:00 06/28/17 15:00 06/28/17 15:00 06/28/17 15:00 Intake and Output: 06/28/17 06/29/17 18:59 06:59 Intake Total 250 Output Total 800 Balance -550 - Medications Medications: Current Medications Albuterol/Ipratropium (Duoneb 3 Mg/0.5 Mg (3 Ml) Ud) 3 ml INH RQ4 [facility] Last Admin: 06/28/17 19:33 Dose: Not Given Ascorbic Acid (Vitamin C 500 Mg Tab) 500 mg PO DAILY [facility] Last Admin: 06/28/17 10:35 Dose: 500 mg Aspirin (Ecotrin) 81 mg PO DAILY [facility] Last Admin: 06/28/17 10:35 Dose: 81 mg Benzocaine/Menthol (Cepacol Sore Throat) 1 luana MT Q6 [facility] Last Admin: 06/28/17 18:00 Dose: Not Given Brimonidine Tartrate (Alphagan 0.2% Opht) 0.2 ml OU QID [facility] Last Admin: 06/28/17 17:53 Dose: 1 applic Emollient Ointment (Vaseline Oint) 10 gm TOP DAILY [facility] Last Admin: 06/28/17 10:36 Dose: 10 gm Enoxaparin Sodium (Lovenox) 40 mg SC DAILY [facility] Last Admin: 06/28/17 10:33 Dose: 40 mg Famotidine (Pepcid) 20 mg PO DAILY [facility] Last Admin: 06/28/17 10:36 Dose: 20 mg Ceftriaxone Sodium (Rocephin Iv 1 Gm Duplex) 50 mls @ 100 mls/hr IVPB Q24H [facility] Last Admin: 06/28/17 13:54 Dose: 100 mls/hr Magnesium Hydroxide (Milk Of Magnesia) 30 ml PO Q6H PRN PRN Reason: Constipation Phenol/Menthol (Phenaseptic 1.4% Throat [place]) 0 ml MT DAILY [facility] Last Admin: 06/28/17 11:05 Dose: Not Given Potassium Phos/Sodium Phos (Neutra-Phos) 1 pkt PO BID [facility] Last Admin: 06/28/17 17:56 Dose: 1 pkt Rosuvastatin Calcium (Crestor) 5 mg PO HS [facility] Last Admin: 06/27/17 21:08 Dose: 5 mg Tetracaine HCl (Tetracaine 0.5% Ophth Soln) 1 drop OD DAILY [facility] Last Admin: 06/28/17 10:38 Dose: 1 drop Timolol Maleate (Timoptic 0.5% Ophth Soln) 1 drop OU QID [facility] Last Admin: 06/28/17 17:53 Dose: 1 drop - Labs Labs: 06/28/17 07:04 06/28/17 07:04 Assessment and Plan - Assessment and Plan (Free Text) Assessment: (1) CAD and Diastolic CHF Chronic Assessment and Plan: Conserative mgt with ASA and Lasix (2) Altered mental status Assessment and Plan: given history of breast cancer, will need to rule out brain metastasis will send for non contrast scan for now given renal failure Status: Acute (3) Pleural effusion Assessment and Plan: rule out malignant ascites pulmonary following Status: Acute (4) Breast cancer Assessment and Plan: supportive care for now was on hormonal treatment in the past
[2017-06-29] MEDS: Benzocaine/Menthol (Cepacol) Lozenge MT SCH ×4 (00:31→18:09)
[2017-06-29] MEDS: Albuterol-Ipratrop 3 mg / 0.5 (3 ml) UD INH SCH ×5 (03:07→19:25)
[2017-06-29] MEDS: Enoxaparin 40 mg Syringe SC SCH (10:04)
[2017-06-29] MEDS: Tetracaine 0.5% Ophth 2 ML BOTTLE OD SCH (10:06)
[2017-06-29] MEDS: Petrolatum Oint Foilpak (5 gm) TOP SCH (10:06)
[2017-06-29] MEDS: Potassium & Sodium Phosphate PO SCH ×2 (10:06→18:13)
[2017-06-29] MEDS: Brimonidine 0.2% Opth Sol (5ml) OU SCH ×4 (10:07→21:51)
[2017-06-29] MEDS: Phenol Topical 1.4% Throat Spray (180 ml) MT SCH (10:25)
[2017-06-29 13:46] LABS: BASO % 0.6 % (0.0-2.0); EOS # 0.2 K/uL (0.0-0.7); EOS % 3.2 % (0.0-4.0); HEMATOCRIT 41.7 % (34.0-47.0); LYMPH # 1.4 K/uL (1.0-4.3); LYMPH % 25.2 % (20.0-40.0); MEAN CELL VOLUME 88.1 fL (81.0-99.0); MEAN CORPUSCULAR HEMOGLOBIN 26.2 pg (27.0-31.0); MEAN CORPUSCULAR HGB CONC 29.7 g/dL (33.0-37.0); MEAN PLATELET VOLUME 10.4 fL (7.2-11.7); MONO # 0.6 K/uL (0.0-0.8); MONO % 11.4 % (0.0-10.0); NRBC % 0.1 % (0.0-2.0); WHITE BLOOD COUNT 5.5 K/uL (4.8-10.8)
[2017-06-29 13:54] LABS: ALB/GLOB RATIO 1.4 (1.0-2.1); ALKALINE PHOSPHATASE 43 U/L (38-126); ALT/SGPT 38 U/L (9-52); AST/SGOT 29 U/L (14-36); BILIRUBIN,TOTAL 1.3 mg/dL (0.2-1.3); BLOOD UREA NITROGEN 20 mg/dL (7-17); CALCIUM 8.1 mg/dl (8.6-10.4); CARBON DIOXIDE 33 mmol/L (22-30); CHLORIDE 93 mmol/L (98-107); GFR AFRICAN-AMERICAN > 60; GLUCOSE,RANDOM 139 mg/dL (65-105); POTASSIUM 4.6 mmol/L (3.6-5.2); SODIUM 133 mmol/L (132-148); TOTAL PROTEIN 5.7 g/dL (6.3-8.3)
--- NOTE | 2017-06-29 14:02 | CP.PCM.PN ---
Subjective - Date & Time of Evaluation Date of Evaluation: 06/29/17 Time of Evaluation: 08:00 - Subjective Subjective: patient seen and examined Patient was placed on BiPAP for hypoxemia this morning Appears lethargic but responsive Afebrile Objective - Vital Signs/Intake and Output Vital Signs (last 24 hours): Temp Pulse Resp BP Pulse Ox 98.9 F 65 20 136/90 95 06/29/17 08:39 06/29/17 08:39 06/29/17 08:39 06/29/17 08:39 06/29/17 08:39 Intake and Output: 06/29/17 06/29/17 06:59 18:59 Intake Total 180 Output Total 200 200 Balance -200 -20 - Medications Medications: Current Medications Albuterol/Ipratropium (Duoneb 3 Mg/0.5 Mg (3 Ml) Ud) 3 ml INH RQ4 [facility] Last Admin: 06/29/17 11:06 Dose: 3 ml Ascorbic Acid (Vitamin C 500 Mg Tab) 500 mg PO DAILY [facility] Last Admin: 06/29/17 10:05 Dose: 500 mg Aspirin (Ecotrin) 81 mg PO DAILY [facility] Last Admin: 06/29/17 10:05 Dose: 81 mg Benzocaine/Menthol (Cepacol Sore Throat) 1 luana MT Q6 [facility] Last Admin: 06/29/17 12:34 Dose: Not Given Brimonidine Tartrate (Alphagan 0.2% Opht) 0.2 ml OU QID [facility] Last Admin: 06/29/17 10:07 Dose: 1 applic Emollient Ointment (Vaseline Oint) 10 gm TOP DAILY [facility] Last Admin: 06/29/17 10:06 Dose: 10 gm Enoxaparin Sodium (Lovenox) 40 mg SC DAILY [facility] Last Admin: 06/29/17 10:04 Dose: 40 mg Famotidine (Pepcid) 20 mg PO DAILY [facility] Last Admin: 06/29/17 10:05 Dose: 20 mg Ceftriaxone Sodium (Rocephin Iv 1 Gm Duplex) 50 mls @ 100 mls/hr IVPB Q24H [facility] Last Admin: 06/28/17 13:54 Dose: 100 mls/hr Magnesium Hydroxide (Milk Of Magnesia) 30 ml PO Q6H PRN PRN Reason: Constipation Phenol/Menthol (Phenaseptic 1.4% Throat [place]) 0 ml MT DAILY [facility] Last Admin: 06/29/17 10:25 Dose: Not Given Potassium Phos/Sodium Phos (Neutra-Phos) 1 pkt PO BID [facility] Last Admin: 06/29/17 10:06 Dose: 1 pkt Rosuvastatin Calcium (Crestor) 5 mg PO HS [facility] Last Admin: 06/28/17 21:41 Dose: 5 mg Tetracaine HCl (Tetracaine 0.5% Ophth Soln) 1 drop OD DAILY [facility] Last Admin: 06/29/17 10:06 Dose: 1 drop Timolol Maleate (Timoptic 0.5% Ophth Soln) 1 drop OU QID [facility] Last Admin: 06/29/17 10:07 Dose: 1 applic - Labs Labs: 06/28/17 07:04 06/29/17 13:30 - ENT Exam ENT Exam: Mucous Membranes Moist - Neck Exam Neck Exam: Normal Inspection - Respiratory Exam Respiratory Exam: Decreased Breath Sounds - GI/Abdominal Exam GI & Abdominal Exam: Soft, Normal Bowel Sounds - Extremities Exam Extremities Exam: Normal Inspection - Neurological Exam Neurological Exam: Altered Assessment and Plan (1) Hypercapnic respiratory failure Assessment & Plan: continue BiPAP Continue nebulizer treatment Followup chest x-ray Thoracentesis only if increasing pleural effusion Status: Acute (2) Pleural effusion Status: Acute (3) Neoplasm of breast, distant metastasis staging category cM0(i+) per [place] [employer] on Cancer Staging [employer], 7th edition Status: Chronic (4) CHF (congestive heart failure) Status: Chronic
[2017-06-29] MEDS: cefTRIAXone IV 1 gm in Dextros 50 ML IVPB SCH (14:20)
--- NOTE | 2017-06-29 15:59 | CP.PCM.PN ---
Subjective - Date & Time of Evaluation Date of Evaluation: 06/29/17 Time of Evaluation: 08:00 - Subjective Subjective: back on BiPap no fever weak and bedridden Objective - Vital Signs/Intake and Output Vital Signs (last 24 hours): Temp Pulse Resp BP Pulse Ox 98.9 F 65 20 136/90 95 06/29/17 08:39 06/29/17 08:39 06/29/17 08:39 06/29/17 08:39 06/29/17 08:39 Intake and Output: 06/29/17 06/29/17 06:59 18:59 Intake Total 180 Output Total 200 200 Balance -200 -20 - Medications Medications: Current Medications Albuterol/Ipratropium (Duoneb 3 Mg/0.5 Mg (3 Ml) Ud) 3 ml INH RQ4 [facility] Last Admin: 06/29/17 11:06 Dose: 3 ml Ascorbic Acid (Vitamin C 500 Mg Tab) 500 mg PO DAILY [facility] Last Admin: 06/29/17 10:05 Dose: 500 mg Aspirin (Ecotrin) 81 mg PO DAILY [facility] Last Admin: 06/29/17 10:05 Dose: 81 mg Benzocaine/Menthol (Cepacol Sore Throat) 1 luana MT Q6 [facility] Last Admin: 06/29/17 12:34 Dose: Not Given Brimonidine Tartrate (Alphagan 0.2% Opht) 0.2 ml OU QID [facility] Last Admin: 06/29/17 14:22 Dose: 1 applic Emollient Ointment (Vaseline Oint) 10 gm TOP DAILY [facility] Last Admin: 06/29/17 10:06 Dose: 10 gm Enoxaparin Sodium (Lovenox) 40 mg SC DAILY [facility] Last Admin: 06/29/17 10:04 Dose: 40 mg Famotidine (Pepcid) 20 mg PO DAILY [facility] Last Admin: 06/29/17 10:05 Dose: 20 mg Ceftriaxone Sodium (Rocephin Iv 1 Gm Duplex) 50 mls @ 100 mls/hr IVPB Q24H [facility] Last Admin: 06/29/17 14:20 Dose: 100 mls/hr Magnesium Hydroxide (Milk Of Magnesia) 30 ml PO Q6H PRN PRN Reason: Constipation Phenol/Menthol (Phenaseptic 1.4% Throat [place]) 0 ml MT DAILY [facility] Last Admin: 06/29/17 10:25 Dose: Not Given Potassium Phos/Sodium Phos (Neutra-Phos) 1 pkt PO BID [facility] Last Admin: 06/29/17 10:06 Dose: 1 pkt Rosuvastatin Calcium (Crestor) 5 mg PO HS [facility] Last Admin: 06/28/17 21:41 Dose: 5 mg Tetracaine HCl (Tetracaine 0.5% Ophth Soln) 1 drop OD DAILY [facility] Last Admin: 06/29/17 10:06 Dose: 1 drop Timolol Maleate (Timoptic 0.5% Ophth Soln) 1 drop OU QID [facility] Last Admin: 06/29/17 14:23 Dose: 1 applic - Labs Labs: 06/29/17 13:30 06/29/17 13:30 - Constitutional Appears: Non-toxic, Cachectic - Head Exam Head Exam: NORMOCEPHALIC - Eye Exam Eye Exam: PERRL - ENT Exam ENT Exam: Mucous Membranes Dry - Neck Exam Neck Exam: absent: Lymphadenopathy - Respiratory Exam Respiratory Exam: Decreased Breath Sounds - Cardiovascular Exam Cardiovascular Exam: REGULAR RHYTHM - GI/Abdominal Exam GI & Abdominal Exam: Distended, Soft Assessment and Plan (1) A-fib Status: Acute (2) Altered mental status Status: Acute (3) Hyperkalemia Status: Acute (4) Pleural effusion Status: Acute (5) CHF (congestive heart failure) Status: Chronic (6) Acute renal failure Status: Acute (7) Anemia Status: Acute (8) Breast cancer Status: Acute (9) CHF (congestive heart failure), NYHA class II Status: Acute (10) Dehydration Status: Acute (11) Sepsis Status: Acute (12) History of breast cancer Status: Chronic (13) Neoplasm of breast, distant metastasis staging category cM0(i+) per [place] [employer] on Cancer Staging [employer], 7th edition Status: Chronic
--- NOTE | 2017-06-29 19:37 | CP.PCM.PN ---
Subjective - Date & Time of Evaluation Date of Evaluation: 06/29/17 Time of Evaluation: 07:00 - Subjective Subjective: clinically same Objective - Vital Signs/Intake and Output Vital Signs (last 24 hours): Temp Pulse Resp BP Pulse Ox 98.1 F 79 20 128/70 96 06/29/17 16:53 06/29/17 18:31 06/29/17 16:53 06/29/17 18:31 06/29/17 16:53 Intake and Output: 06/29/17 06/30/17 18:59 06:59 Intake Total 430 Output Total 500 Balance -70 - Medications Medications: Current Medications Albuterol/Ipratropium (Duoneb 3 Mg/0.5 Mg (3 Ml) Ud) 3 ml INH RQ4 [facility] [place] Last Admin: 06/29/17 19:25 Dose: 3 ml Ascorbic Acid (Vitamin C 500 Mg Tab) 500 mg PO DAILY [facility] [place] Last Admin: 06/29/17 10:05 Dose: 500 mg Aspirin (Ecotrin) 81 mg PO DAILY [facility] [place] Last Admin: 06/29/17 10:05 Dose: 81 mg Benzocaine/Menthol (Cepacol Sore Throat) 1 luana MT Q6 [facility] [place] Last Admin: 06/29/17 18:09 Dose: Not Given Brimonidine Tartrate (Alphagan 0.2% Opht) 0.2 ml OU QID [facility] [place] Last Admin: 06/29/17 14:22 Dose: 1 applic Emollient Ointment (Vaseline Oint) 10 gm TOP DAILY [facility] [place] Last Admin: 06/29/17 10:06 Dose: 10 gm Enoxaparin Sodium (Lovenox) 40 mg SC DAILY [facility] [place] Last Admin: 06/29/17 10:04 Dose: 40 mg Famotidine (Pepcid) 20 mg PO DAILY [facility] [place] Last Admin: 06/29/17 10:05 Dose: 20 mg Ceftriaxone Sodium (Rocephin Iv 1 Gm Duplex) 50 mls @ 100 mls/hr IVPB Q24H [facility] [place] Last Admin: 06/29/17 14:20 Dose: 100 mls/hr Magnesium Hydroxide (Milk Of Magnesia) 30 ml PO Q6H PRN PRN Reason: Constipation Phenol/Menthol (Phenaseptic 1.4% Throat [place]) 0 ml MT DAILY [facility] [place] Last Admin: 06/29/17 10:25 Dose: Not Given Potassium Phos/Sodium Phos (Neutra-Phos) 1 pkt PO BID [facility] [place] Last Admin: 06/29/17 18:13 Dose: 1 pkt Rosuvastatin Calcium (Crestor) 5 mg PO HS [facility] [place] Last Admin: 06/28/17 21:41 Dose: 5 mg Tetracaine HCl (Tetracaine 0.5% Ophth Soln) 1 drop OD DAILY [facility] [place] Last Admin: 06/29/17 10:06 Dose: 1 drop Timolol Maleate (Timoptic 0.5% Ophth Soln) 1 drop OU QID [facility] [place] Last Admin: 06/29/17 18:13 Dose: 1 applic - Labs Labs: 06/29/17 13:30 06/29/17 13:30 - Constitutional Appears: Well - Head Exam Head Exam: ATRAUMATIC, NORMAL INSPECTION, NORMOCEPHALIC - Eye Exam Eye Exam: EOMI, Normal appearance, PERRL Pupil Exam: NORMAL ACCOMODATION, PERRL - ENT Exam ENT Exam: Mucous Membranes Moist, Normal Exam - Neck Exam Neck Exam: Full ROM, Normal Inspection. absent: Lymphadenopathy - Respiratory Exam Respiratory Exam: Decreased Breath Sounds - Cardiovascular Exam Cardiovascular Exam: REGULAR RHYTHM, +S1, +S2 - GI/Abdominal Exam GI & Abdominal Exam: Soft, Diminished Bowel Sounds - Rectal Exam Rectal Exam: Deferred Assessment and Plan (1) A-fib Status: Acute (2) Altered mental status Status: Acute (3) Hyperkalemia Status: Acute (4) Pleural effusion Status: Acute (5) Thrombocytopenia Status: Acute (6) CHF (congestive heart failure) Status: Chronic (7) Acute renal failure Status: Acute (8) Anemia Status: Acute (9) Breast cancer Status: Acute (10) CHF (congestive heart failure), NYHA class II Status: Acute (11) Dehydration Status: Acute (12) Elevated brain natriuretic peptide (BNP) level Status: Acute (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 (14) Glaucoma (increased eye pressure) Status: Acute (15) Hyponatremia with decreased serum osmolality Status: Acute (16) PVC (premature ventricular contraction) Status: Acute (17) Postmenopausal bleeding Status: Acute (18) Prophylactic measure Status: Acute (19) Sepsis Status: Acute (20) UTI (urinary tract infection) Status: Acute (21) HTN (hypertension) Status: Chronic (22) History of breast cancer Status: Chronic (23) Neoplasm of breast, distant metastasis staging category cM0(i+) per [place] [employer] on Cancer Staging [employer], 7th edition Status: Chronic (24) Open leg wound Status: Chronic
--- NOTE | 2017-06-29 21:41 | CP.PCM.PN ---
Subjective - Date & Time of Evaluation Date of Evaluation: 06/29/17 Time of Evaluation: 11:05 - Subjective Subjective: Patient seen and evaluated Not in distress Physical Examination - Constitutional Appears: Non-toxic, Chronically Ill - Head Exam Head Exam: NORMOCEPHALIC - Eye Exam Eye Exam: PERRL - ENT Exam ENT Exam: Mucous Membranes Dry, Normal External Ear Exam - Neck Exam Neck Exam: absent: Lymphadenopathy - Respiratory Exam Respiratory Exam: Decreased Breath Sounds - Cardiovascular Exam Cardiovascular Exam: REGULAR RHYTHM - GI/Abdominal Exam GI & Abdominal Exam: Distended, Soft - Rectal Exam Rectal Exam: Deferred - Exam Exam: NORMAL INSPECTION - Extremities Exam Extremities Exam: absent: Pedal Edema - Back Exam Back Exam: absent: CVA tenderness (L), CVA tenderness (R) - Neurological Exam Neurological Exam: Alert, Altered, Awake - Psychiatric Exam Psychiatric exam: Depressed - Skin Skin Exam: Dry Objective - Vital Signs/Intake and Output Vital Signs (last 24 hours): Temp Pulse Resp BP Pulse Ox 98.1 F 79 20 128/70 96 06/29/17 16:53 06/29/17 18:31 06/29/17 16:53 06/29/17 18:31 06/29/17 16:53 Intake and Output: 06/29/17 06/30/17 18:59 06:59 Intake Total 430 Output Total 500 Balance -70 - Medications Medications: Current Medications Albuterol/Ipratropium (Duoneb 3 Mg/0.5 Mg (3 Ml) Ud) 3 ml INH RQ4 [facility] Last Admin: 06/29/17 19:25 Dose: 3 ml Ascorbic Acid (Vitamin C 500 Mg Tab) 500 mg PO DAILY [facility] Last Admin: 06/29/17 10:05 Dose: 500 mg Aspirin (Ecotrin) 81 mg PO DAILY [facility] Last Admin: 06/29/17 10:05 Dose: 81 mg Benzocaine/Menthol (Cepacol Sore Throat) 1 luana MT Q6 [facility] Last Admin: 06/29/17 18:09 Dose: Not Given Brimonidine Tartrate (Alphagan 0.2% Opht) 0.2 ml OU QID [facility] Last Admin: 06/29/17 14:22 Dose: 1 applic Emollient Ointment (Vaseline Oint) 10 gm TOP DAILY [facility] Last Admin: 06/29/17 10:06 Dose: 10 gm Enoxaparin Sodium (Lovenox) 40 mg SC DAILY [facility] Last Admin: 06/29/17 10:04 Dose: 40 mg Famotidine (Pepcid) 20 mg PO DAILY [facility] Last Admin: 06/29/17 10:05 Dose: 20 mg Ceftriaxone Sodium (Rocephin Iv 1 Gm Duplex) 50 mls @ 100 mls/hr IVPB Q24H [facility] Last Admin: 06/29/17 14:20 Dose: 100 mls/hr Magnesium Hydroxide (Milk Of Magnesia) 30 ml PO Q6H PRN PRN Reason: Constipation Phenol/Menthol (Phenaseptic 1.4% Throat [place]) 0 ml MT DAILY [facility] Last Admin: 06/29/17 10:25 Dose: Not Given Potassium Phos/Sodium Phos (Neutra-Phos) 1 pkt PO BID [facility] Last Admin: 06/29/17 18:13 Dose: 1 pkt Rosuvastatin Calcium (Crestor) 5 mg PO HS [facility] Last Admin: 06/28/17 21:41 Dose: 5 mg Tetracaine HCl (Tetracaine 0.5% Ophth Soln) 1 drop OD DAILY [facility] Last Admin: 06/29/17 10:06 Dose: 1 drop Timolol Maleate (Timoptic 0.5% Ophth Soln) 1 drop OU QID [facility] Last Admin: 06/29/17 18:13 Dose: 1 applic - Labs Labs: 06/29/17 13:30 06/29/17 13:30 Assessment and Plan - Assessment and Plan (Free Text) Assessment: (1) CAD and Diastolic CHF Chronic Assessment and Plan: Conserative mgt with ASA and Lasix (2) Altered mental status Assessment and Plan: given history of breast cancer, will need to rule out brain metastasis will send for non contrast scan for now given renal failure Status: Acute (3) Pleural effusion Assessment and Plan: rule out malignant ascites pulmonary following Status: Acute (4) Breast cancer Assessment and Plan: supportive care for now was on hormonal treatment in the past
--- NOTE | 2017-06-29 22:09 | CP.PCM.PN ---
Subjective - Date & Time of Evaluation Date of Evaluation: 06/29/17 Time of Evaluation: 16:00 - Subjective Subjective: No complaints Objective - Vital Signs/Intake and Output Vital Signs (last 24 hours): Temp Pulse Resp BP Pulse Ox 98.1 F 79 20 128/70 96 06/29/17 16:53 06/29/17 18:31 06/29/17 16:53 06/29/17 18:31 06/29/17 16:53 Intake and Output: 06/29/17 06/30/17 18:59 06:59 Intake Total 430 Output Total 500 Balance -70 - Medications Medications: Current Medications Albuterol/Ipratropium (Duoneb 3 Mg/0.5 Mg (3 Ml) Ud) 3 ml INH RQ4 [facility] Last Admin: 06/29/17 19:25 Dose: 3 ml Ascorbic Acid (Vitamin C 500 Mg Tab) 500 mg PO DAILY [facility] Last Admin: 06/29/17 10:05 Dose: 500 mg Aspirin (Ecotrin) 81 mg PO DAILY [facility] Last Admin: 06/29/17 10:05 Dose: 81 mg Benzocaine/Menthol (Cepacol Sore Throat) 1 luana MT Q6 [facility] Last Admin: 06/29/17 18:09 Dose: Not Given Brimonidine Tartrate (Alphagan 0.2% Opht) 0.2 ml OU QID [facility] Last Admin: 06/29/17 21:51 Dose: 1 applic Emollient Ointment (Vaseline Oint) 10 gm TOP DAILY [facility] Last Admin: 06/29/17 10:06 Dose: 10 gm Enoxaparin Sodium (Lovenox) 40 mg SC DAILY [facility] Last Admin: 06/29/17 10:04 Dose: 40 mg Famotidine (Pepcid) 20 mg PO DAILY [facility] Last Admin: 06/29/17 10:05 Dose: 20 mg Ceftriaxone Sodium (Rocephin Iv 1 Gm Duplex) 50 mls @ 100 mls/hr IVPB Q24H [facility] Last Admin: 06/29/17 14:20 Dose: 100 mls/hr Magnesium Hydroxide (Milk Of Magnesia) 30 ml PO Q6H PRN PRN Reason: Constipation Phenol/Menthol (Phenaseptic 1.4% Throat [place]) 0 ml MT DAILY [facility] Last Admin: 06/29/17 10:25 Dose: Not Given Potassium Phos/Sodium Phos (Neutra-Phos) 1 pkt PO BID [facility] Last Admin: 06/29/17 18:13 Dose: 1 pkt Rosuvastatin Calcium (Crestor) 5 mg PO HS [facility] Last Admin: 06/29/17 21:51 Dose: 5 mg Tetracaine HCl (Tetracaine 0.5% Ophth Soln) 1 drop OD DAILY [facility] Last Admin: 06/29/17 10:06 Dose: 1 drop Timolol Maleate (Timoptic 0.5% Ophth Soln) 1 drop OU QID [facility] Last Admin: 06/29/17 21:53 Dose: 1 applic - Labs Labs: 06/29/17 13:30 06/29/17 13:30 - Head Exam Head Exam: ATRAUMATIC - Eye Exam Eye Exam: Normal appearance - ENT Exam ENT Exam: Mucous Membranes Dry - Respiratory Exam Respiratory Exam: Decreased Breath Sounds - Cardiovascular Exam Cardiovascular Exam: +S1, +S2 - GI/Abdominal Exam GI & Abdominal Exam: Normal Bowel Sounds Assessment and Plan (1) Pleural effusion Assessment & Plan: ?malignant Status: Acute (2) Thrombocytopenia Assessment & Plan: progressive will hold lovenox if cont. heparin Ab sent Status: Acute (3) Breast cancer Assessment & Plan: on hormonal therapy Status: Acute
[2017-06-30] MEDS: Benzocaine/Menthol (Cepacol) Lozenge MT SCH ×4 (00:28→18:01)
[2017-06-30] MEDS: Albuterol-Ipratrop 3 mg / 0.5 (3 ml) UD INH SCH ×7 (00:37→23:30)
[2017-06-30] MEDS: Potassium & Sodium Phosphate PO SCH ×2 (09:21→17:54)
[2017-06-30] MEDS: Brimonidine 0.2% Opth Sol (5ml) OU SCH ×4 (09:22→21:28)
[2017-06-30] MEDS: Tetracaine 0.5% Ophth 2 ML BOTTLE OD SCH (09:22)
[2017-06-30] MEDS: Enoxaparin 40 mg Syringe SC SCH (09:24)
[2017-06-30] MEDS: Phenol Topical 1.4% Throat Spray (180 ml) MT SCH (09:29)
[2017-06-30] MEDS: Petrolatum Oint Foilpak (5 gm) TOP SCH (09:30)
--- NOTE | 2017-06-30 12:44 | CP.PCM.PN ---
Subjective - Date & Time of Evaluation Date of Evaluation: 06/30/17 Time of Evaluation: 10:00 - Subjective Subjective: the patient seen and examined Off BiPAP In no distress distress Responsive Objective - Vital Signs/Intake and Output Vital Signs (last 24 hours): Temp Pulse Resp BP Pulse Ox 98.1 F 69 20 164/97 H 100 06/30/17 08:11 06/30/17 08:11 06/30/17 08:11 06/30/17 08:11 06/30/17 08:11 Intake and Output: 06/30/17 06/30/17 06:59 18:59 Intake Total 520 Output Total 1850 Balance -1330 - Medications Medications: Current Medications Albuterol/Ipratropium (Duoneb 3 Mg/0.5 Mg (3 Ml) Ud) 3 ml INH RQ4 [facility] Last Admin: 06/30/17 07:38 Dose: 3 ml Ascorbic Acid (Vitamin C 500 Mg Tab) 500 mg PO DAILY [facility] Last Admin: 06/30/17 09:30 Dose: 500 mg Aspirin (Ecotrin) 81 mg PO DAILY [facility] Last Admin: 06/30/17 09:24 Dose: 81 mg Benzocaine/Menthol (Cepacol Sore Throat) 1 luana MT Q6 [facility] Last Admin: 06/30/17 06:34 Dose: Not Given Brimonidine Tartrate (Alphagan 0.2% Opht) 0.2 ml OU QID [facility] Last Admin: 06/30/17 09:22 Dose: 1 applic Emollient Ointment (Vaseline Oint) 10 gm TOP DAILY [facility] Last Admin: 06/30/17 09:30 Dose: 10 gm Enoxaparin Sodium (Lovenox) 40 mg SC DAILY [facility] Last Admin: 06/30/17 09:24 Dose: 40 mg Famotidine (Pepcid) 20 mg PO DAILY [facility] Last Admin: 06/29/17 10:05 Dose: 20 mg Ceftriaxone Sodium (Rocephin Iv 1 Gm Duplex) 50 mls @ 100 mls/hr IVPB Q24H [facility] Last Admin: 06/29/17 14:20 Dose: 100 mls/hr Magnesium Hydroxide (Milk Of Magnesia) 30 ml PO Q6H PRN PRN Reason: Constipation Phenol/Menthol (Phenaseptic 1.4% Throat [place]) 0 ml MT DAILY [facility] Last Admin: 06/30/17 09:29 Dose: Not Given Potassium Phos/Sodium Phos (Neutra-Phos) 1 pkt PO BID [facility] Last Admin: 06/30/17 09:21 Dose: 1 pkt Rosuvastatin Calcium (Crestor) 5 mg PO HS [facility] Last Admin: 06/29/17 21:51 Dose: 5 mg Tetracaine HCl (Tetracaine 0.5% Ophth Soln) 1 drop OD DAILY [facility] Last Admin: 06/30/17 09:22 Dose: 1 drop Timolol Maleate (Timoptic 0.5% Ophth Soln) 1 drop OU QID [facility] Last Admin: 06/30/17 09:21 Dose: 1 applic - Labs Labs: 06/29/17 13:30 06/29/17 13:30 - Head Exam Head Exam: ATRAUMATIC, NORMOCEPHALIC - ENT Exam ENT Exam: Mucous Membranes Moist - Neck Exam Neck Exam: Normal Inspection - Respiratory Exam Respiratory Exam: Decreased Breath Sounds - Cardiovascular Exam Cardiovascular Exam: REGULAR RHYTHM - GI/Abdominal Exam GI & Abdominal Exam: Soft, Normal Bowel Sounds Assessment and Plan (1) Hypercapnic respiratory failure Status: Acute (2) Pleural effusion Status: Acute (3) Neoplasm of breast, distant metastasis staging category cM0(i+) per [place] [employer] Cancer Staging [employer], 7th edition Status: Chronic (4) CHF (congestive heart failure) Status: Chronic
[2017-06-30] MEDS: cefTRIAXone IV 1 gm in Dextros 50 ML IVPB SCH (13:01)
--- NOTE | 2017-06-30 15:57 | CP.PCM.PN ---
Subjective - Date & Time of Evaluation Date of Evaluation: 06/30/17 Time of Evaluation: 07:00 - Subjective Subjective: clinically same Objective - Vital Signs/Intake and Output Vital Signs (last 24 hours): Temp Pulse Resp BP Pulse Ox 98.1 F 69 20 164/97 H 100 06/30/17 08:11 06/30/17 08:11 06/30/17 08:11 06/30/17 08:11 06/30/17 08:11 Intake and Output: 06/30/17 06/30/17 06:59 18:59 Intake Total 520 550 Output Total 1850 600 Balance -1330 -50 - Medications Medications: Current Medications Albuterol/Ipratropium (Duoneb 3 Mg/0.5 Mg (3 Ml) Ud) 3 ml INH RQ4 [facility] Last Admin: 06/30/17 13:35 Dose: 3 ml Ascorbic Acid (Vitamin C 500 Mg Tab) 500 mg PO DAILY [facility] Last Admin: 06/30/17 09:30 Dose: 500 mg Aspirin (Ecotrin) 81 mg PO DAILY [facility] Last Admin: 06/30/17 09:24 Dose: 81 mg Benzocaine/Menthol (Cepacol Sore Throat) 1 luana MT Q6 [facility] Last Admin: 06/30/17 12:58 Dose: Not Given Brimonidine Tartrate (Alphagan 0.2% Opht) 0.2 ml OU QID [facility] Last Admin: 06/30/17 13:02 Dose: 1 applic Emollient Ointment (Vaseline Oint) 10 gm TOP DAILY [facility] Last Admin: 06/30/17 09:30 Dose: 10 gm Enoxaparin Sodium (Lovenox) 40 mg SC DAILY [facility] Last Admin: 06/30/17 09:24 Dose: 40 mg Famotidine (Pepcid) 20 mg PO DAILY [facility] Last Admin: 06/30/17 10:59 Dose: 20 mg Ceftriaxone Sodium (Rocephin Iv 1 Gm Duplex) 50 mls @ 100 mls/hr IVPB Q24H [facility] Last Admin: 06/30/17 13:01 Dose: 100 mls/hr Magnesium Hydroxide (Milk Of Magnesia) 30 ml PO Q6H PRN PRN Reason: Constipation Phenol/Menthol (Phenaseptic 1.4% Throat [place]) 0 ml MT DAILY [facility] Last Admin: 06/30/17 09:29 Dose: Not Given Potassium Phos/Sodium Phos (Neutra-Phos) 1 pkt PO BID [facility] Last Admin: 06/30/17 09:21 Dose: 1 pkt Rosuvastatin Calcium (Crestor) 5 mg PO HS [facility] Last Admin: 06/29/17 21:51 Dose: 5 mg Tetracaine HCl (Tetracaine 0.5% Ophth Soln) 1 drop OD DAILY [facility] Last Admin: 06/30/17 09:22 Dose: 1 drop Timolol Maleate (Timoptic 0.5% Ophth Soln) 1 drop OU QID [facility] Last Admin: 06/30/17 13:02 Dose: 1 applic - Labs Labs: 06/29/17 13:30 06/29/17 13:30 - Constitutional Appears: Well - Head Exam Head Exam: ATRAUMATIC, NORMAL INSPECTION, NORMOCEPHALIC - Eye Exam Eye Exam: EOMI, Normal appearance, PERRL Pupil Exam: NORMAL ACCOMODATION, PERRL - ENT Exam ENT Exam: Mucous Membranes Moist, Normal Exam - Neck Exam Neck Exam: Full ROM, Normal Inspection. absent: Lymphadenopathy - Respiratory Exam Respiratory Exam: Decreased Breath Sounds - Cardiovascular Exam Cardiovascular Exam: REGULAR RHYTHM, +S1, +S2 - GI/Abdominal Exam GI & Abdominal Exam: Soft, Diminished Bowel Sounds - Rectal Exam Rectal Exam: Deferred Assessment and Plan (1) A-fib Status: Acute (2) Altered mental status Status: Acute (3) Hyperkalemia Status: Acute (4) Pleural effusion Status: Acute (5) Thrombocytopenia Status: Acute (6) CHF (congestive heart failure) Status: Chronic (7) Acute renal failure Status: Acute (8) Anemia Status: Acute (9) Breast cancer Status: Acute (10) CHF (congestive heart failure), NYHA class II Status: Acute (11) Dehydration Status: Acute (12) Elevated brain natriuretic peptide (BNP) level Status: Acute (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 (14) Glaucoma (increased eye pressure) Status: Acute (15) Hyponatremia with decreased serum osmolality Status: Acute (16) PVC (premature ventricular contraction) Status: Acute (17) Postmenopausal bleeding Status: Acute (18) Prophylactic measure Status: Acute (19) Sepsis Status: Acute (20) UTI (urinary tract infection) Status: Acute (21) HTN (hypertension) Status: Chronic (22) History of breast cancer Status: Chronic (23) Neoplasm of breast, distant metastasis staging category cM0(i+) per [place] Joint Committee on Cancer Staging [employer], 7th edition Status: Chronic (24) Open leg wound Status: Chronic
--- NOTE | 2017-06-30 21:12 | CP.PCM.PN ---
Subjective - Date & Time of Evaluation Date of Evaluation: 06/30/17 Time of Evaluation: 17:15 - Subjective Subjective: On bipap appears more comfortable Objective - Vital Signs/Intake and Output Vital Signs (last 24 hours): Temp Pulse Resp BP Pulse Ox 98.1 F 61 20 144/86 97 06/30/17 17:05 06/30/17 20:14 06/30/17 17:05 06/30/17 17:05 06/30/17 17:05 Intake and Output: 06/30/17 07/01/17 18:59 06:59 Intake Total 550 Output Total 600 Balance -50 - Medications Medications: Current Medications Albuterol/Ipratropium (Duoneb 3 Mg/0.5 Mg (3 Ml) Ud) 3 ml INH RQ4 [facility] Last Admin: 06/30/17 16:29 Dose: 3 ml Ascorbic Acid (Vitamin C 500 Mg Tab) 500 mg PO DAILY [facility] Last Admin: 06/30/17 09:30 Dose: 500 mg Aspirin (Ecotrin) 81 mg PO DAILY [facility] Last Admin: 06/30/17 09:24 Dose: 81 mg Benzocaine/Menthol (Cepacol Sore Throat) 1 luana MT Q6 [facility] Last Admin: 06/30/17 18:01 Dose: 1 luana Brimonidine Tartrate (Alphagan 0.2% Opht) 0.2 ml OU QID [facility] Last Admin: 06/30/17 17:53 Dose: 1 applic Emollient Ointment (Vaseline Oint) 10 gm TOP DAILY [facility] Last Admin: 06/30/17 09:30 Dose: 10 gm Enoxaparin Sodium (Lovenox) 40 mg SC DAILY [facility] Last Admin: 06/30/17 09:24 Dose: 40 mg Famotidine (Pepcid) 20 mg PO DAILY [facility] Last Admin: 06/30/17 10:59 Dose: 20 mg Ceftriaxone Sodium (Rocephin Iv 1 Gm Duplex) 50 mls @ 100 mls/hr IVPB Q24H [facility] Last Admin: 06/30/17 13:01 Dose: 100 mls/hr Magnesium Hydroxide (Milk Of Magnesia) 30 ml PO Q6H PRN PRN Reason: Constipation Phenol/Menthol (Phenaseptic 1.4% Throat [place]) 0 ml MT DAILY [facility] Last Admin: 06/30/17 09:29 Dose: Not Given Potassium Phos/Sodium Phos (Neutra-Phos) 1 pkt PO BID [facility] Last Admin: 06/30/17 17:54 Dose: 1 pkt Rosuvastatin Calcium (Crestor) 5 mg PO HS [facility] Last Admin: 06/29/17 21:51 Dose: 5 mg Tetracaine HCl (Tetracaine 0.5% Ophth Soln) 1 drop OD DAILY [facility] Last Admin: 06/30/17 09:22 Dose: 1 drop Timolol Maleate (Timoptic 0.5% Ophth Soln) 1 drop OU QID [facility] Last Admin: 06/30/17 17:53 Dose: 1 applic - Labs Labs: 06/29/17 13:30 06/29/17 13:30 - Head Exam Head Exam: ATRAUMATIC - Eye Exam Eye Exam: Normal appearance - ENT Exam ENT Exam: Mucous Membranes Dry - Respiratory Exam Respiratory Exam: Decreased Breath Sounds - Cardiovascular Exam Cardiovascular Exam: +S1, +S2 - GI/Abdominal Exam GI & Abdominal Exam: Normal Bowel Sounds Assessment and Plan (1) Pleural effusion Assessment & Plan: ?malignant breathing improved with bipap Status: Acute (2) Thrombocytopenia Assessment & Plan: downtrending cont. to monitor Status: Acute (3) Breast cancer Assessment & Plan: on hormonal therapy Status: Acute
--- NOTE | 2017-06-30 23:23 | CP.PCM.PN ---
Subjective - Date & Time of Evaluation Date of Evaluation: 06/30/17 Time of Evaluation: 09:10 - Subjective Subjective: Patient seen and evaluated No cardiac events noted Physical Examination - Constitutional Appears: Non-toxic, Chronically Ill - Head Exam Head Exam: NORMOCEPHALIC - Eye Exam Eye Exam: PERRL - ENT Exam ENT Exam: Mucous Membranes Dry, Normal External Ear Exam - Neck Exam Neck Exam: absent: Lymphadenopathy - Respiratory Exam Respiratory Exam: Decreased Breath Sounds - Cardiovascular Exam Cardiovascular Exam: REGULAR RHYTHM - GI/Abdominal Exam GI & Abdominal Exam: Distended, Soft - Rectal Exam Rectal Exam: Deferred - Exam Exam: NORMAL INSPECTION - Extremities Exam Extremities Exam: absent: Pedal Edema - Back Exam Back Exam: absent: CVA tenderness (L), CVA tenderness (R) - Neurological Exam Neurological Exam: Alert, Altered, Awake - Psychiatric Exam Psychiatric exam: Depressed - Skin Skin Exam: Dry Objective - Vital Signs/Intake and Output Vital Signs (last 24 hours): Temp Pulse Resp BP Pulse Ox 98.1 F 62 20 144/86 97 06/30/17 17:05 06/30/17 22:39 06/30/17 17:05 06/30/17 17:05 06/30/17 17:05 Intake and Output: 06/30/17 07/01/17 18:59 06:59 Intake Total 550 250 Output Total 600 400 Balance -50 -150 - Medications Medications: Current Medications Albuterol/Ipratropium (Duoneb 3 Mg/0.5 Mg (3 Ml) Ud) 3 ml INH RQ4 [facility] Last Admin: 06/30/17 22:38 Dose: 3 ml Ascorbic Acid (Vitamin C 500 Mg Tab) 500 mg PO DAILY [facility] Last Admin: 06/30/17 09:30 Dose: 500 mg Aspirin (Ecotrin) 81 mg PO DAILY [facility] Last Admin: 06/30/17 09:24 Dose: 81 mg Benzocaine/Menthol (Cepacol Sore Throat) 1 luana MT Q6 [facility] Last Admin: 06/30/17 18:01 Dose: 1 luana Brimonidine Tartrate (Alphagan 0.2% Opht) 0.2 ml OU QID [facility] Last Admin: 06/30/17 21:28 Dose: 1 applic Emollient Ointment (Vaseline Oint) 10 gm TOP DAILY [facility] Last Admin: 06/30/17 09:30 Dose: 10 gm Enoxaparin Sodium (Lovenox) 40 mg SC DAILY [facility] Last Admin: 06/30/17 09:24 Dose: 40 mg Famotidine (Pepcid) 20 mg PO DAILY [facility] Last Admin: 06/30/17 10:59 Dose: 20 mg Ceftriaxone Sodium (Rocephin Iv 1 Gm Duplex) 50 mls @ 100 mls/hr IVPB Q24H [facility] Last Admin: 06/30/17 13:01 Dose: 100 mls/hr Magnesium Hydroxide (Milk Of Magnesia) 30 ml PO Q6H PRN PRN Reason: Constipation Phenol/Menthol (Phenaseptic 1.4% Throat [place]) 0 ml MT DAILY [facility] Last Admin: 06/30/17 09:29 Dose: Not Given Potassium Phos/Sodium Phos (Neutra-Phos) 1 pkt PO BID [facility] Last Admin: 06/30/17 17:54 Dose: 1 pkt Rosuvastatin Calcium (Crestor) 5 mg PO HS [facility] Last Admin: 06/30/17 21:28 Dose: 5 mg Tetracaine HCl (Tetracaine 0.5% Ophth Soln) 1 drop OD DAILY [facility] Last Admin: 06/30/17 09:22 Dose: 1 drop Timolol Maleate (Timoptic 0.5% Ophth Soln) 1 drop OU QID [facility] Last Admin: 06/30/17 21:28 Dose: 1 applic - Labs Labs: 06/29/17 13:30 06/29/17 13:30 Assessment and Plan - Assessment and Plan (Free Text) Assessment: (1) CAD and Diastolic CHF Chronic Assessment and Plan: Conserative mgt with ASA and Lasix (2) Altered mental status Assessment and Plan: given history of breast cancer, will need to rule out brain metastasis will send for non contrast scan for now given renal failure Status: Acute (3) Pleural effusion Assessment and Plan: rule out malignant ascites pulmonary following Status: Acute (4) Breast cancer Assessment and Plan: supportive care for now was on hormonal treatment in the past
[2017-07-01] MEDS: Benzocaine/Menthol (Cepacol) Lozenge MT SCH ×4 (00:11→17:52)
[2017-07-01] MEDS: Albuterol-Ipratrop 3 mg / 0.5 (3 ml) UD INH SCH ×5 (03:08→19:55)
[2017-07-01] MEDS: Tetracaine 0.5% Ophth 2 ML BOTTLE OD SCH (11:00)
[2017-07-01] MEDS: Enoxaparin 40 mg Syringe SC SCH (11:00)
[2017-07-01] MEDS: Brimonidine 0.2% Opth Sol (5ml) OU SCH ×3 (11:00→17:45)
[2017-07-01] MEDS: Petrolatum Oint Foilpak (5 gm) TOP SCH (11:01)
[2017-07-01] MEDS: Phenol Topical 1.4% Throat Spray (180 ml) MT SCH (11:01)
[2017-07-01] MEDS: Potassium & Sodium Phosphate PO SCH ×2 (11:01→17:50)
--- NOTE | 2017-07-01 12:32 | CP.PCM.PN ---
Subjective - Date & Time of Evaluation Date of Evaluation: 07/01/17 Time of Evaluation: 07:00 - Subjective Subjective: clinically same Objective - Vital Signs/Intake and Output Vital Signs (last 24 hours): Temp Pulse Resp BP Pulse Ox 97.1 F L 75 20 142/84 95 07/01/17 08:23 07/01/17 08:23 07/01/17 08:23 07/01/17 08:23 07/01/17 08:23 Intake and Output: 07/01/17 07/01/17 06:59 18:59 Intake Total 370 Output Total 800 Balance -430 - Medications Medications: Current Medications Albuterol/Ipratropium (Duoneb 3 Mg/0.5 Mg (3 Ml) Ud) 3 ml INH RQ4 [facility] Last Admin: 07/01/17 11:33 Dose: Not Given Ascorbic Acid (Vitamin C 500 Mg Tab) 500 mg PO DAILY [facility] Last Admin: 07/01/17 11:06 Dose: 500 mg Aspirin (Ecotrin) 81 mg PO DAILY [facility] Last Admin: 07/01/17 11:00 Dose: 81 mg Benzocaine/Menthol (Cepacol Sore Throat) 1 luana MT Q6 [facility] Last Admin: 07/01/17 11:06 Dose: Not Given Brimonidine Tartrate (Alphagan 0.2% Opht) 0.2 ml OU QID [facility] Last Admin: 07/01/17 11:00 Dose: 1 applic Emollient Ointment (Vaseline Oint) 10 gm TOP DAILY [facility] Last Admin: 07/01/17 11:01 Dose: 10 gm Enoxaparin Sodium (Lovenox) 40 mg SC DAILY [facility] Last Admin: 07/01/17 11:00 Dose: 40 mg Famotidine (Pepcid) 20 mg PO DAILY [facility] Last Admin: 07/01/17 11:01 Dose: 20 mg Ceftriaxone Sodium (Rocephin Iv 1 Gm Duplex) 50 mls @ 100 mls/hr IVPB Q24H [facility] Last Admin: 06/30/17 13:01 Dose: 100 mls/hr Magnesium Hydroxide (Milk Of Magnesia) 30 ml PO Q6H PRN PRN Reason: Constipation Phenol/Menthol (Phenaseptic 1.4% Throat [place]) 0 ml MT DAILY [facility] Last Admin: 07/01/17 11:01 Dose: Not Given Potassium Phos/Sodium Phos (Neutra-Phos) 1 pkt PO BID [facility] Last Admin: 07/01/17 11:01 Dose: 1 pkt Rosuvastatin Calcium (Crestor) 5 mg PO HS [facility] Last Admin: 06/30/17 21:28 Dose: 5 mg Tetracaine HCl (Tetracaine 0.5% Ophth Soln) 1 drop OD DAILY [facility] Last Admin: 07/01/17 11:00 Dose: 1 drop Timolol Maleate (Timoptic 0.5% Ophth Soln) 1 drop OU QID [facility] Last Admin: 07/01/17 11:00 Dose: 1 applic - Labs Labs: 06/29/17 13:30 06/29/17 13:30 Assessment and Plan (1) A-fib Status: Acute (2) Altered mental status Status: Acute (3) Hyperkalemia Status: Acute (4) Pleural effusion Status: Acute (5) Thrombocytopenia Status: Acute (6) CHF (congestive heart failure) Status: Chronic (7) Acute renal failure Status: Acute (8) Anemia Status: Acute (9) Breast cancer Status: Acute (10) CHF (congestive heart failure), NYHA class II Status: Acute (11) Dehydration Status: Acute (12) Elevated brain natriuretic peptide (BNP) level Status: Acute (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 (14) Glaucoma (increased eye pressure) Status: Acute (15) Hyponatremia with decreased serum osmolality Status: Acute (16) PVC (premature ventricular contraction) Status: Acute (17) Postmenopausal bleeding Status: Acute (18) Prophylactic measure Status: Acute (19) Sepsis Status: Acute (20) UTI (urinary tract infection) Status: Acute (21) HTN (hypertension) Status: Chronic (22) History of breast cancer Status: Chronic (23) Neoplasm of breast, distant metastasis staging category cM0(i+) per [place] Joint Committee on Cancer Staging [employer], 7th edition Status: Chronic (24) Open leg wound Status: Chronic
[2017-07-01] MEDS: cefTRIAXone IV 1 gm in Dextros 50 ML IVPB SCH (13:07)
--- NOTE | 2017-07-01 14:46 | CP.PCM.PN ---
Subjective - Date & Time of Evaluation Date of Evaluation: 07/01/17 Time of Evaluation: 09:00 - Subjective Subjective: On bipap appears more comfortable Objective - Vital Signs/Intake and Output Vital Signs (last 24 hours): Temp Pulse Resp BP Pulse Ox 97.1 F L 75 20 142/84 95 07/01/17 08:23 07/01/17 08:23 07/01/17 08:23 07/01/17 08:23 07/01/17 08:23 Intake and Output: 07/01/17 07/01/17 06:59 18:59 Intake Total 370 Output Total 800 Balance -430 - Medications Medications: Current Medications Albuterol/Ipratropium (Duoneb 3 Mg/0.5 Mg (3 Ml) Ud) 3 ml INH RQ4 [facility] Last Admin: 07/01/17 11:33 Dose: Not Given Ascorbic Acid (Vitamin C 500 Mg Tab) 500 mg PO DAILY [facility] Last Admin: 07/01/17 11:06 Dose: 500 mg Aspirin (Ecotrin) 81 mg PO DAILY [facility] Last Admin: 07/01/17 11:00 Dose: 81 mg Benzocaine/Menthol (Cepacol Sore Throat) 1 luana MT Q6 [facility] Last Admin: 07/01/17 11:06 Dose: Not Given Brimonidine Tartrate (Alphagan 0.2% Opht) 0.2 ml OU QID [facility] Last Admin: 07/01/17 13:08 Dose: Not Given Emollient Ointment (Vaseline Oint) 10 gm TOP DAILY [facility] Last Admin: 07/01/17 11:01 Dose: 10 gm Enoxaparin Sodium (Lovenox) 40 mg SC DAILY [facility] Last Admin: 07/01/17 11:00 Dose: 40 mg Famotidine (Pepcid) 20 mg PO DAILY [facility] Last Admin: 07/01/17 11:01 Dose: 20 mg Ceftriaxone Sodium (Rocephin Iv 1 Gm Duplex) 50 mls @ 100 mls/hr IVPB Q24H [facility] Last Admin: 07/01/17 13:07 Dose: 100 mls/hr Magnesium Hydroxide (Milk Of Magnesia) 30 ml PO Q6H PRN PRN Reason: Constipation Phenol/Menthol (Phenaseptic 1.4% Throat [place]) 0 ml MT DAILY [facility] Last Admin: 11/19/17 11:01 Dose: Not Given Potassium Phos/Sodium Phos (Neutra-Phos) 1 pkt PO BID [facility] Last Admin: 07/01/17 11:01 Dose: 1 pkt Rosuvastatin Calcium (Crestor) 5 mg PO HS [facility] Last Admin: 06/30/17 21:28 Dose: 5 mg Tetracaine HCl (Tetracaine 0.5% Ophth Soln) 1 drop OD DAILY [facility] Last Admin: 07/01/17 11:00 Dose: 1 drop Timolol Maleate (Timoptic 0.5% Ophth Soln) 1 drop OU QID [facility] Last Admin: 07/01/17 13:08 Dose: Not Given - Labs Labs: 06/29/17 13:30 06/29/17 13:30 - Constitutional Appears: Non-toxic, Chronically Ill - Head Exam Head Exam: NORMOCEPHALIC - Eye Exam Eye Exam: PERRL - ENT Exam ENT Exam: Mucous Membranes Dry - Neck Exam Neck Exam: absent: Lymphadenopathy - Respiratory Exam Respiratory Exam: Decreased Breath Sounds - Cardiovascular Exam Cardiovascular Exam: REGULAR RHYTHM - GI/Abdominal Exam GI & Abdominal Exam: Distended, Soft Assessment and Plan (1) A-fib Status: Acute (2) Altered mental status Status: Acute (3) Hyperkalemia Status: Acute (4) Pleural effusion Status: Acute (5) CHF (congestive heart failure) Status: Chronic (6) Acute renal failure Status: Acute (7) Anemia Status: Acute (8) Breast cancer Status: Acute (9) CHF (congestive heart failure), NYHA class II Status: Acute (10) Dehydration Status: Acute (11) Sepsis Status: Acute (12) History of breast cancer Status: Chronic (13) Neoplasm of breast, distant metastasis staging category cM0(i+) per [place] Joint Committee on Cancer Staging [employer], 7th edition Status: Chronic
--- NOTE | 2017-07-01 16:04 | CP.PCM.PN ---
Subjective - Date & Time of Evaluation Date of Evaluation: 07/01/17 Time of Evaluation: 15:00 - Subjective Subjective: Patient seen and examined. Off BiPAP in no respiratory distress Responsive Objective - Vital Signs/Intake and Output Vital Signs (last 24 hours): Temp Pulse Resp BP Pulse Ox 97.1 F L 75 20 142/84 95 07/01/17 08:23 07/01/17 08:23 07/01/17 08:23 07/01/17 08:23 07/01/17 08:23 Intake and Output: 07/01/17 07/01/17 06:59 18:59 Intake Total 370 380 Output Total 800 400 Balance -430 -20 - Medications Medications: Current Medications Albuterol/Ipratropium (Duoneb 3 Mg/0.5 Mg (3 Ml) Ud) 3 ml INH RQ4 [facility] Last Admin: 07/01/17 11:33 Dose: Not Given Ascorbic Acid (Vitamin C 500 Mg Tab) 500 mg PO DAILY [facility] Last Admin: 07/01/17 11:06 Dose: 500 mg Aspirin (Ecotrin) 81 mg PO DAILY [facility] Last Admin: 07/01/17 11:00 Dose: 81 mg Benzocaine/Menthol (Cepacol Sore Throat) 1 luana MT Q6 [facility] Last Admin: 07/01/17 11:06 Dose: Not Given Brimonidine Tartrate (Alphagan 0.2% Opht) 0.2 ml OU QID [facility] Last Admin: 07/01/17 13:08 Dose: Not Given Emollient Ointment (Vaseline Oint) 10 gm TOP DAILY [facility] Last Admin: 07/01/17 11:01 Dose: 10 gm Enoxaparin Sodium (Lovenox) 40 mg SC DAILY [facility] Last Admin: 07/01/17 11:00 Dose: 40 mg Famotidine (Pepcid) 20 mg PO DAILY [facility] Last Admin: 07/01/17 11:01 Dose: 20 mg Ceftriaxone Sodium (Rocephin Iv 1 Gm Duplex) 50 mls @ 100 mls/hr IVPB Q24H [facility] Last Admin: 07/01/17 13:07 Dose: 100 mls/hr Magnesium Hydroxide (Milk Of Magnesia) 30 ml PO Q6H PRN PRN Reason: Constipation Phenol/Menthol (Phenaseptic 1.4% Throat [place]) 0 ml MT DAILY [facility] Last Admin: 07/01/17 11:01 Dose: Not Given Potassium Phos/Sodium Phos (Neutra-Phos) 1 pkt PO BID [facility] Last Admin: 07/01/17 11:01 Dose: 1 pkt Rosuvastatin Calcium (Crestor) 5 mg PO HS [facility] Last Admin: 06/30/17 21:28 Dose: 5 mg Tetracaine HCl (Tetracaine 0.5% Ophth Soln) 1 drop OD DAILY [facility] Last Admin: 07/01/17 11:00 Dose: 1 drop Timolol Maleate (Timoptic 0.5% Ophth Soln) 1 drop OU QID [facility] Last Admin: 07/01/17 13:08 Dose: Not Given - Labs Labs: 06/29/17 13:30 06/29/17 13:30 - Constitutional Appears: No Acute Distress - Head Exam Head Exam: ATRAUMATIC, NORMOCEPHALIC - ENT Exam ENT Exam: Mucous Membranes Moist - Neck Exam Neck Exam: Normal Inspection - Respiratory Exam Respiratory Exam: Decreased Breath Sounds - Cardiovascular Exam Cardiovascular Exam: REGULAR RHYTHM - GI/Abdominal Exam GI & Abdominal Exam: Soft, Normal Bowel Sounds - Extremities Exam Extremities Exam: Pedal Edema Assessment and Plan (1) Hypercapnic respiratory failure Assessment & Plan: BiPAP as needed Follow-up ABG Continue nebulizer treatment Clinically improving Status: Acute (2) Pleural effusion Status: Acute (3) Neoplasm of breast, distant metastasis staging category cM0(i+) per [place] Joint Committee on Cancer Staging [employer], 7th edition Status: Chronic (4) CHF (congestive heart failure) Status: Chronic
--- NOTE | 2017-07-01 20:03 | CP.PCM.PN ---
Subjective - Date & Time of Evaluation Date of Evaluation: 07/01/17 Time of Evaluation: 15:10 - Subjective Subjective: Patient seen and evaluated Denies chest pain and dyspnea Not in distress Physical Examination - Constitutional Appears: Non-toxic, Chronically Ill - Head Exam Head Exam: NORMOCEPHALIC - Eye Exam Eye Exam: PERRL - ENT Exam ENT Exam: Mucous Membranes Dry, Normal External Ear Exam - Neck Exam Neck Exam: absent: Lymphadenopathy - Respiratory Exam Respiratory Exam: Decreased Breath Sounds - Cardiovascular Exam Cardiovascular Exam: REGULAR RHYTHM - GI/Abdominal Exam GI & Abdominal Exam: Distended, Soft - Rectal Exam Rectal Exam: Deferred - Exam Exam: NORMAL INSPECTION - Extremities Exam Extremities Exam: absent: Pedal Edema - Back Exam Back Exam: absent: CVA tenderness (L), CVA tenderness (R) - Neurological Exam Neurological Exam: Alert, Altered, Awake - Psychiatric Exam Psychiatric exam: Depressed - Skin Skin Exam: Dry Objective - Vital Signs/Intake and Output Vital Signs (last 24 hours): Temp Pulse Resp BP Pulse Ox 97.9 F 61 20 156/98 H 97 07/01/17 16:00 07/01/17 16:00 07/01/17 16:00 07/01/17 16:00 07/01/17 16:00 Intake and Output: 07/01/17 07/02/17 18:59 06:59 Intake Total 380 Output Total 400 Balance -20 - Medications Medications: Current Medications Albuterol/Ipratropium (Duoneb 3 Mg/0.5 Mg (3 Ml) Ud) 3 ml INH RQ4 [facility] Last Admin: 07/01/17 19:55 Dose: 3 ml Ascorbic Acid (Vitamin C 500 Mg Tab) 500 mg PO DAILY [facility] Last Admin: 07/01/17 11:06 Dose: 500 mg Aspirin (Ecotrin) 81 mg PO DAILY [facility] Last Admin: 07/01/17 11:00 Dose: 81 mg Benzocaine/Menthol (Cepacol Sore Throat) 1 luana MT Q6 [facility] Last Admin: 07/01/17 17:52 Dose: Not Given Emollient Ointment (Vaseline Oint) 10 gm TOP DAILY [facility] Last Admin: 07/01/17 11:01 Dose: 10 gm Enoxaparin Sodium (Lovenox) 40 mg SC DAILY [facility] Last Admin: 07/01/17 11:00 Dose: 40 mg Ceftriaxone Sodium (Rocephin Iv 1 Gm Duplex) 50 mls @ 100 mls/hr IVPB Q24H [facility] Last Admin: 07/01/17 13:07 Dose: 100 mls/hr Magnesium Hydroxide (Milk Of Magnesia) 30 ml PO Q6H PRN PRN Reason: Constipation Phenol/Menthol (Phenaseptic 1.4% Throat [place]) 0 ml MT DAILY [facility] Last Admin: 07/01/17 11:01 Dose: Not Given Potassium Phos/Sodium Phos (Neutra-Phos) 1 pkt PO BID [facility] Last Admin: 07/01/17 17:50 Dose: 1 pkt Rosuvastatin Calcium (Crestor) 5 mg PO HS [facility] Last Admin: 06/30/17 21:28 Dose: 5 mg Tetracaine HCl (Tetracaine 0.5% Ophth Soln) 1 drop OD DAILY [facility] Last Admin: 07/01/17 11:00 Dose: 1 drop - Labs Labs: 06/29/17 13:30 06/29/17 13:30 Assessment and Plan - Assessment and Plan (Free Text) Assessment: (1) CAD and Diastolic CHF Chronic Assessment and Plan: Conserative mgt with ASA and Lasix (2) Altered mental status Assessment and Plan: given history of breast cancer, will need to rule out brain metastasis will send for non contrast scan for now given renal failure Status: Acute (3) Pleural effusion Assessment and Plan: rule out malignant ascites pulmonary following Status: Acute (4) Breast cancer Assessment and Plan: supportive care for now was on hormonal treatment in the past
[2017-07-02] MEDS: Benzocaine/Menthol (Cepacol) Lozenge MT SCH ×4 (00:08→17:51)
[2017-07-02] MEDS: Albuterol-Ipratrop 3 mg / 0.5 (3 ml) UD INH SCH ×6 (01:20→19:25)
[2017-07-02] MEDS: Enoxaparin 40 mg Syringe SC SCH (10:06)
[2017-07-02] MEDS: Potassium & Sodium Phosphate PO SCH ×2 (10:13→18:49)
--- NOTE | 2017-07-02 11:38 | EEG ---
DATE: 06/22/2017 This is a 16-channel electroencephalogram of awake and drowsy adult. During the study, photic stimulation was performed. Hyperventilation was not performed. The resting electroencephalogram begin with diffuse delta activity superimposed with persistent muscle artifact contaminated the background rhythm. The photic stimulation did not evoke any response noted at 2-20 Hz. This slow activity is continuously noted from the beginning to the end. During the study neither electroencephalographic paroxysmal activities nor focal slowing noted. Joey Nicholas MD
[2017-07-02] MEDS: Phenol Topical 1.4% Throat Spray (180 ml) MT SCH (11:46)
--- NOTE | 2017-07-02 12:17 | VASCLAB ---
PROCEDURE: Lower Extremity Venous Duplex Exam. HISTORY: Leg swelling PRIORS: None. TECHNIQUE: Bilateral common femoral, femoral, popliteal and posterior tibial, peroneal and great saphenous veins were evaluated. Flow was assessed with color Doppler, compressibility, assessment of phasic flow and augmentation response. Report prepared by MARCIO Newell FINDINGS: RIGHT: 1. Common Femoral Vein: 1.1. Compressibility - Fully compressible: Thrombus - None : Flow - Phasic: Augmentation -Normal: Reflux - None. 2. Femoral Vein: 2.1. Compressibility - Fully compressible: Thrombus - None : Flow - Phasic: Augmentation -Normal: Reflux - None. 3. Popliteal Vein: 3.1. Compressibility - Fully compressible: Thrombus - None : Flow - Phasic: Augmentation -Normal: Reflux - None. 4. Posterior Tibial Vein: 4.1. Unable to visualize due to swelling 5. Peroneal Vein: 5.1. Unable to visualize due to swelling 6. Great Saphenous Vein: (lower only) Upper GSV was not visualized. 6.1. Compressibility - Fully compressible: Thrombus - None: Flow - Phasic: Augmentation - Normal: Reflux - None. LEFT: 1. Common Femoral Vein: 1.1. Compressibility - Fully compressible: Thrombus - None: Flow - Phasic: Augmentation -Normal: Reflux - None. 2. Femoral Vein: 2.1. Compressibility - Fully compressible: Thrombus - None: Flow - Phasic: Augmentation -Normal: Reflux - None. 3. Popliteal Vein: 3.1. Compressibility - Fully compressible: Thrombus - None : Flow - Phasic: Augmentation -Normal: Reflux - None. 4. Posterior Tibial Vein: 4.1. Compressibility - Fully compressible: Thrombus - None: Flow - Phasic: Augmentation -Normal: Reflux - None. 5. Peroneal Vein: 5.1. Unable to visualize due to swelling 6. Great Saphenous Vein: 6.1. Compressibility - Fully compressible: Thrombus - None: Flow - Phasic: Augmentation - Normal: Reflux - None. OTHER FINDINGS: Right: None significant. Left: None significant. IMPRESSION: Right: No evidence of deep or superficial vein thrombosis of the right lower extremity, for the imaged veins. Normal valve function noted of the right side. Left: No evidence of deep or superficial vein thrombosis of the left lower extremity, for the imaged veins. Normal valve function noted of the left side.
[2017-07-02] MEDS: cefTRIAXone IV 1 gm in Dextros 50 ML IVPB SCH (14:54)
[2017-07-02] MEDS: Petrolatum Oint Foilpak (5 gm) TOP SCH (14:58)
[2017-07-02] MEDS: Tetracaine 0.5% Ophth 2 ML BOTTLE OD SCH (14:58)
--- NOTE | 2017-07-02 15:37 | CP.PCM.PN ---
Subjective - Date & Time of Evaluation Date of Evaluation: 07/02/17 Time of Evaluation: 08:00 - Subjective Subjective: the patient seen and examined. Patient much more awake and responsive Off BiPAP No respiratory distress Objective - Vital Signs/Intake and Output Vital Signs (last 24 hours): Temp Pulse Resp BP Pulse Ox 98.2 F 61 20 155/97 H 96 07/02/17 08:26 07/02/17 08:26 07/02/17 08:26 07/02/17 08:26 07/02/17 08:26 Intake and Output: 07/02/17 07/02/17 06:59 18:59 Intake Total 100 Output Total 1300 Balance -1200 - Medications Medications: Current Medications Albuterol/Ipratropium (Duoneb 3 Mg/0.5 Mg (3 Ml) Ud) 3 ml INH RQ4 [facility] Last Admin: 07/02/17 11:18 Dose: 3 ml Aspirin (Ecotrin) 81 mg PO DAILY [facility] Last Admin: 07/02/17 10:06 Dose: 81 mg Benzocaine/Menthol (Cepacol Sore Throat) 1 luana MT Q6 [facility] Last Admin: 07/02/17 14:41 Dose: Not Given Ceftriaxone Sodium (Rocephin Iv 1 Gm Duplex) 50 mls @ 100 mls/hr IVPB Q24H [facility] Last Admin: 07/02/17 14:54 Dose: 100 mls/hr Magnesium Hydroxide (Milk Of Magnesia) 30 ml PO Q6H PRN PRN Reason: Constipation Phenol/Menthol (Phenaseptic 1.4% Throat [place]) 0 ml MT DAILY [facility] Last Admin: 07/02/17 11:46 Dose: Not Given Potassium Phos/Sodium Phos (Neutra-Phos) 1 pkt PO BID [facility] Last Admin: 07/02/17 10:13 Dose: 1 pkt - Labs Labs: 06/29/17 13:30 06/29/17 13:30 - Head Exam Head Exam: ATRAUMATIC, NORMOCEPHALIC - ENT Exam ENT Exam: Mucous Membranes Moist - Neck Exam Neck Exam: Normal Inspection - Respiratory Exam Respiratory Exam: Decreased Breath Sounds - Cardiovascular Exam Cardiovascular Exam: REGULAR RHYTHM - GI/Abdominal Exam GI & Abdominal Exam: Soft, Normal Bowel Sounds - Neurological Exam Neurological Exam: Awake Assessment and Plan (1) Hypercapnic respiratory failure Assessment & Plan: Clinically much improved BiPAP at night Continue nebulizer treatment Status: Acute (2) Pleural effusion Status: Acute (3) Neoplasm of breast, distant metastasis staging category cM0(i+) per [place] [employer] Committee on Cancer Staging [place], 7th edition Status: Chronic (4) CHF (congestive heart failure) Status: Chronic
--- NOTE | 2017-07-02 18:48 | CP.PCM.PN ---
Subjective - Date & Time of Evaluation Date of Evaluation: 07/02/17 Time of Evaluation: 07:00 - Subjective Subjective: clinically same Objective - Vital Signs/Intake and Output Vital Signs (last 24 hours): Temp Pulse Resp BP Pulse Ox 97 F L 65 22 154/89 H 95 07/02/17 15:00 07/02/17 15:00 07/02/17 15:00 07/02/17 15:00 07/02/17 15:00 Intake and Output: 07/02/17 07/02/17 06:59 18:59 Intake Total 100 Output Total 1300 Balance -1200 - Medications Medications: Current Medications Albuterol/Ipratropium (Duoneb 3 Mg/0.5 Mg (3 Ml) Ud) 3 ml INH RQ4 [facility] Last Admin: 07/02/17 16:36 Dose: 3 ml Aspirin (Ecotrin) 81 mg PO DAILY [facility] Last Admin: 07/02/17 10:06 Dose: 81 mg Benzocaine/Menthol (Cepacol Sore Throat) 1 luana MT Q6 [facility] Last Admin: 07/02/17 17:51 Dose: Not Given Ceftriaxone Sodium (Rocephin Iv 1 Gm Duplex) 50 mls @ 100 mls/hr IVPB Q24H [facility] Last Admin: 07/02/17 14:54 Dose: 100 mls/hr Magnesium Hydroxide (Milk Of Magnesia) 30 ml PO Q6H PRN PRN Reason: Constipation Phenol/Menthol (Phenaseptic 1.4% Throat [place]) 0 ml MT DAILY [facility] Last Admin: 07/02/17 11:46 Dose: Not Given Potassium Phos/Sodium Phos (Neutra-Phos) 1 pkt PO BID [facility] Last Admin: 07/02/17 10:13 Dose: 1 pkt - Labs Labs: 06/29/17 13:30 06/29/17 13:30 Assessment and Plan (1) A-fib Status: Acute (2) Altered mental status Status: Acute (3) Hyperkalemia Status: Acute (4) Pleural effusion Status: Acute (5) Thrombocytopenia Status: Acute (6) CHF (congestive heart failure) Status: Chronic (7) Acute renal failure Status: Acute (8) Anemia Status: Acute (9) Breast cancer Status: Acute (10) CHF (congestive heart failure), NYHA class II Status: Acute (11) Dehydration Status: Acute (12) Elevated brain natriuretic peptide (BNP) level Status: Acute (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 (14) Glaucoma (increased eye pressure) Status: Acute (15) Hyponatremia with decreased serum osmolality Status: Acute (16) PVC (premature ventricular contraction) Status: Acute (17) Postmenopausal bleeding Status: Acute (18) Prophylactic measure Status: Acute (19) Sepsis Status: Acute (20) UTI (urinary tract infection) Status: Acute (21) HTN (hypertension) Status: Chronic (22) History of breast cancer Status: Chronic (23) Neoplasm of breast, distant metastasis staging category cM0(i+) per [place] [employer] on Cancer Staging [place], 7th edition Status: Chronic (24) Open leg wound Status: Chronic
[2017-07-03] MEDS: Benzocaine/Menthol (Cepacol) Lozenge MT SCH ×3 (00:02→12:06)
[2017-07-03] MEDS: Albuterol-Ipratrop 3 mg / 0.5 (3 ml) UD INH SCH ×5 (00:50→15:57)
[2017-07-03 07:29] LABS: BASO % 0.8 % (0.0-2.0); EOS # 0.1 K/uL (0.0-0.7); EOS % 2.3 % (0.0-4.0); HEMATOCRIT 39.8 % (34.0-47.0); LYMPH # 1.1 K/uL (1.0-4.3); LYMPH % 25.2 % (20.0-40.0); MEAN CELL VOLUME 86.8 fL (81.0-99.0); MEAN CORPUSCULAR HEMOGLOBIN 26.5 pg (27.0-31.0); MEAN CORPUSCULAR HGB CONC 30.6 g/dL (33.0-37.0); MEAN PLATELET VOLUME 11.5 fL (7.2-11.7); MONO # 0.5 K/uL (0.0-0.8); MONO % 11.5 % (0.0-10.0); NRBC % 0.1 % (0.0-2.0); RED CELL DISTRIBUTION WIDTH 14.3 % (11.5-14.5); WHITE BLOOD COUNT 4.5 K/uL (4.8-10.8)
[2017-07-03 08:53] LABS: BLOOD UREA NITROGEN 10 mg/dL (7-17); CALCIUM 8.4 mg/dl (8.6-10.4); CARBON DIOXIDE 40 mmol/L (22-30); CHLORIDE 93 mmol/L (98-107); GFR AFRICAN-AMERICAN > 60; GLUCOSE,RANDOM 93 mg/dL (65-105); POTASSIUM 4.3 mmol/L (3.6-5.2); SODIUM 134 mmol/L (132-148)
--- NOTE | 2017-07-03 08:59 | CP.PCM.PN ---
Subjective - Date & Time of Evaluation Date of Evaluation: 07/03/17 Time of Evaluation: 07:00 - Subjective Subjective: clinically same Objective - Vital Signs/Intake and Output Vital Signs (last 24 hours): Temp Pulse Resp BP Pulse Ox 97.7 F 70 23 152/97 H 95 07/03/17 07:25 07/03/17 07:25 07/03/17 07:25 07/03/17 07:25 07/03/17 07:25 Intake and Output: 07/03/17 07/03/17 06:59 18:59 Intake Total 170 Output Total 1200 Balance -1030 - Medications Medications: Current Medications Albuterol/Ipratropium (Duoneb 3 Mg/0.5 Mg (3 Ml) Ud) 3 ml INH RQ4 [facility] Last Admin: 07/03/17 07:24 Dose: 3 ml Aspirin (Ecotrin) 81 mg PO DAILY [facility] Last Admin: 07/02/17 10:06 Dose: 81 mg Benzocaine/Menthol (Cepacol Sore Throat) 1 luana MT Q6 [facility] Last Admin: 07/03/17 06:43 Dose: Not Given Ceftriaxone Sodium (Rocephin Iv 1 Gm Duplex) 50 mls @ 100 mls/hr IVPB Q24H [facility] Last Admin: 07/02/17 14:54 Dose: 100 mls/hr Magnesium Hydroxide (Milk Of Magnesia) 30 ml PO Q6H PRN PRN Reason: Constipation Phenol/Menthol (Phenaseptic 1.4% Throat [place]) 0 ml MT DAILY [facility] Last Admin: 07/02/17 11:46 Dose: Not Given Potassium Phos/Sodium Phos (Neutra-Phos) 1 pkt PO BID [facility] Last Admin: 07/02/17 18:49 Dose: 1 pkt - Labs Labs: 07/03/17 07:14 07/03/17 07:14 Assessment and Plan (1) A-fib Status: Acute (2) Altered mental status Status: Acute (3) Hyperkalemia Status: Acute (4) Pleural effusion Status: Acute (5) Thrombocytopenia Status: Acute (6) CHF (congestive heart failure) Status: Chronic (7) Acute renal failure Status: Acute (8) Anemia Status: Acute (9) Breast cancer Status: Acute (10) CHF (congestive heart failure), NYHA class II Status: Acute (11) Dehydration Status: Acute (12) Elevated brain natriuretic peptide (BNP) level Status: Acute (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 (14) Glaucoma (increased eye pressure) Status: Acute (15) Hyponatremia with decreased serum osmolality Status: Acute (16) PVC (premature ventricular contraction) Status: Acute (17) Postmenopausal bleeding Status: Acute (18) Prophylactic measure Status: Acute (19) Sepsis Status: Acute (20) UTI (urinary tract infection) Status: Acute (21) HTN (hypertension) Status: Chronic (22) History of breast cancer Status: Chronic (23) Neoplasm of breast, distant metastasis staging category cM0(i+) per [place] Joint Committee on Cancer Staging [employer], 7th edition Status: Chronic (24) Open leg wound Status: Chronic
[2017-07-03] MEDS: Potassium & Sodium Phosphate PO SCH (09:21)
[2017-07-03] MEDS: Phenol Topical 1.4% Throat Spray (180 ml) MT SCH (09:22)
--- NOTE | 2017-07-03 10:59 | RAD ---
Chest x-ray single frontal view History: Infiltrate. Comparison: 06/27/2017 Findings: Moderate to large loculated left pleural effusion. Moderate venous congestion. Dense confluent consolidative changes in the left mid to lower lung zone as well as the right infrahilar region. Right hilar prominence. Cardiomegaly. Calcification at the aortic knob. Lung apices are obscured by the overlying chin. Degenerative changes in the spine and shoulders. Impression: Moderate to large loculated left pleural effusion. Moderate venous congestion. Dense confluent consolidative changes in the left mid to lower lung zone as well as the right infrahilar region. Right hilar prominence. Cardiomegaly. Calcification at the aortic knob.
[2017-07-03] MEDS ORDERED: Influenza Vaccine 60 mcg/0.5 mL SYR (4YR UP) IM ONE (13:19)
--- NOTE | 2017-07-03 13:35 | CP.PCM.PN ---
Subjective - Date & Time of Evaluation Date of Evaluation: 07/02/17 Time of Evaluation: 13:00 - Subjective Subjective: Seen eating, more conversational Objective - Vital Signs/Intake and Output Vital Signs (last 24 hours): Temp Pulse Resp BP Pulse Ox 97.7 F 70 23 155/89 H 95 07/03/17 07:25 07/03/17 07:25 07/03/17 07:25 07/03/17 12:30 07/03/17 07:25 Intake and Output: 07/03/17 07/03/17 06:59 18:59 Intake Total 170 Output Total 1200 Balance -1030 - Medications Medications: Current Medications Albuterol/Ipratropium (Duoneb 3 Mg/0.5 Mg (3 Ml) Ud) 3 ml INH RQ4 [facility] Last Admin: 07/03/17 11:26 Dose: 3 ml Aspirin (Ecotrin) 81 mg PO DAILY [facility] Last Admin: 07/03/17 09:21 Dose: 81 mg Benzocaine/Menthol (Cepacol Sore Throat) 1 luana MT Q6 [facility] Last Admin: 07/03/17 12:06 Dose: Not Given Furosemide (Lasix) 20 mg PO DAILY [facility] Last Admin: 07/03/17 12:30 Dose: 20 mg Ceftriaxone Sodium (Rocephin Iv 1 Gm Duplex) 50 mls @ 100 mls/hr IVPB Q24H [facility] Last Admin: 07/02/17 14:54 Dose: 100 mls/hr Lisinopril (Zestril) 2.5 mg PO DAILY [facility] Last Admin: 07/03/17 12:30 Dose: 2.5 mg Magnesium Hydroxide (Milk Of Magnesia) 30 ml PO Q6H PRN PRN Reason: Constipation Phenol/Menthol (Phenaseptic 1.4% Throat [place]) 0 ml MT DAILY [facility] Last Admin: 07/03/17 09:22 Dose: 1 spr Potassium Phos/Sodium Phos (Neutra-Phos) 1 pkt PO BID [facility] Last Admin: 07/03/17 09:21 Dose: 1 pkt - Labs Labs: 07/03/17 07:14 07/03/17 07:14 - Head Exam Head Exam: ATRAUMATIC - Eye Exam Eye Exam: Normal appearance - ENT Exam ENT Exam: Mucous Membranes Dry - Respiratory Exam Respiratory Exam: Decreased Breath Sounds - Cardiovascular Exam Cardiovascular Exam: +S1, +S2 - GI/Abdominal Exam GI & Abdominal Exam: Normal Bowel Sounds Assessment and Plan (1) Pleural effusion Assessment & Plan: ? 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
--- NOTE | 2017-07-03 13:38 | CP.PCM.PN ---
Subjective - Date & Time of Evaluation Date of Evaluation: 07/03/17 Time of Evaluation: 12:45 - Subjective Subjective: Seen eating, no complaints. Objective - Vital Signs/Intake and Output Vital Signs (last 24 hours): Temp Pulse Resp BP Pulse Ox 97.7 F 70 23 155/89 H 95 07/03/17 07:25 07/03/17 07:25 07/03/17 07:25 07/03/17 12:30 07/03/17 07:25 Intake and Output: 07/03/17 07/03/17 06:59 18:59 Intake Total 170 Output Total 1200 Balance -1030 - Medications Medications: Current Medications Albuterol/Ipratropium (Duoneb 3 Mg/0.5 Mg (3 Ml) Ud) 3 ml INH RQ4 [facility] Last Admin: 07/03/17 11:26 Dose: 3 ml Aspirin (Ecotrin) 81 mg PO DAILY [facility] Last Admin: 07/03/17 09:21 Dose: 81 mg Benzocaine/Menthol (Cepacol Sore Throat) 1 luana MT Q6 [facility] Last Admin: 07/03/17 12:06 Dose: Not Given Furosemide (Lasix) 20 mg PO DAILY [facility] Last Admin: 07/03/17 12:30 Dose: 20 mg Ceftriaxone Sodium (Rocephin Iv 1 Gm Duplex) 50 mls @ 100 mls/hr IVPB Q24H [facility] Last Admin: 07/02/17 14:54 Dose: 100 mls/hr Lisinopril (Zestril) 2.5 mg PO DAILY [facility] Last Admin: 07/03/17 12:30 Dose: 2.5 mg Magnesium Hydroxide (Milk Of Magnesia) 30 ml PO Q6H PRN PRN Reason: Constipation Phenol/Menthol (Phenaseptic 1.4% Throat [place]) 0 ml MT DAILY [facility] Last Admin: 07/03/17 09:22 Dose: 1 spr Potassium Phos/Sodium Phos (Neutra-Phos) 1 pkt PO BID [facility] Last Admin: 07/03/17 09:21 Dose: 1 pkt - Labs Labs: 07/03/17 07:14 07/03/17 07:14 - Head Exam Head Exam: ATRAUMATIC - Eye Exam Eye Exam: Normal appearance - ENT Exam ENT Exam: Mucous Membranes Dry - Respiratory Exam Respiratory Exam: Decreased Breath Sounds - Cardiovascular Exam Cardiovascular Exam: +S1, +S2 - GI/Abdominal Exam GI & Abdominal Exam: Normal Bowel Sounds - Extremities Exam Extremities Exam: Normal Inspection Assessment and Plan (1) Pleural effusion Assessment & Plan: ? malignant breathing better with bipap Status: Acute (2) Thrombocytopenia Assessment & Plan: progressive heparin held HIT w/u sent Status: Acute (3) Breast cancer Assessment & Plan: on hormonal therapy Status: Acute
[2017-07-03] MEDS: cefTRIAXone IV 1 gm in Dextros 50 ML IVPB SCH (13:49)
[2017-07-03 16:22] VITALS: BP 156/85; PULSE 66; RESP 22; TEMP 97.8; O2SAT 97
--- NOTE | 2017-07-03 17:21 | PCM.HF ---
Heart Failure Core Measure - Heart Failure Ejection Fraction: 40 % or Greater (EF 50%) SAFIA Inhibitor Prescribed: Yes
--- NOTE | 2017-07-03 17:24 | CP.PCM.PN ---
Objective - Vital Signs/Intake and Output Vital Signs (last 24 hours): Temp Pulse Resp BP Pulse Ox 97.8 F 66 22 156/85 H 97 07/03/17 15:21 07/03/17 15:21 07/03/17 15:21 07/03/17 15:21 07/03/17 15:21 Intake and Output: 07/03/17 07/03/17 06:59 18:59 Intake Total 170 250 Output Total 1200 700 Balance -1030 -450 - Medications Medications: Current Medications Albuterol/Ipratropium (Duoneb 3 Mg/0.5 Mg (3 Ml) Ud) 3 ml INH RQ4 [facility] Last Admin: 07/03/17 15:57 Dose: 3 ml Aspirin (Ecotrin) 81 mg PO DAILY [facility] Last Admin: 07/03/17 09:21 Dose: 81 mg Benzocaine/Menthol (Cepacol Sore Throat) 1 luana MT Q6 [facility] Last Admin: 07/03/17 12:06 Dose: Not Given Furosemide (Lasix) 20 mg PO DAILY [facility] Last Admin: 07/03/17 12:30 Dose: 20 mg Ceftriaxone Sodium (Rocephin Iv 1 Gm Duplex) 50 mls @ 100 mls/hr IVPB Q24H [facility] Last Admin: 07/03/17 13:49 Dose: 100 mls/hr Lisinopril (Zestril) 2.5 mg PO DAILY [facility] Last Admin: 07/03/17 12:30 Dose: 2.5 mg Magnesium Hydroxide (Milk Of Magnesia) 30 ml PO Q6H PRN PRN Reason: Constipation Phenol/Menthol (Phenaseptic 1.4% Throat [place]) 0 ml MT DAILY [facility] Last Admin: 07/03/17 09:22 Dose: 1 spr Potassium Phos/Sodium Phos (Neutra-Phos) 1 pkt PO BID [facility] Last Admin: 07/03/17 09:21 Dose: 1 pkt - Labs Labs: 07/03/17 07:14 07/03/17 07:14 Assessment and Plan - Assessment and Plan (Free Text) Assessment: Patient is seen and examined. Awake, alert, eating fair. No sob or chest pains. Using BIPAP at night.
== END 2017-07-03 19:31 | DRG 871 ==
LOC: C.ER 12:51 → C.9E 14:51 → C.6T 15:51 → C.9I 06-23 13:44 → C.3T 06-27 13:06
PROVIDERS: ADMIT Internal Medicine Nephrology; ATTEND Internal Medicine Nephrology
DX: A41.51 Sepsis due to Escherichia coli [E. coli] (principal); J96.02 Acute respiratory failure with hypercapnia; N17.9 Acute kidney failure, unspecified; C79.9 Secondary malignant neoplasm of unspecified site; J18.9 Pneumonia, unspecified organism; I11.0 Hypertensive heart disease with heart failure; I50.42 Chronic combined systolic (congestive) and diastolic (congestive) heart failure; R13.10 Dysphagia, unspecified; I31.3 Pericardial effusion (noninflammatory); F03.90 Unspecified dementia, unspecified severity, without behavioral disturbance, psychotic disturbance, mood disturbance, and anxiety; I42.9 Cardiomyopathy, unspecified; E87.1 Hypo-osmolality and hyponatremia; N39.0 Urinary tract infection, site not specified; G81.94 Hemiplegia, unspecified affecting left nondominant side; D69.6 Thrombocytopenia, unspecified; I48.91 Unspecified atrial fibrillation; E86.0 Dehydration; E87.5 Hyperkalemia; D64.9 Anemia, unspecified; H40.9 Unspecified glaucoma; I49.3 Ventricular premature depolarization; N95.0 Postmenopausal bleeding; F32.9 Major depressive disorder, single episode, unspecified; M19.90 Unspecified osteoarthritis, unspecified site; M06.9 Rheumatoid arthritis, unspecified; I25.10 Atherosclerotic heart disease of native coronary artery without angina pectoris; E78.5 Hyperlipidemia, unspecified; I27.20 Pulmonary hypertension, unspecified; H54.8 Legal blindness, as defined in USA; K21.9 Gastro-esophageal reflux disease without esophagitis; C50.912 Malignant neoplasm of unspecified site of left female breast